=== PATIENT | male | born 1970 | race Caucasian/White ===

== ENCOUNTER → 2017-05-29 12:40 | Outpatient (CLI) | payer BC, MEDICAID, SELFPAY ==
--- NOTE | 2017-05-29 12:44 | US_ITS ---
US scrotum HISTORY: Left testicular pain and swelling with history of epididymitis ITS.REASON: SCROTAL SWELLING ORDERING PHYSICIAN: Nino Benedict MD PATIENT AGE: 46 years COMPARISON: None FINDINGS: RIGHT TESTICLE: The right testicle has an unremarkable appearance measuring 5.5 x 2.8 x 3.8 cm. No testicular mass apparent blood flow is present. There is a medium-sized right hydrocele. There is a small epididymal cyst on the right at 3 mm.. LEFT TESTICLE: The left testicle has an unremarkable appearance measuring5 x 2.7 x 3.5 cm. No mass, hydrocele, spermatocele, or varicocele evident. Blood flow is noted to the left testicle. IMPRESSION: Right hydrocele with small right epididymal cyst otherwise negative scrotal ultrasound.
== END ==
PROVIDERS: Family Provider Internal Medicine; PCP Internal Medicine; Visit Provider Urology
DX: N50.89 Other specified disorders of the male genital organs (principal)
CPT/HCPCS: 76870

== ENCOUNTER 2017-05-31 08:00 | Outpatient (RCR) | payer BC, MEDICAID, SELFPAY | END 2017-05-31 08:02 | disposition home or self-care (01) | LOC: PT 08:00 | PROVIDERS: Visit Provider Orthopaedic Surgery | DX: M25.562 Pain in left knee (principal) | CPT/HCPCS: 97014; 97016; 97033; 97110; 97164; G0283 ==

== ENCOUNTER 2017-06-26 08:09 | Day surgery (SDC) | payer MEDICAID, SELFPAY ==
[2017-06-26] VITALS (10 sets, daily range): BP systolic 121–139; BP diastolic 71–86; PULSE 63–79; RESP 16–18; TEMP 36.6–36.8; O2SAT 95–98; BMI 25.0
--- NOTE | 2017-06-26 08:56 | HMH.ANESCL ---
[facility] Anesthesia Checklist - Patient Identification Patient Identification: Arm Band, Verbal (Name & ) - Structural Data Admitted From: Home Planned Operative Procedure/s: scrotal exploration Consent for Planned Operative Procedure(s) Verified: Yes Verified Documents: Surgical Consent - NPO Status Verified Time NPO: 00:00 - Chart Verification Results Verified: CBC, BMP - Additional verifications Patient : No Anesthesia Reactions: No Hx Blood Transfusions: No Blood Transfusion Reaction: No Cephalosporin Allergy: No Previous Colonoscopy: No - Cardiovascular Assessment Heart Sounds: S1 & S2 Pulse Strength: Baseline Pulse Rhythm: Regular Peripheral Edema: No - Airway Assessment C-Spine Mobility Assessed: Yes TMJ Mobility Assessed: Yes Dentition: Good Dentition - Neurological Assessment Level of Consciousness: Awake, Alert, Appropriate Hx Seizures: No Numbness or tingling in extremities: No - Anesthesia Plan Anesthesia Risk discussed: Yes Anesthesia Plan: Verified ASA Class: II Anesthesia Type: General [facility] Anesthesia HX I have reviewed the patient's past medical history: Yes Medical History: Reports:: Hypertension Denies:: Cancer, Diabetes Mellitus Type 1, Diabetes Mellitus Type 2, MRSA Other Medical History: Reports: Arthritis, Other (sexual dysfunction) Laterality Cases: Right: Arthroscopy Knee Amputation: No Fractures: No *Family Hx:: Diabetes
--- NOTE | 2017-06-26 08:59 | P.PN_ITS ---
[facility] Anesthesia Checklist - Patient Identification Patient Identification: Arm Band, Verbal (Name & ) - Structural Data Admitted From: Home Planned Operative Procedure/s: scrotal exploration Consent for Planned Operative Procedure(s) Verified: Yes Verified Documents: Surgical Consent - NPO Status Verified Time NPO: 00:00 - Chart Verification Results Verified: CBC, BMP - Additional verifications Patient : No Anesthesia Reactions: No Hx Blood Transfusions: No Blood Transfusion Reaction: No Cephalosporin Allergy: No Previous Colonoscopy: No - Cardiovascular Assessment Heart Sounds: S1 & S2 Pulse Strength: Baseline Pulse Rhythm: Regular Peripheral Edema: No - Airway Assessment C-Spine Mobility Assessed: Yes TMJ Mobility Assessed: Yes Dentition: Good Dentition - Neurological Assessment Level of Consciousness: Awake, Alert, Appropriate Hx Seizures: No Numbness or tingling in extremities: No - Anesthesia Plan Anesthesia Risk discussed: Yes Anesthesia Plan: Verified ASA Class: II Anesthesia Type: General [facility] Anesthesia HX I have reviewed the patient's past medical history: Yes Medical History: Reports:: Hypertension Denies:: Cancer, Diabetes Mellitus Type 1, Diabetes Mellitus Type 2, MRSA Other Medical History: Reports: Arthritis, Other (sexual dysfunction) Laterality Cases: Right: Arthroscopy Knee Amputation: No Fractures: No *Family Hx:: Diabetes
--- NOTE | 2017-06-26 11:01 | P.PN_ITS ---
[facility] Anesthesia Record Part I Intake, IV Amount: 800 Estimated blood loss (mL): 5 Urine output (mL): 0 Blood Pressure: 139/78 SaO2: 98 Pulse Rate: 79 Respiratory Rate: 16 Temperature: 97.8 F Patient is:: Drowsy, Stable Stable to PACU at:: 10:55
--- NOTE | 2017-06-26 11:01 | HMH.ANESII ---
[facility] Anesthesia Record Part II Discharge Time: 11:25 Destination: [facility] PACU nurse assessment reviewed?: Yes Patient Condition:: Good Anesthesia Complications:: None
--- NOTE | 2017-06-26 11:02 | P.PN_ITS ---
[facility] Anesthesia Record Part II Discharge Time: 11:25 Destination: [facility] PACU nurse assessment reviewed?: Yes Patient Condition:: Good Anesthesia Complications:: None
--- NOTE | 2017-06-26 12:02 | HMH.OPNOTE ---
Date of procedure: 06/26/17 Pre-op Diagnosis:: Chronic left orchitis Post-op diagnosis:: same Procedure performed:: Left scrotal exploration and left scrotal orchiectomy Surgeon:: Nino Benedict MD [employer] MACHINE OPERATOR:: Bill Cheatham Anesthesia: GETA, MAC Estimated blood loss (mL): 0 Clinical Note:: Patient is here with many years history of left scrotal and testicular pain 10 years ago he underwent a left epididymectomy for chronic epididymitis. Improved his discomfort for a brief period of time. For several years he has had recurrence of chronic left-sided scrotal discomfort and pain. He has tried conservative therapy including prolonged courses of antibiotics. Unfortunately these have not been effective. After discussing options he has decided to proceed with left scrotal exploration and probable left orchiectomy and less pathology is encountered which likely is the source of his pain. Standard wishes to proceed. He also understands the possibility of persistent pain. On physical exam his testis appears to be the source of his discomfort. Operative findings:: Chronic left orchitis Operative note:: For satisfactory general anesthesia in the genital area was prepped and draped standard fashion. The left scrotum was entered transversely. His testis was densely adherent to the internal dark toes. The plane was developed. The testis was inspected. There is no obvious mass within the testis but otherwise the testis appeared to be of normal size. The decision was made for removal of the left testis. The cord was developed high in the scrotum. The cord was taken into pedicles doubly clamped with Maylin clamps and divided. Each pedicle was secured with twice 0 Vicryl suture ligature and hemostasis observed. The internal scrotal compartment was inspected and there is no significant bleeding. The scrotum was closed in 2 layers first with 2-0 chromic order to close the space of the left scrotum. The skin edges were then approximated with 3-0 chromic. Neosporin was applied. Fluffs and scrotal support was placed. Patient was awakened and extubated transferred postop recovery room in stable condition. He is placed on Bactrim double strength twice daily for 1 week. He was given a prescription for Dilaudid 2 mg #20 and Phenergan 25 mg tablets #20 Condition: stable Disposition: PACU Specimens:: Left testis Complications:: None
== END 2017-06-26 12:08 | disposition home or self-care (01) ==
PROVIDERS: Family Provider Internal Medicine; PCP Internal Medicine; Visit Provider Urology
PROC: (CPT 54520; principal; 2017-06-26 09:45)
DX: N45.2 Orchitis (principal)
CPT/HCPCS: 54520; 96374; J2405

== ENCOUNTER 2017-09-04 23:12 | Observation (INO) ==
--- NOTE | 2017-09-04 23:22 | Emergency Department Note ---
ED Disposition Clinical Impression: Hypokalemia Pharyngitis Qualifiers: Pharyngitis/tonsillitis etiology: unspecified etiology Qualified Code(s): J02.9 - Acute pharyngitis, unspecified Disposition: Admitted as Observation Condition on Discharge: Good Referrals: Jam Pimentel [Primary Care Provider] - - Critical Care Critical Care Time: No Attestation: On , the high probability of a clinically significant, sudden or life threatening deterioration of the following system(s) required my full and direct attention, intervention and personal management. The time I documented below is in addition to time spent performing reported procedures but includes the following listed in this critical care notation. Medical Decision Making - Medical Records Medical records reviewed: Yes: I reviewed the patient's medical records. - Chuck Inquiry Pt receiving controlled substance: No Vital Signs: 09/04/17 23:17 09/04/17 23:39 Temperature 99.5 F Temperature Source Oral Pulse Rate [Right Radial] 134 H 122 H Respiratory Rate 24 Blood Pressure [Right Radial Artery] 146/84 136/90 Blood Pressure Mean [Right Radial Artery] 104 105 Blood Pressure Source [Right Radial Artery] Automatic Cuff Manual Cuff/ Palpation Blood Pressure Position [Right Radial Artery] Sitting 02 Sat by Pulse Oximetry 98 98 Oxygen Delivery Method Room Air Room Air - Lab Data Lab results reviewed: Yes: I reviewed the patient's lab results. Lab Results 09/04/17 23:30: WBC 11.5 H, RBC 5.07, Hgb 15.4, Hct 43.7, MCV 86.2, MCH 30.3, MCHC 35.1, RDW 12.4, Plt Count 400, MPV 6.6 L, Neut % (Auto) 74.7, Lymph % (Auto ) 16.2, [place] % (Auto) 8.3, Eos % (Auto) 0.5, Baso % (Auto) 0.3, Neut # (Auto) 8.6 H, Lymph # (Auto) 1.9, [place] # (Auto) 1.0, Eos # (Auto) 0.1, Baso # (Auto) 0.0, ESR 8 09/04/17 23:30: Sodium 146 H, Potassium 2.9 L*, Chloride 107, Carbon Dioxide 25 , Anion Gap 16.9 H, BUN 11, Creatinine 1.08, Estimated Creat Clear 107, Estimated GFR 73, Est GFR ( Amer) 88, Glucose 210 H Result diagrams: 09/04/17 23:30 09/04/17 23:30 Orders (Tests/Meds): ED MEDICATIONS Generic Name Dose Route Start Last Admin Trade Name Freq PRN Reason Stop Dose Admin Sodium Chloride 1,000 mls @ 500 mls/hr 09/04/17 23:30 09/04/17 23:33 Sod Chlor 0.9% 1000ml Bag IV 10/04/17 23:29 500 mls/hr .Q2H NILSA Administration Ampicillin Sodium/Sulbactam 100 mls @ 200 mls/hr 09/05/17 00:30 Sodium 3 gm/ Sodium Chloride IV 09/19/17 00:29 Q6H NILSA Protocol Discontinued Medications Generic Name Dose Route Start Last Admin Trade Name Freq PRN Reason Stop Dose Admin Diphenhydramine HCl 25 mg 09/05/17 00:03 09/05/17 00:08 Benadryl 50mg/1ml Vial IV 09/05/17 00:04 25 mg ONCE ONE Administration Famotidine 20 mg 09/05/17 00:03 09/05/17 00:08 Pepcid 20mg/2ml Vial IV 09/05/17 00:04 20 mg ONCE ONE Administration Methylprednisolone Sodium Succinate 125 mg 09/04/17 23:26 09/04/17 23:33 Solu-Medrol 125mg/2ml Vial IV 09/04/17 23:27 125 mg ONCE ONE Administration ORDERS Category Date Time Status CT soft tissue neck w con Stat Cat Scan 09/04/17 23:25 Ordered - CT Data CT Scan: Other (neck) Time Received: 00:[address] Reviewed: Yes: I have viewed the radiologist's interpretation Preliminary Findings: Normal/NAD (no abscess) - ECG Data Tracing #1 I reviewed this ECG and interpreted as documented below: Arrhythmias present: sinus tach Ischemic changes: non-specific ST-T wave changes URI/Sore Throat HPI - General Stated Complaint: difficulty breathing Time Seen by Provider: 09/04/17 23:23 Mode of Arrival: Ambulatory Source of Information: Patient, Medical Record Limitations: No Limitations - History of Present Illness HPI Narrative: sore throat over the last few hrs with choking sensation Complaint: sore throat Onset (ago): hour(s) Duration: constant Severity: moderate Able to tolerate fluids by mouth: No - Related Data Home Medications Medication Instructions Recorded Confirmed amlodipine 5 mg tablet 5 mg PO QDAY 05/22/17 09/04/17 Allergies Allergy/AdvReac Type Severity Reaction Status Date / Time hydrocodone [HYDROCODONE] Allergy Mild itching Verified 09/04/17 23:22 TRANSPORE TAPE Allergy Unknown I-RASH Uncoded 04/17/17 15:03 [facility] History I have reviewed the patient's past medical history: Yes Medical History: Reports:: Hypertension Denies:: Cancer, Diabetes Mellitus Type 1, Diabetes Mellitus Type 2, MRSA, Seizures Other Medical History: Reports: Arthritis, Other. Denies: Blood Transfusion Reaction Laterality Cases: Right: Arthroscopy Knee Amputation: No Fractures: No - Social History Smoking Status: Never smoker Alcohol Intake: never Occupational Status: unemployed Household Members: none Family Hx:: Diabetes ROS Obtained: Yes All systems reviewed & no additional complaints - Constitutional Constitutional: Denies fever(s) - Eyes Eyes: Denies change in vision - ENT Ears, Nose, Mouth, and Throat: Reports as per HPI, Denies change in voice, Reports difficulty swallowing, Denies otalgia, Reports sore throat - Cardiovascular Cardiovascular: Denies chest pain - Respiratory Respiratory: No cough - Gastrointestinal Gastrointestingal: Denies: abdominal pain - Genitourinary Male Genitourinary: Denies hematuria - Musculoskeletal Musculoskeletal: Denies joint pain, Denies joint swelling - Integumentary/Breasts Skin/Breast: Denies rash - Neurologic Neurologic: Denies seizure-like activity Physical Exam - General General appearance: in no apparent distress, anxious - Head Head exam: normocephalic - Eye Eye exam: Present: PERRL, EOMI - ENT ENT exam: Present: mucous membranes dry, other (swollen/red rt tonsillar area with reddned hard palate but no abscess or airway obstruction ) - Expanded ENT Exam Mouth exam: Present: tongue normal. Absent: lip swelling Throat exam: Present: tonsillar erythema. Absent: tonsillar exudate, R peritonsillar mass, L peritonsillar mass, muffled voice - Neck Neck exam: Present: trachea midline - Respiratory Respiratory exam: Present: normal lung sounds bilaterally. Absent: respiratory distress - Cardiovascular Cardiovascular exam: Present: regular rate. Absent: systolic murmur - Abdominal Exam Abdominal exam: Present: soft - Extremities Exam Extremities exam: Absent: calf tenderness - Neurological Exam Neurological exam: Present: alert, oriented X3, CN II-XII intact - Psychiatric Psychiatric exam: Present: normal affect - Skin Skin exam: Absent: rash
[2017-09-04 23:32] LABS: Basophils % 0.3 % (0.1-2.0); Eosinophils # 0.1 K/mm3 (0.0-0.4); Eosinophils % 0.5 % (0.1-12.0); Hematocrit 43.7 % (42.0-52.0); Hemoglobin 15.4 g/dL (14.1-18.0); Lymphocytes # 1.9 K/mm3 (0.7-4.5); Lymphocytes % 16.2 K/mm3 (10-50); Mean Corpuscular HGB Conc 35.1 g/dL (31.8-35.4); Mean Corpuscular Hemoglobin 30.3 pg (27.0-31.2); Mean Corpuscular Volume 86.2 fl (80-94); Mean Platelet Volume 6.6 fl (7.4-10.4); Monocytes % 8.3 % (1.7-9.3); Neutrophils # 8.6 K/mm3 (1.8-7.8); Neutrophils % 74.7 % (37.0-80.0); Platelet Count 400 K/mm3 (142-424); Red Blood Count 5.07 M/mm3 (4.60-6.20); Red Cell Distribution Width 12.4 % (11.5-17.5); White Blood Count 11.5 K/mm3 (4.8-10.8)
[2017-09-04 23:42] LABS: Anion Gap 16.9 mEq/L (5-15)
[2017-09-04 23:47] LABS: Potassium 2.9 mmoL/L (3.5-5.1)
[2017-09-05 00:09] LABS: Erythrocyte Sedimentation Rate 8 mm/hr (0-15)
[2017-09-05 07:07] LABS: Basophils % 0.1 % (0.1-2.0); Eosinophils % 0.1 % (0.1-12.0); Hematocrit 41.9 % (42.0-52.0); Hemoglobin 14.7 g/dL (14.1-18.0); Lymphocytes # 0.6 K/mm3 (0.7-4.5); Lymphocytes % 5.4 K/mm3 (10-50); Mean Corpuscular HGB Conc 35.1 g/dL (31.8-35.4); Mean Corpuscular Hemoglobin 30.8 pg (27.0-31.2); Mean Corpuscular Volume 87.8 fl (80-94); Mean Platelet Volume 6.8 fl (7.4-10.4); Monocytes # 0.3 K/mm3 (0.1-1.0); Monocytes % 2.5 % (1.7-9.3); Neutrophils # 9.6 K/mm3 (1.8-7.8); Neutrophils % 91.8 % (37.0-80.0); Platelet Count 344 K/mm3 (142-424); Red Blood Count 4.77 M/mm3 (4.60-6.20); Red Cell Distribution Width 12.5 % (11.5-17.5); White Blood Count 10.5 K/mm3 (4.8-10.8)
[2017-09-05 07:15] LABS: Anion Gap 12.8 mEq/L (5-15); Potassium 3.8 mmoL/L (3.5-5.1)
--- NOTE | 2017-09-05 07:16 | Pharmacy Consult Notes ---
[facility] Pharmacy VTE Monitoring - Patient Demographics Admission date: 09/04/17 Report Date: 09/05/17 Time: 07:16 Allergies/Adverse Reactions: Patient Allergies hydrocodone [HYDROCODONE] Allergy (Mild, Verified 09/04/17 23:22) itching acetaminophen [From Percocet] Allergy (Unknown, Verified 09/05/17 01:30) oxycodone [From Percocet] Allergy (Unknown, Verified 09/05/17 01:30) TRANSPORE TAPE Allergy (Unknown, Uncoded 04/17/17 15:03) I-RASH Height: 1.88 m Weight: 92.4 kg Patient Problems: Current Active Problems Pharyngitis (Acute) Hypokalemia (Acute) - VTE Risk Labs: VTE Related Lab Results Hgb 14.7 g/dL (14.1-18.0) 09/05/17 06:12 Hct 41.9 % (42.0-52.0) L 09/05/17 06:12 Plt Count 344 K/mm3 (142-424) 09/05/17 06:12 BUN 11 mg/dL (7-18) 09/04/17 23:30 Creatinine 1.08 mg/dL (0.70-1.30) 09/04/17 23:30 Estimated Creat Clear 107 mL/min (0-300) 09/04/17 23:30 Was VTE Risk Assessment Performed: Yes VTE Score: 2 Clinical Trial Participant: No - Prophylaxis VTE Prophylaxis Ordered?: Yes Types of VTE Prophylaxis: TEDS Knee High
--- NOTE | 2017-09-05 07:53 | H&P/Discharge Summary ---
General - General Admission date:: 09/05/17 Discharge date: 09/05/17 *Admission Date: 09/04/17 *Chief complaint: Severe sore throat *History of present illness: 47-year-old white male, patient of Dr. Pimentel who takes blood pressure pills, specifically amlodipine/benazepril combination, came to the emergency department with a severe sore throat and weakness. Found to be hypokalemic, noted to have significant blisters and exudate in his throat. Streptococcal testing was negative, admitted to hospital overnight for replacement of potassium therapy. This morning he feels improved. [facility] History I have reviewed the patient's past medical history: Yes Medical History: Reports:: Hypertension Denies:: Cancer, Diabetes Mellitus Type 1, Diabetes Mellitus Type 2, MRSA, Seizures Other Medical History: Reports: Arthritis, Other. Denies: Blood Transfusion Reaction Laterality Cases: Left: Arthroscopy Knee Amputation: No Fractures: No - *Social History Educational Level: Completed High School Smoking Status: Never smoker Alcohol Intake: never Occupational Status: unemployed Housing: house Household Members: significant other - Psychiatric History Expresses thoughts of harming self/others: None Suicide Plan Description: No Plan *Family Hx:: Asthma, Diabetes, Hyperlipidemia, Hypertension Review of Systems - Constitutional Reports body ache(s), Denies chills, Denies daytime sleepiness - Eyes Denies blind spots, Denies blurry vision - ENT Reports dry mouth, Reports difficulty swallowing, Reports bad breath, Reports mouth lesions, Denies abnormal hearing, Denies ear pain, Denies headache(s), Denies hearing loss - *Cardiovascular Denies chest pain, Denies chest pain at rest, Denies chest pain with activity - *Respiratory Denies change in phlegm color, Denies chest congestion - *Gastrointestinal Denies abdominal pain - *Genitourinary Denies difficulty urinating - *Musculoskeletal Denies abnormal walking, Denies joint pain - Integumentary/Breasts Denies acne - *Neurologic Denies seizure-like activity - Endocrine Denies cold intolerance, Denies excessive sweating Exam Vital signs and Labs for Last 24 Hours: Temp Pulse Resp BP Pulse Ox 98.0 F 86 16 115/62 97 09/05/17 03:58 09/05/17 03:58 09/05/17 03:58 09/05/17 03:58 09/05/17 03:58 Laboratory Results - last 24 hr 09/04/17 23:30: WBC 11.5 H, RBC 5.07, Hgb 15.4, Hct 43.7, MCV 86.2, MCH 30.3, MCHC 35.1, RDW 12.4, Plt Count 400, MPV 6.6 L, Neut % (Auto) 74.7, Lymph % (Auto ) 16.2, [place] % (Auto) 8.3, Eos % (Auto) 0.5, Baso % (Auto) 0.3, Neut # (Auto) 8.6 H, Lymph # (Auto) 1.9, [place] # (Auto) 1.0, Eos # (Auto) 0.1, Baso # (Auto) 0.0, ESR 8 09/04/17 23:30: Sodium 146 H, Potassium 2.9 L*, Chloride 107, Carbon Dioxide 25 , Anion Gap 16.9 H, BUN 11, Creatinine 1.08, Estimated Creat Clear 107, Estimated GFR 73, Est GFR ( Amer) 88, Glucose 210 H 09/05/17 00:00: Hemoglobin A1c 6.7 09/05/17 00:45: Group A Strep Rapid Negative 09/05/17 06:12: WBC 10.5, RBC 4.77, Hgb 14.7, Hct 41.9 L, MCV 87.8, MCH 30.8, MCHC 35.1, RDW 12.5, Plt Count 344, MPV 6.8 L, Neut % (Auto) 91.8 H, Lymph % ( Auto) 5.4 L, [place] % (Auto) 2.5, Eos % (Auto) 0.1, Baso % (Auto) 0.1, Neut # ( Auto) 9.6 H, Lymph # (Auto) 0.6 L, [place] # (Auto) 0.3, Eos # (Auto) 0.0, Baso # ( Auto) 0.0 09/05/17 06:12: Sodium 144, Potassium 3.8 D, Chloride 108 H, Carbon Dioxide 27 , Anion Gap 12.8, BUN 10, Creatinine 0.85 D, Estimated Creat Clear 139, Estimated GFR 96, Est GFR ( Amer) 116 D, Glucose 255 H D I & O for Last 24 hours: Intake & Output 09/02/17 09/03/17 09/04/17 05/09/18 11:59 11:59 11:59 11:59 Intake Total 1500 / 1500 Balance 1500 / 1500 Weight 203 lb 11.314 oz Narrative: This morning patient is awake, alert. Lungs are clear, heart rate regular. No murmurs. Abdomen soft. No lymphadenitis in the anterior cervical or posterior cervical chains. No supraclavicular nodes. Oropharynx has some vesicles, apparently improved over admission exam. Tympanic membranes clear. No rash. Hospital Course Hospital Course: Patient was admitted, IV fluids were given. No fevers through the night. Streptococcal testing has been negative. White counts normalized. This morning patient's potassium was normal after replacement, feels much better. Will be discharged home. Results Labs on day of discharge: Labs from last 24 hours 09/05/17 09/05/17 09/05/17 06:12 06:12 00:45 WBC 10.5 RBC 4.77 Hgb 14.7 Hct 41.9 L MCV 87.8 MCH 30.8 MCHC 35.1 RDW 12.5 Plt Count 344 MPV 6.8 L Neut % (Auto) 91.8 H Lymph % (Auto) 5.4 L [place] % (Auto) 2.5 Eos % (Auto) 0.1 Baso % (Auto) 0.1 Neut # (Auto) 9.6 H Lymph # (Auto) 0.6 L [place] # (Auto) 0.3 Eos # (Auto) 0.0 Baso # (Auto) 0.0 ESR Sodium 144 Potassium 3.8 D Chloride 108 H Carbon Dioxide 27 Anion Gap 12.8 BUN 10 Creatinine 0.85 D Estimated Creat Clear 139 Estimated GFR 96 Est GFR ( Amer) 116 D Glucose 255 H D Hemoglobin A1c Group A Strep Rapid Negative 09/05/17 09/04/17 09/04/17 00:00 23:30 23:30 WBC 11.5 H RBC 5.07 Hgb 15.4 Hct 43.7 MCV 86.2 MCH 30.3 MCHC 35.1 RDW 12.4 Plt Count 400 MPV 6.6 L Neut % (Auto) 74.7 Lymph % (Auto) 16.2 [place] % (Auto) 8.3 Eos % (Auto) 0.5 Baso % (Auto) 0.3 Neut # (Auto) 8.6 H Lymph # (Auto) 1.9 [place] # (Auto) 1.0 Eos # (Auto) 0.1 Baso # (Auto) 0.0 ESR 8 Sodium 146 H Potassium 2.9 L* Chloride 107 Carbon Dioxide 25 Anion Gap 16.9 H BUN 11 Creatinine 1.08 Estimated Creat Clear 107 Estimated GFR 73 Est GFR ( Amer) 88 Glucose 210 H Hemoglobin A1c 6.7 Group A Strep Rapid DS: Diagnosis - Discharge Diagnosis (1) Hypokalemia Status: Resolved Problem details: Problem resolved, will send patient home with low-dose potassium replacement (2) Pharyngitis Status: Resolved Problem details: Overall improved. Discharge home. Supportive care. Discharge Medications Discharge Medications: Home Medications Medication Instructions Recorded Confirmed Type Amlodipine Besylate/Benazepril 1 cap PO DAILY 09/05/17 09/05/17 History [Amlodipine-Benazepril 10-20 mg] Diclofenac Potassium [Diclofenac 50 mg PO BIDWM 09/05/17 09/05/17 History 50mg Tab]
[2017-09-05 08:01] VITALS: BP 132/79
[2017-09-05 09:55] LABS: Lymphocytes % 2 % (10-50); Monocytes % 3 % (2-9); Neutrophils % 95 % (42-76); Total Cells Counted 100
== END 2017-09-05 09:21 | disposition home or self-care (01) ==
LOC: ER 23:12 → 2ND 23:12
PROVIDERS: ADMIT Emergency Medicine; ATTEND Internal Medicine Adolescent Medicine

== ENCOUNTER → 2017-11-09 14:13 | Outpatient (REF) | payer OTHER, SELFPAY ==
[2017-11-13 19:21] LABS: Neisseria gonorrhoeae, NAA Negative (Negative)
== END ==
LOC: LAB 14:13
PROVIDERS: Visit Provider Internal Medicine
DX: Z11.3 Encounter for screening for infections with a predominantly sexual mode of transmission (principal)
CPT/HCPCS: 87491; 87591

== ENCOUNTER 2018-06-03 08:00 | Outpatient (RCR) | payer OTHER, SELFPAY | END 2018-06-03 08:05 | disposition home or self-care (01) | LOC: PT 08:00 | PROVIDERS: Visit Provider Orthopaedic Surgery Adult Reconstructive Orthopaedic Surgery | DX: Z96.662 Presence of left artificial ankle joint (principal) | CPT/HCPCS: 97010; 97014; 97016; 97110; 97140; 97163; 97164; G0283 ==

== ENCOUNTER 2019-02-24 08:30 | Outpatient (RCR) | payer OTHER, SELFPAY | END 2019-02-24 08:35 | disposition home or self-care (01) | LOC: PT 08:30 | PROVIDERS: PCP Internal Medicine; Visit Provider Orthopaedic Surgery Adult Reconstructive Orthopaedic Surgery | DX: M25.562 Pain in left knee (principal); Z96.652 Presence of left artificial knee joint | CPT/HCPCS: 97010; 97014; 97016; 97110; 97140; 97163; 97164; G0283 ==

== ENCOUNTER 2020-07-15 09:00 | Outpatient (RCR) | payer MEDICARE, SELFPAY | END 2020-07-15 09:05 | disposition home or self-care (01) | LOC: PT 09:00 | PROVIDERS: PCP Internal Medicine; Visit Provider Orthopaedic Surgery Adult Reconstructive Orthopaedic Surgery | DX: M25.562 Pain in left knee (principal); Z96.652 Presence of left artificial knee joint | CPT/HCPCS: 97014; 97016; 97110; 97140; 97163; 97164; 97760; G0283 ==

== ENCOUNTER → 2020-12-09 08:36 | Outpatient (CLI) | payer MEDICARE, SELFPAY ==
--- NOTE | 2020-12-09 08:44 | XR_ITS ---
PROCEDURE: XR LUMBAR SPINE MIN 4V CLINICAL INDICATION: LOW BACK PAIN COMPARISON: No exams were available for comparison FINDINGS: Normal alignment. Mild degenerative disc disease is present at L3-L4 L4-5 at L5-S1 with small anterior osteophytes noted at L2-L5 and at T11. No acute fracture or dislocation. Facet arthritic changes are present at L4-5 and L5-S1. The SI joints have an unremarkable appearance. Other findings:None. IMPRESSION: Degenerative changes as described above. Dictated by: Derian Youngblood MD 12/09/2020 11:45 Derian Youngblood MD in [place] 12/09/2020 11:45
== END ==
PROVIDERS: PCP Internal Medicine; Visit Provider Internal Medicine
DX: M54.5 Low back pain (principal)
CPT/HCPCS: 72110

== ENCOUNTER → 2021-03-02 18:38 | Outpatient (CLI) | payer MEDICARE, SELFPAY ==
[2021-03-02 19:50] LABS: Hemoglobin A1C 6.8 % (4.0-6.0)
[2021-03-02 21:30] LABS: Chloride 102 mmol/L (98-107); Potassium 4.3 mmoL/L (3.5-5.1); Sodium 141 mmol/L (136-145)
[2021-03-02 21:32] LABS: Alanine Aminotransferase 73 U/L (12-78); Alkaline Phosphatase 100 U/L (38-126); Aspartate Amino Transferase 59 U/L (17-59); Bilirubin,Total 1.3 mg/dl (0.2-1.3); Blood Urea Nitrogen 11 mg/dl (9-20); Estimated Glomerular Filt Rate 119 ml/min (>60); GFR (African American) 144 ML/MIN (>60)
[2021-03-02 21:33] LABS: Albumin Level 4.4 g/dl (3.5-5.0); Albumin/Globulin Ratio 1.5 (1.1-1.8); Anion Gap 17.3 mEq/L (5-15); Calcium 9.3 mg/dl (8.4-10.2); Carbon Dioxide 26 mmol/L (22.0-30.0); Chol/HDL Ratio 4.6 (1-3.5); Cholesterol 194 mg/dl (140-200); Glucose 125 mg/dl (74-100); HDL Cholesterol 42 mg/dl (40-60); Total Protein,Serum 7.4 g/dl (6.3-8.2); Triglycerides 221 mg/dl (30-150); VLDL Cholesterol 44 mg/dL (0-40)
[2021-03-02 21:44] LABS: Direct LDL Cholesterol 114.26 mg/dL (100-129)
[2021-03-02 22:36] LABS: Prostate Specific Ag Screen 1.2 ng/ml (0.0-4.0)
== END ==
PROVIDERS: Visit Provider Internal Medicine
DX: E11.9 Type 2 diabetes mellitus without complications (principal); E78.5 Hyperlipidemia, unspecified; I10 Essential (primary) hypertension; Z12.5 Encounter for screening for malignant neoplasm of prostate; Z79.84 Long term (current) use of oral hypoglycemic drugs
CPT/HCPCS: 80053; 80061; 82043; 83036; G0103

== ENCOUNTER → 2021-05-31 14:22 | Outpatient (POV) | payer MEDICARE, SELFPAY | PROVIDERS: Visit Provider Dermatology | DX: Z00.00 Encounter for general adult medical examination without abnormal findings (principal) ==

== ENCOUNTER → 2021-06-08 09:41 | Outpatient (CLI) | payer MEDICARE, SELFPAY | PROVIDERS: PCP Internal Medicine; Visit Provider Surgery | DX: Z01.812 Encounter for preprocedural laboratory examination (principal); Z11.52 Encounter for screening for COVID-19; Z12.11 Encounter for screening for malignant neoplasm of colon | CPT/HCPCS: C9803; U0003; U0005 ==

== ENCOUNTER 2021-06-10 06:31 | Day surgery (SDC) | payer MEDICARE, SELFPAY ==
[2021-06-08 11:45] VITALS: BMI 25.7
[2021-06-10] VITALS (9 sets, daily range): BP systolic 117–135; BP diastolic 68–92; PULSE 52–74; RESP 16–18; TEMP 36.1–37; O2SAT 96–99
--- NOTE | 2021-06-10 07:02 | P.PN_ITS ---
[facility] Anesthesia Checklist - Patient Identification Patient Identification: Arm Band - Structural Data Admitted From: Home Planned Operative Procedure/s: Colonoscopy Consent for Planned Operative Procedure(s) Verified: Yes - NPO Status Verified Time NPO: 02:30 (Prep) - Additional verifications Anesthesia Reactions: No Hx Blood Transfusions: No Blood Transfusion Reaction: No - Airway Assessment C-Spine Mobility Assessed: Yes TMJ Mobility Assessed: Yes Dentition: Good Dentition - Neurological Assessment Level of Consciousness: Awake Hx Seizures: No Numbness or tingling in extremities: No - Anesthesia Plan Anesthesia Risk discussed: Yes Anesthesia Plan: Verified ASA Class: II Anesthesia Type: MAC [facility] History I have reviewed the patient's past medical history: Yes Medical History: Reports:: Diabetes Mellitus Type 2, Hypertension Denies:: Cancer, Diabetes Mellitus Type 1, MRSA, Seizures *Have you ever received a pneumonia vaccine?: No *Have you received a flu vaccine this season?: No Other Medical History: Reports: Arthritis, Other. Denies: Blood Transfusion Re action Anesthesia experience/problems:: None Laterality Cases: Left: Arthroscopy Knee Other Surgeries: Yes: Sinus Surgery Amputation: No Fractures: No - *Social History Last grade of school completed: High school graduate Smoking Status: Never smoker Alcohol Intake: never Substance Use Type: denies use *Occupational Status:: retired Housing: house Household Members: significant other *Travel in the last 8 weeks: None Family Hx:: Diabetes
--- NOTE | 2021-06-10 07:47 | P.PCN_ITS ---
- Procedure: Date: 06/10/21 Patient Date of :: 1970 Procedure Performed:: Total colonoscopy to terminal ileum Indications:: Patient is a 50-year-old male scheduled for colonoscopy for screening purposes referred by Dr. Pimentel. He did undergo a colonoscopy he states about 10 years ago after he had to have some colorectal surgery. Performing Provider:: Hussein York MD Referring Provider:: Jam Pimentel MD Sedation:: MAC sedation Procedure:: Patient was taken to endoscopy procedure room. He was positioned in lateral decubitus position. Adequate intravenous sedation was achieved with anesthesia titration of propofol. Digital examination was performed which was unremarkable. Variable stiffness Olympus colonoscope was inserted via the anus. Is advanced to the cecum. Ileocecal valve and appendiceal orifice were clearly identified. Colonic preparation was good. The colonoscope was advanced a short distance into the terminal ileum which appeared grossly normal. Colonoscope was slowly withdrawn through the colon with careful surveillance. There were no masses, polyps, diverticuli or mucosal lesions noted. Within the rectum ret roflexion was performed which revealed no evidence of any pathologic internal hemorrhoids. Colonoscope was withdrawn. Findings:: Normal colonoscopy to terminal ileum Recommendations:: Repeat colonoscopy 5 to 10 years based on previous reported history of polyps. Complications:: None immediately apparent Estimated blood obtained (mL): 0
[2022-01-26 10:57] LABS: POC Glucose,Bedside 183 (70-110)
== END 2021-06-10 08:55 | disposition home or self-care (01) ==
LOC: OUTP 06:33
PROVIDERS: PCP Internal Medicine; Visit Provider Surgery
PROC: 0DJD8ZZ Inspection of Lower Intestinal Tract, Via Natural or Artificial Opening Endoscopic (ICD-10-PCS; principal; 2021-06-10 07:30)
DX: Z12.11 Encounter for screening for malignant neoplasm of colon (principal); E11.9 Type 2 diabetes mellitus without complications; I10 Essential (primary) hypertension; M19.90 Unspecified osteoarthritis, unspecified site; Z83.3 Family history of diabetes mellitus; Z88.6 Allergy status to analgesic agent; Z79.84 Long term (current) use of oral hypoglycemic drugs; Z79.899 Other long term (current) drug therapy
CPT/HCPCS: G0121; 82962; J2704

== ENCOUNTER → 2021-08-23 15:10 | Outpatient (CLI) | payer MEDICARE, SELFPAY ==
[2021-08-23 16:27] LABS: Chloride 103 mmol/L (98-107); Potassium 3.8 mmoL/L (3.5-5.1); Sodium 141 mmol/L (136-145)
[2021-08-23 16:29] LABS: Blood Urea Nitrogen 13 mg/dl (9-20); Estimated Glomerular Filt Rate 89 ml/min (>60); GFR (African American) 107 ML/MIN (>60); Hemoglobin A1C 8.1 % (4.0-6.0)
[2021-08-23 16:30] LABS: Alanine Aminotransferase 61 U/L (12-78); Albumin Level 4.2 g/dl (3.5-5.0); Albumin/Globulin Ratio 1.6 (1.1-1.8); Alkaline Phosphatase 83 U/L (38-126); Anion Gap 13.8 mEq/L (5-15); Aspartate Amino Transferase 38 U/L (17-59); Bilirubin,Total 1.1 mg/dl (0.2-1.3); Calcium 9.8 mg/dl (8.4-10.2); Carbon Dioxide 28 mmol/L (22.0-30.0); Cholesterol 176 mg/dl (140-200); Globulin 2.6 g/dL (1.3-3.2); Glucose 189 mg/dl (74-100); HDL Cholesterol 35 mg/dl (40-60); Total Protein,Serum 6.8 g/dl (6.3-8.2); Triglycerides 346 mg/dl (30-150); VLDL Cholesterol 69 mg/dL (0-40)
[2021-08-23 16:41] LABS: Direct LDL Cholesterol 77.15 mg/dL (100-129)
== END ==
PROVIDERS: Visit Provider Internal Medicine
DX: E11.9 Type 2 diabetes mellitus without complications (principal); I10 Essential (primary) hypertension; E78.5 Hyperlipidemia, unspecified; T46.4X5A Adverse effect of angiotensin-converting-enzyme inhibitors, initial encounter; Z79.84 Long term (current) use of oral hypoglycemic drugs
CPT/HCPCS: 80053; 80061; 83036

== ENCOUNTER → 2022-04-12 11:54 | Outpatient (CLI) | payer MEDICARE, SELFPAY ==
[2022-04-12 12:45] LABS: Hemoglobin A1C 6.7 % (4.0-6.0)
[2022-04-12 12:52] LABS: Alanine Aminotransferase 59 U/L (12-78); Albumin Level 4.5 g/dl (3.5-5.0); Albumin/Globulin Ratio 1.8 (1.1-1.8); Alkaline Phosphatase 96 U/L (38-126); Anion Gap 13.2 mEq/L (5-15); Aspartate Amino Transferase 40 U/L (17-59); Bilirubin,Total 1.2 mg/dl (0.2-1.3); Blood Urea Nitrogen 20 mg/dl (9-20); Calcium 9.5 mg/dl (8.4-10.2); Carbon Dioxide 25 mmol/L (22.0-30.0); Chloride 106 mmol/L (98-107); Cholesterol 176 mg/dl (140-200); Estimated Glomerular Filt Rate 102 ml/min (>60); GFR (African American) 123 ML/MIN (>60); Globulin 2.5 g/dL (1.3-3.2); Glucose 162 mg/dl (74-100); HDL Cholesterol 35 mg/dl (40-60); Potassium 4.2 mmoL/L (3.5-5.1); Sodium 140 mmol/L (136-145); Triglycerides 305 mg/dl (30-150); VLDL Cholesterol 61 mg/dL (0-40)
[2022-04-12 13:01] LABS: Microalbumin/Creatinine Ratio 15.2
[2022-04-12 13:03] LABS: Creatinine,Urine Random 169 mg/dL (Not Estab.); Direct LDL Cholesterol 80.05 mg/dL (100-129)
[2022-04-12 13:22] LABS: Prostate Specific Ag Screen 1.5 ng/ml (0.0-4.0)
== END ==
PROVIDERS: PCP Internal Medicine; Visit Provider Internal Medicine
DX: E11.9 Type 2 diabetes mellitus without complications (principal); I10 Essential (primary) hypertension; E78.5 Hyperlipidemia, unspecified; Z79.84 Long term (current) use of oral hypoglycemic drugs; Z12.5 Encounter for screening for malignant neoplasm of prostate
CPT/HCPCS: 80053; 80061; 82043; 82570; 83036; G0103

== ENCOUNTER → 2022-07-11 12:50 | Outpatient (CLI) | payer MEDICARE, SELFPAY ==
[2022-07-11 17:29] LABS: Hemoglobin A1C 6.5 % (4.0-6.0)
== END ==
PROVIDERS: PCP Internal Medicine; Visit Provider Internal Medicine
DX: I10 Essential (primary) hypertension (principal); E11.9 Type 2 diabetes mellitus without complications; Z79.84 Long term (current) use of oral hypoglycemic drugs
CPT/HCPCS: 83036

== ENCOUNTER → 2022-08-29 13:41 | Outpatient (CLI) | payer MEDICARE, SELFPAY ==
[2022-09-04 21:08] LABS: D001-IgE D pteronyssinus <0.10 kU/L (Class 0); D002-IgE D farinae <0.10 kU/L (Class 0); E001-IgE Cat Dander <0.10 kU/L (Class 0); E005-IgE Dog Dander <0.10 kU/L (Class 0); E072-IgE Mouse Urine <0.10 kU/L (Class 0); G002-IgE Bermuda Grass <0.10 kU/L (Class 0); G006-IgE Timothy Grass <0.10 kU/L (Class 0); I006-IgE Cockroach, German <0.10 kU/L (Class 0); Immunoglobulin E, Total 11 IU/mL (6-495); M001-IgE Penicillium chrysogen <0.10 kU/L (Class 0); M002-IgE Cladosporium herbarum <0.10 kU/L (Class 0); M003-IgE Aspergillus fumigatus <0.10 kU/L (Class 0); M006-IgE Alternaria alternata <0.10 kU/L (Class 0); T001-IgE Maple/Box Elder <0.10 kU/L (Class 0); T003-IgE Common Silver Birch <0.10 kU/L (Class 0); T006-IgE Cedar, Mountain <0.10 kU/L (Class 0); T007-IgE Oak, White <0.10 kU/L (Class 0); T008-IgE Elm, American <0.10 kU/L (Class 0); T010-IgE Walnut <0.10 kU/L (Class 0); T011-IgE Maple Leaf Sycamore <0.10 kU/L (Class 0); T014-IgE Cottonwood <0.10 kU/L (Class 0); T015-IgE Ash, White <0.10 kU/L (Class 0); T022-IgE Pecan, Hickory <0.10 kU/L (Class 0); T070-IgE White Mulberry <0.10 kU/L (Class 0); W001-IgE Ragweed, Short <0.10 kU/L (Class 0); W011-IgE Thistle, Russian <0.10 kU/L (Class 0); W014-IgE Pigweed, Common <0.10 kU/L (Class 0); W018-IgE Sheep Sorrel <0.10 kU/L (Class 0)
== END ==
PROVIDERS: PCP Internal Medicine; Visit Provider Otolaryngology
DX: J30.9 Allergic rhinitis, unspecified (principal); R05.9 Cough, unspecified; H93.19 Tinnitus, unspecified ear
CPT/HCPCS: 36415; 82785; 86003

== ENCOUNTER → 2022-09-28 11:01 | Outpatient (POV) | payer MEDICARE, SELFPAY | PROVIDERS: Visit Provider Specialist/Technologist | DX: Z00.00 Encounter for general adult medical examination without abnormal findings (principal) ==

== ENCOUNTER → 2022-10-11 14:50 | Outpatient (CLI) | payer MEDICARE, SELFPAY ==
[2022-10-11 16:20] LABS: Basophils # 0.1 K/mm3 (0-0.2); Basophils % 1.1 % (0.1-2.0); Eosinophils # 0.2 K/mm3 (0.0-0.4); Eosinophils % 3.4 % (0.1-12.0); Hematocrit 46.8 % (42.0-52.0); Hemoglobin 15.4 g/dL (14.1-18.0); Lymphocytes # 2.4 K/mm3 (0.7-4.5); Lymphocytes % 38.1 % (10-50); Mean Corpuscular Hemoglobin 28.9 pg (27.0-31.2); Mean Corpuscular Volume 87.5 fl (80-94); Mean Platelet Volume 8.4 fl (7.4-10.4); Monocytes # 0.5 K/mm3 (0.1-1.0); Monocytes % 7.9 % (1.7-9.3); Neutrophils # 3.1 K/mm3 (1.8-7.8); Neutrophils % 49.6 % (37.0-80.0); Platelet Count 402 K/mm3 (142-424); Red Blood Count 5.34 M/mm3 (4.60-6.20); Red Cell Distribution Width 12.6 % (11.5-17.5); White Blood Count 6.2 K/mm3 (4.8-10.8)
[2022-10-11 16:33] LABS: Hemoglobin A1C 6.5 % (4.0-6.0)
[2022-10-11 16:49] LABS: Alanine Aminotransferase 33 U/L (12-78); Albumin Level 4.8 g/dl (3.5-5.0); Albumin/Globulin Ratio 1.7 (1.1-1.8); Alkaline Phosphatase 91 U/L (38-126); Anion Gap 18.1 mEq/L (5-15); Aspartate Amino Transferase 35 U/L (17-59); Bilirubin,Total 1.6 mg/dl (0.2-1.3); Blood Urea Nitrogen 20 mg/dl (9-20); Calcium 9.4 mg/dl (8.4-10.2); Carbon Dioxide 26 mmol/L (22.0-30.0); Chloride 102 mmol/L (98-107); Chol/HDL Ratio 4.1 (1-3.5); Cholesterol 195 mg/dl (140-200); Estimated Glomerular Filt Rate 118 ml/min (>60); GFR (African American) 143 ML/MIN (>60); Globulin 2.8 g/dL (1.3-3.2); Glucose 135 mg/dl (74-100); HDL Cholesterol 48 mg/dl (40-60); Potassium 4.1 mmoL/L (3.5-5.1); Sodium 142 mmol/L (136-145); Total Protein,Serum 7.6 g/dl (6.3-8.2); Triglycerides 116 mg/dl (30-150); VLDL Cholesterol 23 mg/dL (0-40)
[2022-10-11 17:00] LABS: Direct LDL Cholesterol 111.92 mg/dL (100-129)
== END ==
PROVIDERS: PCP Internal Medicine; Visit Provider Internal Medicine
DX: E11.9 Type 2 diabetes mellitus without complications (principal); E78.5 Hyperlipidemia, unspecified; I10 Essential (primary) hypertension; M25.562 Pain in left knee; Z96.652 Presence of left artificial knee joint; Z79.84 Long term (current) use of oral hypoglycemic drugs
CPT/HCPCS: 80053; 80061; 83036; 85025

== ENCOUNTER 2023-05-08 13:54 | Outpatient (CLI) | payer MEDICARE, SELFPAY ==
[2023-05-08 15:00] LABS: Hemoglobin A1C 7.8 % (4.0-6.0)
[2023-05-08 15:26] LABS: Chloride 103 mmol/L (98-107)
[2023-05-08 15:27] LABS: Potassium 3.9 mmoL/L (3.5-5.1); Sodium 140 mmol/L (136-145)
[2023-05-08 15:29] LABS: Alanine Aminotransferase 86 U/L (12-78); Albumin Level 4.5 g/dl (3.5-5.0); Albumin/Globulin Ratio 1.6 (1.1-1.8); Alkaline Phosphatase 120 U/L (38-126); Anion Gap 16.9 mEq/L (5-15); Aspartate Amino Transferase 58 U/L (17-59); Bilirubin,Total 1.3 mg/dl (0.2-1.3); Blood Urea Nitrogen 13 mg/dl (9-20); Carbon Dioxide 24 mmol/L (22.0-30.0); Estimated Glomerular Filt Rate 101 ml/min (>60); GFR (African American) 122 ML/MIN (>60); Globulin 2.8 g/dL (1.3-3.2); Total Protein,Serum 7.3 g/dl (6.3-8.2)
[2023-05-08 15:30] LABS: Calcium 9.2 mg/dl (8.4-10.2); Chol/HDL Ratio 6.3 (1-3.5); Cholesterol 209 mg/dl (140-200); Glucose 178 mg/dl (74-100); HDL Cholesterol 33 mg/dl (40-60); Triglycerides 368 mg/dl (30-150); VLDL Cholesterol 74 mg/dL (0-40)
[2023-05-08 15:41] LABS: Direct LDL Cholesterol 102.59 mg/dL (100-129)
[2023-05-08 16:29] LABS: Prostate Specific Ag Screen 1.6 ng/ml (0.0-4.0)
[2023-05-08 17:49] LABS: Creatinine,Urine Random 366 mg/dL (Not Estab.); Microalbumin/Creatinine Ratio 24.3
== END 2023-05-08 23:59 ==
LOC: LAB.DROPOF 13:55
PROVIDERS: PCP Internal Medicine; Visit Provider Internal Medicine
DX: E11.9 Type 2 diabetes mellitus without complications (principal); E78.5 Hyperlipidemia, unspecified; I10 Essential (primary) hypertension; Z12.5 Encounter for screening for malignant neoplasm of prostate; Z79.84 Long term (current) use of oral hypoglycemic drugs; M25.562 Pain in left knee; Z96.652 Presence of left artificial knee joint
CPT/HCPCS: 80053; 80061; 82043; 82570; 83036; G0103

== ENCOUNTER 2023-10-24 11:35 | Emergency (ER) | payer MEDICARE, SELFPAY ==
[2023-10-24] VITALS (8 sets, daily range): BP systolic 111–142; BP diastolic 56–92; PULSE 51–61; RESP 18; TEMP 36.8; O2SAT 96–100; BMI 23.6
--- NOTE | 2023-10-24 11:59 | PC.NURSE ---
DR HESTER AT BEDSIDE
[2023-10-24 12:01] LABS: Microscopic, Urine URINE MICROSCOPIC (MICROSCOPIC)
[2023-10-24 12:03] LABS: Appearance,Urine CLOUDY (Clear); Bilirubin,Urine Negative (Negative); Blood, Urine Negative (Negative); Color,Urine YELLOW (Yellow); Glucose,Urine (UA) Negative (Negative); Ketones,Urine Negative (Negative); Leukocyte Esterase,Urine Negative (Negative); Nitrate,Urine Negative (Negative); PH,Urine 7.5 (5.0-8.5); Protein,Urine Negative (Negative); Specific Gravity, Urine 1.025 (1.005-1.030); Urobilinogen,Urine 0.2 EU/dl (0.2)
--- NOTE | 2023-10-24 12:05 | CT_ITS ---
FINAL REPORT TECHNIQUE: Axial images through the abdomen and pelvis were performed without contrast. This study was performed with techniques to keep radiation doses as low as reasonably achievable, (ALARA). Individualized dose reduction techniques using automated exposure control or adjustment of mA and/or kV according to the patient's size were employed. CLINICAL HISTORY: left flank/abd pain FINDINGS: Abdomen: Lung bases are clear. Liver, spleen, pancreas and adrenal glands have a normal CT appearance in their limited unenhanced state. The gallbladder is normal. There is moderate left hydronephrosis and hydroureter secondary to a mid left ureteral stone measuring 6 x 5 mm. Pelvis: The appendix is not identified but there are no secondary findings to suggest appendicitis. There is mild prostate enlargement. There is mild bladder wall thickening which may indicate bladder outlet obstruction. No fluid collection or adenopathy is seen. IMPRESSION: Mild left hydronephrosis and hydroureter secondary to a mid left ureteral stone. Reviewed, Interpreted and Dictated by Adonis Juares MD Transcribed by Prerna Oneil Authenticated and [facility]
[2023-10-24 12:12] LABS: Chloride 101 mmol/L (98-107)
[2023-10-24 12:13] LABS: Potassium 4.9 mmoL/L (3.5-5.1); Sodium 139 mmol/L (136-145)
[2023-10-24 12:14] LABS: Basophils # 0.1 K/mm3 (0-0.2); Basophils % 0.5 % (0.1-2.0); Eosinophils # 0.1 K/mm3 (0.0-0.4); Eosinophils % 1.2 % (0.1-12.0); Hematocrit 43.4 % (42.0-52.0); Hemoglobin 14.6 g/dL (14.1-18.0); Lymphocytes # 1.6 K/mm3 (0.7-4.5); Lymphocytes % 15.8 % (10-50); Mean Corpuscular HGB Conc 33.7 g/dL (31.8-35.4); Mean Corpuscular Hemoglobin 29.6 pg (27.0-31.2); Mean Corpuscular Volume 87.9 fl (80-94); Mean Platelet Volume 7.5 fl (7.4-10.4); Monocytes # 0.7 K/mm3 (0.1-1.0); Monocytes % 7.2 % (1.7-9.3); Neutrophils # 7.6 K/mm3 (1.8-7.8); Neutrophils % 75.2 % (37.0-80.0); Platelet Count 353 K/mm3 (142-424); Red Blood Count 4.94 M/mm3 (4.60-6.20); Red Cell Distribution Width 13.6 % (11.5-17.5); White Blood Count 10.1 K/mm3 (4.8-10.8)
[2023-10-24 12:15] LABS: Blood Urea Nitrogen 18 mg/dl (9-20); Creatinine Clearance Estimated 71 mL/min (50-200); Estimated Glomerular Filt Rate 53 ml/min (>60); GFR (African American) 64 ML/MIN (>60)
[2023-10-24 12:16] LABS: Alanine Aminotransferase 15 U/L (12-78); Albumin Level 4.5 g/dl (3.5-5.0); Albumin/Globulin Ratio 1.5 (1.1-1.8); Alkaline Phosphatase 89 U/L (38-126); Anion Gap 10.9 mEq/L (5-15); Aspartate Amino Transferase 21 U/L (17-59); Bilirubin,Total 1.7 mg/dl (0.2-1.3); Calcium 10.1 mg/dl (8.4-10.2); Carbon Dioxide 32 mmol/L (22.0-30.0); Globulin 3.1 g/dL (1.3-3.2); Glucose 154 mg/dl (74-100); Total Protein,Serum 7.6 g/dl (6.3-8.2)
--- NOTE | 2023-10-24 12:16 | HMH.EDGENADL ---
Discharge Plan Disposition Patient Disposition: Xfer Other Chief Complaint: Back Pain/Injury Prescriptions Prescriptions: No Action meloxicam 15 mg tablet 15 mg PO DAILY omeprazole 40 mg capsule,delayed release(DR/EC) 40 mg PO DAILY Qty: 30 3RF famotidine [Acid Nuclear Equipment Design Engineer (famotidine)] 20 mg tablet 40 mg PO DAILY Qty: 60 3RF amlodipine-benazepril 10-20 mg capsule 1 cap PO DAILY Qty: 90 1RF metformin 500 MG tablet 500 mg PO BID peg 3350-electrolytes 4,000 ML recon soln 240 ml PO Q10M Rx Instructions: until fecal effluent is clear Referrals Follow up/Referrals: Jam Pimentel MD [Primary Care Provider] - See instructions Clinical Impressions Clinical Impression: Hydronephrosis concurrent with and due to calculi of kidney and ureter, Intractable pain Instructions Patient Instructions: DI for Low Back Pain Discharge ED Provider: Sahara Castro General Adult HPI General Chief complaint: Back Pain/Injury Stated complaint: lower back and abd pain, nausea Time Seen by Provider: 10/24/23 11:59 Mode of Arrival: Ambulatory Limitations: No Limitations Description of Symptoms (Recalled from ER Triage Doc. by RN): PT REPORTS LEFT FLANK PAIN THAT RADIATES TO GROIN. PAIN STARTED INTERMITTENTLY, NOW CONSTANT. REPORTS NAUSEA, NO VOMITING. DENIES FEVER History of Present Illness HPI narrative: Patient is a 53-year-old male present today with left flank pain and left lower quadrant abdominal pain. This is been ongoing since this past weekend. Does have some times where it is intermittently worse nothing making it better. No fevers or chills he has had some associated nausea but no vomiting. No hematuria no history of stones. No changes in bowel movements such as diarrhea melena hematochezia etc. Patient does have a history of a herniated disc that required surgical intervention at the end of last year. States he was symptomatic for a very long period of time and his back has been good since that surgery. No mechanism of strain or injury on today's presentation. Related Data Home Medications Medication Instructions Recorded Confirmed metformin 500 mg tablet 500 mg PO BID dm 06/08/21 10/03/22 peg 3350-electrolytes 236 240 ml PO Q10M prep 06/10/21 10/03/22 gram-22.74 gram-6.74 gram-5.86 gram solution meloxicam 15 mg tablet 15 mg PO DAILY 05/02/23 06/06/23 Previous Rx's Medication Instructions Recorded omeprazole 40 mg capsule,delayed 40 mg PO DAILY #30 caps 08/29/22 release famotidine 20 mg tablet (Acid 40 mg (2 x 20 mg) PO DAILY take 10/03/22 Nuclear Equipment Design Engineer (famotidine)) prior to bedtime #60 tabs amlodipine 10 mg-benazepril 20 mg 1 cap PO DAILY blood pressure #90 10/01/23 capsule caps Allergies Allergy/AdvReac Type Severity Reaction Status Date / Time acetaminophen [From Percocet] Allergy Unknown Verified 10/03/22 15:03 oxycodone [From Percocet] Allergy Unknown Verified 10/03/22 15:03 [facility] Disclaimer: The information contained in this section may have been updated after the patient was seen, as this information can be updated by other users. Medical History (Updated 10/24/23 @ 14:27 by Sahara Castro MD) Tympanosclerosis of left ear Hearing loss Rhinitis Tinnitus Arthritis HTN (hypertension), benign Surgical History H/O sinus surgery H/O arthroscopy of left knee Social History Smoking Status: Never smoker second hand exposure: Yes alcohol intake: never substance use type: denies use current occupational status: retired Travel in the last 8 weeks: None household members: significant other housing: house current occupational exposures/hazards: No ROS Obtained: Yes All systems reviewed & no additional complaints except as documented Physical Exam General General appearance: alert and in no apparent distress Respiratory Respiratory exam: Present normal lung sounds bilaterally Cardiovascular Cardiovascular exam: Present regular rate Abdominal Exam Abdominal exam: Present soft and tenderness (Some deep tenderness with palpation of left lower quadrant) Back Exam Back exam: Absent CVA tenderness (R) or CVA tenderness (L) Neurological Exam Neurological exam: Present alert and oriented X3 Medical Decision Making Chuck Inquiry Pt receiving controlled substance: No Vital Signs: 10/24/23 11:36 10/24/23 12:00 10/24/23 12:32 Temperature 98.2 F Temperature Source Oral Pulse Rate 61 54 L Pulse Rate [Radial] 58 L Respiratory Rate 18 Blood Pressure 129/80 119/71 Blood Pressure [Left Arm] 142/92 H Blood Pressure Mean [Left Arm] 108 Blood Pressure Source [Left Arm] Automatic Cuff Blood Pressure Position [Left Arm] Sitting 02 Sat by Pulse Oximetry 96 98 100 Oxygen Delivery Method Room Air Room Air Room Air 10/24/23 13:01 10/24/23 13:31 Temperature Temperature Source Pulse Rate 53 L 51 L Pulse Rate [Radial] Respiratory Rate Blood Pressure 129/73 126/68 Blood Pressure [Left Arm] Blood Pressure Mean [Left Arm] Blood Pressure Source [Left Arm] Blood Pressure Position [Left Arm] 02 Sat by Pulse Oximetry 98 100 Oxygen Delivery Method Room Air Room Air Lab Data Lab results reviewed: Yes I reviewed the patient's lab results. Lab Results 10/24/23 11:35: Urine Color Yellow, Urine Appearance Cloudy, Urine pH 7.5, Ur Specific [place] 1.025, Urine Protein Negative, Urine Glucose (UA) Negative, Urine Ketones Negative, Urine Blood Negative, Urine Nitrate Negative, Urine Bilirubin Negative, Urine Urobilinogen 0.2, Ur Leukocyte Esterase Negative, Urine RBC None, Urine WBC None, Ur Squamous Epith Cells Occasional, Calcium Oxalate Crystal Trace, Amorphous Sediment 2+, Urine Bacteria Trace 10/24/23 11:45: WBC 10.1, RBC 4.94, Hgb 14.6, Hct 43.4, MCV 87.9, MCH 29.6, MCHC 33.7, RDW 13.6, Plt Count 353, MPV 7.5, Neut % (Auto) 75.2, Lymph % (Auto) 15.8, [place] % (Auto) 7.2, Eos % (Auto) 1.2, Baso % (Auto) 0.5, Neut # (Auto) 7.6, Lymph # (Auto) 1.6, [place] # (Auto) 0.7, Eos # (Auto) 0.1, Baso # (Auto) 0.1, Sodium 139, Potassium 4.9, Chloride 101, Carbon Dioxide 32 H, Anion Gap 10.9, BUN 18, Creatinine 1.40 H, Estimated Creat Clear 71, Estimated GFR 53 L, Est GFR ( Amer) 64, Glucose 154 H, Calcium 10.1, Total Bilirubin 1.7 H, AST 21, ALT 15, Alkaline Phosphatase 89, Total Protein 7.6, Albumin 4.5, Globulin 3.1, Albumin/Globulin Ratio 1.5 10/24/23 11:45 10/24/23 11:45 Orders (Tests/Meds): ED MEDICATIONS Discontinued Medications Generic Name Dose Route Start Last Admin Trade Name Marsha PRN Reason Stop Dose Admin Hydromorphone HCl 0.5 mg 10/24/23 13:43 10/24/23 13:52 Hydromorphone 2mg/Ml Syringe IV 10/24/23 13:44 0.5 mg ONCE ONE Administration Lactated Ringer's 1,000 mls @ 999 mls/hr 10/24/23 12:15 10/24/23 12:24 Lactated Ringer's 1000 Ml Bag IV 10/24/23 13:15 999 mls/hr .Q1H1M NILSA Administration Ketorolac Tromethamine 15 mg 10/24/23 12:05 10/24/23 12:24 Ketorolac 30mg/Ml Vial IV 10/24/23 12:06 15 mg ONCE ONE Administration Ondansetron HCl 4 mg 10/24/23 12:05 10/24/23 12:24 Ondansetron 4mg/2ml Vial IV 10/24/23 12:06 4 mg ONCE ONE Administration Ondansetron HCl 4 mg 10/24/23 13:43 10/24/23 13:52 Ondansetron 4mg/2ml Vial IV 10/24/23 13:44 4 mg ONCE ONE Administration ORDERS Category Date Time Status CT abdomen pelvis wo con Stat Cat Scan 10/24/23 12:05 Completed CBC w/Auto Diff [Complete Blood Count Auto Diff] Stat Lab 10/24/23 11:45 Completed CMP [Comprehensive Metabolic Panel] Stat Lab 10/24/23 11:45 Completed UA [Urinalysis and Microscopic] Stat Lab 10/24/23 11:35 Completed Medical Decision Narrative: 53-year-old male presents today with above history and physical. He does have some lower abdominal discomfort really has no significant back tenderness is also moving around without any significant pain which I would expect if he had a straightforward musculoskeletal strain. Given the fact he has had some intermittent symptoms has back pain radiating to his groin has some tenderness will get a CT scan without contrast for further evaluation primarily to evaluate for kidney stone but other inflammatory conditions such as diverticulitis colitis are on the differential. IV fluids pain medicine nausea medicine have been administered labs ordered will reassess. Reassessment 2:[address] scan performed on first interpreted also reviewed radiology images and read there is a 6 mm mid ureteral stone that is obstructing with associated hydronephrosis and hydroureter. No evidence of sepsis or urinary tract infection. However patient has had intractable pain requiring escalating doses of opiates and pain medication. I offered him a trial of passage and outpatient follow-up however patient states that he is still miserable. Therefore I discussed with him transfer to be evaluated by urology and he agreed to this. I initially discussed the case with Dr. Brannon at [facility] and they did not have any beds available subsequently I spoke to the patient he would like to try [facility]. I spoke with Dr. Boland in the transfer center who accepted the patient for further evaluation and management. Critical Care Critical Care Time Critical Care Time: No
[2023-10-24] MEDS: LACTATED RINGERS 1000ML 1,000 ML 999 ML IV (12:24)
[2023-10-24] MEDS: KETOROLAC 30MG/ML VIAL 15 MG IV (12:24)
[2023-10-24] MEDS: ONDANSETRON 4MG/2ML VIAL 4 MG IV ×2 (12:24→13:52)
--- NOTE | 2023-10-24 12:24 | PC.NURSE ---
Pt gone to RAD via wheelchair
--- NOTE | 2023-10-24 12:30 | PC.NURSE ---
Pt returned to room from RAD
[2023-10-24 12:36] LABS: Amorphous Sediment,Urine 2+ /lpf; Bacteria,Urine Trace /lpf; Calcium Oxalate Crystals,Urine Trace /lpf; Squamous Epithelial Cell,Urine Occasional #/hpf (0-5)
--- NOTE | 2023-10-24 13:01 | PC.NURSE ---
Rounded on pt. No needs voiced at this time. Call light within reach.
--- NOTE | 2023-10-24 13:35 | PC.NURSE ---
DR HESTER AT BEDSIDE TO REEVALUATE PT
--- NOTE | 2023-10-24 13:41 | PC.NURSE ---
PT ASSISTED TO BR
--- NOTE | 2023-10-24 13:45 | PC.NURSE ---
Called [facility] for urology for pt transfer
--- NOTE | 2023-10-24 13:48 | PC.NURSE ---
Rounded on pt. Bottle of water provided. Call light within reach and visitor at bs.
[2023-10-24] MEDS: HYDROMORPHONE 2MG/ML SYRINGE 0.5 MG IV ×2 (13:52→15:41)
--- NOTE | 2023-10-24 13:57 | PC.NURSE ---
KELLY CALLED BACK, STILL ATTEMPTING TO REACH UROLOGY.
--- NOTE | 2023-10-24 14:20 | PC.NURSE ---
Called [facility] for transfer pt
--- NOTE | 2023-10-24 14:21 | PC.NURSE ---
speaking with [facility] urologist
--- NOTE | 2023-10-24 14:24 | PC.NURSE ---
Rounded on pt. No needs voiced by pt. Call light remains within reach.
--- NOTE | 2023-10-24 14:24 | PC.NURSE ---
DR HESTER AT BEDSIDE TO UPDATE PT AND FAMILY
--- NOTE | 2023-10-24 14:58 | PC.NURSE ---
Gave report to Edmundo COSBY at [facility]. EMS was notified of transfer and pt is ready.
--- NOTE | 2023-10-24 15:09 | PC.NURSE ---
EMS is aware of transfer to [facility]
== END 2023-10-24 15:41 | disposition other institution (70) ==
PROVIDERS: Emergency Provider Student in an Organized Health Care Education/Training Program; PCP Internal Medicine
DX: N13.0 Hydronephrosis with ureteropelvic junction obstruction (principal); N13.4 Hydroureter; R10.32 Left lower quadrant pain; M54.59 Other low back pain; R11.0 Nausea
CPT/HCPCS: 74176; 80053; 81001; 85025; 96361; 96374; 96375; 96376; 99285; J1170; J1885; J2405; J7120

== ENCOUNTER 2023-10-30 18:15 | Emergency (ER) | payer MEDICARE, SELFPAY ==
--- NOTE | 2023-10-30 18:18 | CT_ITS ---
PROCEDURE INFORMATION: Exam: CT Abdomen And Pelvis With Contrast Exam date and time: 10/30/2023 7:32 PM Age: 53 years old Clinical indication: Abdominal pain; Additional info: Left flank pain, recent lithotripsy TECHNIQUE: Imaging protocol: Computed tomography of the abdomen and pelvis with contrast. Radiation optimization: All CT scans at this facility use at least one of these dose optimization techniques: automated exposure control; mA and/or kV adjustment per patient size (includes targeted exams where dose is matched to clinical indication); or iterative reconstruction. Contrast material: ISOVUE; Contrast volume: 75 ml; Contrast route: IV; COMPARISON: CT ABDOMEN PELVIS WO CON 10/24/2023 12:28 PM FINDINGS: Lungs: Left upper lobe calcified granuloma. Bilateral lower lobe dependent atelectasis. Liver: Punctate low-density lesion in the anterior aspect of the medial segment left hepatic lobe is too small to characterize. No hepatomegaly. Gallbladder and biliary ducts: Normal. No calcified stones. No ductal dilation. Pancreas: Normal. No ductal dilation. Spleen: Normal. No splenomegaly. Adrenal glands: Normal. No mass. Kidneys and ureters: Mild left hydronephrosis and ureterectasis with no visible ureteral calculus. Subcentimeter low-density right renal lesions are too small to characterize. No right renal hydronephrosis. Stomach and bowel: Unremarkable. No obstruction. No mucosal thickening. Appendix: No evidence of appendicitis. Intraperitoneal space: Trace pelvic free fluid. Vasculature: Unremarkable. No abdominal aortic aneurysm. Lymph nodes: Unremarkable. No enlarged lymph nodes. Urinary bladder: Unremarkable as visualized. Reproductive: Right-sided hydrocele. Mild prostate enlargement. Bones/joints: [id number] lumbar spine degenerative change. Heterotopic ossification within the right adductor muscle consistent with a remote injury. Soft tissues: Unremarkable. IMPRESSION: Mild left hydronephrosis and ureterectasis with no visible ureteral calculus. The previously seen left ureteral calculus is no longer identified. Findings could be secondary to a recently passed calculus or ascending urinary tract infection. COMMENTS: Consistent with the [employer]'s Incidental Findings Committee white paper (J Am Jose Miguel Radiol 2018): Any incidental renal lesion less than 1 cm or classified as too small to characterize, or any incidental cystic renal lesion characterized as simple-appearing, is likely benign. No follow-up imaging is recommended for these lesions per consensus recommendations based on imaging criteria.
--- NOTE | 2023-10-30 18:18 | ED_ITS ---
<Statement entered by Sahara Castro MD - 10/30/23 22:58> I was consulted by the MANI, and we discussed the complexity of the problems being addressed. I approved the treatment and management plan for this patient's care in the emergency department, thus performing a substantive portion of the medical decision making. Sahara Castro MD, KAMILAH, FACEP Discharge Plan Disposition Patient Disposition: Home, Self-Care Condition: Good Prescriptions Prescriptions: New ketorolac 10 mg tablet 10 mg PO Q6H PRN (Reason: pain) 3 Days Qty: 20 0RF No Action meloxicam 15 mg tablet 15 mg PO DAILY omeprazole 40 mg capsule,delayed release(DR/EC) 40 mg PO DAILY Qty: 30 3RF famotidine [Acid Kiln [employer]per (famotidine)] 20 mg tablet 40 mg PO DAILY Qty: 60 3RF amlodipine-benazepril 10-20 mg capsule 1 cap PO DAILY Qty: 90 1RF metformin 500 MG tablet 500 mg PO BID peg 3350-electrolytes 4,000 ML recon soln 240 ml PO Q10M Rx Instructions: until fecal effluent is clear Referrals Follow up/Referrals: Jam Pimentel MD [Primary Care Provider] - See instructions Activity Restrictions/Add. Instructions Additional Instructions/Restrictions: Follow-up with urology as scheduled. Return to ER for any worsening signs or symptoms including increasing pain nausea vomiting fever etc. Clinical Impressions Clinical Impression: Renal colic on left side Instructions Patient Instructions: Kidney Stones -- Adult Discharge ED Provider: Sahara Castro General Adult HPI General Chief complaint: Abdominal Pain Stated complaint: Left side pain,Possible kidney stone Time Seen by Provider: 10/30/23 18:17 History of Present Illness HPI narrative: Patient has lithotripsy this week done at the [facility] with postoperative stent placed in the left ureter. Patient was to pull the stent this morning which she did and has been doing fine until about 30 prior to arrival at which point he began having renal colic and hematuria. He denies chest pain fever chills hemoptysis hematochezia melena nausea vomiting diarrhea. Related Data Home Medications Medication Instructions Recorded Confirmed metformin 500 mg tablet 500 mg PO BID dm 06/08/21 10/03/22 peg 3350-electrolytes 236 240 ml PO Q10M prep 06/10/21 10/03/22 gram-22.74 gram-6.74 gram-5.86 gram solution meloxicam 15 mg tablet 15 mg PO DAILY 08/29/22 10/03/22 Previous Rx's Medication Instructions Recorded omeprazole 40 mg capsule,delayed 40 mg PO DAILY #30 caps 08/29/22 release famotidine 20 mg tablet (Acid 40 mg (2 x 20 mg) PO DAILY take 10/03/22 Kil[employer] (famotidine)) prior to bedtime #60 tabs amlodipine 10 mg-benazepril 20 mg 1 cap PO DAILY blood pressure #90 10/01/23 capsule caps ketorolac 10 mg tablet 10 mg PO Q6H PRN pain 3 days #20 10/30/23 tabs Allergies Allergy/AdvReac Type Severity Reaction Status Date / Time acetaminophen [From Percocet] Allergy Unknown Verified 10/03/22 15:03 oxycodone [From Percocet] Allergy Unknown Verified 10/03/22 15:03 [facility] Disclaimer: The information contained in this section may have been updated after the patient was seen, as this information can be updated by other users. Medical History (Updated 10/30/23 @ 20:25 by LO Cardenas) Tympanosclerosis of left ear Hearing loss Rhinitis Tinnitus Arthritis HTN (hypertension), benign Surgical History H/O sinus surgery H/O arthroscopy of left knee Social History Smoking Status: Never smoker second hand exposure: Yes alcohol intake: never substance use type: denies use current occupational status: retired Travel in the last 8 weeks: None household members: significant other housing: house current occupational exposures/hazards: No ROS Obtained: Yes Systems reviewed as appropriate & no additional complaints except as documented Physical Exam General General appearance: alert and in no apparent distress Respiratory Respiratory exam: Present normal lung sounds bilaterally Cardiovascular Cardiovascular exam: Present regular rate and normal rhythm Abdominal Exam Abdominal exam: Present soft, tenderness (Tender to palp left quadrants rebound or guarding or rigidity.) and normal bowel sounds; Absent guarding, rebound or rigidity Neurological Exam Neurological exam: Present alert and oriented X3 Medical Decision Making Medical Records Medical records reviewed: Yes I reviewed the patient's medical records. Chuck Inquiry Pt receiving controlled substance: No Vital Signs: 10/30/23 18:26 10/30/23 19:00 Temperature 97.8 F Temperature Source Oral Pulse Rate 64 Pulse Rate [Left] 74 Respiratory Rate 16 Blood Pressure 129/78 Blood Pressure [Right Arm] 141/82 H Blood Pressure Mean [Right Arm] 101 Blood Pressure Source [Right Arm] Automatic Cuff Blood Pressure Position [Right Arm] Sitting 02 Sat by Pulse Oximetry 98 99 Oxygen Delivery Method Room Air Lab Data Lab results reviewed: Yes I reviewed the patient's lab results. Lab Results 10/30/23 18:31: WBC 7.3, RBC 4.65, Hgb 13.7 L, Hct 41.8 L, MCV 89.8, MCH 29.5, MCHC 32.9, RDW 13.3, Plt Count 381, MPV 7.4, Neut % (Auto) 54.4, Lymph % (Auto) 32.9, [place] % (Auto) 7.1, Eos % (Auto) 4.6, Baso % (Auto) 1.0, Neut # (Auto) 4.0, Lymph # (Auto) 2.4, [place] # (Auto) 0.5, Eos # (Auto) 0.3, Baso # (Auto) 0.1, Sodium 141, Potassium 3.6, Chloride 107, Carbon Dioxide 29, Anion Gap 8.6, BUN 13, Creatinine 0.90, Estimated Creat Clear 111, Estimated GFR 88, Est GFR ( Amer) 106, Glucose 115 H, Calcium 9.3 10/30/23 18:31 10/30/23 18:31 Orders (Tests/Meds): ED MEDICATIONS Generic Name Dose Route Start Last Admin Trade Name Freq PRN Reason Stop Dose Admin Sodium Chloride 10 ml 10/30/23 19:35 10/30/23 19:37 Sodium Chloride 0.9% 10ml Syr (Rad Only) IV 11/29/23 19:34 10 ml NEEDED PRN Administration Maintain IV Site Discontinued Medications Generic Name Dose Route Start Last Admin Trade Name Freq PRN Reason Stop Dose Admin Iopamidol 75 ml 10/30/23 19:35 10/30/23 19:36 Iopamidol-370 (76%);100ml Bottle IV 10/30/23 19:36 75 ml ONCE ONE Administration Ketorolac Tromethamine 30 mg 10/30/23 18:18 10/30/23 18:54 Ketorolac 30mg/Ml Vial IM 10/30/23 18:19 Not Given ONCE ONE Ketorolac Tromethamine 30 mg 10/30/23 18:51 10/30/23 18:54 Ketorolac 30mg/Ml Vial IV 10/30/23 18:52 30 mg ONCE ONE Administration Tamsulosin HCl 0.4 mg 10/30/23 18:29 10/30/23 18:54 Tamsulosin 0.4mg Capsule PO 10/30/23 18:30 0.4 mg ONCE ONE Administration ORDERS Category Date Time Status CT abdomen pelvis w con Stat Cat Scan 10/30/23 18:18 Completed BMP [Basic Metabolic Panel] Stat Lab 10/30/23 18:31 Completed CBC w/Auto Diff [Complete Blood Count Auto Diff] Stat Lab 10/30/23 18:31 Completed Medical Decision Narrative: In summary patient is a 53-year-old male who presents to the emergency department for evaluation of renal colic. Patient is hemodynamically stable upon arrival, afebrile. Physical exam is remarkable for left CVA tenderness and left-sided abdominal quadrant tenderness to palpation but no rebound or guarding or rigidity.. Differential diagnosis includes renal colic versus obstructing stone. Initial workup will be conducted with hematologic labs CT scan abdomen pelvis. Initial interventions include Toradol Tylenol alpha-cathy. Initial workup reviewed by me shows his white count is normal. Testing CT scan abdomen pelvis shows improving hydronephrosis and no evidence of calculi in the left. Upon repeat evaluation patient has had improvement in his symptoms after initial intervention. Given this patient is appropriate for discharge with a prescription sent in for Toradol to [facility] in [place]. Critical Care Critical Care Time Critical Care Time: No
[2023-10-30 18:26] VITALS: BP 141/82; PULSE 74; RESP 16; TEMP 36.6; O2SAT 98; BMI 23.6
[2023-10-30 18:41] LABS: Basophils # 0.1 K/mm3 (0-0.2); Eosinophils # 0.3 K/mm3 (0.0-0.4); Eosinophils % 4.6 % (0.1-12.0); Hematocrit 41.8 % (42.0-52.0); Hemoglobin 13.7 g/dL (14.1-18.0); Lymphocytes # 2.4 K/mm3 (0.7-4.5); Lymphocytes % 32.9 % (10-50); Mean Corpuscular HGB Conc 32.9 g/dL (31.8-35.4); Mean Corpuscular Hemoglobin 29.5 pg (27.0-31.2); Mean Corpuscular Volume 89.8 fl (80-94); Mean Platelet Volume 7.4 fl (7.4-10.4); Monocytes # 0.5 K/mm3 (0.1-1.0); Monocytes % 7.1 % (1.7-9.3); Neutrophils % 54.4 % (37.0-80.0); Platelet Count 381 K/mm3 (142-424); Red Blood Count 4.65 M/mm3 (4.60-6.20); Red Cell Distribution Width 13.3 % (11.5-17.5); White Blood Count 7.3 K/mm3 (4.8-10.8)
[2023-10-30] MEDS: KETOROLAC 30MG/ML VIAL 30 MG IV (18:54)
[2023-10-30] MEDS: TAMSULOSIN 0.4MG CAPSULE 0.4 MG PO (18:54)
[2023-10-30 19:00] VITALS: BP 129/78; PULSE 64; O2SAT 99
[2023-10-30 19:16] LABS: Chloride 107 mmol/L (98-107); Sodium 141 mmol/L (136-145)
[2023-10-30 19:17] LABS: Potassium 3.6 mmoL/L (3.5-5.1)
[2023-10-30 19:19] LABS: Blood Urea Nitrogen 13 mg/dl (9-20); Creatinine Clearance Estimated 111 mL/min (50-200); Estimated Glomerular Filt Rate 88 ml/min (>60); GFR (African American) 106 ML/MIN (>60)
[2023-10-30 19:20] LABS: Anion Gap 8.6 mEq/L (5-15); Calcium 9.3 mg/dl (8.4-10.2); Carbon Dioxide 29 mmol/L (22.0-30.0); Glucose 115 mg/dl (74-100)
[2023-10-30] MEDS: IOPAMIDOL-370 (76%);100ML BOTTLE 75 ML IV (19:36)
[2023-10-30] MEDS: SODIUM CHLORIDE 0.9% 10ML SYR (RAD ONLY) 10 ML IV (19:37)
[2023-10-30 20:28] VITALS: BP 137/82; PULSE 66; RESP 18; TEMP 37.1; O2SAT 100
== END 2023-10-30 20:28 | disposition home or self-care (01) ==
PROVIDERS: Physician Assistant; Emergency Provider Student in an Organized Health Care Education/Training Program; PCP Internal Medicine
DX: N23 Unspecified renal colic (principal); I10 Essential (primary) hypertension; Z87.442 Personal history of urinary calculi
CPT/HCPCS: 74177; 80048; 85025; 96372; 96374; 99284; J1885; Q9967

== ENCOUNTER 2023-11-06 16:25 | Outpatient (CLI) | payer MEDICARE, SELFPAY ==
[2023-11-06 16:52] LABS: Alanine Aminotransferase 22 U/L (12-78); Albumin Level 4.6 g/dl (3.5-5.0); Albumin/Globulin Ratio 1.6 (1.1-1.8); Alkaline Phosphatase 68 U/L (38-126); Anion Gap 14.2 mEq/L (5-15); Aspartate Amino Transferase 26 U/L (17-59); Bilirubin,Total 1.3 mg/dl (0.2-1.3); Blood Urea Nitrogen 23 mg/dl (9-20); Calcium 10.2 mg/dl (8.4-10.2); Carbon Dioxide 29 mmol/L (22.0-30.0); Chloride 103 mmol/L (98-107); Chol/HDL Ratio 3.4 (1-3.5); Cholesterol 169 mg/dl (140-200); Estimated Glomerular Filt Rate 101 ml/min (>60); GFR (African American) 122 ML/MIN (>60); Globulin 2.8 g/dL (1.3-3.2); Glucose 114 mg/dl (74-100); HDL Cholesterol 49 mg/dl (40-60); Potassium 4.2 mmoL/L (3.5-5.1); Sodium 142 mmol/L (136-145); Total Protein,Serum 7.4 g/dl (6.3-8.2); Triglycerides 104 mg/dl (30-150); VLDL Cholesterol 21 mg/dL (0-40)
[2023-11-06 17:03] LABS: Direct LDL Cholesterol 96.61 mg/dL (100-129)
[2023-11-06 18:17] LABS: Hemoglobin A1C 7.5 % (4.0-6.0)
== END 2023-11-06 23:59 | disposition home or self-care (01) ==
LOC: LAB.DROPOF 16:26
PROVIDERS: PCP Internal Medicine; Visit Provider Internal Medicine
DX: E78.5 Hyperlipidemia, unspecified (principal); E11.9 Type 2 diabetes mellitus without complications; Z79.84 Long term (current) use of oral hypoglycemic drugs
CPT/HCPCS: 80053; 80061; 83036

== ENCOUNTER 2023-12-28 12:47 | Outpatient (CLI) | payer MEDICARE, SELFPAY | END 2023-12-28 23:59 | disposition home or self-care (01) | LOC: LAB 12:49 | PROVIDERS: PCP Internal Medicine; Visit Provider Urology | DX: N20.0 Calculus of kidney (principal) | CPT/HCPCS: 36415; 83970 ==

== ENCOUNTER 2024-01-07 08:29 | Outpatient (CLI) | payer MEDICARE, SELFPAY ==
[2024-01-07 21:16] LABS: Vitamin B12 470 pg/mL (239-931)
[2024-01-07 21:27] LABS: Iron 120 ug/dL (49-181)
[2024-01-07 21:36] LABS: Total Iron Binding Capacity 347 ug/dL (261-462)
== END 2024-01-07 23:59 | disposition home or self-care (01) ==
LOC: LAB.DROPOF 01-09 08:30
PROVIDERS: PCP Internal Medicine; Visit Provider Internal Medicine
DX: D64.9 Anemia, unspecified (principal)
CPT/HCPCS: 82607; 83540; 83550

== ENCOUNTER 2024-01-07 14:52 | Outpatient (CLI) | payer MEDICARE, SELFPAY ==
[2024-01-07 09:09] LABS: Basophils # 0.1 K/mm3 (0-0.2); Basophils % 1.5 % (0.1-2.0); Eosinophils # 0.2 K/mm3 (0.0-0.4); Eosinophils % 3.2 % (0.1-12.0); Hematocrit 44.3 % (42.0-52.0); Hemoglobin 13.6 g/dL (14.1-18.0); Lymphocytes # 1.8 K/mm3 (0.7-4.5); Lymphocytes % 37.7 % (10-50); Mean Corpuscular HGB Conc 30.8 g/dL (31.8-35.4); Mean Platelet Volume 7.6 fl (7.4-10.4); Monocytes # 0.3 K/mm3 (0.1-1.0); Monocytes % 5.4 % (1.7-9.3); Neutrophils # 2.5 K/mm3 (1.8-7.8); Neutrophils % 52.3 % (37.0-80.0); Platelet Count 334 K/mm3 (142-424); Red Blood Count 4.71 M/mm3 (4.60-6.20); Red Cell Distribution Width 13.5 % (11.5-17.5); White Blood Count 4.7 K/mm3 (4.8-10.8)
[2024-01-07 09:41] LABS: Hemoglobin A1C 5.6 % (4.0-6.0)
[2024-01-07 11:17] LABS: Free T4 (Free Thyroxine) 0.86 ng/dl (0.78-2.19)
[2024-01-07 11:32] LABS: Thyroid Stimulating Hormone 1.57 uIU/mL (0.465-4.68)
[2024-01-07 12:53] LABS: Erythrocyte Sedimentation Rate 11 mm/hr (0-20)
== END 2024-01-07 23:59 | disposition home or self-care (01) ==
LOC: LAB.DROPOF 14:52
PROVIDERS: PCP Internal Medicine; Visit Provider Internal Medicine
DX: I10 Essential (primary) hypertension (principal); R63.4 Abnormal weight loss; L74.9 Eccrine sweat disorder, unspecified; E11.9 Type 2 diabetes mellitus without complications; D64.9 Anemia, unspecified; E78.5 Hyperlipidemia, unspecified
CPT/HCPCS: 82607; 83036; 83540; 83550; 84439; 84443; 85025; 85651

== ENCOUNTER 2024-01-10 08:47 | Outpatient (CLI) | payer MEDICARE, SELFPAY ==
--- NOTE | 2024-01-10 09:04 | XR_ITS ---
FINAL REPORT CLINICAL HISTORY: Nonspecific cough, weight loss, sweating COMPARISON: None FINDINGS: Two views of the chest were obtained. The heart size and pulmonary vascularity are within normal limits. The mediastinum is normal. No acute pulmonary abnormality is identified. There is no pneumothorax. The bony thorax is intact. IMPRESSION: No active cardiopulmonary disease. Reviewed, Interpreted and Dictated by Hussein Lucio III, MD Transcribed by Sita Saenz Authenticated and [facility]
== END 2024-01-10 23:59 | disposition home or self-care (01) ==
LOC: RAD 08:49
PROVIDERS: PCP Internal Medicine; Visit Provider Internal Medicine
DX: R63.4 Abnormal weight loss (principal); L74.9 Eccrine sweat disorder, unspecified; R05.9 Cough, unspecified
CPT/HCPCS: 71046

== ENCOUNTER 2024-03-17 17:00 | Outpatient (CLI) | payer MEDICARE, SELFPAY | END 2024-03-17 23:59 | disposition home or self-care (01) | LOC: LAB.DROPOF 17:00 | PROVIDERS: PCP Internal Medicine; Visit Provider Internal Medicine | DX: T14.8XXA Other injury of unspecified body region, initial encounter (principal); L08.9 Local infection of the skin and subcutaneous tissue, unspecified; S81.802A Unspecified open wound, left lower leg, initial encounter | CPT/HCPCS: 87070; 87077; 87186; 87205 ==

== ENCOUNTER 2024-04-10 08:49 | Outpatient (CLI) | payer MEDICARE, SELFPAY ==
--- NOTE | 2024-04-10 08:55 | XR_ITS ---
FINAL REPORT CLINICAL HISTORY: Infected wound mid aguirre on the left COMPARISON: None FINDINGS: LEFT TIBIA FIBULA 2 views of the left tibia fibula were obtained. Postoperative changes are noted from left knee arthroplasty. No bony erosion is identified. There is no acute fracture or dislocation. The joint spaces are intact. There is no soft tissue abnormality. IMPRESSION: No acute abnormality identified. Reviewed, Interpreted and Dictated by Hussein Lucio III, MD Transcribed by Sita Saenz Authenticated and [facility]
--- OUTSIDE RECORDS SUMMARY | 2024-04-15 10:09 | XMS_ITS | Encounter Summary ---
Author Organization [employer] Address [address] [place] [address] Care Team Providers Care Panelboard Operator Name Role Phone Jam Pimentel MD Primary Care Provider [phone] Reason for Visit * Auth/Cert Specialty Diagnoses / Procedures Referred By Elidia light Referred To Contact Diagnoses Lumbar radiculopathy Lumbar radiculopathy Procedures [facility] LAMINEC/FACETECT/FORAMIN,LUMB AR 1 SEG LAMINECTOMY, SPINE, LUMBAR, ANTERIOR APPROACH, [place] [address] [place] [address] [place] [address] Phone: tel: fax: Referral ID Status Reason Start Date Expiration Date Visits Re quested Visits Authorized [id number] 01/15/2023 1 1 Encounter Details Date Type Department Care Team (Late st Contact Info) Description 02/13/2023 5:53 AM EDT - 02/14/2023 12:39 PM EDT Hospital Encounter [facility] [address] [place] [phone] Alexx Callejas MD [address] [place] [address] [place] [address] Discharge Disposition: Home or Self Care Social History Tobacco Use Types Packs/Day Years Used Date Smoking Tobacco: Never Passive Smoke Exposure: Past Smokeless Tobacco: Never Alcohol Use Standard Drinks/Week Comments Never 0 (1 standard drink = 0.6 oz pur e alcohol) Humiliation, Afraid, Rape, and Kick questionnair e Answer Date Recorded Within the last year, have y ou been afraid of your partner or ex-partner? No 01/30/2023 Within the last year, have y ou been humiliated or emotionally abused in other ways by your partner or ex-partner? No Within the last year, have y ou been kicked, hit, slapped, or otherwise physically hurt by your partner or ex-partner? No 01/30/2023 Within the last year, have y ou been raped or forced to have any kind of sexual activity by your partner or ex-partner? No 01/30/2023 AUDIT-C Answer Date Recorded Q1: How often do you have a drink containing alc ohol? Never 01/30/2023 Average Number of Drinks Not on file 023 Frequency of Binge Drinking Not on file 06/2022 PHQ-2 Answer Date Recorded Patient Health Questionnaire-2 Score 0 01/30/2023 [facility] Intimate Partner Violence Answer Da te Recorded Within the last year, have y ou been afraid of your partner or ex-partner? No 01/30/2023 Within the last year, have y ou been humiliated or emotionally abused in other ways by your partner or ex-partner? No Within the last year, have y ou been kicked, hit, slapped, or otherwise physically hurt by your partner or ex-partner? No 01/30/2023 Within the last year, have y ou been raped or forced to have any kind of sexual activity by your partner or ex-partner? No 01/30/2023 Sex and Gender Information Value Date Recorded Sex Assigned at Not on file Legal Sex Male 5:13 PM CDT Gender Identity Not on file Sexual Orientation Not on file COVID-19 Exposure Response Date Recorded In the last 10 days, have yo u been in contact with someone who was confirmed or suspected to have Coronavirus/COVID-19? No / Unsure 02/13/2023 5:53 AM EDT documented as of this encounter Last Filed Vital Signs Vital Sign Reading Time Taken Comments Blood Pressure 132/72 02/14/2023 5:58 AM EDT Pulse 95 02/14/2023 5:58 AM EDT Temperature 36.6 ??C (97.9 ??F) 02/14/2023 5:58 AM ED T Respiratory Rate 18 02/14/2023 5:58 AM EDT Oxygen Saturation 97% 02/14/2023 5:58 AM EDT Inhaled Oxygen Concentration - - Weight 90.8 kg (200 lb 1.6 oz) 02/13/2023 6:26 A M EDT Height 184.8 cm (6' 0.76 ) 02/13/2023 6:26 AM ED T Body Mass Index 26.58 02/13/2023 6:26 AM EDT documented in this encounter Discharge Instructions * Discharge Instructions* Mary Willingham RN - 02/13/2023 10:23 AM EDT Lumbar Spine Discharge Information What to expect after surgery: Mild swelling around the incision site. This will go away with time Stiffness and pain at the incision site. Leg pain due to nerve root irritation during surgery- usually improves with time Tiredness is normal after surgery- it may take a week or so to regain your strength You should only be in bed to sleep Dressing Do not apply any lotions or ointments to your incision Harrison will be removed in office Steri-strips or white tape, surgical glue or mesh may fall off on their own, or can be taken off in10-2 days Use antibacterial soap before and after changing the dressing DO NOT: Submerge in a pool, bathtub, hot tub, or allow the shower to beat directly on your incision. . Comfort Measures Use ice as needed. Don't put the ice directly on your skin, keep a barrier between your incision and the ice. Change positions often- walking and lying down are best postures Take prescription medications as indicated Brace If your doctor prescribes a brace, you may remove it to wash up and to sleep. Do not wear your brace in bed. Have it on when you're up and about! Activity Stairs are okay, do not climb ladders Light activity, walking on level surfaces & sexual relations are permitted but may be limited by pain. Remember ???BLT?? No Bending, Lifting, or Twisting rule Drive when you are no longer taking pain medication Return to work 2-8 weeks when allowed by the surgeon. DO NOT lift over 10 pounds, mow the lawn, sweep, vacuum, dust, wash windows, rake leaves, shovel, or hike. Other Smoking cigarettes or inhaling secondhand smoke can make your fusion unsuccessful Do not take osteoporosis medications until 2 months after your surgery If your surgery included a fusion, do NOT take any anti-inflammatory medications (NSAIDs, ie. Aleve, Advil, Motrin, etc.) for at least 8 weeks after surgery! Do NOT overuse prescription medications. You must follow directions closely. As needed means you should only take them when you are feeling pain and taking them in the directed time frame (eg. Every 4 hours.) Refills will be given ONLY if you have used the medications appropriately as directed. * Attachments The following attachments cannot be sent through Care Everywhere. * Laminectomy Care After (Nepalese) * How to Prevent Constipation After Surgery (Nepalese) * Lumbar Diskectomy Care After (Nepalese) documented in this encounter Medications at Time of Discharge amLODIPine-benaze priL (LOTREL) 10-20 mg per capsule Take 1 capsule by mouth daily. 12/27/2022 metFORMIN (GLUCOPHAGE) 500 MG tablet Take 1 tablet (500 mg total) by mouth 2 (two) times daily Takes daily. 10/24/2022 HYDROcodone-aceta minophen (NORCO 7.5-325) 7.5-325 mg per tablet Take 1 tablet by mouth every 6 (six) hours as needed for Pain for up to 10 days. Max Daily Amount: 4 tablets 30 tablet 02/14/2023 02/24/2023 documented as of this encounter Progress Notes * Aaron Valdovinos, PT - 02/14/2023 12:06 PM EDT Images from the original note were not included. Inpatient Physical Therapy Initial Evaluation Patient Name: Mk Ardon Date of : 1970 Date of Evaluation: 02/14/23 In Time 1206 Out Time 1214 Session Duration 8 minutes Time spent for nursing collaboration, chart and systems review, and clinical reasoning. 5 minutes Total Time 13 minutes Pt is a 52 y.o. male admitted on 02/13/2023 with Lumbar radiculopathy [M54.16]. Past Medical History: Diagnosis Date ??? Arthritis ??? Back pain radiates to BLE charlene LLE ??? Hypertension ??? Prediabetes Past Surgical History: Procedure Laterality Date ??? APPENDECTOMY ??? JOINT REPLACEMENT Left 8 surgeries: [id number] meniscal repair to total knee done twice ??? right wrist surgery Right PROCEDURE: 02/13/23 1. L3-4 laminectomy 2. Left 3-4 discectomy General Visit type: Initial Evaluation Approved by: Nurse Zapien Patient Disposition Upon Entry: Patient in bedside chair, Patient verified by name, Patient verified by date of Assisted by: communications technologist Precautions Weight-Bearing Status: Full Weight Bearing (FWB) Precautions: Spinal Precautions Isolation Precautions: Standard Subjective Subjective: Patient agreeable to physical therapy evaluation and treatment. Pain No - Patient not reporting pain at this time Cognition Overall cognitive status: WFL Orientation Level: Oriented x4 Following commands: Follows all commands and directions without difficulty Home Living Lives with: Significant Other Home Type: House Home Layout: One level Stairs to enter: 1 step(s), handrail on right ascending Stairs inside home: none Home Equipment: None Functional Mobility PLOF: Patient reports being independent with all functional mobility prior to onset. Activities of Daily Living PLOF: Patient reports being independent with all ADL's prior to onset. Objective Basic Strength Assessment Not assessed formally via MMT. Pt demonstrating adequate strength with mobility today. Range of Motion Assessment WFL for all extremities Sensation Intact and equal bilaterally Coordination Coordination is intact and within normal limits. Functional Mobility Bed Mobility Patient up in bedside chair, therefore, bed mobility not assessed this date. Transfers Sit to Stand: independent Stand to Sit: independent Gait Gait Assistance: independent Assistive Device: Gait Belt Distance: 150' Gait speed: WNL Deviation(s): no deviations noted. Stair Management Patient declined to attempt this date. Wheelchair Mobility Not assessed, patient ambulatory AM-PAC Basic Mobility Inpatient Short Form How much difficulty does the patient currently have: Turning over in bed (including adjusting bedclothes, sheets, and blankets)? (4) None (the patient can do the activity independently WITHOUT using assistive devices OR help from another person) Sitting down on and standing up from a chair with arms (e.g., wheelchair, bedside commode, etc.)? (4) None (the patient can do the activity independently WITHOUT using assistive devices OR help from another person) Moving from lying on back to sitting on side of bed? (4) None (the patient can do the activity independently WITHOUT using assistive devices OR help from another person) How much help from another person does the patient currently need: Moving to and from a bed to a chair (including a wheelchair)? (4) None (Modified independent/Independent) Need to walk in hospital room? (4) None (Modified independent/Independent) Climbing 3-5 steps with a railing? (4) None (Modified independent/Independent) Score Raw score=24 t-Scale score=61.14 Standard error=6.94 CMS 0-100%=0.00% MDC=4.72 A raw score of >= 16 is significantly associated with increased odds of discharge to home in addition to consideration made for the patient's cognition and social determinants of health. Balance Static/dynamic sitting and static/dynamic standing balance are all WFL. Activity Tolerance Patient tolerated activity/intervention well with no complaints or adverse events. Treatment Pt educated on spinal precautions and verbalized understanding. Assessment Pt doing well with ambulation and all mobility assessed today. Declined the need for stair training. Pt will be safe for discharge home once medically appropriate. Problems: Pain Rehab potential: Skilled physical therapy services are not indicated at this time. Plan Treatment Plan: No skilled physical therapy services are indicated at this time. PT Frequency/Duration: Discontinue Recommendations Discharge recommendations: Discharge home/prior living situation with no further follow-up. Patientat baseline level of functioning. DME recommendations: Patient has no DME/adaptive equipment discharge needs at this time. Education Patient educated on role of physical therapy and spinal precautions and following, they were able to verbalize and demonstrate understanding. No further questions or concerns stated. Patient Disposition Upon Leaving Patient in bedside chair, Call Light/Pull Cord in reach, All needs met and within reach, Visitor/Family present If this patient discharges prior to next therapy session, this note serves as the patient's discharge summary. Electronically signed by Aaron Valdovinos, PT - 02/14/23 - 12:06 PM EDT * Mray Kate Jara OTR/Stevan - 02/14/2023 9:56 AM EDT Images from the original note were not included. Inpatient Occupational Therapy Initial Evaluation Patient Name: Mk Ardon Date of : 1970 Date of Evaluation: 02/14/23 Start Time: 940 Stop Time: 955 Session Duration: 15 minutes Total time: 23 minutes spent, including 8 minutes for nursing collaboration, thorough chart and systems review, and clinical reasoning. This patient is a 52 y.o. male admitted on 02/13/2023 with Lumbar radiculopathy [M54.16]. Patient had L3/4 lami/discectomy on 02/13/2023 Past Medical History: Diagnosis Date ??? Arthritis ??? Back pain radiates to BLE charlene LLE ??? Hypertension ??? Prediabetes Past Surgical History: Procedure Laterality Date ??? APPENDECTOMY ??? JOINT REPLACEMENT Left 8 surgeries: [phone] meniscal repair to total knee done twice ??? right wrist surgery Right General Visit type: Initial Evaluation Approved by: Nurse Viera Patient disposition upon entry: Supine in bed Precautions Weightbearing status: No restrictions Precautions: Spinal precautions Isolation precautions: Standard Subjective Subjective: Pt agreeable Pain 0-10 SCALE Pain location: baclk 2/10 Cognition Cognition: Overall cognitive status: WFL Home Living Lives with: Significant other Receives help from: Family Type of home: House Home layout: One level, 1 stairs to enter with rails Bathroom layout: Tub/shower unit Home equipment available: none Functional Mobility PLOF: Patient reports being independent with all functional mobility prior to onset. Activities of Daily Living PLOF: Patient reports being independent with all ADL's prior to onset. Objective Range of Motion Assessment Patient's ROM is within functional limits in bilateral upper extremities Strength Assessment Patient's strength is within functional limits in bilateral upper extremities Bed Mobility Supine to sit: Modified independent Transfers Sit to stand:Modified independent Stand to sit:Modified independent Functional mobility:Independent Toilet transfer:Independent ADLs Feeding:Independent Grooming:Independent Bathing:Independent Upper body dressing:Independent Lower body dressing:Independent Toileting:Independent Outcome Measures [facility] Daily Living Functional Assessment How much help from another person does the patient currently need: Putting on and taking off regular lower body clothing? 4 Bathing, including washing, rinsing, and drying? 4 Toileting, including using toilet, bedpan or urinal? 4 Putting on and taking off regular upper body clothing? 4 Taking care of personal grooming such as brushing teeth? 4 Eating meals? 4 Raw Score 24/24 Total Score 0% impaired 1=Total/Unable (Total assist/Dependent) 2=A lot (Maximal/Moderate assist) 3=A little (Minimal/Contact guard/Supervision/Setup) 4=None (Modified independent/Independent) Raw Score Approximate Degree of Functional Impairment 6 100% 7 92.44% 8 85.69% 9 79.59% 10 74.70% 11 70.42% 12 66.57% 13 63.03% 14 59.67% 15 56.46% 16 53.32% 17 50.11% 18 46.65% 19 42.80% 20 38.32% 21 32.79% 22 25.80% 23 15.86% 24 0% A raw score of >= 19 is significantly associated with increased odds of discharge to home in addition to consideration made for the patient's cognition and social determinants of health. Balance Static sitting balance:Normal: Patient able to maintain steady balance without handheld support Dynamic sitting balance:Normal: Patient accepts maximal challenge and shift weight easily within full range in all directions Static standing balance:Normal: Patient able to maintain steady balance without handheld support Dynamic standing balance:Good: Patient accepts moderate challenge; able to maintain balance while picking object off the floor Activity Tolerance Patient tolerated activity/intervention well with no complaints or adverse events. Treatment Administered long handled shoe horn, principal electrical engineer, sock aid, long handled sponge, and educational packet. Pt demonstrated understanding of adaptive dressing strategies and carry over of learning. Pt completed dressing, toileting, and functional mobility in room I'ly. Assessment Assessment Pt at baseline level of function. No additional skilled OT services needed at this time. Problems: No problems identified on OT evaluation Plan Recommendations Discharge recommendations: Discharge home/prior living situation with no further follow-up. Patientat baseline level of functioning. DME recommendations: Patient has no adaptive/DME needs for discharge at this time. Education Patient educated on safety, use of call light, role of occupational therapy, ADLs, functional mobility, adaptive equipment, spinal precautions, educational materials provided and following, they wereable to verbalize understanding. Patient Disposition Upon Leaving Patient disposition upon leaving: Patient in bedside chair, All needs met and within reach, Call light/pull cord in reach If this patient discharges prior to next therapy session, this note serves as the patient's discharge summary. Electronically signed by RAJI Benedict - 02/14/2023 - 10:55 AM EDT * Jodie Martin PA-C - 02/14/2023 8:29 AM EDT Images from the original note were not included. NEUROSURGERY PROGRESS NOTE Subjective Pain well controlled. Feels ready for discharge. Physical Exam Blood pressure 132/72, pulse 95, temperature 97.9 ??F (36.6 ??C), resp. rate 18, height 1.848 m (6'0.76 ), weight 90.8 kg (200 lb 1.6 oz), SpO2 97 %. AAOx3. Incision intact with moderate bloody drainage. Moving LEs well. Labs Results for orders placed or performed during the hospital encounter of 02/13/23 (from the past 24 hour(s)) Glucose, Nova Meter Status: Abnormal Collection Time: 02/13/23 9:38 AM Result Value Ref Range POC-GLUCOSE 212 (H) 70 - 110 mg/dL Lawyer Criminal [id number] Glucose, Nova Meter Status: Abnormal Collection Time: 02/13/23 4:29 PM Result Value Ref Range POC-GLUCOSE 291 (H) 70 - 110 mg/dL [employer] [id number] No image results found. Assessment POD 1 L3-4 laminectomy and left discectomy. Plan D/C home today. Discussed wound care and follow up. Admitting Dx: lumbar disc herniation Discharge Dx: lumbar disc herniation YOUR MEDICATION LIST Important This medication list is not yet final, because your doctor or pharmacist is still double-checking some of the changes. Ask your nurse for an updated version. Specifically ask about this and similar medications: HYDROcodone-acetaminophen (NORCO 7.5-325) 7.5-325 mg per tablet START taking these medications Instructions Last Dose Given Next Dose Due (RN to fill in) Reasons for taking HYDROcodone-acetaminophen 7.5-325 mg per tablet Quantity: 20 tablet Refills: 0 Commonly known as: NORCO 7.5-325 Take 1 tablet by mouth every 6 (six) hours as needed for Pain for up to 10 days. Max Daily Amount: 4 tablets 1 tablet CONTINUE taking these medications Instructions Last Dose Given Next Dose Due (RN to fill in) Reasons for taking amLODIPine-benazepriL 10-20 mg per capsule Refills: 0 Commonly known as: LOTREL Take 1 capsule by mouth daily. 1 capsule metFORMIN 500 MG tablet Refills: 0 Commonly known as: GLUCOPHAGE Take 1 tablet (500 mg total) by mouth 2 (two) times daily Takes daily. 500 mg Where to Get Your Medications Information about where to get these medications is not yet available Ask your nurse or doctor about these medications ?? HYDROcodone-acetaminophen 7.5-325 mg per tablet Cosigned by Alexx Callejas MD at 03/01/2023 9:02 PM EDT documented in this encounter H&P Notes * Dulce Burleson, WELFARE ANALYST - 02/13/2023 6:30 AM EDT HPI History Of Present Illness Mk Ardon is a 52 y.o. male presenting with back and bobby LE pain for 5 months. Pt is having L3-4 laminectomy and discectomy with Dr. Callejas. Past Medical History He has a past medical history of Arthritis, Back pain, Hypertension, and Prediabetes. Surgical History He has a past surgical history that includes Joint replacement (Left); Appendectomy; and right wrist surgery (Right). Social History He reports that he has never smoked. He has been exposed to tobacco smoke. He has never used smokeless tobacco. He reports that he does not drink alcohol and does not use drugs. Family History His family history is not on file. Allergies Oxycodone-Acetaminophen Medications Current Outpatient Medications Medication Instructions ??? amLODIPine-benazepriL (LOTREL) 10-20 mg per capsule 1 capsule, Oral, Daily ??? metFORMIN (GLUCOPHAGE) 500 mg, Oral, 2 times daily, Takes daily Review of Systems Review of Systems Constitutional: Negative. HENT: Negative. Eyes: Negative. Respiratory: Negative. Cardiovascular: Negative. Gastrointestinal: Negative. Endocrine: Negative. Genitourinary: Negative. Musculoskeletal: Positive for back pain. Skin: Negative. Allergic/Immunologic: Negative. Neurological: Positive for weakness (bobby LE ). Hematological: Negative. Psychiatric/Behavioral: Negative. Last Recorded Vitals Blood pressure 131/80, pulse 69, temperature 97.8 ??F (36.6 ??C), temperature source Tympanic, resp. rate 20, height 1.848 m (6' 0.76 ), weight 90.8 kg (200 lb 1.6 oz), SpO2 98 %. Physical Exam Constitutional: Appearance: Normal appearance. HENT: Head: Normocephalic. Cardiovascular: Rate and Rhythm: Normal rate and regular rhythm. Pulses: Normal pulses. Heart sounds: Normal heart sounds. No murmur heard. No friction rub. No gallop. Pulmonary: Effort: Pulmonary effort is normal. Breath sounds: Normal breath sounds. Musculoskeletal: General: Tenderness present. Deformity: painful ROM back. Cervical back: Normal range of motion and neck supple. Skin: General: Skin is warm and dry. Neurological: General: No focal deficit present. Mental Status: He is alert and oriented to person, place, and time. Motor: Weakness (bobby LE) present. Psychiatric: Mood and Affect: Mood normal. Behavior: Behavior normal. Diagnostic Results Admission on 02/13/2023 Component Date Value Ref Range Status ??? POC-GLUCOSE 02/13/2023 166 (H) 70 - 110 mg/dL Final ??? Lawyer Criminal 02/13/2023 [id number] Final No image results found. Assessment & Plan Lumbar radiculopathy with bobby LE pain/weakness OA HTN prediabetes Pt to proceed with surgery, plan to stay 1 night Electronically signed by: Dulce Bruleson APRN, 02/13/2023 at 7:11 AM Cosigned by Alexx Callejas MD at 03/01/2023 9:02 PM EDT documented in this encounter Consult Notes * Calli Lr APRN - 02/13/2023 10:12 AM EDT Consults History of Present Illness: Mk Ardon is a 52 y.o. male presenting with L3-4 disc herniation with central stenosis undergoing L3-4 laminectomy with left L3-[address] Callejas. Perioperatively, he failed conservative measures and elected surgical intervention. We were consulted for post-op medical management. Initial visit in PACU -- reports some postop pain. Denies SOA. Denies home O2/BiPAP/CPAP use. Denies N/V. Denies bowel or bladder issues. Reports BM today. Denies hx DVT/PE. Denies antibiotic use in last 2 weeks. Denies ETOH or tobacco use. Reports prediabetic on metformin. Reports gait instabilityand using assistive device at home due to left knee -- reports has had multiple surgeries on and disabled from -- discussed possibly seeing orthosx specialist outpatient in the future for further opinion/tx options. Past Medical History: He has a past medical history of Arthritis, Back pain, Hypertension, and Prediabetes. +obesity Past Surgical History: He has a past surgical history that includes Joint replacement (Left); Appendectomy; and right wrist surgery (Right). Social History: He reports that he has never smoked. He has been exposed to tobacco smoke. He has never used smokeless tobacco. He reports that he does not drink alcohol and does not use drugs. Family History: His family history is not on file. Allergies: Oxycodone-Acetaminophen Medications: Medications Prior to Admission Medication Sig Dispense Refill Last Dose ??? amLODIPine-benazepriL (LOTREL) 10-20 mg per capsule Take 1 capsule by mouth daily. 02/13/2023 at 0400 ??? metFORMIN (GLUCOPHAGE) 500 MG tablet Take 1 tablet (500 mg total) by mouth 2 (two) times daily Takes daily. 02/12/2023 at 0630 Review of Systems As per above Vitals: Blood pressure 105/59, pulse 66, temperature 97.8 ??F (36.6 ??C), resp. rate 16, height 1.848 m (6'0.76 ), weight 90.8 kg (200 lb 1.6 oz), SpO2 96 %. Physical Exam Gen: eyes closed but awakens, white male; seen in PACU HEENT: Nc/at, eomi, PEERL, pink conjunctiva, MMM Neck: supple, no masses, trachea midline Lungs: CTAB, no rhonchi, no rales, no wheezing Heart: nondisplaced PMI, reg s1, s2 Abd: soft, obese, NT, ND, BS+ : no basurto Ext: LLE/knee edema Msk: limited ROM back & left knee baseline; good strength Skin: Exposed skin warm; dressing back Neuro: no new neuro-sensory deficits; follows simple commands Psych: appropriate mood Relevant Results: Results for orders placed or performed during the hospital encounter of 02/13/23 (from the past 24 hour(s)) Glucose, Nova Meter Status: Abnormal Collection Time: 02/13/23 6:44 AM Result Value Ref Range POC-GLUCOSE 166 (H) 70 - 110 mg/dL [employer] [id number] Glucose, Nova Meter Status: Abnormal Collection Time: 02/13/23 9:38 AM Result Value Ref Range POC-GLUCOSE 212 (H) 70 - 110 mg/dL [employer] [id number] Assessment & Plan # 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 Jonnie espitia # Prediabetes --hold oral glycemic agents while hospitalized; FSBG checks AC/HS; add short acting sliding scale insulin as indicated --increases potential for delayed healing # Hypertension --monitor BP; add PRNs/hold parameters --amlodipine, benazepril # Gait instability --fall precautions --reports using assistive device @ home prior 2/2 left knee # Obesity --complicates all aspects of care Electronically signed by Calli Lr APRN 02/13/2023 at 2:23 PM Cosigned by Anabelle Hart MD at 02/14/2023 8:35 AM EDT Associated attestation - Anabelle Hart MD - 02/14/2023 7:35 AM CDT Calli Lr APRN, has privileges to practice independently in the hospital. I did not see this patient or participate in care in any way on the day this note was signed. I am attesting this note for administrative purposes only, in order to finalize the note, since the hospital's version of the [employer] EMR requires attestations for mid-level providers. documented in this encounter Miscellaneous Notes * Plan of Care - Aylin Alexander RN - 02/14/2023 9:21 AM EDT Problem: Knowledge Deficit Goal: Patient/family/caregiver demonstrates understanding of disease process, treatment plan, medications, and discharge instructions Description: Complete learning assessment and assess knowledge base. Outcome: Adequate for Discharge Problem: Potential for Infection Goal: Remains infection free Description: Assess and monitor vital signs, skin (color, moisture, integrity, turgor), respiratorystatus, urinary and gastrointestinal status, and labs (WBC, cultures). Administer antibiotics and antipyretics as ordered. Ensure aseptic care of all intravenous lines, invasive tubes/drains and wounds. Monitor for signs and symptoms of infection (redness, warmth, discharge, increased body temperature). Wash hands properly before and after each patient care activity. Follow isolation guidelines per hospital protocol/policy. Collaborate with interdisciplinary team and initiate plan and interventions as ordered. Outcome: Adequate for Discharge Problem: Inadequate Airway Clearance Goal: Patient will maintain patent airway Description: Assess and monitor breath sounds, cough and sputum (if present), and intake/output. Collaborate with respiratory therapy to administer medications and treatments. Outcome: Adequate for Discharge Goal: Patient will achieve/maintain normal respiratory rate/effort Description: Assess and monitor respiratory rate, effort, breathing pattern and oxygenation as ordered or per policy. Monitor patient for restlessness, anxiety, air hunger. Assess physical activity tolerance. Assess patient's smoking history and intervene per policy. Collaborate with interdisciplinary team and initiate plans and interventions as needed. Outcome: Adequate for Discharge Problem: Inadequate Breathing Pattern Goal: Patient will maintain effective ventilation Description: Assess and monitor vital signs, respiratory status (to include respiratory rate, depth, effort, and breath sounds), oxygen saturation, oral mucosa, tongue, pain, and labs (ABGs). Collaborate with interdisciplinary team and initiate plans and interventions as needed. Outcome: Adequate for Discharge Problem: Insufficient Fluid Volume Goal: Fluid and electrolyte balance are achieved/maintained Description: Assess and monitor vital signs (orthostatic vitals if applicable), fluid intake and output, urine color, labs, skin turgor, mucous membranes, mental status, and gastrointestinal system for nausea, vomiting and diarrhea. Monitor for signs and symptoms of hypovolemia (tachycardia, rapid breathing, decreased urine output, postural hypotension, confusion, syncope). Collaborate with interdisciplinary team and initiate plan and interventions as ordered. Outcome: Adequate for Discharge Problem: Insufficient Nutritional Intake Goal: Patient's nutritional intake is adequate Description: Assess and monitor food intake and supplements, patient food preferences, nausea, vomiting, labs, oral cavity (gums, teeth, tongue, mucosa), proper denture fit, and cultural beliefs. Monitor for signs of hypoglycemia and hyperglycemia. Collaborate with interdisciplinary team and initiate plan and interventions as ordered. Outcome: Adequate for Discharge Goal: Mobility/activity is maintained at optimum level for patient Description: Assess and monitor patient barriers to mobility and need for assistive/adaptive devices. Assess patient's emotional response to limitations. Collaborate with interdisciplinary team and initiate plans and interventions as ordered. Outcome: Adequate for Discharge Problem: Inadequate Tissue Perfusion - Venous Goal: Tissue perfusion is adequate - venous Description: Assess and monitor skin color and temperature, skin integrity, pulses, capillary refill, edema, pain in extremities, Homans' sign, labs (D- dimer), and diagnostic tests (ultrasound, CT scan, VQ scan). Monitor for signs and symptoms of deep vein thrombosis (swelling of calf/thigh, redness, pain, tenderness). Monitor for signs and symptoms of pulmonary embolism (dyspnea, tachypnea, tachycardia). Collaborate with interdisciplinary team and initiate plans and interventions as needed. Outcome: Adequate for Discharge Problem: Activity Intolerance/Impaired Mobility Goal: Mobility/activity is maintained at optimum level for patient Description: Assess and monitor patient barriers to mobility and need for assistive/adaptive devices. Assess patient's emotional response to limitations. Collaborate with interdisciplinary team and initiate plans and interventions as ordered. Outcome: Adequate for Discharge Problem: Altered Body Image Goal: Verbalizes feelings about physical appearance Description: Assess the patient's feelings about their physical appearance, how it will effect their lifestyle, sexuality, and relationships with family and friends. Collaborate with interdisciplinary team and initiate plan and interventions as ordered. Outcome: Adequate for Discharge Problem: Pain Management Goal: Patient return to pre procedure comfort Outcome: Adequate for Discharge Problem: Hemodynamic Status Goal: Patient's vitals signs are stable Description: Assess and monitor patient's heart rate, rhythm, respiratory rate, peripheral pulses, capillary refill, color, body temperature, intake and output, labs and physical activity tolerance. Observe for signs of chest pain (note location, duration, severity, radiation and associated symptoms such as diaphoresis, nausea, indigestion). Monitor for signs and symptoms of heart failure (eg. shortness of breath, edema of feet/ankles/legs, rapid irregular heart rate, coughing, wheezing, white/pink blood tinged sputum, sudden weight gain, chest pain). Collaborate with interdisciplinary team and initiate plan and interventions as ordered. Outcome: Adequate for Discharge Problem: Inadequte temperature regulation Goal: Body temperature is within normal range Outcome: Adequate for Discharge Problem: Safety Goal: Free from accidental physical injury Outcome: Adequate for Discharge Goal: Free from abuse Outcome: Adequate for Discharge Problem: Elimination Goal: Elimination patterns are normal or improving Description: Assess and monitor vital signs, gastrointestinal assessment to include bowel sounds, color, appearance, frequency, and amount of stool and emesis, abdominal distention and discomfort, intake and output, and labs. Collaborate with interdisciplinary team and initiate plan and interventions as ordered. Outcome: Adequate for Discharge Problem: Increased Risk for /GI Compromise Goal: Optimal /GI status Outcome: Adequate for Discharge Problem: Bleeding Precautions Goal: Excessive bleeding will be minimized Outcome: Adequate for Discharge * Plan of Care - Aylin Alexander RN - 02/13/2023 4:01 PM EDT Problem: Knowledge Deficit Goal: Patient/family/caregiver demonstrates understanding of disease process, treatment plan, medications, and discharge instructions Description: Complete learning assessment and assess knowledge base. Outcome: Progressing Problem: Potential for Infection Goal: Remains infection free Description: Assess and monitor vital signs, skin (color, moisture, integrity, turgor), respiratorystatus, urinary and gastrointestinal status, and labs (WBC, cultures). Administer antibiotics and antipyretics as ordered. Ensure aseptic care of all intravenous lines, invasive tubes/drains and wounds. Monitor for signs and symptoms of infection (redness, warmth, discharge, increased body temperature). Wash hands properly before and after each patient care activity. Follow isolation guidelines per hospital protocol/policy. Collaborate with interdisciplinary team and initiate plan and interventions as ordered. Outcome: Progressing Problem: Inadequate Airway Clearance Goal: Patient will maintain patent airway Description: Assess and monitor breath sounds, cough and sputum (if present), and intake/output. Collaborate with respiratory therapy to administer medications and treatments. Outcome: Progressing Goal: Patient will achieve/maintain normal respiratory rate/effort Description: Assess and monitor respiratory rate, effort, breathing pattern and oxygenation as ordered or per policy. Monitor patient for restlessness, anxiety, air hunger. Assess physical activity tolerance. Assess patient's smoking history and intervene per policy. Collaborate with interdisciplinary team and initiate plans and interventions as needed. Outcome: Progressing Problem: Inadequate Breathing Pattern Goal: Patient will maintain effective ventilation Description: Assess and monitor vital signs, respiratory status (to include respiratory rate, depth, effort, and breath sounds), oxygen saturation, oral mucosa, tongue, pain, and labs (ABGs). Collaborate with interdisciplinary team and initiate plans and interventions as needed. Outcome: Progressing Problem: Insufficient Fluid Volume Goal: Fluid and electrolyte balance are achieved/maintained Description: Assess and monitor vital signs (orthostatic vitals if applicable), fluid intake and output, urine color, labs, skin turgor, mucous membranes, mental status, and gastrointestinal system for nausea, vomiting and diarrhea. Monitor for signs and symptoms of hypovolemia (tachycardia, rapid breathing, decreased urine output, postural hypotension, confusion, syncope). Collaborate with interdisciplinary team and initiate plan and interventions as ordered. Outcome: Progressing Problem: Insufficient Nutritional Intake Goal: Patient's nutritional intake is adequate Description: Assess and monitor food intake and supplements, patient food preferences, nausea, vomiting, labs, oral cavity (gums, teeth, tongue, mucosa), proper denture fit, and cultural beliefs. Monitor for signs of hypoglycemia and hyperglycemia. Collaborate with interdisciplinary team and initiate plan and interventions as ordered. Outcome: Progressing Goal: Mobility/activity is maintained at optimum level for patient Description: Assess and monitor patient barriers to mobility and need for assistive/adaptive devices. Assess patient's emotional response to limitations. Collaborate with interdisciplinary team and initiate plans and interventions as ordered. Outcome: Progressing Problem: Inadequate Tissue Perfusion - Venous Goal: Tissue perfusion is adequate - venous Description: Assess and monitor skin color and temperature, skin integrity, pulses, capillary refill, edema, pain in extremities, Homans' sign, labs (D- dimer), and diagnostic tests (ultrasound, CT scan, VQ scan). Monitor for signs and symptoms of deep vein thrombosis (swelling of calf/thigh, redness, pain, tenderness). Monitor for signs and symptoms of pulmonary embolism (dyspnea, tachypnea, tachycardia). Collaborate with interdisciplinary team and initiate plans and interventions as needed. Outcome: Progressing Problem: Activity Intolerance/Impaired Mobility Goal: Mobility/activity is maintained at optimum level for patient Description: Assess and monitor patient barriers to mobility and need for assistive/adaptive devices. Assess patient's emotional response to limitations. Collaborate with interdisciplinary team and initiate plans and interventions as ordered. Outcome: Progressing Problem: Altered Body Image Goal: Verbalizes feelings about physical appearance Description: Assess the patient's feelings about their physical appearance, how it will effect their lifestyle, sexuality, and relationships with family and friends. Collaborate with interdisciplinary team and initiate plan and interventions as ordered. Outcome: Progressing Problem: Pain Management Goal: Patient return to pre procedure comfort Outcome: Progressing Problem: Hemodynamic Status Goal: Patient's vitals signs are stable Description: Assess and monitor patient's heart rate, rhythm, respiratory rate, peripheral pulses, capillary refill, color, body temperature, intake and output, labs and physical activity tolerance. Observe for signs of chest pain (note location, duration, severity, radiation and associated symptoms such as diaphoresis, nausea, indigestion). Monitor for signs and symptoms of heart failure (eg. shortness of breath, edema of feet/ankles/legs, rapid irregular heart rate, coughing, wheezing, white/pink blood tinged sputum, sudden weight gain, chest pain). Collaborate with interdisciplinary team and initiate plan and interventions as ordered. Outcome: Progressing Problem: Inadequte temperature regulation Goal: Body temperature is within normal range Outcome: Progressing Problem: Safety Goal: Free from accidental physical injury Outcome: Progressing Goal: Free from abuse Outcome: Progressing Problem: Elimination Goal: Elimination patterns are normal or improving Description: Assess and monitor vital signs, gastrointestinal assessment to include bowel sounds, color, appearance, frequency, and amount of stool and emesis, abdominal distention and discomfort, intake and output, and labs. Collaborate with interdisciplinary team and initiate plan and interventions as ordered. Outcome: Progressing Problem: Increased Risk for /GI Compromise Goal: Optimal /GI status Outcome: Progressing Problem: Bleeding Precautions Goal: Excessive bleeding will be minimized Outcome: Progressing * Op Note - Alexx Callejas MD - 02/13/2023 9:30 AM EDT DATE OF PROCEDURE: 02/13/23 PRIMARY CARE PHYSICIAN: Jam Pimentel MD PREOPERATIVE DIAGNOSIS: L34 disc herniation with central stenosis POSTOPERATIVE DIAGNOSIS: Same INDICATION FOR PROCEDURE: Lumbar radiculopathy unresponsive to conservative management. PROCEDURE: 1. L34 laminectomy 2. Left 34 discectomy PAIN MANAGEMENT NURSE PRACTITIONER: Elpidio Rivera TYPE OF ANESTHESIA: General DESCRIPTION/PROCEDURE IN DETAIL: Once consent was noted to be on chart, he was taken back to the operating room. He was anesthetizedand carefully placed in the prone position on a Gerber spine frame. All pressure points were carefully checked and padded. Preoperative antibiotics were given. Fluoroscopy was draped into the field. He was prepped and draped in usual sterile fashion. A time-out was called. A #10 blade was used to make a midline incision at L34. Bovie electrocautery was used to dissect down to and through the lumbosacral fascia. A subperiosteal dissection was performed at bilaterally at L34. The [place] retractor was placed for retraction. The operating microscope was focused on the interspace after the level was confirmed with intraoperative fluoroscopy. High-speed drill, #2 and #3 Kerrison was used to perform a laminectomy, mesial facetectomies, and foraminotomies with preservation of the pars bilaterally. The ligamentum flavum was removed. The nerve root was identified carefully from the p osterior longitudinal ligament and retracted medially on the left. A #11 blade was used to open theligament and annulus and a discectomy was performed fully decompressing the nerve root anteriorly. We used pituitary rongeurs to interrogate the disc base and remove additional fragments in order to try to prevent or reherniation. Meticulous hemostasis was obtained. No CSF was visualized throughoutthis procedure. A Pond ball probe passed easily along the medial pedicle and out the foramen verifying full decompression. The wound was copiously irrigated. The retractor was removed. 0 Vicryl reapproximated the paraspinous muscles and fascia. 2-0 Vicryl to close space and close the skin subcuticularly. Mastisol and Steri-Strips were applied. Elpidio Rivera assisted throughout the surgery and helped perform the closure. SPECIMENS SENT: None ESTIMATED BLOOD LOSS: 50 mL DRAINS: None COMPLICATIONS: None documented in this encounter Plan of Treatment Not on file documented as of this encounter Procedures Procedure Name Priority Date/Time Associated Diagnosis Comments NOVA GLUCOSE POC Routine 02/14/2023 10:3 8 AM EDT NOVA GLUCOSE POC Routine 02/13/2023 4:29 PM EDT NOVA GLUCOSE POC Routine 02/13/2023 9:38 AM EDT FL < 1 HOUR Routine 02/13/2023 9:30 AM EDT VA LAMINEC/FACETECT/ FORAMIN,LUMBAR 1 SEG 02/13/2023 7:59 AM EDT Lumbar radiculopathy Case Notes Preoperative handoff report by Kirti Gerber RN NOVA GLUCOSE POC Routine 02/13/2023 6:44 AM EDT EKG-SCANNED 02/13/2023 documented in this encounter Results * (ABNORMAL) Glucose, Nova Meter (02/14/2023 10:38 AM EDT) POC-GLUCOSE 247(H) 70 - 110 mg/dL 02/14/2023 10:40 AM EDT [facility] Comment: In the event of poor peripheral blood flow, venous or arterial blood should be used due to the potential of erroneous results. Protocols Followed [employer] [employer] [id number] 02/14/2023 10:40 AM EDT [facility] Blood WHOLE BLOOD / Unknown 02/14/2023 10:38 AM EDT 02/14/2023 10:40 AM EDT Narrative [facility] - 02/14/2023 10:40 AM EDT [employer] [employer] ID is - [id number] us Alexx Callejas MD POINT OF CARE TEST ORDERABLES Fi nal Result Performing Organization Address [facility] de Phone Number [facility] [address] [phone] * (ABNORMAL) Glucose, Nova Meter (02/13/2023 4:29 PM EDT) POC-GLUCOSE 291(H) 70 - 110 mg/dL 02/13/2023 4:31 PM EDT [facility] Comment: In the event of poor peripheral blood flow, venous or arterial blood should be used due to the potential of erroneous results. Notified Nurse RBV [employer] [id number] 02/13/2023 4:31 PM EDT [facility] Blood WHOLE BLOOD / Unknown 02/13/2023 4:29 PM EDT 02/13/2023 4:31 PM EDT Narrative [facility] - 02/13/2023 4:31 PM EDT [employer] ID is - [id number] us Alexx Callejas MD POINT OF CARE TEST ORDERABLES Fi nal Result Performing Organization Address [facility] de Phone Number [facility] [address] [phone] * (ABNORMAL) Glucose, Nova Meter (02/13/2023 9:38 AM EDT) POC-GLUCOSE 212(H) 70 - 110 mg/dL 02/13/2023 9:40 AM EDT [facility] Comment:In the event of poor peripheral blood flow, venous or arterial blood should be used due to the potential of erroneous results. [employer] [id number] 02/13/2023 9:40 AM EDT [facility] Blood WHOLE BLOOD / Unknown 02/13/2023 9:38 AM EDT 02/13/2023 9:40 AM EDT Narrative [facility] - 02/13/2023 9:40 AM EDT [employer] ID is - [id number] Alexx Callejas MD POINT OF CARE TEST ORDERABLES Fi nal Result [facility] [address] [phone] * Fluoroscopy less than 1 hour (02/13/2023 9:30 AM EDT) Anatomical Region Laterality Modality X-Ray 02/14/2023 8:33 AM EDT Impressions 02/14/2023 10:43 AM EDT See above. Please see the operative report. Images reviewed, interpreted, and dictated by Dr. Alondra Sewell. Transcribed by Vivek Coe PA-C Narrative 02/14/2023 10:43 AM EDT FLUORO TIME PROCEDURE: ??Fluoroscopy in the operating room. HISTORY: ??Back pain . FINDINGS: Fluoroscopy time was provided by the radiology department for the clinical service. 2 fluoroscopic spot films were obtained. Fluoroscopy Time: ??7.2 seconds Radiation dose in reference to Air-Kerma: 3.11 mGy. Procedure Note Alondra Sewell MD - 02/14/2023 FLUORO TIME PROCEDURE: Fluoroscopy in the operating room. HISTORY: Back pain . FINDINGS: Fluoroscopy time was provided by the radiology department for the clinical service. 2 fluoroscopic spot films were obtained. Fluoroscopy Time: 7.2 seconds Radiation dose in reference to Air-Kerma: 3.11 mGy. IMPRESSION: See above. Please see the operative report. Images reviewed, interpreted, and dictated by Dr. Alondra Sewell. Transcribed by Vivek Coe PA-C us Alexx Callejas MD IMG FLUOROSCOPY ORDERABLES Final Result * (ABNORMAL) Glucose, Nova Meter (02/13/2023 6:44 AM EDT) POC-GLUCOSE 166(H) 70 - 110 mg/dL 02/13/2023 6:47 AM EDT [facility] Comment:In the event of poor peripheral blood flow, venous or arterial blood should be used due to the potential of erroneous results. [employer] [id number] 02/13/2023 6:47 AM EDT [facility] Blood WHOLE BLOOD / Unknown 02/13/2023 6:44 AM EDT 02/13/2023 6:47 AM EDT Narrative [facility] - 02/13/2023 6:47 AM EDT [employer]yer Criminal ID is - [id number] us Alexx Callejas MD POINT OF CARE TEST ORDERABLES Fi nal Result [facility] [address] [phone] * EKG-SCANNED (02/13/2023) Narrative 02/13/2023 Ordered by an unspecified provider. us Default Scanning Provider SCAN ORDERS Final Result documented in this encounter Visit Diagnoses Not on filedocumented in this encounter Administered Medications Inactive Administered Medications - up to 3 most recent administrations Medication Order MAR Action Action Date Dose Rate Site acetaminophen (TYLENOL) tablet 1,000 mg 1,000 mg Every 6 hours interval, oral, First dose on Sun02/13/23 at 1030, 1st line analgesic, Phase II/On Unit Given 02/14/2023 4:20 AM EDT 1,000 mg Given 02/13/2023 4:49 PM EDT 500 mg Given 02/13/2023 9:55 AM EDT 1,000 mg amLODIPine (NORVASC) tablet 10 mg 10 mg Daily, oral, First dose on Sun02/13/23 at 1230, Give with lisinopril 20 mg f/s for amlodipine/benazepril 02/16 Antihypertensive - Check BP - Check Pulse Hold SBP <110 OR HR <60 Given 02/14/2023 8:45 AM EDT 10 mg bisacodyL (DULCOLAX) EC tablet 10 mg 10 mg Daily as needed, oral, constipation, Starting on Sun02/13/23 at 1202, 1st line for treatment of constipation - give scheduled if no bowel movement in past 24 hours. See suppository order and give rectally if not able to take PO., Phase II/On Unit bisacodyL (DULCOLAX) suppository 10 mg 10 mg Daily as needed, rectal, constipation, Starting on Sun02/13/23 at 1202, 1st line for treatment of constipation - give scheduled if no bowel movement in past 24 hours. Give suppository rectally if unable to take PO., Phase II/On Unit cyclobenzaprine (FLEXERIL) tablet 10 mg 10 mg 3 times daily PRN, oral, muscle spasms, Starting on Sun02/13/23 at 0949, Phase II/On Unit Given 02/13/2023 9:55 AM EDT 10 mg dextrose 50% (D50W) injection 25 g 25 g Every 15 min PRN, intravenous, low blood glucose (specify value in prn comments), less than 41 mg/dL or 41-69 mg/dL and unable to take PO, Starting on Sun02/13/23 at 1431, Repeat blood glucose every 15 minutes until blood glucose greater than 70 mg/dL. Call Provider if not resolved after 2 treatments Repeat BS in 1 hour, retime for 1 hour after blood sugar greater than 70 mg/dL If less than 41: Repeat Finger stick within 5 minutes with same machine Send serum glucose level: Do not wait on lab to treat diphenhydrAMINE (BENADRYL) injection 12.5 mg 12.5 mg Every 6 hours PRN, intravenous, itching, allergies, Starting on Sun02/14/23 at 0600, Given 02/14/2023 6:16 AM EDT 12.5 mg docusate sodium (COLACE) capsule 100 mg 100 mg 2 times daily, oral, First dose on Sun02/13/23 at 1230, Bowel Regimen - for prevention of constipation., Phase II/On Unit Given 02/14/2023 8:45 AM EDT 100 mg Given 02/13/2023 9:23 PM EDT 100 mg Given 02/13/2023 1:00 PM EDT 100 mg famotidine (PEPCID) tablet 20 mg 20 mg Once, oral, On Sun02/13/23 at 0700, For 1 dose, Pharmacist to renally dose if CrCl is less than 50 mL/min or on CRRT., Pre-op Given 02/13/2023 6:54 AM EDT 20 mg glucagon injection 1 mg 1 mg Every 15 min PRN, intraMUSCULAR, low blood glucose (specify value in prn comments), For Patients without IV access and blood glucose 41-69 mg/dL AND unable to take PO OR Less than 41 mg/dL, Starting on Sun02/13/23 at 1431, Caution: glucagon . Roll patient on their side when administering to prevent aspiration. Call Provider if not resolved after 2 treatments Repeat BS in 1 hour, retime for 1 hour after blood sugar greater than 70 mg/dL glucose chewable tablet 16 g 16 g Every 15 min PRN, oral, low blood glucose (specify value in prn comments), 41-69 mg/dL, Starting on Sun02/13/23 at 1431, For Patients who can take oral AND blood glucose 41-69 mg/dL Give 4 Tabs every 15 minutes. Recheck blood glucose every 15 minutes and repeat 15 grams of carbohydrates until blood glucose is above 70 mg/dL. Give Meal or Snack Call Provider if not resolved after 3 treatments Repeat BS in 1 hour, retime for 1 hour after blood sugar greater than 70 mg/dL HYDROcodone-acetaminophen (NORCO) tablet 10-325 mg 1 tablet Every 6 hours PRN, oral, moderate pain (4-6), Starting on Sun02/13/23 at 1202, Recommended maximum dose of acetaminophen is 4000 mg from all sources in 24 hours Given 02/14/2023 8:45 AM EDT 1 tablet Given 02/14/2023 1:18 AM EDT 1 tablet Given 02/13/2023 7:18 PM EDT 1 tablet insulin lispro (HumaLOG) injection 0-18 Units 0-18 Units 4 times daily (before meals and nightly), subcutaneous, First dose on Sun02/13/23 at 1630, If Blood Sugar is less than 180 beteween [id number], DO NOT give corrective insulin unless otherwise ordered. Corrective Scale C 0 units for fingerstick blood glucose LESS than 140 mg/dL 3 units subcutaneously once for fingerstick blood glucose [140] - [180] mg/dL 6 units subcutaneously once for fingerstick blood glucose [181] - [220] mg/dL 9 units subcutaneously once for fingerstick blood glucose [221] - [260] mg/dL 12 units subcutaneously once for fingerstick blood glucose [261] - [300] mg/dL 15 units subcutaneously once for fingerstick blood glucose [301] - [350] mg/dL 18 units subcutaneously once for fingerstick blood glucose [351] - [400] mg/dL Notify provider of glucose levels LESS than [70] and GREATER than [400] ketorolac (TORADOL) injection 15 mg 15 mg Every 6 hours interval, intravenous, First dose on Sun02/13/23 at 1030, For 5 days, 1st line analgesic, Phase II/On Unit Given 02/14/2023 4:20 AM EDT 1 5 mg Given 02/13/2023 4:53 PM EDT 15 mg Given 02/13/2023 9:55 AM EDT 15 mg lactated ringers (LR) infusion 1,000 mL Continuous, intravenous, at 100 mL/hr, Starting on Sun02/13/23 at 0700, New Bag 02/13/2023 9:22 AM EDT Continued by Anesthesia 02/13/2023 7:59 AM EDT 100 mL/hr New Bag 02/13/2023 6:53 AM EDT 1,000 mLs 100 mL/hr lactated Ringers (LR) infusion Starting on Sun02/13/23 at 1139, For 1 dose, Created by cabinet override New Bag 02/13/2023 1:02 PM EDT 1,000 mLs lisinopriL (PRINIVIL,ZESTRIL) tablet 20 mg 20 mg Daily, oral, First dose on Sun02/13/23 at 1230, Give with amlodipine 10mg f/s for amlodipine/benazepril 02/16 Antihypertensive - Check BP - Check Pulse Hold SBP <110 Given 02/14/2023 8:44 AM EDT 20 mg documented in this encounter Active and Recently Administered Medications Times are shown in EDT. Scheduled Medication Order 02/12/2023 02/13/2023 02/14/2023 acetaminophen (TYLENOL) tablet 1,000 mg(Linked Group 1) 1,000 mg Every 6 hours interval, oral, First dose on Sun02/13/23 at 1030, 1st line analgesic, Phase II/On Unit 0955 (Given - Provider: Mercedes Carcamo RN)1649 (Given - Provider: Aylin Alexander RN - Comment: taking tylenol in norco)9505 (Not Given - Provider: Akshat Garcias LPN - Reason: Other (with Comment) - Comment: pt sleeping) 0420 (Given - Provider: Akshat Garcias LPN)1135 (Not Given - Provider: Aylin Alexander RN - Reason: Patient/family refused) amLODIPine (NORVASC) tablet 10 mg(Linked Group 2) 10 mg Daily, oral, First dose on Sun02/13/23 at 1230, Give with lisinopril 20 mg f/s for amlodipine/benazepril 02/16 Antihypertensive - Check BP - Check Pulse Hold SBP <110 OR HR <60 1219 (Not Given - Provider: Aylin Alexander, HARJEET - Reason: Contraindicated) 0845 (Given - Provider: Aylin Alexander, HARJEET) ceFAZolin (ANCEF) 2 g in sodium chloride 0.9 % (NS) MBP 50 mL IVPB (COMPLETED) 2 g Once, intravenous, Administer over 30 Minutes, On Sun02/13/23 at 0700, For 1 dose, Pre-op, Please choose an indication: Surgical Prophylaxis 0822 (New Bag - Provider: Sade Zamora CRNA) docusate sodium (COLACE) capsule 100 mg 100 mg 2 times daily, oral, First dose on Sun02/13/23 at 1230, Bowel Regimen - for prevention of constipation., Phase II/On Unit 1300 (Given - Provider: Aylin Alexander RN)2123 (Given - Provider: Akshat Garcias LPN) 0845 (Given - Provider: Aylin Alexander RN) famotidine (PEPCID) tablet 20 mg (COMPLETED) 20 mg Once, oral, On Sun02/13/23 at 0700, For 1 dose, Pharmacist to renally dose if CrCl is less than 50 mL/min or on CRRT., Pre-op 0654 (Given - Provider: Kirti Gerber RN) insulin lispro (HumaLOG) injection 0-18 Units 0-18 Units 4 times daily (before meals and nightly), subcutaneous, First dose on Sun02/13/23 at 1630, If Blood Sugar is less than 180 beteween [id number], DO NOT give corrective insulin unless otherwise ordered. Corrective Scale C 0 units for fingerstick blood glucose LESS than 140 mg/dL 3 units subcutaneously once for fingerstick blood glucose [140] - [180] mg/dL 6 units subcutaneously once for fingerstick blood glucose [181] - [220] mg/dL 9 units subcutaneously once for fingerstick blood glucose [221] - [260] mg/dL 12 units subcutaneously once for fingerstick blood glucose [261] - [300] mg/dL 15 units subcutaneously once for fingerstick blood glucose [301] - [350] mg/dL 18 units subcutaneously once for fingerstick blood glucose [351] - [400] mg/dL Notify provider of glucose levels LESS than [70] and GREATER than [400] 1654 (Not Given - Provider: Aylin Alexander RN - Reason: Patient/family refused)2122 (Not Given - Provider: Akshat Garcias LPN - Reason: Patient/family refused) 0648 (Not Given - Provider: Akshat Garcias LPN - Reason: Patient/family refused)1136 (Not Given - Provider: Aylin Alexander RN - Reason: Patient/family refused) ketorolac (TORADOL) injection 15 mg(Linked Group 1) 15 mg Every 6 hours interval, intravenous, First dose on Sun02/13/23 at 1030, For 5 days, 1st line analgesic, Phase II/On Unit 0955 (Given - Provider: Mercedes Carcamo RN)1653 (Given - Provider: Aylin Alexander RN)2256 (Not Given - Provider: Akshat Garcias LPN - Reason: Other (with Comment) - Comment: pt sleeping) 0420 (Given - Provider: Akshat Garcias LPN)1135 (Not Given - Provider: Aylin Alexander RN - Reason: Patient/family refused) lisinopriL (PRINIVIL,ZESTRIL) tablet 20 mg(Linked Group 2) 20 mg Daily, oral, First dose on Sun02/13/23 at 1230, Give with amlodipine 10mg f/s for amlodipine/benazepril 02/16 Antihypertensive - Check BP - Check Pulse Hold SBP <110 1219 (Not Given - Provider: Aylin Alexander RN - Reason: Other (with Comment)) 0844 (Given - Provider: Aylin Alexander RN) metFORMIN (GLUCOPHAGE) tablet 500 mg 500 mg 2 times daily before meals, oral, First dose on Sun02/13/23 at 1630, - In patients taking metformin whose eGFR later falls below 45 mL/minute/1.73 m2, assess the benefits and risks of continuing treatment. Discontinue metformin if the patient's eGFR later falls below 30 mL/minute/1.73 m2. - Discontinue metformin at the time of or before an iodinated contrast imaging procedure in patients with an eGFR between 30 and 60 mL/minute/1.73 m2; in patients with a history of liver disease, alcoholism, or heart failure; or in patients who will be administered intra-arterial iodinated contrast. Re-evaluate eGFR 48 hours after the imaging procedure; restart metformin if renal function is stable. , On hold since Sun02/13/2023 at 1430 until manually unheld 1430 (Held by provider - Provider: Calli Lr APRN)1630 (Not Given - Provider: Aylin Alexander RN - Reason: Other (with Comment) - Comment: held) 0730 (Not Given - Provider: Aylin Alexander RN - Reason: Other (with Comment))1309 (Unheld by provider - Provider: Automatic Discharge Provider) Continuous Medication Order 02/12/2023 02/13/2023 02/14/2023 lactated ringers (LR) infusion 1,000 mL Continuous, intravenous, at 100 mL/hr, Starting on Sun02/13/23 at 0700, 0653 (New Bag - Provider: Lior Gerber RN)0759 (Continued by Anesthesia - Provider: Sade Zamora CRNA)0921 (Paused - Provider: Sade Zamora CRNA - Comment: Switch to gravity)0922 (New Bag - Provider: Sade Zamora CRNA)0932 (Canceled Entry - Provider: Sade Zamora CRNA)0934 (Stopped - Provider: Sade Zamora CRNA) PRN Medication Order 02/12/2023 02/13/2023 02/14/2023 bisacodyL (DULCOLAX) EC tablet 10 mg(Linked Group 3) 10 mg Daily as needed, oral, constipation, Starting on Sun02/13/23 at 1202, 1st line for treatment of constipation - give scheduled if no bowel movement in past 24 hours. See suppository order and give rectally if not able to take PO., Phase II/On Unit bisacodyL (DULCOLAX) suppository 10 mg(Linked Group 3) 10 mg Daily as needed, rectal, constipation, Starting on Sun02/13/23 at 1202, 1st line for treatment of constipation - give scheduled if no bowel movement in past 24 hours. Give suppository rectally if unable to take PO., Phase II/On Unit BUPivacaine (PF) (MARCAINE) injection (CANCELED) As needed, Starting on Sun02/13/23 at 0914, Intra-op 0914 (Given - Provider: Alexx Callejas MD - Comment: LOCAL - OPERATIVE SITE) cyclobenzaprine (FLEXERIL) tablet 10 mg 10 mg 3 times daily PRN, oral, muscle spasms, Starting on Sun02/13/23 at 0949, Phase II/On Unit 0955 (Given - Provider: Mercedes Carcamo RN) dextrose 50% (D50W) injection 25 g 25 g Every 15 min PRN, intravenous, low blood glucose (specify value in prn comments), less than 41 mg/dL or 41-69 mg/dL and unable to take PO, Starting on Sun02/13/23 at 1431, Repeat blood glucose every 15 minutes until blood glucose greater than 70 mg/dL. Call Provider if not resolved after 2 treatments Repeat BS in 1 hour, retime for 1 hour after blood sugar greater than 70 mg/dL If less than 41: Repeat Finger stick within 5 minutes with same machine Send serum glucose level: Do not wait on lab to treat diphenhydrAMINE (BENADRYL) injection 12.5 mg 12.5 mg Every 6 hours PRN, intravenous, itching, allergies, Starting on Sun02/14/23 at 0600, 0616 (Given - Provid er: Hayley Glass RN) glucagon injection 1 mg 1 mg Every 15 min PRN, intraMUSCULAR, low blood glucose (specify value in prn comments), For Patients without IV access and blood glucose 41-69 mg/dL AND unable to take PO OR Less than 41 mg/dL, Starting on Sun02/13/23 at 1431, Caution: glucagon . Roll patient on their side when administering to prevent aspiration. Call Provider if not resolved after 2 treatments Repeat BS in 1 hour, retime for 1 hour after blood sugar greater than 70 mg/dL glucose chewable tablet 16 g 16 g Every 15 min PRN, oral, low blood glucose (specify value in prn comments), 41-69 mg/dL, Starting on Sun02/13/23 at 1431, For Patients who can take oral AND blood glucose 41-69 mg/dL Give 4 Tabs every 15 minutes. Recheck blood glucose every 15 minutes and repeat 15 grams of carbohydrates until blood glucose is above 70 mg/dL. Give Meal or Snack Call Provider if not resolved after 3 treatments Repeat BS in 1 hour, retime for 1 hour after blood sugar greater than 70 mg/dL HYDROcodone-acetaminophen (NORCO) tablet 10-325 mg 1 tablet Every 6 hours PRN, oral, moderate pain (4-6), Starting on Sun02/13/23 at 1202, Recommended maximum dose of acetaminophen is 4000 mg from all sources in 24 hours 1502 (Given - Provider: Aylin Alexander RN)1918 (Given - Provider: Aylin Alexander RN) 0118 (Given - Provider: Akshat Garcias LPN)0845 (Given - Provider: Aylin Alexander RN) lidocaine-EPINEPHrine 1% (XYLOCAINE W/EPI) injection (CANCELED) As needed, Starting on Sun02/13/23 at 0837, Intra-op 0837 (Given - Provider: Alexx Callejas MD - Comment: LOCAL - OPERATIVE SITE) naloxone (NARCAN) injection 0.2 mg 0.2 mg Every 2 min PRN, intravenous, opioid reversal, respiratory depression, Starting on Sun02/13/23 at 1202, Give for respiratory rate less than 10 breaths/min or if patient is difficult to arouse. Max dose = 10 mg. Call provider., Phase II/On Unit sodium chloride 0.9% (NS) irrigation (CANCELED) As needed, Starting on Sun02/13/23 at 0910, Intra-op 0910 (Given - Provider: Alexx Callejas MD) thrombin (bovine) topical solution (CANCELED) As needed, Starting on Sun02/13/23 at 0857, Intra-op 0857 (Given - Provider: Alexx Callejas MD - Comment: topical surgical site) vancomycin (VANCOCIN) injection (CANCELED) As needed, Starting on Sun02/13/23 at 0858, Intra-op 0858 (Given - Provider: Alexx Callejas MD - Comment: added to irrigation) No Frequency Medication Order 02/12/2023 02/13/2023 02/14/2023 lactated Ringers (LR) infusion (COMPLETED) Starting on Sun02/13/23 at 1139, For 1 dose, Created by cabinet override 1302 (New Bag - Provider: Aylin Alexander RN) Linked Groups Order Group 1: acetaminophen (TYLENOL) tablet 1,000 mgJump to med 1,000 mg Every 6 hours interval, oral, First dose on Sun02/13/23 at 1030, 1st line analgesic, Phase II/On Unit And ketorolac (TORADOL) injection 15 mgJump to med 15 mg Every 6 hours interval, intravenous, First dose on Sun02/13/23 at 1030, For 5 days, 1st line analgesic, Phase II/On Unit Group 2: amLODIPine (NORVASC) tablet 10 mgJump to med 10 mg Daily, oral, First dose on Sun02/13/23 at 1230, Give with lisinopril 20 mg f/s for amlodipine/benazepril 02/16 Antihypertensive - Check BP - Check Pulse Hold SBP <110 OR HR <60 And lisinopriL (PRINIVIL,ZESTRIL) tablet 20 mgJump to med 20 mg Daily, oral, First dose on Sun02/13/23 at 1230, Give with amlodipine 10mg f/s for amlodipine/benazepril 20 Antihypertensive - Check BP - Check Pulse Hold SBP <110 Group 3: bisacodyL (DULCOLAX) EC tablet 10 mgJump to med 10 mg Daily as needed, oral, constipation, Starting on Sun02/13/23 at 1202, 1st line for treatment of constipation - give scheduled if no bowel movement in past 24 hours. See suppository order and give rectally if not able to take PO., Phase II/On Unit Or bisacodyL (DULCOLAX) suppository 10 mgJump to med 10 mg Daily as needed, rectal, constipation, Starting on Sun02/13/23 at 1202, 1st line for treatment of constipation - give scheduled if no bowel movement in past 24 hours. Give suppository rectally if unable to take PO., Phase II/On Unit documented in this encounter Care Teams Panelboard Operator Relationship Specialty Start Date End Date Jam Pimentel MD [address] [place] [address] PCP - General General Internal Medicine 01/30/23 documented as of this encounter
--- OUTSIDE RECORDS SUMMARY | 2024-04-15 10:09 | XMS_ITS | Encounter Summary ---
Author Organization Healthcare Address [address] [id number] Care Team Providers Care Storekeeper Helper Name Role Phone Jam Pimentel MD Primary Care Provider [phone] Reason for Visit * Reason Onset Date Comments HCN Clinical Concern/Question 10/31/2023 Encounter Details Date Type Department Care Team (Late st Contact Info) Description 10/31/2023 Telephone [facility] [address] [place] [address] Noomen, Nany M, CONTRACTING SUPPORT SPECIALIST [address] [place] [address] HCN Clinical Concern/Question Social History Tobacco Use Types Packs/Day Years Used Date Smoking Tobacco: Never Smokeless Tobacco: Never Sex and Gender Information Value Date Recorded Sex Assigned at Not on file Legal Sex Male 8:35 PM EDT Gender Identity Not on file Sexual Orientation Not on file documented as of this encounter Miscellaneous Notes * Telephone Encounter - Gordon Hong MD - 11/02/2023 9:49 AM EDT Called and spoke with pt. He is now having intermittent pain in his left flank twice a day, usuallyafter eating. The pain last for about 1h, and is quite severe. He is still taking Toradol which helps some. I reviewed his CT scan, which shows very minimal hydro on the left, and no stone fragments.I recommended he continue to monitor for the time being, and call us if things are not improved by Sunday. He is in agreement with this plan. * Telephone Encounter - Laura Schmidt - 11/02/2023 9:02 AM EDT Records from his ER visit are now in media, and images have been shared. Thank you. * Telephone Encounter - Randolph Conte MD - 10/31/2023 3:39 PM EDT I called and spoke with the patient on 10/31/2023. He removed his stent yesterday as instructed andstarted to have flank pain without fevers or chills. He was seen at an outside hospital and was reportedly scanned which showed no evidence of stone. He was given Toradol and sent home. He likely hasureteral spasm post ureteral stent removal. I encouraged him to continue taking Flomax into drank plenty of fluids to keep his urine thin. I gave him return precautions including fevers or pain that is not improving with oral pain medications. He voiced understanding and will let us know if things worsen or fail to improve. * Telephone Encounter - Rosy Myers RN - 10/31/2023 3:10 PM EDT Called [facility] Medical Records and spoke with Thi who is faxing records from ER visit from last evening and she stated she will send request to their radiology dept to [facility]/ report to [facility]. * Telephone Encounter - Rosy Myers RN - 10/31/2023 2:56 PM EDT Returned call to pt who states he was to ER at [facility] in [facility] last evening as hewas having severe left back and side pain after pulling ureteral stent post kidney stone removal. Pt states he was given toradol oral 10mg q6 hrs and is now having maroon colored bleeding out of his penis. He states he did not know he was not to be taking ibuprofen/ other nsaids during this time. He states he had a CT at the ER and was told there is no stone and that it was probably a blood clotthat broke up . Pt denies fever, chills, nausea or vomiting. He states he is able to pass large normal amounts of urine but it looks like all blood to him with some other stuff in it. Let pt know th is will be passed on to his care team here in urology and to expect to hear from us. Pt also educated that should sx worsen or develops further sx or is unable to pass urine or there is significant decrease to come to ER at in [place]. Pt VU and is agreeable to this plan. Will reach out to [facility] for ER report and CT report and imaging. * Telephone Encounter - Carmen Bond - 10/31/2023 2:27 PM EDT Clinical Concern/Question Reason for Call: Pt called to see if he needs to complete ultrasound in November because he did not have a kidney stone per ER doctor last night. They said he had a blood clot. He also said his side isin a lot of pain and wants to know how long his side will be in pain. Thanks! Best contact number: [phone] (work) Optimal time of day to reach caller: ANYTIME Additional comments/information from caller: None Note: Please do not reply to this message. Follow-up communication and further actions as a result of this message need to be communicated with the patient directly, if the patient is not active onMyChart. If the patient is active on MyChart, they will receive notification of the communication/outcome via [email or web address]. documented in this encounter Plan of Treatment Upcoming Encounters Date Type Department Care Team (Late st Contact Info) Description 06/24/2024 7:45 AM EST Appointment [facility] [address] [place] [address] 06/24/2024 10:10 AM EST Office Visit [facility] [address] [place] [id number] Nany Elias M, CONTRACTING SUPPORT SPECIALIST [address] [place] [id number] documented as of this encounter Visit Diagnoses Not on filedocumented in this encounter Additional Health Concerns Assessment Noted Time A fall risk assessment has been complete d for the patient 04/05/2021 8:37 AM EST documented as of this encounter Care Teams Storekeeper Helper Relationship Specialty Start Date End Date Jam Pimentel MD [address] [place] [address] PCP - General 09/10/20 documented as of this encounter
--- OUTSIDE RECORDS SUMMARY | 2024-04-15 10:09 | XMS_ITS | Clinical Summary ---
Author Organization [facility] Address [address] [place] [address] Care Team Providers Care Gummed Tape Press Operator Name Role Phone Jam Pimentel MD Primary Care Provider [phone] Allergies Active Allergy Reactions Criticality Noted Date Comments Oxycodone-Acetaminophen Itching Low 01/26/2023 Medications amLODIPine-aaron zepriL (LOTREL) 10-20 mg per capsule Take 1 capsule by mouth daily. 12/27/2022 Active metFORMIN (GLUCOPHAGE) 500 MG tablet Take 1 tablet (500 mg total) by mouth 2 (two) times daily Takes daily. 10/24/2022 Active Social History Tobacco Use Types Packs/Day Years Used Date Smoking Tobacco: Never Passive Smoke Exposure: Past Smokeless Tobacco: Never Tobacco Cessation:Counseling Given: Not Answered Alcohol Use Standard Drinks/Week Comments Never 0 [...] by your partner or ex-partner? No 01/30/2023 Interpersonal Safety Answer Date Record ed Family or friends hurt you Not on file 05/12 Family or friends insult you Not on file Family or friends threaten you Not on file 0 05/12/2023 Family or friends scream or curse at you Not on file 05/12/2023 Housing Stability Answer Date Recorded Living situation today Not on file Living situation problems Not on file 2023 Food Insecurity Answer Date Recorded Food run out past 12 months Not on file 04/30 Food did not last past 12 months Not on file 05/12/2023 Employment Answer Date Recorded Help finding and keeping a job Not on file 0 05/12/2023 Family and Community Support Answer Romain e Recorded Help with Day to Day Activities Not on file 05/12/2023 Feeling Lonely or Isolated Not on file 05/12 Educational Attainment Answer Date Yousif rded Speak language other than Wallisian at home Not on file 05/12/2023 Want help with school or training Not on file 05/12/2023 Depression Answer Date Recorded PHQ-2 Risk Not on file 05/12/2023 Disabilities Answer Date Recorded Difficulty concentrating Not on file 024 Difficulty doing errands alone Not on file 0 05/12/2023 Substance Use Answer Date Recorded Used prescription meds for non-medical reasons N ot on file 05/12/2023 Used illegal drugs past 12 months Not on file 05/12/2023 Sex and Gender Information Value Date Recorded Sex Assigned at Not on file Legal Sex Male 5:13 PM CDT Gender Identity Not on file Sexual Orientation Not on file Last Filed Vital Signs Vital Sign Reading [...] Mass Index 26.58 02/13/2023 6:26 AM EDT Plan of Treatment Health Maintenance Due Date Last Done Comments CT Colonography 1969 Colonoscopy 1969 Colorectal Cancer Screening 1969 FOBT/FIT 1969 Fit-DNA (Cologuard) 1969 Sigmoidoscopy 1969 Depression Screening (12+) 1981 HIV Screening 1984 Hepatitis C Screening 07/23/1987 Lipid Panel 2004 DTAP/TDAP/TD VACCINES (2 - Td or Tdap) 07/01/2006 Shingles Vaccine (Zoster) (1 of 2) 07/23/2019 Medicare Initial AWV [id number] 06/29/2020 COVID-19 VACCINE ( - season) 2023 Influenza Vaccine (#1) 2023 Tobacco Cessation Counseling and Screening (12+) 02/1302/13/2023 Insurance [facility] MEDICARE PPO Advance Directives For more information, please contact: [phone] * Full Code (Latest Code Status on File) Date Activated Date Inactivated Comments 02/13/2023 11:02 AM 02/14/2023 1:39 PM Care Teams Gummed Tape Press Operator Relationship Specialty Start Date End Date Jam Pimentel MD [address] [place] [address] PCP - General General Internal Medicine 01/30/23
--- OUTSIDE RECORDS SUMMARY | 2024-04-15 10:09 | XMS_ITS | Encounter Summary ---
Author Organization Healthcare Address [address] [id number] Care Team Providers Care Lathe Winder Name Role Phone Jam Pimentel MD Primary Care Provider Reason for Referral * Imaging (Routine) - Closed Specialty Diagnoses / Procedures Referred By Elidia light Referred To Contact Radiology Diagnoses Stone, kidney Procedures [place] Less than 1 Hour Intraoperative Abran Ruffin MD [address] [address] Phone: tel: fax: Referral ID Status Reason Start Date Expiration Date V isits Requested Visits Authorized [id number] Closed Perform Procedure 10/25/2023 04/25/2025 1 1 Reason for Visit * Auth/Cert (Routine) Specialty Diagnoses / Procedures Referred By Elidia light Referred To Contact Diagnoses Kidney stone obstructing 6 mm kidney stone Abran Ruffin MD [address] [address] Phone: tel: fax: [facility] [address] [place] [address] Phone: tel: Referral ID Status Reason Start Date Expiration Date Visits Re quested Visits Authorized [id number] 1 1 Encounter Details Date Type Department Care Team (Latest Contact Info) Description 10/25/2023 5:49 PM EDT - 10/25/2023 11:59 PM EDT Hospital Encounter [facility] [address] [place] [address] Stone, kidney Discharge Disposition: Home or Self Care Social History Tobacco Use Types Packs/Day Years Used Date Smoking Tobacco: Never Smokeless Tobacco: Never Sex and Gender Information Value Date Recorded Sex Assigned at Not on file Legal Sex Male 8:35 PM EDT Gender Identity Not on file Sexual Orientation Not on file documented as of this encounter Medications at Time of Discharge amLODIPine-benaz epril (Lotrel) 10-20 MG capsule Take 1 capsule by mouth 1 (one) time each day. 02/24/2018 ibuprofen 600 MG tablet Take 1 tablet (600 mg) by mouth every 6 (six) hours if needed for mild pain. 20 tablet 10/25/2023 metFORMIN XR (Glucophage-XR) 500 MG 24 hr tablet Take 1 tablet (500 mg) by mouth 2 (two) times a day. phenazopyridine (Pyridium) 100 MG tablet Take 1 tablet (100 mg) by mouth 3 (three) times a day if needed for pain or discomfort for up to 3 days. 10 tablet 10/25/2023 4 tamsulosin (Flomax) 0.4 MG 24 hr capsule Take 1 capsule (0.4 mg) by mouth 1 (one) time each day with dinner. 30 capsule 10/25/2023 4 documented as of this encounter Plan of Treatment Upcoming Encounters Date Type Department Care Team (Late st Contact Info) Description 06/24/2024 7:45 AM EST Appointment [facility] [address] [place] [address] 06/24/2024 10:10 AM EST Office Visit [place] [facility] [address], [address] [place] [address] Nany Elias, CHILDBIRTH AND INFANT CARE TEACHER [address] [place] [address] documented as of this encounter Procedures Procedure Name Priority Date/Time Associated Diagnosis Comments FL LESS THAN 1 HOUR (NON-REPORTABLE) Routine 10/25/2023 5:50 PM EDT Stone, kidney documented in this encounter Results * FL Less than 1 Hour Intraoperative (10/25/2023 5:50 PM EDT) Narrative IMAGING - 10/25/2023 5:51 PM EDT Images were obtained for surgical purposes. ??See Abran Ruffin's surgical note in the patient's chart for the findings. us Abran Ruffin MD IMG FLUOROSCOPY PROCEDURES Final Result IMAGING documented in this encounter Visit Diagnoses Diagnosis Stone, kidney Calculus of kidney documented in this encounter Additional Health Concerns Assessment Noted Time A fall risk assessment has been complete d for the patient 04/05/2021 8:37 AM EST documented as of this encounter Care Teams Lathe Winder Relationship Specialty Start Date End Date Jam Pimentel MD [address] [place] [address] PCP - General 09/10/20 documented as of this encounter
--- OUTSIDE RECORDS SUMMARY | 2024-04-15 10:09 | XMS_ITS | Encounter Summary ---
Author Organization Healthcare Address [address] [id number] Care Team Providers Care Algorithm Developer Name Role Phone Jam Pimentel MD Primary Care Provider [phone] Encounter Details Date Type Department Care Team (Late st Contact Info) Description 10/30/2023 Orders Only External Location [address] [place] [id number] Provider, External Social History Tobacco Use Types Packs/Day Years Used Date Smoking Tobacco: Never Smokeless Tobacco: Never Sex and Gender Information Value Date Recorded Sex Assigned at Not on file Legal Sex Male 8:35 PM EDT Gender Identity Not on file Sexual Orientation Not on file documented as of this encounter Plan of Treatment Upcoming Encounters Date Type Department Care Team (Late st Contact Info) Description 06/24/2024 7:45 AM EST Appointment [facility] [address] [place] [address] 06/24/2024 10:10 AM EST Office [facility] [place] [facility] [address] [place] [address] Noomen, Nany M, SPLICING MACHINE OPERATOR [address] [place] [address] documented as of this encounter Procedures Procedure Name Priority Date/Time Associated Diagnosis Comments CT OUTSIDE IMAGES 10/30/2023 7:32 PM EDT documented in this encounter Results * CT OUTSIDE IMAGES (10/30/2023 7:32 PM EDT) Anatomical Region Laterality Modality Computed Tomogra phy 10/30/2023 7:32 PM EDT us External Provider IMG CT PROCEDURES Final Result documented in this encounter Visit Diagnoses Not on filedocumented in this encounter Additional Health Concerns Assessment Noted Time A fall risk assessment has been complete d for the patient 04/05/2021 8:37 AM EST documented as of this encounter Care Teams Algorithm Developer Relationship Specialty Start Date End Date Jam Pimentel MD [address] [place] [address] PCP - General 09/10/20 documented as of this encounter
--- OUTSIDE RECORDS SUMMARY | 2024-04-15 10:09 | XMS_ITS | Encounter Summary ---
Author Organization [facility] In [facility]atives Address [address] [place] [address] Care Team Providers Care Cement Tester Assistant Name Role Phone Jam Pimentel MD Primary Care Provider [phone] Encounter Details Date Type Department Care Team (Latest Contact Info) Description 01/30/2023 Travel Social History Tobacco Use Types Packs/Day Years [...] suspected to have Coronavirus/COVID-19? No / Unsure 01/30/2023 6:50 AM EDT documented as of this encounter Plan of Treatment Not on file documented as of this encounter Visit Diagnoses Not on filedocumented in this encounter Care Teams Cement Tester Assistant Relationship Specialty Start Date End Date Jam Pimentel MD [address] [place] [address] PCP - General General Internal Medicine 01/30/23 documented as of this encounter
--- OUTSIDE RECORDS SUMMARY | 2024-04-15 10:09 | XMS_ITS | Encounter Summary ---
Author Organization Healthcare Address [address] [id number] Care Team Providers Care Tufter Operator Name Role Phone Jam Pimentel MD Primary Care Provider Encounter Details Date Type Department Care Team (Latest Contact Info) Description 10/25/2023 Travel Social History Tobacco Use Types Packs/Day [...] EST Appointment [facility] [address] [place] [address] 06/24/2024 10:10 AM EST Office Visit [place] [facility] [address] [place] [address] Nany Elias M, RENAL DIALYSIS RN [address] [place] [address] documented as of this encounter Visit Diagnoses Not on filedocumented in this encounter Additional Health Concerns Assessment Noted Time A fall risk assessment has been complete d for the patient 04/05/2021 8:37 AM EST documented as of this encounter Care Teams Tufter Operator Relationship Specialty Start Date End Date Jam Pimentel MD [address] [place] [address] PCP - General 09/10/20 documented as of this encounter
--- OUTSIDE RECORDS SUMMARY | 2024-04-15 10:09 | XMS_ITS | Encounter Summary ---
Author Organization Healthcare Address [address] [id number] Care Team Providers Care Clinical Nurse Specialist Name Role Phone Jam Pimentel MD Primary Care Provider [phone] Reason for Referral * Imaging (Routine) - Authorized Specialty Diagnoses / Procedures Referred By Contac t Referred To Contact Radiology Diagnoses Kidney stone Procedures [place] Renal Nany Elias APRN [address] [address] Phone: tel: fax: Referral ID Status Reason Start Date Expiration Date V isits Requested Visits Authorized [id number] Authorized 12/28/2023 06/28/2025 1 1 Reason for Visit * Reason Comments Follow-up Encounter Details Date Type Department Care Team (Late st Contact Info) Description 12/28/2023 10:30 AM EDT Office Visit [place] [facility] [address] [place] [address] Nany Elias APRN [address] [address] Kidney stone (Primary Dx) Social History Tobacco Use Types Packs/Day Years Used Date Smoking Tobacco: Never Smokeless Tobacco: Never Tobacco Cessation:Counseling Given: Not Answered PHQ-2 Answer Date Recorded Patient Health Questionnaire-2 Score 0 12/28/2023 Sex and Gender Information Value Date Recorded Sex Assigned at Not on file Legal Sex Male 8:35 PM EDT Gender Identity Not on file Sexual Orientation Not on file documented as of this encounter Last Filed Vital Signs Vital Sign Reading Time Taken Comments Blood Pressure 118/78 12/28/2023 10:29 AM EDT Pulse 55 12/28/2023 10:29 AM EDT Temperature - - Respiratory Rate - - Oxygen Saturation 99% 12/28/2023 10:29 AM EDT Inhaled Oxygen Concentration - - Weight 81.3 kg (179 lb 3.7 oz) 12/28/2023 10:29 AM EDT Height 188 cm (6' 2 ) 12/28/2023 10:29 AM EDT Body Mass Index 23.01 12/28/2023 10:29 AM EDT documented in this encounter Miscellaneous Notes * Progress Notes - Nany Elias APRN - 12/28/2023 10:30 AM EDT [facility] Urology Clinic Note 12/28/23 CC: s/p left URS laser lithotripsy 10/24 HPI: Mk Ardon is a 53 y.o. M with history of HTN, DM who is s/p left URS laser lithotripsy 10/24 for a left 6 mm proximal ureteral stone with upstream hydro found on CT imaging. The patientfollows up for renal us today. Denies any fever, nausea, vomiting, flank pain, hematuria, dysuria. This is patient's first kidney stone. Stone analysis 10/2023: 70% calcium oxalate monohydrate, 10% calcium oxalate dihydrate, and 20% calcium phosphate. PMHx: Past Medical History: Diagnosis Date Personal history of other diseases of the circulatory system History of hypertension PSHx: Past Surgical History: Procedure Laterality Date KNEE SURGERY N/A Knee Surgery from [employer] FHx: Family History Problem Relation Name Age of Onset Diabetes Mother Diabetes Father Hypertension Mother Hypertension Father Hyperlipidemia Mother SHx: Social History Socioeconomic History Marital status: Spouse name: Not on file Number of children: Not on file Years of education: Not on file Highest education level: Not on file Occupational History Not on file Tobacco Use Smoking status: Never Smokeless tobacco: Never Substance and Sexual Activity Alcohol use: Not on file Drug use: Not on file Sexual activity: Not on file Other Topics Concern Not on file Social History Narrative Not on file Social Determinants of Health Financial Resource Strain: Not on file Food Insecurity: No Food Insecurity (05/12/2023) Received from [facility] Food Insecurity : Not on file : Not on file Transportation Needs: Not on file Physical Activity: Not on file Stress: Not on file Social Connections: Low Risk (05/12/2023) Received from [facility] Family and Community Support : Not on file : Not on file Intimate Partner Violence: Not At Risk (01/30/2023) Received from [facility] Humiliation, Afraid, Rape, and Kick questionnaire Fear of Current or Ex-Partner: No Emotionally Abused: No Physically Abused: No Sexually Abused: No Housing Stability: Low Risk (05/12/2023) Received from [facility] Housing Stability : Not on file : Not on file Physical Exam: Vitals: 12/28/23 1029 BP: 118/78 Pulse: 55 SpO2: 99% General: alert, active, in no acute distress Head: normocephalic Eyes: extraocular muscles intact Lungs: normal respiratory effort Abdomen: non-tender, non-distended Back: normal, CVA nontender bilaterally Musculoskeletal: BL UE demonstrate equal movement Skin: warm, no rashes Labs: Creatinine, Plasma (mg/dL) Date/Time Value 10/24/2023 1846 1.04 eGFRcr (mL/min/1.73m*2) Date/Time Value 10/24/2023 1846 85.3 Total Calcium, Plasma (mg/dL) Date/Time Value 10/24/2023 1846 10.1 Imaging: Renal US 11/2023: No hydronephrosis bilaterally. Assessment: Mk Ardon is a 53 y.o. M with history of HTN, DM who is s/p left URS laser lithotripsy 10/24 for a left 6 mm proximal ureteral stone with upstream hydro found on CT imaging. The patient follows up for renal us today. Denies any fever, nausea, vomiting, flank pain, hematuria, dysuria. Renal US: No hydronephrosis bilaterally. Stone analysis 10/2023: 70% calcium oxalate monohydrate, 10% calcium oxalate dihydrate, and 20% calcium phosphate. We discussed general stone prevention strategies including increased hydration (goal urinary outputof at least 2.5 L daily), citric acid supplementation in the form of 3 tablespoons of lemon juice added to water daily, and decreased sodium intake (<2400mg daily). We discussed further stone workup including lab work (vitamin D, BMP, calcium, uric acid, and parathyroid panel). PTH 76 12/28/23. Plan: - PTH, vitamin D -F/U 6 months renal us, abdominal xray. 25 minutes were spent today on review of patient's medical history, obtaining history, exam, reviewof any relevant results, and discussion of pathophysiology with appropriate plan with counseling given to patient. Nany Elias APRN -[place] documented in this encounter Plan of Treatment Upcoming Encounters Date Type Department Care Team (Late st Contact Info) Description 06/24/2024 7:45 AM EST Appointment [facility] [address] [place] [address] 06/24/2024 10:10 AM EST Office Visit [place] [facility] [address] [place] [address] Nany Elias APRN [address] [place] [address] Scheduled Orders Name Type Priority Associated Diagnoses Orde r Schedule US Renal Imaging Routine Kidney stone Expected: 06/27/2024 (Approximate), Expires: 06/27/2025 PTH Panel 1 Lab Routine Kidney stone Expected: 12/28/2023 (Approximate), Expires: 06/27/2025 Vitamin D 25 Hydroxy Lab Routine Kidney stone Expected: 12/28/2023 (Approximate), Expires: 06/27/2025 documented as of this encounter Visit Diagnoses Diagnosis Kidney stone- Primary Calculus of kidney documented in this encounter Additional Health Concerns Assessment Noted Time A fall risk assessment has been complete d for the patient 12/28/2023 10:32 AM EDT A Body Mass Index follow-up plan has been documented for the patient 01/01/2024 2:01 PM EDT documented as of this encounter Care Teams Clinical Nurse Specialist Relationship Specialty Start Date End Date Jam Pimentel MD [address] [place] [id number] PCP - General 09/10/20 documented as of this encounter
--- OUTSIDE RECORDS SUMMARY | 2024-04-15 10:09 | XMS_ITS | Encounter Summary ---
Author Organization Healthcare Address [address] [id number] Care Team Providers Care Retail Wireless Sales Representative Name Role Phone Jam Pimentel MD Primary Care Provider [phone] Reason for Visit * Auth/Cert (Routine) Specialty Diagnoses / Procedures Referred By Contac t Referred To Contact Diagnoses Kidney stone obstructing 6 mm kidney stone Abran Ruffin MD [id number] [place] [address] Phone: tel: fax: [facility] [address] [place] [address] Phone: tel: Referral ID Status Reason Start Date Expiration Date Visits Re quested Visits Authorized [id number] 1 1 Encounter Details Date Type Department Care Team (Late st Contact Info) Description 10/25/2023 2:22 PM EDT Anesthesia Event [facility] [address] [place] [address] Harry Klein MD [address] [place] [address] Yesenia Owens APRN, SHELLIE [address] [place] [address] Anesthesia Record Procedure Summary Procedure Name Responsible Anesthesiologist Anesthesia Start Time Anesthesia Stop Time URETEROSCOPY (Left) Haryr Klein MD 10/25/23 1422 1542 Events Date Time Event Comment 10/25/2023 1410 1415 In Room 1422 An Start 1422 An Start Data 1428 An Induction The patient was reevaluated immediately before moderate or deep sedation use and before anesthesia induction. 1435 An Intubation 1440 Anesthesia Ready 1449 Proc Start 1518 Proc Fin 1532 An Extubation 1534 an stop data 1536 Out of Room 1542 Handoff to Receiving I compl eted my handoff to the receiving clinician during which we: 1. Identified the patient 2. Identified the responsible provider 3. Reviewed the pertinent medical history 4. Discussed the surgical course 5. Reviewed intra-op anesthesia management and issues during anesthesia 6. Set expectations for post-procedure period 7. Allowed opportunity for questions and acknowledgement of understanding. 1542 An Stop Meds Name Total midazolam (Versed) injection 1 mg/mL 2 m g fentaNYL (Sublimaze) injection 50 mcg/mL 100 mcg lidocaine PF (Xylocaine-MPF) 2% 60 mg propofol (Diprivan) injection 10 mg/mL 2 00 mg rocuronium (ZeMuron) injection 10 mg/mL 60 mg dexamethasone (Decadron) injection 4 mg/ mL 8 mg ondansetron (Zofran) injection 2 mg/mL 4 mg sugammadex (Bridion) injection 100 mg/mL 400 mg ceFAZolin (Ancef) injection 2 g 2 g dexmedetomidine (Precedex) infusion in N aCl 4 mcg/mL 8 mcg lactated Ringer's infusion 0 mL lactated Ringer's infusion 0 mL * Agents Name O2 * Blood No blood administrations on file. Lines, Drains, and Airways Type Details Placement Removal Ureteral Drain/Stent No; Yes; Left urete r; (6x 26); Yes 10/25/23 1541 by Candace Mesa RN Ureteral Drain/Stent 10/25/23; 1518; No; Yes; Left ureter; 6 Fr. (6 x 26); Yes 10/25/23 1518 by Candace Mesa RN Peripheral IV Placement Date: 10/24/23; Placement Time: 1800; Catheter Size: 20 G; Orientation: Right; Location: Antecubital; Removal Date: 10/25/23; Removal Time: 165; Removal Reason: Discharge 10/24/23 1800 by Isidra Carrera RN 10/25/231656 by Baker, Thuan L, RN ETT Placement Date: 10/25/23; Placement Time: 1434 (created via procedure documentation); Mask Ventilation: 1; Technique: Direct laryngoscopy; Type: ETT - single; Single Lumen Tube Size: 7.5 mm; Cuffed: Yes; Laryngoscope: Renae; Blade Size: 2; Location: Oral; Grade View: Grade I; Insertion Attempts: 1; Placement Verification: Auscultation, Capnometry; Airway Comments: Atraumatic. No change to dentition. First attempt with MAC 4 blade, patient with anterior airway. Second attempt with Renae 2, grade I view; Placed by: Anesthesiologist; Removal Date: 10/25/23; Removal Time: 15310/25/23 143 by Reece Charlton MD 10/25/23 153 by Reece Charlton MD documented in this encounter Social History Tobacco Use Types Packs/Day Years Used Date Smoking Tobacco: Never Smokeless Tobacco: Never Sex and Gender Information Value Date Recorded Sex Assigned at Not on file Legal Sex Male 8:35 PM EDT Gender Identity Not on file Sexual Orientation Not on file documented as of this encounter Miscellaneous Notes * Anesthesia Postprocedure Evaluation - Reece Charlton MD - 10/25/2023 3:42 PM EDT Patient: Mk Ardon Anesthesia Type: general Vitals Value Taken Time BP 130/81 10/25/23 1540 Temp 36.4 10/25/23 1542 Pulse 81 10/25/23 1541 Resp 19 10/25/23 1541 SpO2 100 % 10/25/23 1541 Vitals shown include unfiled device data. Anesthesia Post Evaluation Patient location during evaluation: PACU Patient participation: complete - patient participated Level of consciousness: awake Pain management: adequate (pain score 0-3) Airway patency: natural airway Cardiovascular status: acceptable Respiratory status: acceptable, nonlabored ventilation, spontaneous ventilation, unassisted and nasal cannula Hydration status: acceptable No notable events documented. Cosigned by Harry Klein MD at 10/25/2023 5:21 PM EDT Associated attestation - Harry Klein MD - 10/25/2023 5:21 PM EDT I agree with the findings and care plan documented in the postprocedure evaluation note. * Anesthesia Procedure Notes - Reece Charlton MD - 10/25/2023 2:55 PM EDT Associated Order(s): Airway Airway Date/Time: 10/25/2023 2:35 PM Urgency: elective Airway not difficult General Information and Staff Patient location during procedure: OR Anesthesiologist: Harry Klein MD Resident: Reece Charlton MD Performed: Anesthesiologist Indications and Patient Condition Indications for airway management: anesthesia Spontaneous Ventilation: absent Preoxygenated: yes Patient position: sniffing Mask difficulty assessment: 1 - vent by mask Final Airway Details Final airway type: endotracheal airway Successful airway: ETT Cuffed: yes Successful intubation technique: direct laryngoscopy Endotracheal tube insertion site: oral Blade: Renae Blade size: #2 ETT size (mm): 7.5 Cormack-Lehane Classification: grade I - full view of glottis Placement verified by: chest auscultation and capnometry Measured from: lips ETT to lips (cm): 22 Number of attempts at approach: 1 Additional Comments Atraumatic. No change to dentition. First attempt with MAC 4 blade, patient with anterior airway. Second attempt with Renae 2, grade I view Cosigned by Harry Klein MD at 10/25/2023 3:00 PM EDT Associated attestation - Harry Klein MD - 10/25/2023 3:00 PM EDT I was present during all critical and lim portions of the procedure(s) and [facility]. See resident note for details. * Anesthesia Preprocedure Evaluation - Reece Chartlon MD - 10/25/2023 8:06 AM EDT Patient: Mk Ardon Procedure Information Date/Time: 10/25/23 3835 Procedure: URETEROSCOPY (Left) Location: [address] / [facility] Surgeons: Abran Ruffin MD HPI Mk Ardon is a 53 y.o. male with PMHx of HTN, DM, arthritis that presents with Kidney stone. 01/2023 (OSH): L3-4 Laminectomy - Mac 4, 8.0 ETT, grade 1 view, 1 attempt Multiple (8) orthopedic procedures on left knee [id number] - Developed a spinal fluid leak from epidural. NPO STATUS: since MN Activity Level/METS: >4 Relevant Problems Anesthesia (within normal limits) Cardio (+) HTN (hypertension) Endo (+) Diabetes mellitus, type 2 (CMS/HCC) /Renal (+) Kidney stone Neuro/Psych (+) Status post left knee replacement Pulmonary (within normal limits) Other (+) Arthritis of knee, left SOCIAL HX Social History Tobacco Use Smoking Status Never Smokeless Tobacco Never Social History Substance and Sexual Activity Alcohol Use None Social History Substance and Sexual Activity Drug Use Not on file SURGICAL HX Past Surgical History: Procedure Laterality Date KNEE SURGERY N/A Knee Surgery from [facility] ALLERGIES Allergies Allergen Reactions Oxycodone-Acetaminophen Unknown - Patient states they do not know rxn details and Itching MEDICATIONS Scheduled amLODIPine, 10 mg, Oral, Daily heparin (porcine), 5,000 Units, Subcutaneous, q8h NILSA insulin lispro, 0-5 Units, Subcutaneous, TID with meals insulin lispro, 0-3 Units, Subcutaneous, Twice at night phenazopyridine, 100 mg, Oral, TID with meals [COMPLETED] Insert peripheral IV, , , Once AND [COMPLETED] Saline lock IV, , , Once AND sodium chloride, 10 mL, Intravenous, q12h AND sodium chloride, 10 mL, Intravenous, PRN tamsulosin, 0.4 mg, Oral, Daily LABS Labs in last 18 hours CBC WBC 11.58 (H) Hb 14.2 Plt 331 Hct 42.6 ANC 7.40 (H) INR ??, PTT ??, Anti-Xa ?? BMP Na 144 Cl 106 BUN 13 Glu 114 (H) K 4.0 Co2 27 Cr 1.04 Ca 10.1 iCa ?? Mg ??, Phos ?? Lactate ?? LFT AST 16 AlkPhos 95 T Prot 7.2 ALK 12 Bili 1.5 (H) Alb ?? D.Bili ?? EKG, ECHO, Cath, Imaging, PFTs EKG No results found for this or any previous visit (from the past 4464 hour(s)). ECHO No echocardiogram results found for the past 12 months CXR PFTs Pulmonary Functions Testing Results: No results found for: DFB2ZTT , DJZ0YTHL , WKI8JPE , FVCPRED Body mass index is 23.62 kg/m??. Vitals: 10/25/23 0809 BP: 123/74 Pulse: 61 Resp: 16 Temp: 36.5 ??C (97.7 ??F) SpO2: 97% Anesthesia Evaluation Physical Exam Airway Mallampati: II Mouth opening: normal TM distance: >3 FB Neck ROM: full Cardiovascular Rhythm: regular Rate: normal Dental - normal exam Pulmonary Breath sounds clear to auscultation Neurological Oriented: normal to time, normal to place and normal to person Skin Musculoskeletal Extremities Anesthesia Plan ASA 2 Plan was reviewed with: resident and attending Anesthesia technique(s) discussed with the patient/family: general Anesthesia plan agreed upon was: general Anesthetic plan and risks discussed with patient. Use of blood products discussed with patient who consented to blood products. Additional Equipment Requests Cosigned by Harry Klein MD at 10/25/2023 3:00 PM EDT Associated attestation - Harry Klein MD - 10/25/2023 3:00 PM EDT I agree with the findings and care plan documented in the preprocedure evaluation note. documented in this encounter Plan of Treatment Upcoming Encounters Date Type Department Care Team (Late st Contact Info) Description 06/24/2024 7:45 AM EST Appointment [facility] [address] [place] [address] 06/24/2024 10:10 AM EST Office Visit [facility] [address] [place] [address] 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, [employer] [address] [place] [address] documented as of this encounter Procedures Procedure Name Priority Date/Time Associated Diagnosis Comments PB ANESTHESIA PLACEHOLDER Routine 10/25/2023 2:35 PM EDT MO AN ELECTIVE ENDOTRACHEAL AIRWAY Routine 10/25/2023 2:35 PM EDT documented in this encounter Results * MO AN ELECTIVE ENDOTRACHEAL AIRWAY, PB ANESTHESIA PLACEHOLDER (10/25/2023 2:35 PM EDT) Narrative Harry Klein MD - 10/25/2023 2:35 PM EDT Reece Charlton MD ? 10/25/2023 ??2:56 PM Airway Date/Time: 10/25/2023 2:35 PM Urgency: elective Airway not difficult General Information and Staff Patient location during procedure: OR Anesthesiologist: Harry Klein MD Resident: Reece Charlton MD Performed: Anesthesiologist Indications and Patient Condition Indications for airway management: anesthesia Spontaneous Ventilation: absent Preoxygenated: yes Patient position: sniffing Mask difficulty assessment: 1 - vent by mask Final Airway Details Final airway type: endotracheal airway Successful airway: ETT Cuffed: yes Successful intubation technique: direct laryngoscopy Endotracheal tube insertion site: oral Blade: Renae Blade size: #2 ETT size (mm): 7.5 Cormack-Lehane Classification: grade I - full view of glottis Placement verified by: chest auscultation and capnometry Measured from: lips ETT to lips (cm): 22 Number of attempts at approach: 1 Additional Comments Atraumatic. No change to dentition. First attempt with MAC 4 blade, patient with anterior airway. Second attempt with Renae 2, grade I view us Harry Klein MD ANESTHESIA ORDERABLES Final Resu lt documented in this encounter Visit Diagnoses Not on filedocumented in this encounter Administered Medications Inactive Administered Medications - up to 3 most recent administrations Medication Order MAR Action Action Date Dose Rate Site ceFAZolin (Ancef) injection 2 g 2 g, Intravenous, Once, 1 dose, On Zahraa 10/25/23 at 1350, Routine, Anesthesia Intraprocedure Given 10/25/2023 2:46 PM EDT 2 g dexamethasone (Decadron) injection Intravenous, As needed, Starting on Zahraa 10/25/23 at 1446, Until Zahraa 10/25/23 at 1542, Routine, Anesthesia Intraprocedure Given 10/25/2023 2:46 PM EDT 8 mg dexmedetomidine in NS (Precedex) 4 mcg/mL infusion Intravenous, As needed, Starting on Zahraa 10/25/23 at 1522, Until Zahraa 10/25/23 at 1542, Routine Given 10/25/2023 3:22 PM EDT 8 mcg fentaNYL (Sublimaze) injection Intravenous, As needed, Starting on Zahraa 10/25/23 at 1427, Until Zahraa 10/25/23 at 1542, Routine, Anesthesia Intraprocedure Given 10/25/2023 2:35 PM EDT 50 mcg Given 10/25/2023 2:27 PM EDT 50 mcg lactated Ringer's infusion Intravenous, Continuous PRN, Starting on Zahraa 10/25/23 at 1415, Until Zahraa 10/25/23 at 1542, Routine New Bag 10/25/2023 2:15 PM EDT lidocaine PF (Xylocaine) 2 % injection Intravenous, As needed, Starting on Zahraa 10/25/23 at 1428, Until Zahraa 10/25/23 at 1542, Routine, Anesthesia Intraprocedure Given 10/25/2023 2:28 PM EDT 60 mg midazolam (Versed) injection Intravenous, As needed, Starting on Zahraa 10/25/23 at 1415, Until Zahraa 10/25/23 at 1542, Routine, Anesthesia Intraprocedure Given 10/25/2023 2:15 PM EDT 2 mg ondansetron (Zofran) injection Intravenous, As needed, Starting on Zahraa 10/25/23 at 1513, Until Zahraa 10/25/23 at 1542, Routine, Anesthesia Intraprocedure Given 10/25/2023 3:13 PM EDT 4 mg propofol (Diprivan) injection Intravenous, As needed, Starting on Zahraa 10/25/23 at 1428, Until Zahraa 10/25/23 at 1542, Routine, Anesthesia Intraprocedure Given 10/25/2023 2:35 PM EDT 50 mg Given 10/25/2023 2:32 PM EDT 30 mg Given 10/25/2023 2:28 PM EDT 120 mg rocuronium (ZeMuron) injection Intravenous, As needed, Starting on Zahraa 10/25/23 at 1429, Until Zahraa 10/25/23 at 1542, Routine, Anesthesia Intraprocedure Given 10/25/2023 2:29 PM EDT 60 mg sugammadex (Bridion) 200 MG/2ML injection Intravenous, As needed, Starting on Zahraa 10/25/23 at 1523, Until Zahraa 10/25/23 at 1542, Routine, Anesthesia Intraprocedure Given 10/25/2023 3:28 PM EDT 200 mg Given 10/25/2023 3:23 PM EDT 200 mg documented in this encounter Additional Health Concerns Assessment Noted Time A fall risk assessment has been complete d for the patient 04/05/2021 8:37 AM EST documented as of this encounter Care Teams Retail Wireless Sales Representative Relationship Specialty Start Date End Date Jam Pimentel MD [address] [place] [address] PCP - General 09/10/20 documented as of this encounter
--- OUTSIDE RECORDS SUMMARY | 2024-04-15 10:09 | XMS_ITS | Encounter Summary ---
Author Organization [facility] Address [address] [place] [address] Care Team Providers Care Whipped Topping Supervisor Name Role Phone Jam Pimentel MD Primary Care Provider [phone] Encounter Details Date Type Department Care Team (Latest Contact Info) Description 02/13/2023 Travel Social History Tobacco Use Types Packs/Day [...] on filedocumented in this encounter Care Teams Whipped Topping Supervisor Relationship Specialty Start Date End Date Jam Pimentel MD [address] [place] [address] PCP - General General Internal Medicine 01/30/23 documented as of this encounter
--- OUTSIDE RECORDS SUMMARY | 2024-04-15 10:09 | XMS_ITS | Referral Summary ---
Author Organization [facility] Address [address] [place] [address] Care Team Providers Care Aircraft Maintenance Engineer Name Role Phone Jam Pimentel MD Primary Care Provider [phone] Allergies Active Allergy Reactions Criticality Noted Date [...] Date Yousif rded Speak language other than Israeli at home Not on file 05/12/2023 Want [...] 02/13/2023 6:26 AM EDT Plan of Treatment Not on file Insurance [employer] MEDICARE PPO Advance Directives For more information, please contact: [phone] * Full Code (Latest Code Status on File) Date Activated Date Inactivated Comments 02/13/2023 11:02 AM 02/14/2023 1:39 PM Care Teams Aircraft Maintenance Engineer Relationship Specialty Start Date End Date Jam Pimentel MD [address] [place] [id number] PCP - General General Internal Medicine 01/30/23
--- OUTSIDE RECORDS SUMMARY | 2024-04-15 10:09 | XMS_ITS | Encounter Summary ---
Author Organization [employer] Address [address] [place] [address] Care Team Providers Care Straddle Bug Operator Name Role Phone Jam Pimentel MD Primary Care Provider [phone] Reason for Visit * Auth/Cert Specialty Diagnoses / Procedures Referred By Elidia light Referred To Contact Diagnoses Lumbar radiculopathy Lumbar radiculopathy Procedures CO LAMINEC/FACETECT/FORAMIN,LUMB AR 1 SEG LAMINECTOMY, SPINE, LUMBAR, ANTERIOR APPROACH, [place] [address] [place] [address] [place] [address] Phone: tel: fax: Referral ID Status Reason Start Date Expiration Date Visits Re quested Visits Authorized [id number] 01/15/2023 1 1 Encounter Details Date Type Department Care Team (Late st Contact Info) Description 02/13/2023 8:00 AM EDT - 02/13/2023 10:00 AM EDT Surgery [facility] Operating Room [address] [phone] Alexx Callejas MD [address] [place] [address] [place] [address] (L3-4 LAMINECTOMY AND DISCECTOMY) Social History Tobacco Use Types Packs/Day Years [...] Sign Reading Time Taken Comments Blood Pressure 109/61 02/13/2023 10:00 AM EDT Pulse 74 02/13/2023 10:00 AM EDT Temperature 36.6 ??C (97.8 ??F) 02/13/2023 9:36 AM ED T Respiratory Rate 14 02/13/2023 10:00 AM EDT Oxygen Saturation 96% 02/13/2023 10:00 AM EDT Inhaled Oxygen Concentration - - [...] any lotions or ointments to your incision [place] will be removed in office Steri-strips or [...] through Care Everywhere. * Laminectomy Care After (Mexican) * How to Prevent Constipation After Surgery (Mexican) * Lumbar Diskectomy Care After (Mexican) documented in this encounter Medications at Time [...] APPENDECTOMY ??? JOINT REPLACEMENT Left 8 surgeries: [id number] meniscal repair to total knee done twice ??? right wrist surgery Right PROCEDURE: 02/13/23 1. L3-4 laminectomy 2. Left 3-4 discectomy General Visit type: Initial Evaluation Approved by: Nurse Zapien Patient Disposition Upon Entry: Patient in bedside chair, Patient verified by name, Patient verified by date of Assisted by: seafood technology specialist Precautions Weight-Bearing Status: Full Weight Bearing (FWB) [...] - 02/14/23 - 12:06 PM EDT * Mary Kate Jara OTR/Stevan - 02/14/2023 9:56 AM [...] APPENDECTOMY ??? JOINT REPLACEMENT Left 8 surgeries: [id number] meniscal repair to total knee done twice [...] dressing:Independent Lower body dressing:Independent Toileting:Independent Outcome Measures [facility] Daily Living Functional Assessment How much [...] events. Treatment Administered long handled shoe horn, meat stringer, sock aid, long handled sponge, and educational [...] POC-GLUCOSE 212 (H) 70 - 110 mg/dL [employer] [id number] Glucose, Nova Meter Status: Abnormal Collection Time: 02/13/23 4:29 PM Result Value Ref Range POC-GLUCOSE 291 (H) 70 - 110 mg/dL [employer] [id number] No image results found. Assessment POD 1 [...] this encounter H&P Notes * Dulce Burleson, CHILDREN'S PROGRAM COORDINATOR - 02/13/2023 6:30 AM EDT HPI History [...] (H) 70 - 110 mg/dL Final ??? [employer] 02/13/2023 [id number] Final No image results found. Assessment & Plan Lumbar radiculopathy with bobby LE pain/weakness OA HTN prediabetes Pt to proceed with surgery, plan to stay 1 night Electronically signed by: Dulce Burleson APRN, 02/13/2023 at 7:11 AM Cosigned by [...] POC-GLUCOSE 166 (H) 70 - 110 mg/dL [employer] [id number] Glucose, Nova Meter Status: Abnormal Collection Time: 02/13/23 9:38 AM Result Value Ref Range POC-GLUCOSE 212 (H) 70 - 110 mg/dL [employer] [id number] Assessment & Plan # L3-4 disc herniation [...] note, since the hospital's version of the [facility] EMR requires attestations for mid-level providers. documented [...] 1. L34 laminectomy 2. Left 34 discectomy FITNESS MANAGER: Elpidio Rivera TYPE OF ANESTHESIA: General DESCRIPTION/PROCEDURE [...] 1 HOUR Routine 02/13/2023 9:30 AM EDT CO LAMINEC/FACETECT/ FORAMIN,LUMBAR 1 SEG 02/13/2023 7:59 AM EDT Lumbar radiculopathy Case Notes Preoperative handoff report by Kirti Gerber RN NOVA GLUCOSE POC Routine 02/13/2023 6:44 AM EDT EKG-SCANNED 02/13/2023 documented in this encounter Results * (ABNORMAL) Glucose, Nova Meter (02/14/2023 10:38 AM EDT) POC-GLUCOSE 247(H) 70 - 110 mg/dL 02/14/2023 10:40 AM EDT [facility] Comment: In the event of poor peripheral blood flow, venous or arterial blood should be used due to the potential of erroneous results. Protocols Followed [employer] [id number] 02/14/2023 10:40 AM EDT [facility] Blood WHOLE BLOOD / Unknown 02/14/2023 10:38 AM EDT 02/14/2023 10:40 AM EDT Narrative [facility] - 02/14/2023 10:40 AM EDT [employer] ID is - [id number] us Alexx Callejas MD POINT OF CARE TEST ORDERABLES Fi nal Result Performing Organization Address [facility] de Phone Number [facility] [address] [phone] * (ABNORMAL) Glucose, Nova Meter (02/13/2023 4:29 PM EDT) POC-GLUCOSE 291(H) 70 - 110 mg/dL 02/13/2023 4:31 PM EDT [facility] Comment: In the event of poor peripheral blood flow, venous or arterial blood should be used due to the potential of erroneous results. Notified Nurse RBV [employer] [id number] 02/13/2023 4:31 PM EDT [facility] Blood WHOLE BLOOD / Unknown 02/13/2023 4:29 PM EDT 02/13/2023 4:31 PM EDT Narrative [facility] - 02/13/2023 4:31 PM EDT [employer] ID is - [id number] us Alexx Callejas MD POINT OF CARE TEST ORDERABLES Fi nal Result Performing Organization Address [facility] de Phone Number [facility] [address] [phone] * (ABNORMAL) Glucose, Nova Meter (02/13/2023 9:38 AM EDT) POC-GLUCOSE 212(H) 70 - 110 mg/dL 02/13/2023 9:40 AM EDT [facility] Comment:In the event of poor peripheral blood flow, venous or arterial blood should be used due to the potential of erroneous results. [employer] [id number] 02/13/2023 9:40 AM EDT [facility] Blood WHOLE BLOOD / Unknown 02/13/2023 9:38 AM EDT 02/13/2023 9:40 AM EDT Narrative [facility] - 02/13/2023 9:40 AM EDT [employer] ID is - [id number] Alexx Callejas MD POINT OF CARE TEST ORDERABLES Fi nal Result [facility] [address] [phone] * Fluoroscopy less than 1 hour (02/13/2023 [...] - 110 mg/dL 02/13/2023 6:47 AM EDT [facility] Comment:In the event of poor peripheral blood flow, venous or arterial blood should be used due to the potential of erroneous results. [employer] [id number] 02/13/2023 6:47 AM EDT [facility] Blood WHOLE BLOOD / Unknown 02/13/2023 6:44 AM EDT 02/13/2023 6:47 AM EDT Narrative [facility] - 02/13/2023 6:47 AM EDT [employer] ID is - [id number] us Alexx Callejas MD POINT OF CARE TEST ORDERABLES Fi nal Result [facility] [address] [phone] * EKG-SCANNED (02/13/2023) Narrative 02/13/2023 Ordered by an unspecified provider. us Default Scanning Provider SCAN ORDERS Final Result documented in this encounter Visit Diagnoses Diagnosis Lumbar radiculopathy Thoracic or lumbosacral neuritis or radiculitis, unspecified documented in this encounter Administered Medications Inactive Administered [...] Phase II/On Unit BUPivacaine (PF) (MARCAINE) injection As needed, Starting on Sun02/13/23 at 0914, Intra-op Given 02/13/2023 9:14 AM EDT 60 mLs Trisha k cyclobenzaprine (FLEXERIL) tablet 10 mg 10 mg [...] Blood Sugar is less than 180 beteween 2148-9567, DO NOT give corrective insulin unless otherwise [...] Bag 02/13/2023 1:02 PM EDT 1,000 mLs lidocaine-EPINEPHrine 1% (XYLOCAINE W/EPI) injection As needed, Starting on Sun02/13/23 at 0837, Intra-op Given 02/13/2023 8:37 AM EDT 10 mLs Back lisinopriL (PRINIVIL,ZESTRIL) tablet 20 mg 20 mg Daily, oral, First dose on Sun02/13/23 at 1230, Give with amlodipine 10mg f/s for amlodipine/benazepril 02/16 Antihypertensive - Check BP - Check Pulse Hold SBP <110 Given 02/14/2023 8:44 AM EDT 20 mg sodium chloride 0.9% (NS) irrigation As needed, Starting on Sun02/13/23 at 0910, Intra-op Given 02/13/2023 9:10 AM EDT 50 mLs Other thrombin (bovine) topical solution As needed, Starting on Sun02/13/23 at 0857, Intra-op Given 02/13/2023 8:57 AM EDT 5,000 Units Other vancomycin (VANCOCIN) injection As needed, Starting on Sun02/13/23 at 0858, Intra-op Given 02/13/2023 8:58 AM EDT 1,000 mg Other documented in this encounter Active and Recently [...] Alexander RN - Comment: taking tylenol in norco)2255 (Not Given - Provider: Akshat Garcias LPN [...] <60 1219 (Not Given - Provider: Aylin Alexander RN - Reason: Contraindicated) 0845 (Given - Provider: Aylin Alexander RN) ceFAZolin (ANCEF) 2 g in sodium chloride [...] II/On Unit 1300 (Given - Provider: Aylin Alexander, HARJEET)3 (Given - Provider: Akshat Garcias LPN) 0845 [...] Blood Sugar is less than 180 beteween 0208-7536, DO NOT give corrective insulin unless otherwise [...] Provider: Aylin Alexander RN - Reason: Patient/family refused)2121 (Not Given - Provider: Akshat Garcias LPN [...] Alexander RN)1918 (Given - Provider: Aylin Alexander HARJEET) 0118 (Given - Provider: Akshat Garcias LPN)0845 (Given - Provider: Aylin Alexander, HARJEET) lidocaine-EPINEPHrine 1% (XYLOCAINE W/EPI) injection (CANCELED) As [...] Unit documented in this encounter Care Teams Straddle Bug Operator Relationship Specialty Start Date End Date Jam Pimentel MD [address] [place] [address] PCP - General General Internal Medicine 01/30/23 documented as of this encounter
--- OUTSIDE RECORDS SUMMARY | 2024-04-15 10:09 | XMS_ITS | Encounter Summary ---
Author Organization Healthcare Address [address] [place] [address] Care Team Providers Care Associate Chief Nurse Name Role Phone Jam Pimentel MD Primary Care Provider [phone] Encounter Details Date Type Department Care Team (Latest Contact Info) Description 12/28/2023 Travel Social History Tobacco Use Types Packs/Day Years Used Date Smoking Tobacco: Never Smokeless Tobacco: Never PHQ-2 Answer Date Recorded Patient Health Questionnaire-2 [...] EST Appointment [facility] [address] [place] [address] 06/24/2024 10:10 AM EST Office [facility] [address] [place] [address] Nofilipe, Nany M, MANAGER ENGAGEMENT [address] [place] [address] documented as of this encounter Visit Diagnoses Not on filedocumented in this encounter Additional Health Concerns Assessment Noted Time A fall risk assessment has been complete d for the patient 12/28/2023 10:32 AM EDT A Body Mass Index follow-up plan has been documented for the patient 01/01/2024 2:01 PM EDT documented as of this encounter Care Teams Associate Chief Nurse Relationship Specialty Start Date End Date Jam Pimentel MD [address] [place] [address] PCP - General 09/10/20 documented as of this encounter
--- OUTSIDE RECORDS SUMMARY | 2024-04-15 10:09 | XMS_ITS | Encounter Summary ---
Author Organization [facility] Address [address] [id number] Care Team Providers Care Postdoctoral Research Associate Name Role Phone Jam Pimentel MD Primary Care Provider [phone] Reason for Referral * Imaging (Routine) - Closed Specialty Diagnoses / Procedures Referred By Elidia light Referred To Contact Radiology Diagnoses Kidney stone Procedures US Renal Complete Abran Ruffin MD [address] [address] Phone: tel: fax: Referral ID Status Reason Start Date Expiration Date Visits Re quested Visits Authorized [id number] Closed 10/25/2023 04/25/2025 1 1 Reason for Visit * Imaging (Routine) - Closed Specialty Diagnoses / Procedures Referred By Elidia light Referred To Contact Radiology Diagnoses Kidney stone Procedures US Renal Complete Abran Ruffin MD [address] [address] Phone: tel: fax: Referral ID Status Reason Start Date Expiration Date Visits Re quested Visits Authorized [id number] Closed 10/25/2023 04/25/2025 1 1 Encounter Details Date Type Department Care Team (Latest Contact Info) Description 12/28/2023 8:14 AM EDT - 12/28/2023 11:59 PM EDT Hospital Encounter [facility] [address] [place] [address] Kidney stone Discharge Disposition: Home or Self Care Social [...] encounter Medications at Time of Discharge amLODIPine-benaze pril (Lotrel) 10-20 MG capsule Take 1 capsule by mouth 1 (one) time each day. 02/24/2018 ibuprofen 600 MG tablet Take 1 tablet (600 mg) by mouth every 6 (six) hours if needed for mild pain. 20 tablet 10/25/2023 metFORMIN (Glucophage) 500 MG tablet Take 1 tablet (500 mg) by mouth 2 (two) times a day. 10/27/2023 metFORMIN XR (Glucophage-XR) 500 MG 24 hr tablet Take 1 tablet (500 mg) by mouth 2 (two) times a day. documented as of this encounter Plan of Treatment Upcoming Encounters Date Type Department Care Team (Late st Contact Info) Description 06/24/2024 7:45 AM EST Appointment [facility] [address] [place] [address] 06/24/2024 10:10 AM EST Office Visit [facility] [address] [place] [address] Nany Elias M, HAMMER SETTER [address] [place] [address] documented as of this encounter Procedures Procedure Name Priority Date/Time Associated Diagnosis Comments US RENAL COMPLETE Routine 12/28/2023 8:4 9 AM EDT Kidney stone documented in this encounter Results * US Renal Complete (12/28/2023 8:49 AM EDT) Anatomical Region Laterality Modality Kidney Ultrasound Impressions 12/28/2023 1:13 PM EDT 1. Possible bilateral nonobstructing renal calculi, although these were not seen on prior CT, could be vascular calcifications. 2. No hydronephrosis. CRITICAL RESULT: No. COMMUNICATION: Per this written report. By electronically signing this report, I, the attending physician, attest that I have personally reviewed the images/data for the above examination(s) and agree with the final edited report. Drafted by Melo Lawrence DO on 12/28/2023 9:23 AM Final report signed by Ezra Payton MD on 12/28/2023 1:13 PM Narrative 12/28/2023 1:13 PM EDT CLINICAL INDICATION: hydronephrosis, stones TECHNIQUE: Multiplanar static and cine meeks scale ultrasound images of the kidneys and urinary bladder were obtained, accompanied by selective color Doppler ultrasound images. COMPARISON: Outside CT abdomen pelvis October 30, 2023 FINDINGS: Right Kidney: Normal in size and echogenicity. Length 10.9 cm. There are multiple subcentimeter cysts with the largest measuring up to 0.8 cm in the lower pole which is mildly complex with a thin septation (cine A: 5). Focal area of scarring is redemonstrated. Subcentimeter echogenic foci which exhibits twinkling artifact could represent nonobstructing renal calculi. No hydronephrosis. Left Kidney: Normal in size and echogenicity. There are is a subcentimeter echogenic focus which exhibits twinkling artifact and could represent a nonobstructing renal calculus. Length 10.6 cm. No hydronephrosis, or discernible mass. Prominent suspected proximal ureter is redemonstrated. Urinary bladder: Somewhat decompressed but grossly unremarkable. Procedure Note Ezra Payton MD - 12/28/2023 CLINICAL INDICATION: hydronephrosis, stones TECHNIQUE: Multiplanar static and cine meeks scale ultrasound images of the kidneysand urinary bladder were obtained, accompanied by selective color Dopplerultrasound images. COMPARISON: Outside CT abdomen pelvis October 30, 2023 FINDINGS: Right Kidney: Normal in size and echogenicity. Length 10.9 cm. There aremultiple subcentimeter cysts with the largest measuring up to 0.8 cm inthe lower pole which is mildly complex with a thin septation (cine A: 5).Focal area of scarring is redemonstrated. Subcentimeter echogenic fociwhich exhibits twinkling artifact could represent nonobstructing renalcalculi. No hydronephrosis. Left Kidney: Normal in size and echogenicity. There are is a subcentimeterechogenic focus which exhibits twinkling artifact and could represent anonobstructing renal calculus. Length 10.6 cm. No hydronephrosis, ordiscernible mass. Prominent suspected proximal ureter is redemonstrated. Urinary bladder: Somewhat decompressed but grossly unremarkable. IMPRESSION: 1.Possible bilateral nonobstructing renal calculi, although these werenot seen on prior CT, could be vascular calcifications. 2.No hydronephrosis. CRITICAL RESULT: No. COMMUNICATION: Per this written report. By electronically signing this report, I, the attending physician, annabella I have personally reviewed the images/data for the aboveexamination(s) and agree with the final edited report. Drafted by Melo Lawrence DO on 12/28/2023 9:23 AM Final report signed by Ezra Payton MD on 12/28/2023 1:13 PM us Abran Ruffin MD IMG US PROCEDURES Final Re sult documented in this encounter Visit Diagnoses Diagnosis Kidney stone Calculus of kidney documented in this encounter Additional Health Concerns Assessment Noted Time A fall risk assessment has been complete d for the patient 12/28/2023 10:32 AM EDT A Body Mass Index follow-up plan has been documented for the patient 01/01/2024 2:01 PM EDT documented as of this encounter Care Teams Postdoctoral Research Associate Relationship Specialty Start Date End Date Jam Pimentel MD [address] [place] [address] PCP - General 09/10/20 documented as of this encounter
--- OUTSIDE RECORDS SUMMARY | 2024-04-15 10:09 | XMS_ITS | Encounter Summary ---
Author Organization [email or web address] Address [address] [place] [address] Care Team Providers Care Panel Instrument Repairer Name Role Phone Jam Pimentel MD Primary Care Provider [phone] Reason for Visit * Auth/Cert Specialty Diagnoses / Procedures Referred By Elidia light Referred To Contact Diagnoses Lumbar radiculopathy Lumbar radiculopathy Procedures [place] LAMINEC/FACETECT/FORAMIN,LUMB AR 1 SEG LAMINECTOMY, SPINE, LUMBAR, ANTERIOR APPROACH, [place] [address] [place] [address] [place] [address] Phone: tel: fax: Referral ID Status Reason Start Date Expiration Date Visits Re quested Visits Authorized [id number] 01/15/2023 1 1 Encounter Details Date Type Department Care Team (Late st Contact Info) Description 01/30/2023 6:54 AM EDT - 01/30/2023 11:59 PM EDT Hospital Encounter [facility] Preadmission Testing [address] [place] [id number] Pasha Callejas MD [address] [place] [address] Preop testing (Primary Dx) Discharge Disposition: Home or Self Care Anesthesia Record Procedure Summary Procedure Name Responsible Anesthesiologist Anesthesia Start Time Anesthesia Stop Time (L3-4 LAMINECTOMY AND DISCECTOMY) (Spine Lumbar) Hayley Rosas MD 02/13/23 0759 02/13/23 0946 Events Date Time Event Comment 02/13/2023 0759 An Start Patient identif ied and chart reviewed. 0759 An Start Data Anesthesia mac primo and monitors checked. 0800 Pre-Induction Eval FDA anest hesia machine pre-use checkout completed. Patient status reassessed prior to start of anesthesia care. 0809 An Induction 0812 An Intubation 0814 Anesthesia Ready 0931 An Extubation 0932 an stop data 0946 An Stop 1056 Handoff to Receiving I compl eted my handoff to the receiving clinician during which we: 1. Identified the patient. 2. Identified the responsible provider. 3. Reviewed the pertinent medical history. 4. Discussed the surgical course. 5. Reviewed intra-op anesthesia management and issues during anesthesia. 6. Set expectations for post-procedure period. 7. Allowed opportunity for questions and acknowledgement of understanding. Meds * Agents No agents on file. * Blood No blood administrations on file. Lines, Drains, and Airways Type Details Placement Removal Wound 02/13/23; 926; N; Incision; Back; Not applicable, Lower 02/13/23926 by Yecenia Hood RN Peripheral IV Placement Date: 01/28 11/19; Placement Time: 06; Size: 20 G; Orientation: Anterior, Left; Location: Wrist; Site Prep: Chlorhexidine ; Inserted by: roberto gerber rn; Insertion attempts: 1; Securement Method: Taped; Removal Date: 02/14/23; Removal Time: 1207 02/13/23 0647 by Roberto Gerber RN 02/14/23 1207 by Aylin Alexander RN ETT Placement Date 02/13; Placement Time 08 (created via procedure documentation); Airway Size 8; Airway Cuffed Yes; Removal Date 02/13/23; Removal Time 0931 02/13/23 0812 by Sade Zamora CRNA 02/13/23 09 by Sade Zamora CRNA documented in this encounter Social History Tobacco [...] Average Number of Drinks Not on file Frequency of Binge Drinking Not on file [...] Sign Reading Time Taken Comments Blood Pressure 123/91 01/30/2023 8:32 AM EDT right upper arm Pulse 69 01/30/2023 8:32 AM EDT Temperature 36.3 ??C (97.4 ??F) 01/30/2023 8 :32 AM EDT Respiratory Rate 16 01/30/2023 8:32 AM EDT Oxygen Saturation 100% 01/30/2023 8:3 2 AM EDT Inhaled Oxygen Concentration - - Weight 90.8 kg (200 lb 1.6 oz) 01/30/2023 8:32 AM EDT Height 184.8 cm (6' 0.75 ) 01/30/2023 8 :32 AM EDT Body Mass Index 26.58 01/30/2023 8:32 AM EDT documented in this encounter Medications at Time [...] 02/14/2023 02/24/2023 documented as of this encounter Plan of Treatment Not on file documented as of this encounter Procedures Procedure Name Priority Date/Time Associated Diagnosis Comments FS_MODEL_IP_ECG 12-LEAD Routine 01/30/2023 8:48 AM EDT Preop testing CBC HEMOGRAM (SJ-BKR) Routine 01/30/2023 8:40 AM EDT Preop testing URINALYSIS WITHOUT MICROSCOPIC STAT 01/30/2023 8:40 AM EDT Preop testing BASIC METABOLIC PANEL Routine 01/30/2023 8:40 AM EDT Preop testing documented in this encounter Results * ECG 12 lead (01/30/2023 8:48 AM EDT) VENTRICULAR RATE EKG/MIN 63 BPM GE MUSE ATRIAL RATE (MCT) 63 BPM GE MUSE [place] Interval 142 ms GE MUSE QRS-INTERVAL (MSEC) 86 ms GE MUSE QT Interval 430 ms GE MUSE QTC Interval 440 ms GE MUSE P Sunspot 56 degrees GE MUSE R AXIS (MCT) 65 degrees GE MUSE T Wave Sunspot 42 degrees GE MUSE [place] Diagnosis Normal sinus rhythm Normal ECG No previous ECGs available Confirmed by Linda DUNHAM, PASHA ([id number]), video tape editor MERY FLORES ([id number]) on 01/30/2023 11:38:41 AM GE MUSE 01/30/2023 8:48 AM EDT 01/30/2023 11:38 AM EDT us Fan Morales MD ECG ORDERABLES Final Resu lt GE MUSE * (ABNORMAL) Urinalysis without Microscopic (01/30/2023 8:40 AM EDT) Color, UA Yellow 01/30/2023 9:21 AM EDT [facility] Clarity, UA Clear Clear 01/30/2023 9:21 AM EDT [facility] Specific [place], UA 1.032(H) 1.005 - 1.030 01/30/2023 9:21 AM EDT [facility] pH, UA 5.5(L) 6.0 - 8.0 01/30/2023 9:21 AM EDT [facility] Leukocytes, UA Negative Negative 01/30/2023 9:21 AM EDT [facility] Nitrite, UA Negative Negative 01/30/2023 9:21 AM EDT [facility] Protein, UA Trace(A) Negative 01/30/2023 9:21 AM EDT [facility] Glucose, UA 2+(A) Normal 01/30/2023 9:21 AM EDT [facility] Ketones, UA Negative Negative 01/30/2023 9:21 AM EDT [facility] Urobilinogen, UA Normal Normal 01/30/2023 9:21 AM EDT [facility] Bilirubin, UA Negative Negative 01/30/2023 9:21 AM EDT [facility] Blood, UA Negative Negative 01/30/2023 9:21 AM EDT [facility] Specimen Source Urine, Clean Catch 01/30/2023 9:21 AM EDT [facility] Urine URINE SPECIMEN COLLECTION, CLEAN CATCH / Unknown 01/30/2023 8:40 AM EDT 01/30/2023 9:06 AM EDT us Pasha Callejas MD URINE ORDERABLES Final Result [facility] [address] [phone] * (ABNORMAL) Basic Metabolic Panel (01/30/2023 8:40 AM EDT) Sodium 139 136 - 146 meq/L 01/30/2023 9:26 AM EDT [facility] Potassium 4.0 3.5 - 5.1 meq/L 01/30/2023 9:26 AM EDT [facility] Chloride 107 102 - 112 meq/L 01/30/2023 9:26 AM EDT [facility] CO2 25 21 - 32 meq/L 01/30/2023 9:26 AM EDT [facility] Anion Gap 11 9 - 20 01/30/2023 9:26 AM EDT [facility] BUN 21 7 - 22 mg/dL 01/30/2023 9:26 AM EDT [facility] Creatinine 0.96 0.70 - 1.30 mg/dL 01/30/2023 9:26 AM EDT [facility] BUN/Creatinine 22(H) 8 - 20 01/30/2023 9:26 AM EDT [facility] Glucose 202(H) 74 - 106 mg/dL 01/30/2023 9:26 AM EDT [facility] Calcium 9.5 8.4 - 10.1 mg/dL 01/30/2023 9:26 AM EDT [facility] Osmolality Calc 286.3 9:26 AM T [facility] eGFR (mL/min/1.73m2) >60 >=60 mL/min/1.7 3m2 01/30/2023 9:26 AM EDT [facility] Comment:eGFR of <60 suggests chronic kidney disease if found over a 3 month period of time. eGFR <15 indicates renal failure. Blood Venipuncture / Unknown 01/30/2023 8:40 AM EDT 01/30/2023 9:06 AM EDT us Pasha Callejas MD LAB BLOOD ORDERABLES Final Resul t [facility] [address] [phone] * (ABNORMAL) CBC - Hemogram (01/30/2023 8:40 AM EDT) WBC 7.4 3.6 - 9.5 K/??L 01/30/2023 9:17 AM EDT [facility] RBC 5.18 4.20 - 5.70 M/??L 01/30/2023 9:17 AM EDT [facility] Hemoglobin 14.9 13.7 - 17.5 GM/DL 01/30/2023 9:17 AM EDT [facility] Hematocrit 44.3 40.0 - 51.0 % 01/30/2023 9:17 AM EDT [facility] MCV 86 79 - 95 fL 01/30/2023 9:17 AM EDT [facility] MCH 28.8 25.6 - 32.2 pg 01/30/2023 9:17 AM EDT [facility] MCHC 33.6 32.2 - 36.5 GM/DL 01/30/2023 9:17 AM EDT [facility] RDW 11.5(L) 11.7 - 14.9 % 01/30/2023 9:17 AM EDT [facility] Platelets 456(H) 163 - 369 K/CU MM 01/30/2023 9:17 AM EDT [facility] MPV 9.0(L) 9.4 - 12.4 fL 01/30/2023 9:17 AM EDT [facility] Blood Venipuncture / Unknown 01/30/2023 8:40 AM EDT 01/30/2023 9:06 AM EDT us Pasha Callejas MD LAB BLOOD ORDERABLES Final Resul t [facility] [address] [id number] [phone] documented in this encounter Visit Diagnoses Diagnosis Preop testing- Primary Unspecified pre-operative examination documented in this encounter Care Teams Panel Instrument Repairer Relationship Specialty Start Date End Date Jam Pimentel MD [address] [place] [address] PCP - General General Internal Medicine 01/30/23 documented as of this encounter
--- OUTSIDE RECORDS SUMMARY | 2024-04-15 10:09 | XMS_ITS | Clinical Summary ---
Author Organization Healthcare Address [address] [place] [address] Care Team Providers Care Eyeglass Inspector Name Role Phone Jam Pimentel MD Primary Care Provider [phone] Allergies Active Allergy Reactions Criticality Noted Date Comments Oxycodone-Acetaminophen Itching,Unknown - Patient states they do not know rxn details Medium 04/09/2017 Medications amLODIPine-aaron zepril (Lotrel) 10-20 MG capsule Take 1 capsule by mouth 1 (one) time each day. 8 Active metFORMIN XR (Glucophage-XR) 500 MG 24 hr tablet Take 1 tablet (500 mg) by mouth 2 (two) times a day. Active ibuprofen 600 MG tablet Take 1 tablet (600 mg) by mouth every 6 (six) hours if needed for mild pain. 20 tablet 4 Active Additional Information Patient not taking.Reported on 12/28/2023 metFORMIN (Glucophage) 500 MG tablet Take 1 tablet (500 mg) by mouth 2 (two) times a day. 4 Active Active Problems Problem Noted Date Diagnosed Date HTN (hypertension) 10/25/2023 Kidney stone 10/24/2023 Status post left knee replacement 05/09/2018 Diabetes mellitus, type 2 04/16/2018 Tinnitus 04/16/2018 Arthritis of knee, left 03/07/2018 Effusion of knee joint 04/09/2017 Painful total knee replacement 04/09/2017 Immunizations Name Administration Dates Next Due Influenza, injectable, quadrivalent, preservativ e free 05/09/2018 Pneumococcal Polysaccharide PPV23 05/09/2018 Family History Medical History Relation Name Comments Diabetes Father Hypertension Father Diabetes Mother Hyperlipidemia Mother Hypertension Mother Relation Name Status Comments Father Mother Social History Tobacco Use Types Packs/Day Years [...] Pulse 55 12/28/2023 10:29 AM EDT Temperature 36.4 ??C (97.5 ??F) 10/25/2023 4:45 PM ED T Respiratory Rate 20 10/25/2023 4:45 PM EDT Oxygen Saturation 99% 12/28/2023 10:29 AM EDT Inhaled Oxygen Concentration - - Weight 81.3 kg (179 lb 3.7 oz) 12/28/2023 10:29 AM EDT Height 188 cm (6' 2 ) 12/28/2023 10:29 AM EDT Body Mass Index 23.01 12/28/2023 10:29 AM EDT Plan of Treatment Upcoming Encounters Date Type Department Care Team (Late st Contact Info) Description 06/24/2024 7:45 AM EST Appointment [facility] [address] [place] [address] 06/24/2024 10:10 AM EST Office Visit [facility] [address] [place] [address] 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, 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 [address] [place] [address] Health Maintenance Due Date Last Done Comments [facility]-Medicare Annual Wellness (AWV) 1970 [facility]-Infant/Child/Adol SDOH Screenings 1970 [id number] Vaccine (#1) 1974 Diabetes: Dental Exam 07/23/1979 [facility]- SDOH Screenings 07/23/1987 [facility]-Adult SDOH Screenings 07/23/1987 [facility]-Hepatitis B Vaccines (1 of 3 - 19+ 3-dose series) 1988 [facility]-Zoster Vaccines (1 of 2) 1988 [facility]-DTaP,Tdap,and Td Vaccine s (1 - Tdap) 07/02/1996 07/01/1996 CT Colonography 2014 Colonoscopy 2014 FIT-DNA 2014 FIT 2014 FOBT 2014 Sigmoidoscopy 2014 [facility]-Colorectal Cancer Screening 2014 [facility]-Pneumococcal Vaccine: Pediatrics (0 to 5 Years) and At-Risk Patients (6 to 64 Years) (2 of 2 - PCV) 05/09/2019 05/09/2018 [facility]-Diabetes: Hemoglobin A1C 10/07/202002/2020, 03/11/2018 [facility]-Influenza Vaccine (#1) 2023 05/09/2018 [facility]-Depression Screening 12/27/2024 12/28/2023 [facility]-RSV Vaccine: 60+ Years o r (1 - 1-dose 75+ series) 2044 [facility]-HIV Screening Completed 10/24/2023, 10/24/2023 [facility]-Hepatitis C Screening Completed 10/24/2023 [facility]-HIB Vaccines Aged Out No longer e ligible based on patient's age to complete this topic [facility]-HPV Vaccines Aged Out No longer e ligible based on patient's age to complete this topic [facility]-Hepatitis A Vaccines Aged Out No longer eligible based on patient's age to complete this topic [facility]-IPV Vaccines Aged Out No longer e ligible based on patient's age to complete this topic [facility]-Rotavirus Vaccines Aged Out No lo nger eligible based on patient's age to complete this topic Medical Devices Implanted Type Area Wire Turning Machine Operator Device Identifier Shelf Expiration Date Model / Serial / Lot Stent Ureteral Double Pigtail Pos 6fr 26cm - [id number] Implanted:Qty: 1 on 10/25/2023 by Abran Ruffin MD at [facility] Stent Left: [id number] 07/16/2025 [id number] / / [id number] Procedures Procedure Name Priority Date/Time Associated Diagnosis Comments HEPATITIS C ANTIBODY - ED W/REFLEX TO HCV QUANT PCR STAT 10/24/2023 6:46 PM EDT ED PROTOCOL HIV 1/2 ANTIBODY/ANTIGEN SCREEN W/REFLEX TO HIV 1/2 ANTIBODY DIFFERENTIATION STAT 10/24/2023 6:46 PM EDT HEMOGLOBIN A1C Routine 04/09/2020 11:23 AM EST from Last 3 Months or Most Recently Relevant to Health Maintenance Results * Hepatitis C Antibody - ED (10/24/2023 6:46 PM EDT) Hepatitis C Antibody Negative Negative 10/24/2023 7:36 PM EDT [facility] Blood Venous blood specimen / Unknown Venipuncture / Unknown 10/24/2023 6:46 PM EDT 10/24/2023 6:55 PM EDT Mk Amado MD LAB BLOOD ORDERABLES Final Result [facility] [address] [place] [address] * Hemoglobin A1c (04/09/2020 11:23 AM EST) Hemoglobin A1c 6.0 4.7 - 6.0 % [facility] Comment: Glycohemoglobin Reference Range, 0 years and up: ??4.7 to 6.0% . HA1C Interpretive Data: Diagnosis of Diabetes: Diabetic > or = 6.5% Pre-diabetic 5.7 to 6.4% Non-diabetic < or = 5.6% . Glycemic Targets for Type I and Type II Diabetics: Non- Adults <7.0% Adults <6.0% Children and Adolescents <7.5% . Source: ??[place] [employer]. Standards of medical care in diabetes, 2017. Diabetes Care.2017:40 (suppl 1):S1-S135. . HbA1c assay performed by an ion-exchange chromatography method that is certified traceable to the DCCT. 04/09/2020 11:2 3 AM EST 04/09/2020 1:28 PM EST us Vijay Carney MD LAB BLOOD ORDERABLES Final R esult [facility] from Last 3 Months or Most Recently Relevant to Health Maintenance Insurance Care Teams Eyeglass Inspector Relationship Specialty Start Date End Date Jam Pimentel MD [address] [place] [id number] PCP - General 09/10/20
--- OUTSIDE RECORDS SUMMARY | 2024-04-15 10:09 | XMS_ITS | Encounter Summary ---
Author Organization [employer] Address [address] [place] [address] Care Team Providers Care Technology Risk Intern Name Role Phone Jam Pimentel MD Primary Care Provider [phone] Reason for Visit * Auth/Cert Specialty Diagnoses / Procedures Referred By Elidia light Referred To Contact Diagnoses Lumbar radiculopathy Lumbar radiculopathy Procedures NH LAMINEC/FACETECT/FORAMIN,LUMB AR 1 SEG LAMINECTOMY, SPINE, LUMBAR, ANTERIOR APPROACH, [place] [address] [place] [address] [address] [place] [address] Phone: tel: fax: Referral ID Status Reason Start Date Expiration Date Visits Re quested Visits Authorized [id number] 01/15/2023 1 1 Encounter Details Date Type Department Care Team (Late st Contact Info) Description 02/13/2023 7:59 AM EDT Anesthesia Event [facility] Operating Room [address] [phone] Hayley Rosas MD [address] [place] [address] Sade Zamora, RADHA [address] [place] [address] Anesthesia Record Procedure Summary Procedure Name Responsible Anesthesiologist Anesthesia Start Time Anesthesia Stop Time (L3-4 LAMINECTOMY AND DISCECTOMY) (Spine Lumbar) Hayley Rosas MD 02/13/23 0759 02/13/23 0946 Events Date Time Event Comment 02/13/2023758 An Start Patient identif ied and chart reviewed. 758 An Start Data Anesthesia mac primo and [...] for questions and acknowledgement of understanding. Meds Name Total dexamethasone (DECADRON) injection 4 mg/ mL 8 mg fentaNYL (SUBLIMAZE) injection 100 mcg glycopyrrolate (ROBINUL) injection 1 mg lidocaine (XYLOCAINE) injection 2% 100 m g neostigmine (PROSTIGMINE) 1 mg/mL inject ion 5 mg ondansetron (ZOFRAN) injection vial 4 mg propofol (DIPRIVAN) injection 10 mg/mL b olus 160 mg rocuronium (ZEMURON) 100 mg/10 mL inject ion 40 mg ceFAZolin (ANCEF) 2 g in sodium chloride 0.9 % (NS) MBP 50 mL IVPB 2 g dexmedetomidine (PRECEDEX) injection 100 mcg/mL 30 mcg ketamine injection 10 mg/mL 50 mg magnesium sulfate injection 2 g lactated ringers (LR) infusion 1,100 mL * Agents Name O2 N2O Air SEVOFLURANE * Blood No blood administrations on file. [...] Cuffed Yes; Removal Date 02/13/23; Removal Time 0902/13/23 08 by Sade Zamora CRNA 02/13/23 09 by [...] Recorded In the last 10 days, have abhijit scott been in contact with someone who was confirmed or suspected to have Coronavirus/COVID-19? No / Unsure 02/13/2023 5:53 AM EDT documented as of this encounter OR Notes * Anesthesia Postprocedure Evaluation - Sade Zamora CRNA - 02/13/2023 10:58 AM EDT Patient: Mk Ardon Procedure Summary Date: 02/13/23 Room / Location: [facility] Anesthesia Start: 0759 Anesthesia Stop: Procedure: (L3-4 LAMINECTOMY AND DISCECTOMY) (Spine Lumbar) Diagnosis: Lumbar radiculopathy (Lumbar radiculopathy) Surgeons: Alexx Callejas MD Responsible Provider: Hayley Rosas MD Anesthesia Type: general ASA Status: 2 Anesthesia Type: general Vitals Value Taken Time BP 108/58 02/13/23 1057 Temp 97.8 ??F (36.6 ??C) 02/13/23 0936 Pulse 55 02/13/23 1058 Resp 16 02/13/23 1015 SpO2 99 % 02/13/23 1058 Vitals shown include unvalidated device data. Ht 1.848 m (6' 0.76 ) Wt 90.8 kg (200 lb 1.6 oz) BMI 26.58 kg/m?? Anesthesia Post Evaluation Patient location during evaluation: PACU Patient participation: complete - patient participated Level of consciousness: awake Pain management: adequate Airway patency: patent Cardiovascular status: acceptable Respiratory status: acceptable Hydration status: acceptable Color: Preemption Activity: Moves 4 extremities Inotropes/Vasopressors: N/A No notable events documented. Sade Zamora CRNA 02/13/2023 10:58 AM EDT * Anesthesia Procedure Notes - Sade Zamora CRNA - 02/13/2023 8:31 AM EDT Associated Order(s): Intubation Intubation Date/Time: 02/13/2023 8:12 AM Urgency: elective General Information and Staff Patient location during procedure: OR Anesthesiologist: Hayley Rosas MD Resident/WELL SERVICE PUMP EQUIPMENT OPERATOR: Sade Zamora CRNA Performed: resident/WELL SERVICE PUMP EQUIPMENT OPERATOR Indications and Patient Condition Indications for airway management: anesthesia and airway protection Spontaneous Ventilation: absent Sedation level: general anesthesia Preoxygenated: yes Patient position: sniffing no Mask difficulty assessment: 3 - difficult mask (inadequate, unstable or two providers) +/- NMBA no Final Airway Details Final airway type: endotracheal airway Endotracheal tube type: ETT Cuffed: yes Successful intubation technique: direct laryngoscopy Facilitating devices/methods: intubating stylet Endotracheal tube insertion site: oral Blade: Gerard Blade size: #4 ETT size (mm): 8.0 Cormack-Lehane Classification: grade I - full view of glottis Placement verified by: chest auscultation and capnometry Cuff volume (mL): 10 Measured from: lips ETT to lips (cm): 24 Number of attempts at approach: 1 Number of other approaches attempted: 0 * Anesthesia Preprocedure Evaluation - Fan Morales MD - 01/30/2023 8:43 AM EDT Anesthesia Pre Evaluation Mr. Mk Ardon is a 52 y.o. male being evaluated for the following: Date/Time: 02/06/23 1100 Procedure: (L3-4 LAMINECTOMY AND DISCECTOMY) - IN, 1.5HRS(A) Location: [facility] Surgeons: Alexx Callejas MD Relevant Problems No relevant active problems - HTN Clinical information reviewed: NPO Status No data recorded Physical Exam Airway Mallampati: II TM distance: >3 FB Neck ROM: full Cardiovascular - normal exam Dental - normal exam Pulmonary - normal exam Abdominal Anesthesia Plan ASA 2 Planned anesthetic: general Anesthesia Plan Factors- The patient is not a current smoker. Induction: intravenous Informed Consent- Anesthetic plan and risks discussed with patient. documented in this encounter Plan of Treatment Not on file documented as of this encounter Procedures Procedure Name Priority Date/Time Associated Diagnosis Comments ANESTHESIA INTUBATION Routine 02/13/2023 8:12 AM EDT documented in this encounter Results * AN SINGLE LUMEN INTUBATION (02/13/2023 8:12 AM EDT) Narrative Sade Zamora CRNA - 02/13/2023 8:12 AM EDT Sade Zamora CRNA ? 02/13/2023 ??8:32 AM Intubation Date/Time: 02/13/2023 8:12 AM Urgency: elective General Information and Staff Patient location during procedure: OR Anesthesiologist: Hayley Rosas MD Resident/WELL SERVICE PUMP EQUIPMENT OPERATOR: Sade Zamora CRNA Performed: resident/WELL SERVICE PUMP EQUIPMENT OPERATOR Indications and Patient Condition Indications for airway management: anesthesia and airway protection Spontaneous Ventilation: absent Sedation level: general anesthesia Preoxygenated: yes Patient position: sniffing no Mask difficulty assessment: 3 - difficult mask (inadequate, unstable or two providers) +/- NMBA no Final Airway Details Final airway type: endotracheal airway Endotracheal tube type: ETT Cuffed: yes Successful intubation technique: direct laryngoscopy Facilitating devices/methods: intubating stylet Endotracheal tube insertion site: oral Blade: Gerard Blade size: #4 ETT size (mm): 8.0 Cormack-Lehane Classification: grade I - full view of glottis Placement verified by: chest auscultation and capnometry Cuff volume (mL): 10 Measured from: lips ETT to lips (cm): 24 Number of attempts at approach: 1 Number of other approaches attempted: 0 us Hayley Rosas MD ANESTHESIA ORDERABLES F inal Result documented in this encounter Visit Diagnoses Not on filedocumented in this encounter Administered Medications Inactive Administered Medications - up to 3 most recent administrations Medication Order MAR Action Action Date Dose Rate Site ceFAZolin (ANCEF) 2 g in sodium chloride 0.9 % (NS) MBP 50 mL IVPB 2 g Once, intravenous, Administer over 30 Minutes, On 02/13/23 at 0700, For 1 dose, Pre-op, Please choose an indication: Surgical Prophylaxis New Bag 02/13/2023 8:22 AM EDT 2 g dexamethasone (DECADRON) injection As needed, intravenous, Starting on Sun02/13/23 at 0825, Anesthesia Intra-op Given 02/13/2023 8:25 AM EDT 8 mg dexmedetomidine (PRECEDEX) injection As needed, intravenous, Starting on Sun02/13/23 at 0835, Anesthesia Intra-op Given 02/13/2023 9:00 AM EDT 5 mcg Given 02/13/2023 8:55 AM EDT 5 mcg Given 02/13/2023 8:50 AM EDT 5 mcg fentaNYL (SUBLIMAZE) injection As needed, intravenous, Starting on Sun02/13/23 at 0806, Anesthesia Intra-op Given 02/13/2023 9:16 AM EDT 25 mcg Given 02/13/2023 8:06 AM EDT 75 mcg glycopyrrolate (ROBINUL) injection As needed, intravenous, Starting on Sun02/13/23 at 0905, Anesthesia Intra-op Given 02/13/2023 9:16 AM EDT 0.8 mg Given 02/13/2023 9:05 AM EDT 0.2 mg ketamine (KETALAR) injection As needed, intravenous, Starting on Sun02/13/23 at 0810, Anesthesia Intra-op Given 02/13/2023 8:42 AM EDT 5 mg Given 02/13/2023 8:10 AM EDT 45 mg lactated ringers (LR) infusion 1,000 mL Continuous, intravenous, at 100 mL/hr, Starting on Sun02/13/23 at 0700, New Bag 02/13/2023 9:22 AM EDT Continued by Anesthesia 02/13/2023 7:59 AM EDT 100 mL/hr New Bag 02/13/2023 6:53 AM EDT 1,000 mLs 100 mL/hr lidocaine (XYLOCAINE) injection 2% As needed, intravenous, Starting on Sun02/13/23 at 0809, Anesthesia Intra-op Given 02/13/2023 8:09 AM EDT 100 mg magnesium sulfate 4 mEq/mL (50 %) injection As needed, intravenous, Starting on Sun02/13/23 at 0845, Anesthesia Intra-op Given 02/13/2023 8:45 AM EDT 2 g neostigmine methylsulfate (PROSTIGMINE) injection As needed, intravenous, Starting on Sun02/13/23 at 0916, Anesthesia Intra-op Given 02/13/2023 9:16 AM EDT 5 mg ondansetron PF (ZOFRAN) injection As needed, intravenous, Starting on Sun02/13/23 at 0917, Anesthesia Intra-op Given 02/13/2023 9:17 AM EDT 4 mg propofol (DIPRIVAN) injection 10 mg/mL bolus As needed, intravenous, Starting on Sun02/13/23 at 0809, Anesthesia Intra-op Given 02/13/2023 8:10 AM EDT 80 mg Given 02/13/2023 8:09 AM EDT 80 mg rocuronium (ZEMURON) injection As needed, intravenous, Starting on Sun02/13/23 at 0810, Anesthesia Intra-op Given 02/13/2023 8:10 AM EDT 40 mg documented in this encounter Care Teams Technology Risk Intern Relationship Specialty Start Date End Date Jam Pimentel MD [address] [place] [id number] PCP - General General Internal Medicine 01/30/23 documented as of this encounter
--- OUTSIDE RECORDS SUMMARY | 2024-04-15 10:10 | XMS_ITS | Encounter Summary ---
Author Organization Healthcare Address [address] [place] [address] Care Team Providers Care Hammer Runner Name Role Phone Unavailable Primary Care Provider Unavailabl e Encounter Details Date Type Department Care Team (Latest Contact Info) Description 04/26/2020 8:36 AM EST - 04/27/2020 4:36 PM EST Hospital Encounter [facility] [address] [place] [address] Vijay Her MD [address] [place] [address] Instability of internal left knee prosthesis, initial encounter ([facility]) Social History Tobacco Use Types Packs/Day Years Used Date Smoking Tobacco: Never Assessed Sex and Gender Information Value Date Recorded Sex Assigned at Not on file Legal Sex Male 8:35 PM EDT Gender Identity Not on file Sexual Orientation Not on file documented as of this encounter Medications at Time of Discharge amLODIPine-benaze pril (Lotrel) 10-20 MG capsule Take 1 capsule by mouth 1 (one) time each day. 02/24/2018 metFORMIN XR (Glucophage-XR) 750 MG 24 hr tablet Take 1 tablet daily 05/13/2018 10/05/2020 documented as of this encounter Miscellaneous Notes * Discharge Summary - Vijay Her MD - 04/27/2020 12:00 AM EST HOSPITALIZATION: Admit Date:26-Apr-2020 Discharge Date:27-Apr-2020 Discharge Atttending PhysicianDuncmayra WHEATLEY, Vijay Lew Admitting DiagnosisKnee pain DISCHARGE DIAGNOSIS: Knee pain: Reason for Hospitalization This patient presents today after having undergone left total knee arthroplasty. The patient had developed recurrent effusions. He underwent extensive workup including infection and inflammatory causes, which were negative. His implants were in acceptable position, but had 1-2 degrees of valgus in the tibial component that was causing lateral instability. He had already undergone revision arthroplasty to a varus/valgus constrained liner that failed to improve his symptoms. He underwent geniculate artery embolization as well in an attempt to decrease the vascularity of the synovium, but his effusions continued. Thus, we had discussed revision to improve his stability and hopefully in turn, im prove his effusions. Risks, complications, and benefits of the procedure have been discussed preoperatively to include but not limited to infection, bleeding, anesthesia risks, damage to neurovascular structures, osteolysis, aseptic loosening, instability, anterior knee pain, continued pain, iatrogenic fracture, dislocation, need for future surgery including the potential for amputation, DVT, KS,stroke, and . The patient completed preoperative medical clearance and joint arthroplasty education. HOSPITAL COURSE: Hospital Course Patient arrived to [facility] on 04/26/2020 for their scheduled surgery. Patient tolerated the procedure without complication, was extubated in the operating room, and transferred to the PACU forrecovery from anesthesia. Shortly thereafter, patient was transferred to the acute care floor for recovery. Patient's hospital course was without complications. Patient was given prophylactic antibiotics, pain was controlled on oral pain medications, and patient tolerated a regular diet. The patient was kept on DVT prophylaxis with SCD's and ECASA. The patient was cleared to be discharged by PT/OT prior to discharge. The patient was discharged home. ORTHO HOSPITAL COURSE: Hospital Course: The patient was admitted via the operating room after undergoing uncomplicated Revision Total Knee Arthroplasty. Postoperatively, the patient's pain was controlled with oral pain medicine. DIAGNOSTIC AND PROCEDURAL EVENTS: - PROCEDURE: Left revision Total Knee Arthroplasty Suicide Screening: Discharge Suicide Screen: Has this patient had a low, moderate or high suicide severity documented during their hospital stay? No. DISCHARGE INFORMATION: DispositionHome Discharge Conditionstable (signs or symptoms of potential problems absent or manageable) Discharge MedicationsFinal Medication List for Discharge Summary Discharge Medicationsamlodipine-benazepril 10 mg-20 mg oral capsule 1 cap(s) orally once a day Aspirin Enteric Coated 81 mg oral delayed release tablet 1 tab(s) orally 2 times a day for 4 weeks for DVT prevention post-op docusate sodium 250 mg oral capsule 1 cap(s) orally 2 times a day while taking narcotics to preventconstipation gabapentin 100 mg oral capsule 1 cap(s) orally 3 times a day hydrocodone-acetaminophen 1 tab(s) orally every 6 hours, As Needed for severe pain Keflex 500 mg oral capsule 1 cap(s) orally 3 times a day for 1 week post-op meloxicam 15 mg oral tablet 1 tab(s) orally once a day FOR 4 WEEKS POST-OP metFORMIN 500 mg oral tablet 1 tab(s) orally once a day omeprazole 20 mg oral delayed release capsule 1 cap(s) orally once a day Physical Therapy s/p LTKA Revision weight bear as tolerated knee immobilizer for [address] Her traMADol 50 mg oral tablet 1-2 tab(s) orally every 4-6 hours, As Needed -PRN pain Tylenol Extra Strength 500 mg oral tablet 1 tab(s) orally every 8 hours Pending ResultsNo Pending Results DISCHARGE INSTRUCTIONS: Diet: No Restrictions. Resume regular at home diet. Lifting: No Restrictions. Activity: move around as you are able, do not drive until your Doctor tells you its okay, do not drive while taking narcotic pain medications, use assistive equipment as instructed and knee immobilizer for 2 weeks while incision heals. Assistive Device: Use walker. Wound or Incision Care: Do not take out stiches or yunier; they will be taken out during your clinic visit. Reason to call: feels warm or hot to the touch, is red or dark pink, is tight or swollen and looks shiny, becomes more tender or sore to the touch, wound smells bad and wound is draining pus, bleeding or coming open. Special Wound/Incision Care Instructions: Your incision was closed with yunier and covered with a prevena wound vac. Once the machine dies the prevena dressing can be removed and the Aquacel dressing is to be placed. You may shower once the Aquacel dressing is placed. Bathing: Avoid soaking your wound; do NOT take a tub bath. Other: Do not submerge wound. No tub baths or swimming. Keep prevena dry until removed. Once that is removed and aquacel is placed then you may shower. Instructed patient to call if: Temperature is above 101.5. Pain is not relieved by medications. Medication Instructions: Take Medication exactly as instructed. Do not take any medications that have not been ordered for This means do not take other people's medication, illegal drugs or substances, or even more aspirin than has been ordered. Additional Instructions: 1. You will be on Aspirin 81mg twice daily for 4 weeks for deep vein thrombosis prevention. It is important that you take each pill on time every day and to take it for the full 4 weeks. 2. Please see your discharge medication list for the post-operative medications you have been given. Call the clinic with any questions or concerns. 3. You have been given Docusate Sodium to take daily to prevent constipation while taking narcotic pain medications. Take this as long as you are taking narcotics. You can also begin Miralax daily and continue until you have weaned off your narcotic pain medications. If you have had no bowel movement on post-op day #3 you need to take Milk of Magnesia as directed over the counter. Then if no bowel movement by post-op day #5 you need to use a Dulcolax Suppository over the counter as directed. Ifstill no bowel movement at that time your need to call the clinic. Activity: Weight bearing: As tolerated. Elevate the knee and entire lower extremity for as much as possible for 6 weeks and use ice liberally for 30 minutes 3 to 4 times a day.. Recommended Follow Up Instructions: Follow Up Instructions: Follow up with: Dr Her. in/on 13-May-2020 4:20 PM. Electronic Signatures: Vijay Her MD (Attending) (Signed 27-Apr-20 17:52) Co-Signer: HOSPITALIZATION, DISCHARGE DIAGNOSIS, HOSPITAL COURSE, ORTHO HOSPITAL COURSE, DIAGNOSTICAND PROCEDURAL EVENTS, DISCHARGE INFORMATION, DISCHARGE INSTRUCTIONS, Recommended Follow Up Instructions, Suicide Screening Lara Barnett APRN (Nurse Practitioner) (Signed 27-Apr-20 11:05) Authored: HOSPITALIZATION, DISCHARGE DIAGNOSIS, HOSPITAL COURSE, ORTHO HOSPITAL COURSE, DIAGNOSTIC AND PROCEDURAL EVENTS, DISCHARGE INFORMATION, DISCHARGE INSTRUCTIONS, Recommended Follow Up Instructions, Suicide Screening Last Updated: 27-Apr-20 17:52 by Vijay Her MD (Attending) * Op Note - Vijay Her MD - 04/26/2020 12:00 AM EST Date of Operative Procedure: 26-Apr-2020. Pre-Op Diagnosis: Left TKA with instability. Pre-Op Diagnosis: 02. Active Dx: Knee pain: Post-Op Diagnosis: Same. Drains: None. Events: None. Operative Narrative: - OPERATIVE REPORT Patient Name: HELIO ARDON [facility] Number: [id number] Date of : 1970 Date of Procedure: 04/26/2020 Attending Physician: VIJAY HER MD SURGEON: Vijay Her M.D. 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: [employer] Brand: Legion Revision Tibial component size: 6, [id number] mm cemented stem, 24 mm short cone Femoral component: 8, [id number] mm cemented stem, 10x10 medial and lateral augments Tibial insert: 9 mm, Type: PS constrained Patellar component: Retained Bone Graft: 10 cc Cerament SURGICAL DETAILS: 1.Incision / arthrotomy type: Medial parapatellar 2.Estimated blood loss: 100 cc 3.Tourniquet time: 130 min 4.Case duration: 180 min 5.Crystalloid replacement: 1000 cc 6.Anesthesia type: General 7.Specimens removed: Knee synovium x 2, femoral and tibial components 8.Capsular injection: 50 cc 0.5% Bupivacaine with epi, 30 mg Toradol 9.Preoperative Antibiotics: 2 g of cefazolin 1 g vancomycin 10.TXA: 2 g IV INDICATIONS FOR PROCEDURE: This patient presents today after having undergone left total knee arthroplasty. The patient had developed recurrent effusions. He underwent extensive workup including infection and inflammatory causes, which were negative. His implants were in acceptable position, but had 1-2 degrees of valgus in the tibial component that was causing lateral instability. He had already undergone revision arthroplasty to a varus/valgus constrained liner that failed to improve his symptoms. He underwent geniculate artery embolization as well in an attempt to decrease the vascularity of the synovium, but his effusions continued. Thus, we had discussed revision to improve his stability and hopefully in turn, im prove his effusions. Risks, complications, and benefits of the procedure have been discussed preoperatively to include but not limited to infection, bleeding, anesthesia risks, damage to neurovascular structures, osteolysis, aseptic loosening, instability, anterior knee pain, continued pain, iatrogenic fracture, dislocation, need for future surgery including the potential for amputation, DVT, KS,stroke, and . The patient completed preoperative medical clearance and joint arthroplasty education. PROCEDURE: The patient was seen in the preoperative holding area and the operative site confirmed. The risks, benefits, and alternatives to surgery were again confirmed with the patient. The patient was given iodine swabs for the nares for MRSA decolonization. SCD was placed to the nonoperative extremity. The patient was brought to the operating room and placed on the operating room table in the supine position. After anesthesia was established, the patient was positioned supine and a tourniquet placed on the proximal thigh. Bony prominences were padded. The patient was given prophylactic antibiotics within one hour of skin incision with Vancomycin and the other antibiotic for gram negative coverage. Vancomycin was given over concerns for MRSA prevention. TXA of 1 g was given and 1 g was given at skin closure. Surgical timeout was taken to confirm the operative side and planned procedure. The involved lower extremity was prepped and draped in usual sterile fashion. The limb was elevated and exsanguinated with an esmarch and the tourniquet inflated. A straight incision was used medial to the midline carried through the subcutaneous tissue to the underlying extensor mechanism. A medial parapatellar approach was utilized. Aquamantys bipolar sealer was utilized to maintain hemostasis throughout the procedure. We first assessed the stability. The patient was stable to valgus stress in extension, but had laxity to varus stress in extension. He was stable in flexion. There were no signs of any infection, butwe would plan to take synovial cultures. Thus, we first performed a synovectomy to help reduce the chance for recurrence of his effusions. This was sent for culture. We removed the previous polyethylene liner. We used a bur as well as a series of osteotomes to freeup the interface between the femoral component and the patient's femoral bone. Using a tamp were then able to remove the femoral component without a substantial bone loss. We then turned our attention towards the tibia. With the foot externally rotated we then did more of an extensive posterior medial release to get access to the posterior portion of the tibia. Using aseries of burs and osteotomes we were able to break up the interface between the tibial implant andthe bone. Then using stacked osteotomes we were then able to elevate the tibial component away fromthe cement mantle. Using a tamp we were then able to remove the tibial implant. We then used a series of reverse curette to remove the remaining cement mantle within the tibial canal. We then began progressive reaming pain attention to trying placed the implant in slight varus to help improve his previous laxity and the lateral portion of the joint. With the intramedullary mercedes in place we then made our proximal tibia cut again removing mostly the medial based bone to avoid placement again back into valgus. Given that the patient's bone scan had showed some loosening to the tibia we will plan to place a tibial cone. Thus we finished reaming 1st and then sized our implant with appropriate external rotation. With the reamer then in place we then reamed over this to prepare for the cone. We then broached over the intramedullary mercedes. A trial tibia implant was assembled on the back table. We then placed our trial tibial cone into position as well. To determine our flexion extension gaps we then cut the distal femur using intramedullary mercedes. We measured our gap to be 21 mm both in flexion and extension. To help reduce the overall size of the poly we tried 5 mm buildup on the tibia. We placed our tibial trial in place impacted into position with appropriate external rotation. We then finished preparation for the femur. We sized the implant to be a size 8. The 4 in 1 cutting guide was then placed with appropriate external rotation parallel to the trans epicondylar axis as well as our tibia implant. We made our anterior-posterior cuts. Given the previous Journey implant there is posterior femoral bone loss and thus to the get good apposition of his implant to the bone we needed to place the 10 mm augments. Thus we made our cuts posteriorly to remove some of the bone to place the final augments. We then reamed for our final implant aswell. The final trial was then impacted into position. The trial liner was then placed. The knee was tested for full extension, stability to stress in extension, mid flexion, and 90 * of flexion, as well as for patellar tracking. Of note, we were stable in flexion, but we still had varus/valgus laxity in extension. The tibial 5 mm buildup was too much as well. Thus, we removed the tibial trial and removed the 5 mm buildup. We then placed a 5 mm distal femoral augment and trial the construct, but still had varus/valgus laxity in extension with the knee behaving like we had elevated the joint line. Thus, we removed the femoral component again and placed 10 mm distal medial and lateral augments. The trial was then placed and stability was tested again and had excellent varus/valgus stability in extension, mid-flexion, and 90 degree of flexion. The patella was tilting slightly and thus a partial retinacular release was performed outside to helpwith patella tracking after we confirmed both femoral and tibial implants were in good position. The tibial rotation was marked, final preparation for femoral component was performed. The tibial basep late was then pinned into position while preparation of the keel was performed. The trial implants were removed. All bone was then prepared with lavage and drying for cementation.Cement restrictors were placed to the femoral and tibial canals. The tibial cone was impacted into position. To avoid cement getting in between the cone and the tibia, Cerament bone graft was injected into any voids. We then cemented the femur and the tibial independently, cementing both the canal and Zones 1 and 2 of the femur and tibia. Excess cement was removed. The trial liner was placed and the knee was reduced and motion and stability was again tested. After cement hardened, the tibial insert was exchanged to the final tibial insert which was impacted into position. The knee was irrigated with sterile, diluted betadine and with normal saline. 1 g of Vancomycin powder was placed insidethe arthrotomy. We injected our pericapsular anesthetic at this point. The tourniquet was deflated and hemostasis was achieved. The wound was closed in layers with Stratafix and #1 Vicryl, followed by Monocryl and Stratafix in running subcuticular fashion and then with yunier and KCI Prevena was applied to the skin incision.SCD was applied to the operative extremity. The patient tolerated the procedure well and was taken to the recovery room in good condition. No apparent complications at the conclusion. Sponge, instrument, and needle counts were correct x 2. The patient underwent risk stratification preoperatively and aspirin was chosen for DVT prophylaxis. Delay in starting chemical prophylaxis for 23 hours from surgical incision was over concerns for hematoma formation and wound related issues. Attending Attestation: * I was present for the entire procedure. Electronic Signatures: Vijay Her MD (Attending) (Signed 26-Apr-20 17:16) Authored: Operative Report - Full Last Updated: 26-Apr-20 17:16 by Vijay Her MD (Attending) documented in this encounter Plan of Treatment Upcoming Encounters Date Type Department Care Team (Late st Contact Info) Description 06/24/2024 7:45 AM EST Appointment [facility] Radiology [address] [place] [address] 06/24/2024 10:10 AM EST Office Visit [place] [facility] [address] [place] [address] NoNnay dent M, [employer] [address] [place] [address] documented as of this encounter Procedures Procedure Name Priority Date/Time Associated Diagnosis Comments GLUCOSE POINT OF CARE DC Routine 04/27/2020 11:33 AM EST GLUCOSE POINT OF CARE DC Routine 04/27/2020 7:51 AM EST GLUCOSE POINT OF CARE DC Routine 04/27/2020 4:16 AM EST CBC W/O DIFFERENTIAL Timed 04/27/2020 3:10 AM EST BASIC METABOLIC PANEL, PLASMA Timed 04/27/2020 3:10 AM EST GLUCOSE POINT OF CARE DC Routine 04/26/2020 9:04 PM EST ROSHAN, TISSUE DC Routine 04/26/2020 5:57 PM EST FUNGAL CULTURE, TISSUE AND ROSHAN Routine 04/26/2020 5:57 PM EST AFB CULTURE, NON RESPIRATORY SOURCE AND ACID FAST STAIN Routine 04/26/2020 5:57 PM EST TISSUE CULTURE AND GRAM STAIN Routine 04/26/2020 5:57 PM EST AFB STAIN Routine 04/26/2020 5:57 PM EST GRAM STAIN Routine 04/26/2020 5:57 PM EST ANAEROBIC CULTURE Routine 04/26/2020 5:5 7 PM EST GLUCOSE POINT OF CARE DC Routine 04/26/2020 5:09 PM EST XR KNEE LEFT 1 OR 2 VIEWS Routine 04/26/2020 4:46 PM EST ROSHAN, TISSUE DC Routine 04/26/2020 1:05 PM EST FUNGAL CULTURE, TISSUE AND ROSHAN Routine 04/26/2020 1:05 PM EST AFB CULTURE, NON RESPIRATORY SOURCE AND ACID FAST STAIN Routine 04/26/2020 1:05 PM EST TISSUE CULTURE AND GRAM STAIN Routine 04/26/2020 1:05 PM EST AFB STAIN Routine 04/26/2020 1:05 PM EST GRAM STAIN Routine 04/26/2020 1:05 PM EST ANAEROBIC CULTURE Routine 04/26/2020 1:0 5 PM EST GLUCOSE POINT OF CARE DC Routine 04/26/2020 10:09 AM EST SURGPATH DATA CONVERSION Routine 04/26/2020 12:00 AM EST documented in this encounter Results * (ABNORMAL) Glucose Point of Care (04/27/2020 11:33 AM EST) Pathologist [facility] POCT Glucose 230(H) 74 - 99 mg/dL SUNQUEST Comment: Accuracy of a glucose result obtained from a capillary whole blood specimen relies upon adequate, non-compromised capillary blood flow.If the capillary glucose result is not consistent with the patient's clinical signs and symptoms, glucose testing should be repeated with either an arterial or venous sample on the glucometer or sent to the main laboratory for testing. SPEC TYPE Capillary SUNQUEST 04/27/2020 11:3 3 AM EST 04/27/2020 11:35 AM EST Vijay Hre MD LAB BLOOD ORDERABLES Final R esult Performing Organization Address [facility] de Phone Number SUNQUEST * (ABNORMAL) Glucose Point of Care (04/27/2020 7:51 AM EST) [facility] POCT Glucose 177(H) 74 - 99 mg/dL SUNQUEST Comment: Accuracy of a glucose result obtained from a capillary whole blood specimen relies upon adequate, non-compromised capillary blood flow.If the capillary glucose result is not consistent with the patient's clinical signs and symptoms, glucose testing should be repeated with either an arterial or venous sample on the glucometer or sent to the main laboratory for testing. SPEC TYPE Capillary SUNQUEST 04/27/2020 7:51 AM EST 04/27/2020 7:55 AM EST Vijay Her MD LAB BLOOD ORDERABLES Final R esult Performing Organization Address [facility] de Phone Number SUNQUEST * (ABNORMAL) Glucose Point of Care (04/27/2020 4:16 AM EST) [facility] POCT Glucose 196(H) 74 - 99 mg/dL SUNQUEST Comment: Accuracy of a glucose result obtained from a capillary whole blood specimen relies upon adequate, non-compromised capillary blood flow.If the capillary glucose result is not consistent with the patient's clinical signs and symptoms, glucose testing should be repeated with either an arterial or venous sample on the glucometer or sent to the main laboratory for testing. SPEC TYPE Capillary SUNQUEST 04/27/2020 4:16 AM EST 04/27/2020 4:20 AM EST Vijay Her MD LAB BLOOD ORDERABLES Final R esult Performing Organization Address [facility] de Phone Number SUNQUEST * (ABNORMAL) CBC W/O Differential (04/27/2020 3:10 AM EST) WBC Count 14.37(H) 3.7 - 10.3 k/uL SUNQUEST RBC Count 4.53(L) 4.6 - 6.1 M/uL SUNQUEST HGB 13.4(L) 13.7 - 17.5 g/dL SUNQUEST HCT 37.5(L) 40 - 51 % SUNQUEST Platelet Count 275 155 - 369 k/uL SUNQUEST MCV 83 79 - 98 fL SUNQUEST MCH 29.6 26 - 32 pg SUNQUEST MCHC 35.7(H) 30.7 - 35.5 g/dL SUNQUEST RDW 11.9 11.5 - 14.5 % SUNQUEST MPV 8.9 8.8 - 12.5 fL SUNQUEST NRBC COUNT 0.0 0 % SUNQUEST 04/27/2020 3:10 AM EST 04/27/2020 3:30 AM EST Vijay Her MD LAB BLOOD ORDERABLES Final R esult Performing Organization Address [facility] de Phone Number SUNQUEST * (ABNORMAL) Basic Metabolic Panel, Plasma (04/27/2020 3:10 AM EST) Glucose, Plasma 225(H) 74 - 99 mg/dL SUNQUEST BUN, Plasma 13 7 - 21 mg/dL SUNQUEST Creatinine, Plasma 0.94 0.80 - 1.30 mg/dL SUNQUEST BUN/Creatinine Ratio 14 8 - 20 SUNQUEST Sodium, Plasma 136 136 - 145 mmol/L SUNQUEST Potassium, Plasma 4.1 3.7 - 4.8 mmol/L SUNQUEST Chloride, Plasma 101 97 - 107 mmol/L SUNQUEST CO2, Plasma 20(L) 22 - 29 mmol/L SUNQUEST Anion Gap 15 6 - 16 mmol/L SUNQUEST Calcium, Plasma 8.8(L) 8.9 - 10.2 mg/dL SUNQUEST eGFR >60 >60 SEE NOTE SUNQUEST eGFR, if AFR/AM >60 >60 SEE NOTE SUNQUEST Comment: (NOTE) eGFR = estimated GFR; eGFR units = mL/min/1.73 sq meters Chronic Kidney Disease is considered if eGFR <60 mL/min/1.73 sq meters Kidney failure is considered if eGFR is <15 mL/min/1.73 sq meters. eGFR assumes steady state plasma creatinine concentration; not applicable if renal function is rapidly changing or patient is on dialysis. 04/27/2020 3:10 AM EST 04/27/2020 3:29 AM EST Vijay Her MD LAB BLOOD ORDERABLES Final R [employer] Performing Organization Address [facility] de Phone Number SUNQUEST * (ABNORMAL) Glucose Point of Care (04/26/2020 9:04 PM EST) [facility] POCT Glucose 289(H) 74 - 99 mg/dL SUNQUEST Comment: Accuracy of a glucose result obtained from a capillary whole blood specimen relies upon adequate, non-compromised capillary blood flow.If the capillary glucose result is not consistent with the patient's clinical signs and symptoms, glucose testing should be repeated with either an arterial or venous sample on the glucometer or sent to the main laboratory for testing. SPEC TYPE Capillary SUNQUEST 04/26/2020 9:04 PM EST 04/26/2020 9:10 PM EST Vijay Her MD LAB BLOOD ORDERABLES Final R [employer] Performing Organization Address [facility] de Phone Number SUNQUEST * Gram stain (04/26/2020 5:57 PM EST) 04/26/2020 5:57 PM EST 04/26/2020 5:57 PM EST Narrative SUNQUEST - 07/12/2020 7:47 PM EDT SQ ACC. NUMBER ?[id number] SPECIMEN DESCRIPTION: ?TISSUE KNEE LEFT 2 SYNOVIUM SPECIAL REQUESTS: ?NONE GRAM STAIN ? NO POLYMORPHONUCLEAR WHITE BLOOD CELLS ? NO ORGANISMS SEEN REPORT STATUS: ? FINAL [id number] Vijay Her MD LAB MICROBIOLOGY - GENERAL O RDERABLES Final Result Performing Organization Address [facility] de Phone Number SUNQUEST * Tissue Culture and Gram Stain (04/26/2020 5:57 PM EST) 04/26/2020 5:57 PM EST 04/26/2020 5:57 PM EST Narrative SUNQUEST - 07/12/2020 7:47 PM EDT SQ ACC. NUMBER ?[id number] SPECIMEN DESCRIPTION: ?TISSUE KNEE LEFT 2 SYNOVIUM SPECIAL REQUESTS: ?NONE QUANTITATION: ?NOT APPLICABLE CULTURE: ? NO GROWTH DAY 4. REPORT STATUS: ? FINAL [id number] Vijay Her MD LAB MICROBIOLOGY - GENERAL O RDERABLES Final Result Performing Organization Address [facility] de Phone Number SUNQUEST * Mycological Culture, Tissue and ROSHAN (04/26/2020 5:57 PM EST) 04/26/2020 5:57 PM EST 04/26/2020 5:57 PM EST Narrative SUNQUEST - 07/12/2020 7:47 PM EDT SQ ACC. NUMBER ?[id number] SPECIMEN DESCRIPTION: ?TISSUE KNEE LEFT 2 SYNOVIUM SPECIAL REQUESTS: ?NONE SPECIMEN CONTAINER INFO: ? ORDER PROCESSED. CULTURE: ? NO FUNGAL GROWTH AT 4 WEEKS REPORT STATUS: ? FINAL 05/25/2020 Vijay Her MD LAB MICROBIOLOGY - GENERAL O RDERABLES Final Result Performing Organization Address [facility] de Phone Number SUNQUEST * ROSHAN, TISSUE DC (04/26/2020 5:57 PM EST) 04/26/2020 5:57 PM EST 04/26/2020 5:57 PM EST Narrative SUNQUEST - 07/12/2020 7:47 PM EDT SQ ACC. NUMBER ?[id number] SPECIMEN DESCRIPTION: ?TISSUE KNEE LEFT 2 SYNOVIUM SPECIAL REQUESTS: ?NONE ROSHAN TISSUE ? NO FUNGAL ELEMENTS OBSERVED REPORT STATUS: ? FINAL [id number] Vijay Her MD LAB BLOOD ORDERABLES Final R esult Performing Organization Address [facility] de Phone Number SUNQUEST * Anaerobic Culture (04/26/2020 5:57 PM EST) 04/26/2020 5:57 PM EST 04/26/2020 5:57 PM EST Narrative SUNQUEST - 07/12/2020 7:47 PM EDT SQ ACC. NUMBER ?[id number] SPECIMEN DESCRIPTION: ?TISSUE KNEE LEFT 2 SYNOVIUM SPECIAL REQUESTS: ?NONE CULTURE: ? NO GROWTH DAY 14. REPORT STATUS: ? FINAL [id number] Vijay Her MD LAB MICROBIOLOGY - GENERAL O RDERABLES Final Result Performing Organization Address [facility] de Phone Number SUNQUEST * AFB stain (04/26/2020 5:57 PM EST) 04/26/2020 5:57 PM EST 04/26/2020 5:57 PM EST Narrative SUNQUEST - 07/12/2020 7:47 PM EDT SQ ACC. NUMBER ?[id number] SPECIMEN DESCRIPTION: ?TISSUE KNEE LEFT 2 SYNOVIUM SPECIAL REQUESTS: ?NONE ACID FAST STAIN ?NO AFB SEEN REPORT STATUS: ? FINAL [id number] Vijay Her MD LAB MICROBIOLOGY - GENERAL O RDERASAPPHIRE Final Result Performing Organization Address [facility] de Phone Number SUNQUEST * AFB Culture, Non Respiratory Source and Acid Fast Stain (04/26/2020 5:57 PM EST) 04/26/2020 5:57 PM EST 04/26/2020 5:57 PM EST Narrative SUNQUEST - 07/12/2020 7:47 PM EDT SQ ACC. NUMBER ?[id number] SPECIMEN DESCRIPTION: ?TISSUE KNEE LEFT 2 SYNOVIUM SPECIAL REQUESTS: ?NONE CULTURE: ? NO ACID FAST BACILLI ISOLATED AT 3 WEEKS ? NO ACID FAST BACILLI ISOLATED AT 6 WEEKS REPORT STATUS: ? FINAL [id number] Vijay Her MD LAB MICROBIOLOGY - GENERAL O RDERASAPPHIRE Final Result Performing Organization Address [facility] de Phone Number SUNQUEST * (ABNORMAL) Glucose Point of Care (04/26/2020 5:09 PM EST) POCT Glucose 229(H) 74 - 99 mg/dL SUNQUEST Comment: Accuracy of a glucose result obtained from a capillary whole blood specimen relies upon adequate, non-compromised capillary blood flow.If the capillary glucose result is not consistent with the patient's clinical signs and symptoms, glucose testing should be repeated with either an arterial or venous sample on the glucometer or sent to the main laboratory for testing. SPEC TYPE Capillary SUNQUEST 04/26/2020 5:09 PM EST 04/26/2020 5:10 PM EST us Vijay Her MD LAB BLOOD ORDERABLES Final R esult SUNQUEST * XR Knee Left 1 or 2 Views (04/26/2020 4:46 PM EST) Anatomical Region Laterality Modality Lower Extremities, Knee Left Radiogra phic Imaging Narrative 04/26/2020 4:50 PM EST REQUESTING PHYSICIAN: VIJAY HER REASON FOR EXAMINATION/PROCEDURE: RAD PDP:Y ??* ??Total Knee Arthroplasty EXAMINATION / PROCEDURE: KNEE 2 VIEWS LEFT Apr 26 2020 - 16:46; ? CLINICAL INDICATION: Total knee arthroplasty TECHNIQUE: KNEE 2 VIEWS LEFT COMPARISON: 12/11/2019 FINDINGS: Exchange of the left knee prosthesis for a longstem prosthesis. No fracture is noted. Soft tissue emphysema and skin yunier are consistent with postoperative status. ?? IMPRESSION: Pos toperative appearance of the left knee. CRITICAL RESULT: ?? No. COMMUNICATION: Per this written report. ?? Verified by: JAQUAN CESAR M.D. on Apr 26 2020 ??4:48P Transcribed by: [facility] on Apr 26 2020 ??4:48P Dictated by: Derek COELHO on Apr 26 2020 ??4:48P Procedure Note Jaquan Cesar MD - 08/24/2020 REQUESTING PHYSICIAN: VIJAY HER REASON FOR EXAMINATION/PROCEDURE: RAD PDP:Y * Total Knee Arthroplasty EXAMINATION / PROCEDURE: KNEE 2 VIEWS LEFT Apr 26 2020 - 16:46; CLINICAL INDICATION: Total knee arthroplasty TECHNIQUE: KNEE 2 VIEWS LEFT COMPARISON: 12/11/2019 FINDINGS: Exchange of the left knee prosthesis for a longstem prosthesis. No fracture is noted. Soft tissue emphysema and skin yunier are consistent with postoperative status. IMPRESSION: Pos toperative appearance of the left knee. CRITICAL RESULT: No. COMMUNICATION: Per this written report. Verified by: JAQUAN CESAR M.D. on Apr 26 2020 4:48P Transcribed by: [facility] on Apr 26 2020 4:48P Dictated by: Derek COELHO on Apr 26 2020 4:48P Vijay Her MD IMG XR PROCEDURES Final Resu lt * Gram stain (04/26/2020 1:05 PM EST) 04/26/2020 1:05 PM EST 04/26/2020 5:58 PM EST Narrative SUNQUEST - 07/12/2020 7:47 PM EDT SQ ACC. NUMBER ?[id number] SPECIMEN DESCRIPTION: ?TISSUE KNEE LEFT 1 SYNOVIUM SPECIAL REQUESTS: ?NONE GRAM STAIN ? NO POLYMORPHONUCLEAR WHITE BLOOD CELLS ? NO ORGANISMS SEEN REPORT STATUS: ? FINAL [id number] us Vijay Her MD LAB MICROBIOLOGY - GENERAL O RDERABLES Final Result SUNQUEST * Tissue Culture and Gram Stain (04/26/2020 1:05 PM EST) 04/26/2020 1:05 PM EST 04/26/2020 5:58 PM EST Narrative SUNQUEST - 07/12/2020 7:47 PM EDT SQ ACC. NUMBER ?[id number] SPECIMEN DESCRIPTION: ?TISSUE KNEE LEFT 1 SYNOVIUM SPECIAL REQUESTS: ?NONE QUANTITATION: ?NOT APPLICABLE CULTURE: ? NO GROWTH DAY 4. REPORT STATUS: ? FINAL [id number] Vijay Her MD LAB MICROBIOLOGY - GENERAL O RDERABLES Final Result Performing Organization Address [facility] de Phone Number SUNQUEST * Mycological Culture, Tissue and ROSHAN (04/26/2020 1:05 PM EST) 04/26/2020 1:05 PM EST 04/26/2020 5:58 PM EST Narrative SUNQUEST - 07/12/2020 7:47 PM EDT SQ ACC. NUMBER ?[id number] SPECIMEN DESCRIPTION: ?TISSUE KNEE LEFT 1 SYNOVIUM SPECIAL REQUESTS: ?NONE SPECIMEN CONTAINER INFO: ? ORDER PROCESSED. CULTURE: ? NO FUNGAL GROWTH AT 4 WEEKS REPORT STATUS: ? FINAL 05/25/2020 Vijay Her MD LAB MICROBIOLOGY - GENERAL O RDERABLES Final Result Performing Organization Address [facility] de Phone Number SUNQUEST * ROSHAN, TISSUE DC (04/26/2020 1:05 PM EST) 04/26/2020 1:05 PM EST 04/26/2020 5:58 PM EST Narrative SUNQUEST - 07/12/2020 7:47 PM EDT SQ ACC. NUMBER ?[id number] SPECIMEN DESCRIPTION: ?TISSUE KNEE LEFT 1 SYNOVIUM SPECIAL REQUESTS: ?NONE ROSHAN TISSUE ? NO FUNGAL ELEMENTS OBSERVED REPORT STATUS: ? FINAL [id number] Vijay Her MD LAB BLOOD ORDERABLES Final R esult Performing Organization Address [facility] de Phone Number SUNQUEST * Anaerobic Culture (04/26/2020 1:05 PM EST) 04/26/2020 1:05 PM EST 04/26/2020 5:58 PM EST Narrative SUNQUEST - 07/12/2020 7:47 PM EDT SQ ACC. NUMBER ?[id number] SPECIMEN DESCRIPTION: ?TISSUE KNEE LEFT 1 SYNOVIUM SPECIAL REQUESTS: ?NONE CULTURE: ? NO GROWTH DAY 14. REPORT STATUS: ? FINAL [id number] Vijay Her MD LAB MICROBIOLOGY - GENERAL O RDERABLES Final Result Performing Organization Address [facility] de Phone Number SUNQUEST * AFB stain (04/26/2020 1:05 PM EST) 04/26/2020 1:05 PM EST 04/26/2020 5:58 PM EST Narrative SUNQUEST - 07/12/2020 7:47 PM EDT SQ ACC. NUMBER ?[id number] SPECIMEN DESCRIPTION: ?TISSUE KNEE LEFT 1 SYNOVIUM SPECIAL REQUESTS: ?NONE ACID FAST STAIN ?NO AFB SEEN REPORT STATUS: ? FINAL [id number] Vijay Her MD LAB MICROBIOLOGY - GENERAL O RDERABLES Final Result Performing Organization Address [facility] de Phone Number SUNQUEST * AFB Culture, Non Respiratory Source and Acid Fast Stain (04/26/2020 1:05 PM EST) 04/26/2020 1:05 PM EST 04/26/2020 5:58 PM EST Narrative SUNQUEST - 07/12/2020 7:47 PM EDT SQ ACC. NUMBER ?[id number] SPECIMEN DESCRIPTION: ?TISSUE KNEE LEFT 1 SYNOVIUM SPECIAL REQUESTS: ?NONE CULTURE: ? NO ACID FAST BACILLI ISOLATED AT 3 WEEKS ? NO ACID FAST BACILLI ISOLATED AT 6 WEEKS REPORT STATUS: ? FINAL [id number] Vijay Her MD LAB MICROBIOLOGY - GENERAL O RDERABLES Final Result Performing Organization Address [facility] de Phone Number SUNQUEST * (ABNORMAL) Glucose Point of Care (04/26/2020 10:09 AM EST) POCT Glucose 118(H) 74 - 99 mg/dL SUNQUEST Comment: Accuracy of a glucose result obtained from a capillary whole blood specimen relies upon adequate, non-compromised capillary blood flow.If the capillary glucose result is not consistent with the patient's clinical signs and symptoms, glucose testing should be repeated with either an arterial or venous sample on the glucometer or sent to the main laboratory for testing. SPEC TYPE Capillary SUNQUEST 04/26/2020 10:0 9 AM EST 04/26/2020 10:10 AM EST Vijay Her MD LAB BLOOD ORDERABLES Final R esult Performing Organization Address [facility] de Phone Number SUNQUEST * Surgical Pathology (04/26/2020 12:00 AM EST) Macroscopic tissue specimen (specimen) 04/26/2020 04/27/2020 8 :00 AM EST Narrative COPATH - 04/28/2020 10:49 AM EST [place], [place] [address] MR #: [id number] RAVIHELIO DEXTER Ajith 1970 (Age: 49) ??MW Collect Date: 04/26/2020 00:00 Receipt Date: 04/27/2020 08:00 Page 1 DEPARTMENT OF PATHOLOGY AND LABORATORY MEDICINE SURGICAL PATHOLOGY REPORT Fax: ??[phone] ?[id number] Email: [email or web address] ? ATTENDING MD: Mane Her MD ? Service: KEENE ? [place] [facility] [place] MD(S): ?Reported: 04/28/2020 10:49 DIAGNOSIS LEFT KNEE, EXPLANTED HARDWARE: ? ORTHOPEDIC DEVICE, GROSS DIAGNOSIS ONLY. . ? Electronically Signed Out ? wno/04/28/2020 Aaron Morales MD ?? CLINICAL HISTORY Preoperative diagnosis: Painful total knee replacement Operative procedure, left total knee revision DESCRIPTION OF SPECIMEN: A: ??(gross only) Explanted hardware left knee GROSS DESCRIPTION The specimen was received fresh labeled explanted hardware left knee and consists of a single intact femoral component with adhesed cement measuring 6.5 cm in greatest dimension. No inscriptions are seen. Additionally received is an intact tibial tray measuring 7.5 cm in greatest dimension. Inscriptions seen ([id number]). Additionally received is an intact white opaque plastic liner measuring 7.0 cm in greatest dimension. Inscriptions seen ([id number]). The specimens were submitted for gross diagnosis only. bp/04/27/2020 Lokesh Baptiste resident may have participated in this service. ??A pathologist has performed and is responsible for the reported pathologic evaluation. ICD: T84.84XA ? Pain due to internal orthopedic prosth dev/grft, init SNOMED CODES: A; [id number] F: A; [id number] GO us Vijay Her MD LAB PATHOLOGY ORDERABLES Fin al Result COPATH documented in this encounter Visit Diagnoses Diagnosis Instability of internal left knee prosthesis, initial encounter ([facility]) documented in this encounter
--- OUTSIDE RECORDS SUMMARY | 2024-04-15 10:10 | XMS_ITS | Encounter Summary ---
Author Organization Healthcare Address [address] [place] [address] Care Team Providers Care Art Model Name Role Phone Jam Pimentel MD Primary Care Provider [phone] Reason for Visit * Reason Comments Follow-up Encounter Details Date Type Department Care Team ([facility] st Contact Info) Description 04/05/2021 8:30 AM EST Office Visit Medical Office Building [facility] [address], [address] [place] [address] Vijay Carney MD [address] [place] [address] Pain due to total left knee replacement, subsequent encounter (Primary Dx) Social History Tobacco Use Types Packs/Day Years Used Date Smoking Tobacco: Never Smokeless Tobacco: Never Sex and Gender Information Value Date Recorded Sex Assigned at Not on file Legal Sex Male 8:35 PM EDT Gender Identity Not on file Sexual Orientation Not on file COVID-19 Exposure Response Date Recorded In the last month, have you been in contact with someone who was confirmed or suspected to have Coronavirus / COVID-19? No / Unsure 04/05/2021 8:00 AM EST documented as of this encounter Last Filed Vital Signs Vital Sign Reading Time Taken Comments Blood Pressure 132/82 04/05/2021 8:35 AM EST Pulse 64 04/05/2021 8:35 AM EST Temperature - - Respiratory Rate - - Oxygen Saturation - - Inhaled Oxygen Concentration - - Weight 95.2 kg (209 lb 14.1 oz) 04/05/2021 8:35 AM EST Height 188 cm (6' 2 ) 04/05/2021 8:35 AM EST Body Mass Index 26.95 04/05/2021 8:35 AM EST documented in this encounter Miscellaneous Notes * Progress Notes - Stephanie Farah PA - 04/05/2021 8:30 AM EST Orthopaedic Surgery Progress Note NAME: Mk Ardon : 1970 DATE: 04/05/2021 CHIEF COMPLAINT: Left knee recheck HPI: Mk Ardon is a 50 y.o. male who presents today for evaluation of left knee revision one year postop. Patient continues to have swelling and pain after surgery. The last year he has progressively worsened. He has worn compression consistently that does not make a difference. He tries to work out in gym but makes swelling and pain worse. His limping is causing back pain. He was evaluated by pain management for genicular nerve ablation but did not feel he was a candidate and offered DRG stimulator for pain control. Allergies Meds Problems Fam Hx REVIEW OF SYSTEMS: As per HPI. A 10 point review of systems was performed and was negative. PHYSICAL EXAM: Vital signs: Visit Vitals BP 132/82 Pulse 64 Ht 1.88 m (6' 2 ) Wt 95.2 kg (209 lb 14.1 oz) BMI 26.95 kg/m?? Smoking Status Never Smoker BSA 2.23 m?? Constitutional: Well developed. Well nourished. Psychologic: Mood is appropriate. Appropriate affect. Pulmonary: Unlabored, normal effort. Skin: No rashes on exposed skin surface. Neuro: No focal neuro deficit, normal coordination, normal muscle tone Musculoskeletal: knee exam Tender to palpation involving the entire knee Normal-appearing skin Range of motion is 3-120 Mild to moderate effusions Moderate limp No dependent edema Neurologically intact distally Fair quadriceps strength IMAGING: X-rays of the patient's left knee were personally reviewed today by myself in the PACS system alongwith the radiology report. Images reveal left knee revision implants stable no lucency. ASSESSMENT/ PLAN: 1 year postop Left knee revision with persistent pain and swelling. No evidence to suggest loosening or infection causing pain. Will plan to refer to pain management for second opinion regarding treatments and possible genicular nerve ablation. Follow-up: prn This note was partially generated using [employer] system, and there may be some incorrect words, spellings, and punctuation that were not noted in checking the note before saving. Cosigned by Vijay Carney MD at 04/05/2021 9:22 AM EST Associated attestation - Vijay Carney MD - 04/05/2021 9:22 AM EST This patient was seen with the LO-[facility]. I have reviewed and agree with the plan of treatment. Status post left revision knee arthroplasty. This point patient still has hypersensitivity about the knee. He reports having swelling with increased activity. On exam the incisions well healed. Rangeof motion is 0-120 degrees. He can do straight leg raise. There is no varus valgus instability at 0?? 30??. He has 1-2 mm of anterior-posterior translation at 90??. Radiographs demonstrate implants are in excellent position with no signs of any loosening or subsidence. This point I have discussed with him outcomes following revision arthroplasty for instability. This point the knee is otherwise very stable. He will have some continued swelling as result of the effusions that he had prior to surgery. We discussed activities that will likely increase some of his swelling. From a pain standpointhe still has neurogenic type pain. He may be a candidate for repeat genicular nerve ablation versusundergone a DRG stimulator. Will make the referral for him to see pain management outside of the [place]. We have also sent a topical pain medication that he can apply to the knee. documented in this encounter Plan of Treatment Upcoming Encounters Date Type Department Care Team (Late st Contact Info) Description 06/24/2024 7:45 AM EST Appointment [facility] [address] [place] [address] 06/24/2024 10:10 AM EST Office Visit [facility] [address] [place] [address] Nany Elias, BIAS MACHINE OPERATOR [address] [place] [address] documented as of this encounter Visit Diagnoses Diagnosis Pain due to total left knee replacement, subsequent encounter- Primary documented in this encounter Additional Health Concerns Assessment Noted Time A fall risk assessment has been complete d for the patient 04/05/2021 8:37 AM EST documented as of this encounter Care Teams Art Model Relationship Specialty Start Date End Date Jam Pimentel MD [address] [place] [address] PCP - General 09/10/20 documented as of this encounter
--- OUTSIDE RECORDS SUMMARY | 2024-04-15 10:10 | XMS_ITS | Encounter Summary ---
Author Organization Healthcare Address [address] [place] [address] Care Team Providers Care Rail Manager Name Role Phone Jam Pimentel MD Primary Care Provider [phone] Encounter Details Date Type Department Care Team (Late st Contact Info) Description 10/01/2020 Abstract [facility] Interventional Pain Medicine [address] [place] [address] Mk Mtz MD [address] [place] [address] Social History Tobacco Use Types Packs/Day Years Used Date Smoking Tobacco: Never Sex and Gender Information Value Date Recorded Sex Assigned at Not on file Legal Sex Male 8:35 PM EDT Gender Identity Not on file Sexual Orientation Not on file documented as of this encounter Last Filed Vital Signs Vital Sign Reading Time Taken Comments Blood Pressure 127/71 09/16/2020 7:50 AM EDT Pulse - - Temperature - - Respiratory Rate - - Oxygen Saturation - - Inhaled Oxygen Concentration - - Weight - - Height - - Body Mass Index - - documented in this encounter Plan of Treatment Upcoming Encounters Date Type Department Care Team (Late st Contact Info) Description 06/24/2024 7:45 AM EST Appointment [facility] [address] [place] [address] 06/24/2024 10:10 AM EST Office Visit [place] [facility] [address] [place] [address] Noomen, Nany M, REFINING MACHINE OPERATOR [address] [place] [address] documented as of this encounter Visit Diagnoses Not on filedocumented in this encounter Care Teams Rail Manager Relationship Specialty Start Date End Date Jam Pimentel MD [address] [place] [address] PCP - General 09/10/20 documented as of this encounter
--- OUTSIDE RECORDS SUMMARY | 2024-04-15 10:10 | XMS_ITS | Encounter Summary ---
Author Organization Healthcare Address [address] [place] [address] Care Team Providers Care Coronary Clinical Specialist Name Role Phone Unavailable Primary Care Provider Unavailabl e Encounter Details Date Type Department Care Team (Late st Contact Info) Description 04/09/2017 [facility] Vitals Encounter [facility] [address] [place] [address] Provider, MD Tobias [address] [place] [address] Social History Tobacco Use Types Packs/Day Years Used Date Smoking Tobacco: Never Assessed Sex and Gender Information Value Date Recorded Sex Assigned at Not on file Legal Sex Male 8:35 PM EDT Gender Identity Not on file Sexual Orientation Not on file documented as of this encounter Last Filed Vital Signs Vital Sign Reading Time Taken Comments Blood Pressure - - Pulse - - Temperature - - Respiratory Rate - - Oxygen Saturation - - Inhaled Oxygen Concentration - - Weight 88.5 kg (195 lb) 04/09/2017 1:27 PM EST Height 188 cm (6' 2 ) 04/09/2017 1:27 PM EST Body Mass Index 25.04 04/09/2017 1:27 PM EST documented in this encounter Plan of Treatment Upcoming Encounters Date Type Department Care Team (Late st Contact Info) Description 06/24/2024 7:45 AM EST Appointment [facility] [address] [place] [address] 06/24/2024 10:10 AM EST Office Visit [place] [facility] [address] [place] [address] Nany Elias M, AUTISM MOTOR SPECIALIST [address] [place] [address] documented as of this encounter Visit Diagnoses Not on filedocumented in this encounter Additional Health Concerns Infection Onset Date Last Indicated Resolved Time COVID 19 (Confirmed) Comment:Added from [facility] data. 05/01/2020 05/01/202005/01 12:00 AM EST documented as of this encounter
--- OUTSIDE RECORDS SUMMARY | 2024-04-15 10:10 | XMS_ITS | Encounter Summary ---
Author Organization Healthcare Address [address] [id number] Care Team Providers Care Support Services Coordinator Name Role Phone Jam Pimentel MD Primary Care Provider [phone] Reason for Visit * Reason Comments Flank Pain * Auth/Cert (Routine) Specialty Diagnoses / Procedures Referred By Contac t Referred To Contact Diagnoses Kidney stone obstructing 6 mm kidney stone Abran Ruffin MD [address] [address] Phone: tel: fax: [facility] [address] [place] [phone] Phone: tel: Referral ID Status Reason Start Date Expiration Date Visits Re quested Visits Authorized [id number] 1 1 Encounter Details Date Type Department Care Team (Late st Contact Info) Description 10/25/2023 2:35 PM EDT - 10/25/2023 4:10 PM EDT Surgery [facility] OPERATING ROOM [address] [place] [address] Abran Ruffin MD [address] [address] URETEROSCOPY Surgery Details Date/Time Status Location OR Service Patient Class Case Cl ass Case Type Trauma Case? 10/25/2023 2:35 PM Posted [facility] OR 2OR 20 Urology Inpatient T-Timed: to be done within 24 hours Panel 1 Procedure LRB Anes Op Region Wound Class Comments URETEROSCOPY Left General Class II/ Clean C ontaminated Surgeon Surgeon Role Service Panel Abran Ruffin MD Primary Urology 1 Amor Galeana MD Resident - Assisting Urology 1 documented in this encounter Social History Tobacco [...] Sign Reading Time Taken Comments Blood Pressure 131/83 10/25/2023 4:00 PM EDT Pulse 67 10/25/2023 4:00 PM EDT Temperature 36.4 ??C (97.5 ??F) 10/25/2023 3:40 PM ED T Respiratory Rate 15 10/25/2023 4:00 PM EDT Oxygen Saturation 100% 10/25/2023 4:00 PM EDT Inhaled Oxygen Concentration - - Weight 83.5 kg (184 lb) 10/24/2023 4:57 PM EDT Height 188 cm (6' 2 ) 10/24/2023 4:57 PM EDT Body Mass Index 23.62 10/24/2023 4:57 PM EDT documented in this encounter Discharge Instructions * Discharge Instructions* Amor Galeana MD - 10/25/2023 2:38 PM EDT Precautions: - You have received sedation/anesthesia today. You may not drive, drink alcohol, or do anything that requires a clear head for the next 24 hours. Medications: - You should take 500mg Tylenol every 6 hours for mild - moderate pain. You may take up to 1000mg every 6 hours but do not take more than 4000mg in a day. - You can take pyridium, tamsulosin, ibuprofen as needed for discomfort - You may resume your previous medications unless otherwise instructed. Nutrition: - You may resume your normal diet as tolerated, focusing on liquids to keep yourself hydrated. Activity: - No restrictions Stent: - You may remove your stent on SundayOctober 29 by pulling the black strings while in the shower. It should come out easily. If you have any problems you may call the urology office. Potential Issues: - It is normal to have some blood in the urine after the procedure and while you have a stent in place. Drink plenty of water and it should clear up. Contact the office if you are passing large clotsor unable to urinate. - Call the office if you have a fever greater than 101 F - Call the office if you have severe abdominal discomfort, nausea and vomiting, or feeling unwell Follow Up: - You will be contacted by the clinic for a follow up appointment in approximately 2-3 months. Questions or Concerns and Appointments (physicians work at both clinics so confirm your location ahead of your appointment) [facility] Urology Department [facility] [address], Replaced By [facility], [address] [place] [address] Clinic After Hours [facility] Office Building Urology Clinic [address] [place] [address] Clinic After Hours documented in this encounter Medications at Time [...] 10/25/2023 4 documented as of this encounter Miscellaneous Notes * Anesthesia PACU Signout - Jose Martin Pascal DO - 10/25/2023 4:26 PM EDT Patient: Mk Ardon Anesthesia Type: general Vitals Value Taken Time BP 128/79 10/25/23 1615 Temp 36.4 ??C (97.5 ??F) 10/25/23 1540 Pulse 62 10/25/23 1625 Resp 16 10/25/23 1625 SpO2 97 % 10/25/23 1625 Vitals shown include unfiled device data. Anesthesia PACU Signout Patient location during evaluation: PACU Patient participation: complete - patient participated Level of consciousness: awake Pain management: adequate (pain score 0-3) Airway patency: natural airway Hydration status: acceptable PONV: none Cardiovascular status: acceptable and hemodynamically stable Respiratory status: acceptable, spontaneous ventilation, unassisted, nonlabored ventilation and room air Discharge Disposition: home Comments: Patient is s/p URETEROSCOPY (Left) under GA. Patient remains HDS on room air, neurologically appropriate, pain is controlled, and tolerating PO w/o N/V. Patient is appropriate for dischargefrom PACU to home for continued postop care. Cosigned by Scotty Lyles MD at 10/26/2023 12:17 PM EDT Associated attestation - Scotty Lyles MD - 10/26/2023 12:17 PM EDT I saw and evaluated the patient with the resident/fellow. I discussed the case with the resident/fellow and agree with the findings and plan as documented. * Discharge Summary - Amor Galeana MD - 10/25/2023 3:25 PM EDT Hospitalization Admit Date/Time: 10/24/2023 4:51 PM Admitting Attending: Abran Ruffin Discharge Date: 10/25/23 Discharge Attending Physician: Abran Ruffin MD PCP name and Address: Jam Pimentel MD [address] / [place] [address] Referring provider name and address: Kiran Castro MD [address] [place] [address] Chief Concern, Brief History of Present Illness, and Hospital Course Mk Ardon is a 53 y.o. male with left proximal ureteral stone with hydro. UA clear, vitals normal, labs unremarkable. Discussed options and patient wants to attempt treatment of stone in ORdue to poorly controlled pain. He was taken to OR 10/24 for left URS, LL. Details are in the op report. The stone was completely removed. Stent with strings placed and plan to remove on 10.30.23. We will have him follow up in 2-3 months with renal US. Surgeries and Procedures Procedures performed in this encounter Procedures Case Request Operating Room: URETEROSCOPY URETEROSCOPY (Left) Medication List .. amLODIPine-benazepril 10-20 MG capsule Commonly known as: Lotrel Take 1 capsule by mouth 1 (one) time each day. ibuprofen 600 MG tablet Take 1 tablet (600 mg) by mouth every 6 (six) hours if needed for mild pain. metFORMIN XR 500 MG 24 hr tablet Commonly known as: Glucophage-XR Take 1 tablet (500 mg) by mouth 2 (two) times a day. phenazopyridine 100 MG tablet Commonly known as: Pyridium Take 1 tablet (100 mg) by mouth 3 (three) times a day if needed for pain or discomfort for up to 3 days. tamsulosin 0.4 MG 24 hr capsule Commonly known as: Flomax Take 1 capsule (0.4 mg) by mouth 1 (one) time each day with dinner. Where to Get Your Medications These medications were sent to [facility] - [place], [place] - [address] [facility] [id number] ibuprofen 600 MG tablet phenazopyridine 100 MG tablet tamsulosin 0.4 MG 24 hr capsule Discharge Diagnosis Medical Problems Active and Resolved Hospital Problems Hospital Diabetes mellitus, type 2 (CMS/HCC) HTN (hypertension) * (Principal) Kidney stone Post Discharge Instructions In AVS Outpatient Follow-Up No future appointments. Test Results Pending At Discharge Pending Labs Order Current Status Calculi (Kidney Stone) Analysis Collected (10/25/23 3727) Urine culture - clean catch In process Pertinent Physical Exam At Time of Discharge Physical Exam Vitals and nursing note reviewed. Exam conducted with a boarding specialist present. Constitutional: General: He is not in acute distress. Appearance: Normal appearance. He is normal weight. HENT: Head: Normocephalic and atraumatic. Right Ear: External ear normal. Left Ear: External ear normal. Nose: Nose normal. Mouth/Throat: Mouth: Mucous membranes are moist. Pharynx: Oropharynx is clear. Eyes: General: No scleral icterus. Conjunctiva/sclera: Conjunctivae normal. Cardiovascular: Rate and Rhythm: Normal rate and regular rhythm. Pulses: Normal pulses. Pulmonary: Effort: Pulmonary effort is normal. No respiratory distress. Abdominal: General: There is no distension. Palpations: Abdomen is soft. Tenderness: There is no abdominal tenderness. Musculoskeletal: General: No deformity. Normal range of motion. Cervical back: Normal range of motion and neck supple. Skin: General: Skin is warm. Capillary Refill: Capillary refill takes less than 2 seconds. Findings: No erythema. Neurological: General: No focal deficit present. Mental Status: He is alert and oriented to person, place, and time. Mental status is at baseline. Psychiatric: Mood and Affect: Mood normal. Behavior: Behavior normal. Judgment: Judgment normal. Discharge Disposition/Condition Disposition: Home Condition: Stable (s/sx potential problems absent or manageable) I spent < 30 minutes of patient care and instruction time in preparation for this discharge. Cosigned by Abran Ruffin MD at 10/26/2023 12:56 PM EDT Associated attestation - Abran Ruffin MD - 10/26/2023 12:56 PM EDT I saw and evaluated the patient with the resident/fellow. I discussed the case with the resident/fellow and agree with the findings and plan as documented. * Op Note - Amor Galeana MD - 10/25/2023 2:49 PM EDT Date of Surgery: 10/25/23 Procedure Performed: Left Ureteroscopy, laser lithotripsy and basket stone extraction Cystoscopy with left retrograde pyelogram Left ureteral stent placement Preoperative Diagnosis: Left Renal Stones Postoperative Diagnosis: Same Surgeon: Abran Ruffin MD Relief Driller Surgeon: Amor Galeana MD PGY3 Intraoperative Findings: Cystoscopy without stones or masses Left ureteroscopy revealed mid ureteral stone that was fragmented with laser. Complete ureteroscopyand renal pelvis and calyces without any stones >1mm. Stones sent for analysis. Left stent placed with strings Intraoperative fluoroscopy was used to confirm proper placement of the ureteral stent. Indications: Mk Ardon is a 53 y.o. male with a symptomatic stone. I discussed the possible managementoptions with the patient and the patient elected to undergo left ureteroscopy. Anesthesia: General Complications: None Drains: 6 Fr x 26 cm JJ stent on the left with strings Specimens: Stones for analysis EBL: Min. Procedure in Detail: After informed consent was obtained, the patient was brought into the surgical suite. The patient was placed in the dorsal lithotomy position. General anesthesia was administered, SCDs were placed onthe patient and preoperative antibiotics were administered prior to the start of the case. A 19 Fr rigid cystoscope was introduced into the patient's urethral meatus and advanced into the urinary bladder. The bladder was examined and did not have any masses or stones. The left ureteral orifice was cannulated with a Sensor wire and this was advanced under fluoroscopyto the level of the left renal pelvis. A semirigid ureteroscope was then advanced into the left ureter alongside the Sensor wire. A stone was seen in mid ureter just beyond tortuous ureter. We were able to use a 200 micron laser fiber to fragment the stone into small particles and removed the larger piece with a 1.9Fr n tetlin basket. The stones were sent for analysis. We then advanced a flexibleureteroscope over the wire into the mid ureter. We advanced flexible ureteroscope up to renal pelvis and noted no other stones in calyx or renal pelvis. Contrast was injected in a retrograde fashion through the ureteroscope to delineate the intrarenal anatomy. The ureteroscope was withdrawn and the ureter was examined with no evidence of significant ureteral injury. A 6 Fr x 26 cm JJ ureteral stent with strings was placed over the wire and the proximal end was seen on fluoroscopy to be in the renal pelvis and the distal end in the bladder. The patient tolerated the procedure well and was awakened from anesthesia without difficulty. Postoperative Plan: The patient will be discharged home today. Stent out SundayOctober 29 by pulling strings RTC in 3 months with renal US Cosigned by Abran Ruffin MD at 10/26/2023 12:56 PM EDT Associated attestation - Abran Ruffin MD - 10/26/2023 12:56 PM EDT I saw and evaluated the patient with the resident/fellow. I discussed the case with the resident/fellow and agree with the findings and plan as documented. I was present and scrubbed in for the entire procedure. * Progress Notes - Gwen Covington RN - 10/25/2023 2:27 PM EDT Patient to the OR today. CM will follow for discharge planning and obtain an initial assessment when patient is available. In??s [employer]. KAMILLE Covington, store loss prevention manager * Progress Notes - Amor Galeana MD - 10/25/2023 9:01 AM EDT [facility] Urology Inpatient Progress Note SUBJECTIVE: - Pain still present overnight. PHYSICAL EXAM: Temp: [36.3 ??C (97.4 ??F)-36.5 ??C (97.7 ??F)] 36.5 ??C (97.7 ??F) Heart Rate: [53-61] 61 Resp: [14-18] 16 BP: (123-156)/(71-79) 123/74 SpO2: [92 %-100 %] 97 % I O Shift I O 24Hrs LDAs No intake/output data recorded. No intake/output data recorded. GEN: NAD HEENT: NCAT, EOMI RESP: Equal bilateral chest rise, normal work of breathing CV: Regular rate, appears well perfused ABD: Nondistended : mild left flank TTP EXT: No gross deformities MSK: Full ROM in BL UE NEURO: No focal deficits, alert and oriented PSYCH: Normal mood and affect LABS: Results from last 7 days Lab Units 10/24/23 1846 WBC 10*3/uL 11.58* HEMOGLOBIN g/dL 14.2 HEMATOCRIT % 42.6 PLATELETS 10*3/uL 331 Results from last 7 days Lab Units 10/24/23 1846 SODIUM mmol/L 144 POTASSIUM mmol/L 4.0 CHLORIDE mmol/L 106 CO2 mmol/L 27 BUN mg/dL 13 CREATININE mg/dL 1.04 EGFR mL/min/1.73m*2 85.3 GLUCOSE mg/dL 114* CALCIUM mg/dL 10.1 Results from last 7 days Lab Units 10/24/232024 COLOR UA Yellow SPEC GRAV U 1.009 PH UA 7.0 PROTEIN UR mg/dL Negative GLUCOSE UA mg/dL Negative KETONES UA mg/dL Negative LEUKOCYTES UA Trace* NITRITE UA Negative RBC, URINE /HPF <1 WBC, URINE /HPF 0 - 5 SQUAMOUS /HPF 0 - 2 BACTERIA UR HPF Negative IMAGING: CT 10/24/23: L 5mm proximal ureteral stone with hydro HOSPITAL PROBLEM LIST: Principal Problem: Kidney stone ASSESSMENT: Mk Ardon is a 53 y.o. male with left proximal ureteral stone with hydro. UA clear, vitals normal, labs unremarkable. Discussed options and patient wants to attempt treatment ofstone in OR due to poorly controlled pain PLAN: - To OR for left URS, LL. Consent in media tab. Will plan for cefazolin Amor Galeana MD Cosigned by Abran Ruffin MD at 10/26/2023 12:56 PM EDT Associated attestation - Abran Ruffin MD - 10/26/2023 12:56 PM EDT I saw and evaluated the patient with the resident/fellow. I discussed the case with the resident/fellow and agree with the findings and plan as documented. * H&P - Parish Murray MD - 10/24/2023 9:23 PM EDTAssociated Order(s): Consult to Urology Consult to Urology Consult performed by: Parish Murray MD Consult ordered by: Mk Amado MD [facility] Urology Consult Note 10/24/23 Service Requesting Consultation: ED CC: kidney stone HPI: Mk Ardon is a 53 y.o. male with history of HTN, DM presents as transfer from [facility]. He hasbeen having left flank pain for about a month but got worse over the weekend and today presented toED for pain. CT showed left 6mm proximal ureteral stone with upstream hydro. U/A with small LE, negnitrite, neg bacteria, no WBC. WBC 11, Cr 1.0. Transferred here for Urology care. This is patient's first kidney stone. Denies fevers at home. History of knee surgery. Appears comfortable in ED. Past Medical History: reviewed Past Medical History: Diagnosis Date Personal history of other diseases of the circulatory system History of hypertension Past Surgical History: reviewed Past Surgical History: Procedure Laterality Date KNEE SURGERY N/A Knee Surgery from [facility] Family History: reviewed Family History Problem Relation Name Age of Onset Diabetes Mother Diabetes Father Hypertension Mother Hypertension Father Hyperlipidemia Mother Social History: reviewed Social History Tobacco Use Smoking status: Never Smokeless tobacco: Never Outpatient Medications: Current Outpatient Medications Medication Instructions amLODIPine (Norvasc) 10 MG tablet ZZ Daily RT amLODIPine-benazepril (Lotrel) 10-20 MG capsule No dose, route, or frequency recorded. losartan (Cozaar) 100 MG tablet No dose, route, or frequency recorded. meloxicam (Mobic) 7.5 MG tablet TAKE 1 TABLET TWICE DAILY WITH FOOD. metFORMIN XR (Glucophage-XR) 500 MG 24 hr tablet metformin PHYSICAL EXAM: Temp: [36.3 ??C (97.4 ??F)-36.4 ??C (97.5 ??F)] 36.4 ??C (97.5 ??F) Heart Rate: [53-60] 53 Resp: [18] 18 BP: (149-156)/(71-75) 156/75 SpO2: [97 %-100 %] 97 % GEN: NAD HEENT: NCAT, EOMI RESP: Equal bilateral chest rise, normal work of breathing CV: Regular rate, appears well perfused ABD: Nondistended : No CVAT EXT: No gross deformities MSK: Full ROM in BL UE NEURO: No focal deficits, alert and oriented PSYCH: Normal mood and affect LABS: Results from last 7 days Lab Units 10/24/23 1846 WBC 10*3/uL 11.58* HEMOGLOBIN g/dL 14.2 HEMATOCRIT % 42.6 PLATELETS 10*3/uL 331 Results from last 7 days Lab Units 10/24/23 1846 SODIUM mmol/L 144 POTASSIUM mmol/L 4.0 CHLORIDE mmol/L 106 CO2 mmol/L 27 BUN mg/dL 13 CREATININE mg/dL 1.04 EGFR mL/min/1.73m*2 85.3 GLUCOSE mg/dL 114* CALCIUM mg/dL 10.1 Results from last 7 days Lab Units 10/24/232024 COLOR UA Yellow SPEC GRAV U 1.009 PH UA 7.0 PROTEIN UR mg/dL Negative GLUCOSE UA mg/dL Negative KETONES UA mg/dL Negative LEUKOCYTES UA Trace* NITRITE UA Negative RBC, URINE /HPF <1 WBC, URINE /HPF 0 - 5 SQUAMOUS /HPF 0 - 2 BACTERIA UR HPF Negative Imaging: I have personally reviewed the imaging below: CT A/P 10/24/23 - 6mm left distal ureteral stone with upstream hydronephrosis. Hospital Problem List: Active Problems: There are no active Hospital Problems. Assessment: Mk Ardon is a 53 y.o. male with left proximal ureteral stone. No concern forinfection, having intermittent flank pain. Plan: - Admit to Urology - [facility] - NPO at midnight - Consented - To OR tomorrow for left URS LL. Posted as TSA Parish Murray MD Cosigned by Abran Ruffin MD at 10/26/2023 12:56 PM EDT Associated attestation - Abran Ruffin MD - 10/26/2023 12:56 PM EDT I saw and evaluated the patient with the resident/fellow. I discussed the case with the resident/fellow and agree with the findings and plan as documented. * ED Provider Notes - Lonnie Orozco MD - 10/24/2023 4:51 PM EDT Chief Complaint: Flank Pain HPI: Mk Ardon is a 53 y.o. male presenting for evaluation of Flank Pain. The patient presents with a chief complaint of a 6 millimeter kidney stone. He reports noticing thepain over the weekend but believes it may have been going on for longer, as he had previously experienced discomfort in his left hip. He has a high tolerance for pain and has not required procedures in the past to break up kidney stones. The patient has experienced nausea but has not vomited. He reports being able to urinate without difficulty and has not experienced pain during urination. The patient has a history of back surgery and is currently taking medications for unspecified medical conditions. Past Medical History: Past medical history was reviewed. Past Medical History: Diagnosis Date Personal history of other diseases of the circulatory system History of hypertension Social History: Social History was reviewed. Tobacco Use Smoking status: Never Smokeless tobacco: Never ROS: As reviewed in HPI. ED Triage Vitals: ED Triage Vitals [10/24/23 1657] Temp Heart Rate Resp BP 36.3 ??C (97.4 ??F) 60 18 (!) 149/71 SpO2 Temp Source Heart Rate Source Patient Position 100 % Oral -- Lying BP Location FiO2 (%) Left arm -- Physical Exam: Physical Exam Vitals and nursing note reviewed. Constitutional: General: He is not in acute distress. Pulmonary: Effort: Pulmonary effort is normal. No respiratory distress. Abdominal: Tenderness: There is left CVA tenderness. Skin: General: Skin is warm and dry. Neurological: Mental Status: He is alert. Psychiatric: Behavior: Behavior normal. ED Course & MDM Medical Decision Making MDM: 53 y.o. male with history and exam per above presenting for evaluation of Flank Pain. Diagnoses considered include urolithiasis, urinary tract infection, referred pain, hydronephrosis, among others. Orders Placed This Encounter Procedures Urine culture - clean catch CBC w/diff CMP Urinalysis microscopic Urinalysis, manual only Hepatitis C Antibody - ED ED Protocol - HIV 1/2 Antibody/Antigen Screen ED HIV 1/2 Antibody/Antigen Screen w/Reflex to HIV 1/2 Differentiation Labs were independently interpreted by me. They are significant for white blood cell count 11.58, creatinine 1.04, urinalysis with trace hematuria, pyuria. ED Medication Administration from 10/24/2023 1424 to 10/25/2023 0043 Date/Time Order Dose Route Action Action by 10/24/2023 1848 EDT ketorolac (Toradol) injection 15 mg 15 mg Intravenous Given [facility] 10/24/2023 184 EDT lactated Ringer's infusion 1,000 mL 1,000 mL Intravenous New Bag [facility] 10/24/20231957 EDT morphine PF 4 mg 4 mg Intravenous Given [facility] 10/24/20232201 EDT amLODIPine (Norvasc) tablet 10 mg 10 mg Oral Not Given [facility] 10/24/20232202 EDT insulin lispro (Admelog) injection - Correction - Nighttime Dose -- Subcutaneous Not Given [facility] 10/24/20232245 EDT morphine PF 4 mg 4 mg Intravenous Given [facility] 10/24/20232245 EDT ondansetron (Zofran) injection 4 mg 4 mg Intravenous Given Marco Antonio Haynes I discussed management with the following services regarding the patient's case and recommendationsfor disposition: IP CONSULT TO UROLOGY Patient was admitted by Abran Ruffin MD with admitting diagnosis of Kidney stone [N20.0]. The following providers were documented as being assigned to this patient during this visit: Sincerely, Mk Amado MD Labrada, Diana, MD Dropkin, Benjamin M, MD Kayser, Philip M, MD New Prescriptions No medications on file You have no referrals or appointment requests from this visit. Lonnie Orozco MD Resident 10/25/23 0234 Cosigned by Mk Amado MD at 10/28/2023 11:55 PM EDT Associated attestation - Mk Amado MD - 10/28/2023 11:55 PM EDT I saw and evaluated the patient with the resident/fellow. I discussed the case with the resident/fellow and agree with the findings and plan as documented. * ED Triage Notes - Isidra Carrera - 10/24/2023 4:51 PM EDT Patient arrives via medic with complaints of 6mm kidney stone that was found at [facility]. Patient transferred here. Given 1mg dilaudid at 1530. Endorses 6/10 pain at this time. documented in this encounter Plan of Treatment Upcoming Encounters Date Type Department Care Team (Late st Contact Info) Description 06/24/2024 7:45 AM EST Appointment [facility] Radiology [address] [place] [address] 06/24/2024 10:10 AM EST Office Visit [place] [facility] [address], [address] [place] [address] Nany Elias, GORDON [address] [place] [address] Scheduled Orders Name Type Priority Associated Diagnoses Orde r Schedule POCT glucose manually resulted Point of Care Testing - Docked Devices Routine Once (Lab) for 1 Occurrences starting 10/25/2023 until 10/25/2023 documented as of this encounter Procedures Procedure Name Priority Date/Time Associated Diagnosis Comments POCT GLUCOSE METER UNSOLICITED RESULTS Routine 10/25/2023 3:40 PM EDT CALCULI (KIDNEY STONE)ANALYSIS (SO) STAT 10/25/2023 3:17 PM EDT Kidney stone URETEROSCOPY 10/25/2023 2:00 PM EDT Kidney stone POCT GLUCOSE METER UNSOLICITED RESULTS Routine 10/25/2023 12:01 PM EDT ECG ADULT Routine 10/25/2023 10:54 AM EDT POCT GLUCOSE METER UNSOLICITED RESULTS Routine 10/25/2023 5:48 AM EDT URINE CULTURE STAT 10/24/2023 8:56 PM EDT URINALYSIS, DIPSTICK STAT 10/24/2023 8:25 PM EDT URINALYSIS, MICROSCOPIC STAT 10/24/19 8:25 PM EDT ED HIV 1/2 ANTIBODY/ANTIGEN SCREEN WITH REFLEX TO HIV I/II DIFFERENTIATION STAT 10/24/2023 6:46 PM EDT ED PROTOCOL HIV 1/2 ANTIBODY/ANTIGEN SCREEN W/REFLEX TO HIV 1/2 ANTIBODY DIFFERENTIATION STAT 10/24/2023 6:46 PM EDT HEPATITIS C ANTIBODY - ED W/REFLEX TO HCV QUANT PCR STAT 10/24/2023 6:46 PM EDT CBC WITH AUTO DIFFERENTIAL STAT 10/24/2023 6:46 PM EDT COMPREHENSIVE METABOLIC PANEL, PLASMA STAT 10/24/2023 6:46 PM EDT documented in this encounter Results * US [...] Somewhat decompressed but grossly unremarkable. Procedure Note zEra Payton MD - 12/28/2023 CLINICAL INDICATION: hydronephrosis, [...] signing this report, I, the attending physician, attestthat I have personally reviewed the images/data for the aboveexamination(s) and agree with the final edited report. Drafted by Melo Lawrence DO on 12/28/2023 9:23 AM Final report signed by Ezra Payton MD on 12/28/2023 1:13 PM Abran Ruffin MD IMG US PROCEDURES Final Re sult * (ABNORMAL) POCT glucose meter (10/25/2023 3:40 PM EDT) POCT Glucose 120(H) 74 - 99 mg/dL 10/25/2023 3:43 PM EDT [facility] Comment:Accuracy of a glucos e result obtained from a capillary whole blood specimen relies upon adequate, non-compromised capillary blood flow. If the capillary glucose result is not consistent with the patient's clinical signs and symptoms, glucose testing should be repeated with either an arterial or venous sample on the glucometer or sent to the main labortory for testing. Comment 10/25/2023 3:43 PM EDT [facility] Production Control Coordinating Clerk ID Beti Concepcion 3:43 PM EDT [facility] Device ID [id number] 10/25/2023 3:43 PM EDT [facility] Specimen Type POC Capillary 10/25/2023 3:43 PM EDT [facility] Blood Capillary blood specimen / Unknown 10/25/2023 3:40 PM EDT 10/25/2023 3:43 PM EDT Abran Ruffin MD LAB POINT OF CARE TEST DOCKED DEVICE UNSOLICITED RESULTS Final Result [facility] [address] [place] [id number] * Calculi (Kidney Stone) Analysis (10/25/2023 3:17 PM EDT) Pathologist [facility] Calculi Mass 5 mg 10/30/2023 7:58 PM EDT [facility]) Calculi Description See Note 10/30/2023 7:58 PM EDT [facility]) Calculi Composition See Note 10/30/2023 7:58 PM EDT [facility]) Calculus Left kidney structure / Unknown 10/25/2023 3:17 PM EDT 10/25/2023 4:09 PM EDT Comment:Pre-op diagnosis: Kidney stone [N20.0] Narrative [facility]) - 10/30/2023 7:58 PM EDT Specimen consists of three brown and sims calculi fragments. The total weight is 5 mg. Calculi composed primarily of: 70% calcium oxalate monohydrate, 10% calcium oxalate dihydrate, and 20% calcium phosphate (hydroxy- and carbonate- apatite). INTERPRETIVE INFORMATION: Calculi (Stone) analysis Calculi are the products of physiological processes that yield crystalline compounds in a matrix of biological compounds and blood. ??Matrix components are not reported. ??The clinically significant crystalline components identified in calculi specimens are reported. ??Gross description may not be consistent with composition determined by FTIR analysis. Performed By: [facility] [address] [place] [address] Wax Pot Tender: Messi Zelaya MD, PhD CLIA Number: [id number] Abran Ruffin MD LAB REF LAB BLOOD AND FLUI D ORD Final Result [facility] ([facility]) [address] [place] [address] * POCT glucose meter (10/25/2023 12:01 PM EDT) Pathologist [facility] POCT Glucose 94 74 - 99 mg/dL 10/25/2023 12:03 PM EDT [facility] Comment:Accuracy of a glucos e result obtained from a capillary whole blood specimen relies upon adequate, non-compromised capillary blood flow. If the capillary glucose result is not consistent with the patient's clinical signs and symptoms, glucose testing should be repeated with either an arterial or venous sample on the glucometer or sent to the main labortory for testing. Comment 10/25/2023 12:03 PM EDT [facility] Production Control Coordinating Clerk ID Grisel Tyler 024 12:03 PM EDT [facility] Device ID [id number] 10/25/2023 12:03 PM EDT [facility] Specimen Type POC Capillary 10/25/2023 12:03 PM EDT [facility] Blood Capillary blood specimen / Unknown 10/25/2023 12:01 PM EDT 10/25/2023 12:03 PM EDT us Abran Ruffin MD LAB POINT OF CARE TEST DOCKED DEVICE UNSOLICITED RESULTS Final Result Performing Organization Address City/[facility]/ZIP Co de Phone Number [facility] [address] [place] [address] * ECG Adult (10/25/2023 10:54 AM EDT) EKG DIAGNOSIS CLASS Borderline Abnormal MUSE ECG Ventricular Rate 55 BPM MUSE ECG Atrial Rate 55 BPM MUSE ECG NY Interval 186 ms MUSE ECG QRSD Interval 84 ms MUSE ECG QT Interval 450 ms MUSE ECG QTC Interval 430 ms MUSE ECG P Bertrand -14 degrees MUSE ECG R Bertrand -15 degrees MUSE ECG T Wave Bertrand -11 degrees MUSE ECG Diagnosis Sinus bradycardia MUSE ECG Diagnosis Otherwise normal ECG MUSE ECG Diagnosis Confirmed by Matt Moore ([id number]) on 10/25/2023 4:29:51 PM MUSE ECG 10/25/2023 10:5 4 AM EDT 10/25/2023 4:29 PM EDT us Mary Stevens APRN ECG ORDERABLES Final Resu lt MUSE ECG * POCT glucose meter (10/25/2023 5:48 AM EDT) Pathologist [facility] POCT Glucose 93 74 - 99 mg/dL 10/25/2023 5:50 AM EDT [facility] Comment:Accuracy of a glucos e result obtained from a capillary whole blood specimen relies upon adequate, non-compromised capillary blood flow. If the capillary glucose result is not consistent with the patient's clinical signs and symptoms, glucose testing should be repeated with either an arterial or venous sample on the glucometer or sent to the main labortory for testing. Comment 10/25/2023 5:50 AM EDT [facility] Production Control Coordinating Clerk ID Dom Sanchez 10/25/19 5:50 AM EDT [facility] Device ID [id number] 10/25/2023 5:[address] [facility] Specimen Type POC Capillary 10/25/2023 5:[address] [facility] Blood Capillary blood specimen / Unknown 10/25/2023 5:48 AM EDT 10/25/2023 5:50 AM EDT us Abran Ruffin MD LAB POINT OF CARE TEST DOCKED DEVICE UNSOLICITED RESULTS Final Result Performing Organization Address City/[facility] de Phone Number [facility] [address] [place] [address] * Urine culture - clean catch (10/24/2023 8:56 PM EDT) Culture No growth at day 1 10/25/2023 5:[address] [facility] Urine Urine specimen obtained by clean catch procedure / Unknown Non-blood Collection / Unknown 10/24/2023 8:56 PM EDT 10/24/2023 9:19 PM EDT us Mk Amado MD LAB MICROBIOLOGY - GENERAL ORDERABLES Final Result Performing Organization Address City/[facility] Co de Phone Number [facility] [address] [place] [address] * (ABNORMAL) Urinalysis, manual only (10/24/2023 8:25 PM EDT) Color, Urine Yellow LAB URINALYSIS - AUTOMATED METHOD 10/24/2023 8:[address] [facility] Clarity, Urine Clear LAB URINALYSIS - AUTOMATED METHOD 10/24/2023 8:[address] [facility] Spec [place], Urine 1.009 <=1.005 to >=1.030 LAB URINALYSIS - AUTOMATED METHOD 10/24/2023 8:[address] [facility] pH, Urine 7.0 4.5 to 8 LAB URINALYSIS - AUTOMATED METHOD 10/24/2023 8:[address] [facility] Protein, Urine Negative Negative mg/dL LAB URINALYSIS - AUTOMATED METHOD 10/24/2023 8:[address] [facility] Glucose, Urine Negative Negative mg/dL LAB URINALYSIS - AUTOMATED METHOD 10/24/2023 8:[address] [facility] Ketones, Urine Negative Negative mg/dL LAB URINALYSIS - AUTOMATED METHOD 10/24/2023 8:[address] [facility] Blood, Urine Trace(A) Negative LAB URINALYSIS - AUTOMATED METHOD 10/24/2023 8:[address] [facility] Bilirubin, Urine Negative Negative LAB URINALYSIS - AUTOMATED METHOD 10/24/2023 8:[address] [facility] Urobilinogen, Urine 0.2 0.2 to 1.0 mg/dL LAB URINALYSIS - AUTOMATED METHOD 10/24/2023 8:[address] [facility] Leukocytes, Urine Trace(A) Negative LAB URINALYSIS - AUTOMATED METHOD 10/24/2023 8:[address] [facility] Nitrite, Urine Negative Negative LAB URINALYSIS - AUTOMATED METHOD 10/24/2023 8:[address] [facility] Urine Urine specimen obtained by clean catch procedure / Unknown Non-blood Collection / Unknown 10/24/2023 8:25 PM EDT 10/24/2023 8:28 PM EDT Mk Amado MD LAB URINE ORDERABLES Final Result [facility] [address] [place] [address] * Urinalysis microscopic (10/24/2023 8:25 PM EDT) RBC, Urine <1 0 to 3 /HPF LAB URINALYSIS - AUTOMATED METHOD 10/24/2023 9:[address] [facility] WBC, Urine 0 - 5 0 to 5 /HPF LAB URINALYSIS - AUTOMATED METHOD 10/24/2023 9:[address] [facility] Squamous Epithelial Cells 0 - 2 0 to 5 /HPF LAB URINALYSIS - AUTOMATED METHOD 10/24/2023 9:[address] [facility] Hyaline Casts 0 - 2 0 to 5 /LPF LAB URINALYSIS - AUTOMATED METHOD 10/24/2023 9:[address] [facility] Bacteria, Urine Negative Negative LAB URINALYSIS - AUTOMATED METHOD 10/24/2023 9:[address] [facility] Urine Urine specimen obtained by clean catch procedure / Unknown Non-blood Collection / Unknown 10/24/2023 8:25 PM EDT 10/24/2023 8:28 PM EDT us Mk Amado MD LAB URINE ORDERABLES Final Result Performing Organization Address [facility] de Phone Number [facility] [address] [place] [address] * ED HIV 1/2 Antibody/Antigen Screen w/Reflex to HIV 1/2 Differentiation (10/24/2023 6:46 PM EDT) Pathologist [facility] HIV 1 & 2 Antibody/Antigen Screen Non Reactive Non Reactive 10/24/2023 7:[address] [facility] Comment:Screening for HIV 1 & 2 antibodies, and P24 antigen is NONREACTIVE. No confirmatory testing is required. Blood Venous blood specimen / Unknown Venipuncture / Unknown 10/24/2023 6:46 PM EDT 10/24/2023 6:55 PM EDT us Mk Amado MD LAB BLOOD ORDERABLES Final Result Performing Organization Address City/[facility]/ZIP Co de Phone Number [facility] [address] [place] [address] * Hepatitis C Antibody - ED (10/24/2023 6:46 PM EDT) Hepatitis C Antibody Negative Negative 10/24/2023 7:[address] [facility] Blood Venous blood specimen / Unknown Venipuncture / Unknown 10/24/2023 6:46 PM EDT 10/24/2023 6:55 PM EDT us Mk Amado MD LAB BLOOD ORDERABLES Final Result [facility] [address] [place] [id number] * (ABNORMAL) CMP (10/24/2023 6:46 PM EDT) Glucose, Plasma 114(H) 74 - 99 mg/dL 10/24/2023 7:[address] [facility] BUN, Plasma 13 7 - 21 mg/dL 10/24/2023 7:[address] [facility] Creatinine, Plasma 1.04 0.80 - 1.30 mg/dL 10/24/2023 7:[address] [facility] BUN/Creatinine Ratio 13 10/24/2023 7:[address] [facility] Sodium, Plasma 144 136 - 145 mmol/L 10/24/2023 7:[address] [facility] Potassium, Plasma 4.0 3.7 - 4.8 mmol/L 10/24/2023 7:[address] [facility] Chloride, Plasma 106 97 - 107 mmol/L 10/24/2023 7:[address] [facility] CO2, Plasma 27 22 - 29 mmol/L 10/24/2023 7:[address] [facility] Anion Gap 11 6 - 16 mmol/L 10/24/2023 7:[address] [facility] Total Calcium, Plasma 10.1 8.9 - 10.2 mg/dL 10/24/2023 7:[address] [facility] Total Protein 7.2 6.3 - 7.9 g/dL 10/24/2023 7:[address] [facility] Albumin, Plasma 4.4 3.5 - 5.2 g/dL 10/24/2023 7:[address] [facility] AST, Plasma 16 10 - 50 U/L 10/24/2023 7:[address] [facility] ALT, Plasma 12 10 - 50 U/L 10/24/2023 7:[address] [facility] Alkaline Phosphatase, Plasma 95 40 - 115 U/L 10/24/2023 7:[address] [facility] Total Bilirubin, Plasma 1.5(H) 0.2 - 1.1 mg/dL 10/24/2023 7:[address] [facility] eGFRcr 85.3 mL/min/1.7 3m*2 10/24/2023 7:[address] [facility] Comment:Reported eGFRcr in m L/min/1.73m2 is based the CKD-EPI 2020 equation that does not use a race coefficient. Blood Venous blood specimen / Unknown Venipuncture / Unknown 10/24/2023 6:46 PM EDT 10/24/2023 6:55 PM EDT Mk Amado MD LAB BLOOD ORDERABLES Final Result [facility] [address] [place] [id number] * (ABNORMAL) CBC w/diff (10/24/2023 6:46 PM EDT) WBC Count 11.58(H) 3.70 - 10.30 10*3/uL LAB HEMATOLOGY METHOD 10/24/2023 7:[address] [facility] RBC Count 4.95 4.60 - 6.10 10*6/uL LAB HEMATOLOGY METHOD 10/24/2023 7:[address] [facility] HGB 14.2 13.7 - 17.5 g/dL LAB HEMATOLOGY METHOD 10/24/2023 7:[address] [facility] HCT 42.6 40.0 - 51.0 % LAB HEMATOLOGY METHOD 10/24/2023 7:[address] [facility] Platelet Count 331 155 - 369 10*3/uL LAB HEMATOLOGY METHOD 10/24/2023 7:[address] [facility] MCV 86 79 - 98 fL LAB HEMATOLOGY METHOD 10/24/2023 7:[address] [facility] MCH 28.7 26.0 - 32.0 pg LAB HEMATOLOGY METHOD 10/24/2023 7:[address] [facility] MCHC 33.3 30.7 - 35.5 g/dL LAB HEMATOLOGY METHOD 10/24/2023 7:[address] [facility] RDW 12.5 11.5 - 14.5 % LAB HEMATOLOGY METHOD 10/24/2023 7:[address] [facility] MPV 9.4 8.8 - 12.5 fL LAB HEMATOLOGY METHOD 10/24/2023 7:[address] [facility] nRBC 0.0 <=0.0 per 100 WBCs LAB HEMATOLOGY METHOD 10/24/2023 7:[address] [facility] Differential Type Automated LAB HEMATOLOGY METHOD 10/24/2023 7:[address] [facility] Neutrophils % 63.0 % LAB HEMATOLOGY METHOD 10/24/2023 7:[address] [facility] Lymphocytes % 24.0 % LAB HEMATOLOGY METHOD 10/24/2023 7:[address] [facility] Monocytes % 10.0 % LAB HEMATOLOGY METHOD 10/24/2023 7:[address] [facility] Eosinophils % 2.0 % LAB HEMATOLOGY METHOD 10/24/2023 7:[address] [facility] Basophils % 1.0 % LAB HEMATOLOGY METHOD 10/24/2023 7:[address] [facility] Immature Granulocytes % 0.0 % LAB HEMATOLOGY METHOD 10/24/2023 7:[address] [facility] Neutrophils Absolute 7.40(H) 1.60 - 6.10 10*3/uL LAB HEMATOLOGY METHOD 10/24/2023 7:[address] [facility] Lymphocytes Absolute 2.72 1.20 - 3.90 10*3/uL LAB HEMATOLOGY METHOD 10/24/2023 7:[address] [facility] Monocytes Absolute 1.20(H) 0.30 - 0.90 10*3/uL LAB HEMATOLOGY METHOD 10/24/2023 7:[address] [facility] Eosinophils Absolute 0.17 0.00 - 0.50 10*3/uL LAB HEMATOLOGY METHOD 10/24/2023 7:[address] [facility] Basophils Absolute 0.06 0.00 - 0.10 10*3/uL LAB HEMATOLOGY METHOD 10/24/2023 7:[address] [facility] Immature Granulocytes Absolute 0.03 0.00 - 0.06 10*3/uL LAB HEMATOLOGY METHOD 10/24/2023 7:[address] [facility] Blood Venous blood specimen / Unknown Venipuncture / Unknown 10/24/2023 6:46 PM EDT 10/24/2023 6:55 PM EDT Narrative [facility] - 10/24/2023 7:08 PM EDT Therapeutic decision making should be based on absolute values, rather than percentages. us Mk Amado MD LAB BLOOD ORDERABLES Final Result [facility] [address] [place] [address] documented in this encounter Visit Diagnoses Diagnosis Kidney stone- Primary Calculus of kidney Kidney stone Calculus of kidney Urinary tract obstruction by kidney stone HTN (hypertension) Unspecified essential hypertension Diabetes mellitus, type 2 ([facility]) Type II or unspecified type diabetes mellitus without mention of complication, not stated as uncontrolled Kidney stone Calculus of kidney Kidney stone Calculus of kidney documented in this encounter Admitting Diagnoses Diagnosis Kidney stone Calculus of kidney documented in this encounter Administered Medications Inactive Administered Medications - up to 3 most recent administrations Medication Order MAR Action Action Date Dose Rate Site amLODIPine (Norvasc) tablet 10 mg 10 mg, Oral, Daily, First dose on Sun10/24/23 at 2125, Until Discontinued, Recovery(Phase II-Outpatient)/On Unit(Inpatient) Given 10/25/2023 8:28 AM EDT 10 mg dextrose 10 % (D10W) bolus 125 mL 125 mL (12.5 g), Intravenous, Every 15 min PRN, Starting on Sun10/24/23 at 2128, Until Zahraa 10/25/23 at 1749, Administer over 15 Minutes, Routine, POC BG 71 to 89 mg/dL dextrose 10 % (D10W) bolus 125 mL 125 mL (12.5 g), Intravenous, Every 15 min PRN, Starting on Sun10/24/23 at 2128, Until Zahraa 10/25/23 at 1749, Administer over 15 Minutes, Routine, POC BG 51 to 70 mg/dL dextrose 10 % (D10W) bolus 250 mL 250 mL (25 g), Intravenous, Every 15 min PRN, Starting on Sun10/24/23 at 2128, Until Zahraa 10/25/23 at 1749, Administer over 15 Minutes, Routine, POC BG is less than or equal to 50 mg/dL droperidol (Inapsine) injection 0.625 mg 0.625 mg, Intravenous, Once as needed, 1 dose, Starting on Zahraa 10/25/23 at 1509, Until Zahraa 10/25/23 at 1749, Routine, Recovery (Phase I only), nausea, vomiting fentaNYL (Sublimaze) injection 25 mcg 25 mcg, Intravenous, Every 5 min PRN, 2 doses, Starting on Sun10/25/23 at 1509, Until Sun10/25/23 at 174, Routine, Recovery (Phase I only), pain score of 3-4 out of 10 glucagon (human recombinant) injection 1 mg 1 mg, Intramuscular, Every 15 min PRN, Starting on Sun10/24/23 at 2128, Until Sun10/25/23 at 174, Routine, If patient NPO, lacks IV access, May Give IM and POC BG less than or equal to 70 mg/dL, glucose (Glutose) 40 % oral gel 15 grams of glucose 15 grams of glucose, Sublingual, Every 15 min PRN, Starting on Sun10/24/23 at 2128, Until Sun10/25/23 at 1748, Routine, low blood sugar, POC BG 71 to 89 mg/dL glucose (Glutose) 40 % oral gel 15 grams of glucose 15 grams of glucose, Sublingual, Every 15 min PRN, Starting on Sun10/24/23 at 2127, Until Sun10/25/23 at 174, Routine, low blood sugar, BG 51?to 70 mg/dL glucose (Glutose) 40 % oral gel 30 grams of glucose 30 grams of glucose, Sublingual, Every 15 min PRN, Starting on Sun10/24/23 at 8, Until Sun10/25/23 at 174, Routine, low blood sugar, POC BG is less than or equal to 50 mg/dL HYDROmorphone (Dilaudid) injection 0.5 mg 0.5 mg, Intravenous, Every 10 min PRN, 2 doses, Starting on Sun10/25/23 at 1509, Until Sun10/25/23 at 174, Routine, Recovery (Phase I only), pain score of 9-10 out of 10 Given 10/25/2023 4:14 PM EDT 0.5 mg insulin lispro (Admelog) 100 units/mL injection - Correction - Standard Dose 0-5 Units, Subcutaneous, 3 times daily with meals, First dose on Sun10/25/23 at 0830, Until Discontinued, Routine insulin lispro (Admelog) injection - Correction - Nighttime Dose 0-3 Units, Subcutaneous, 2 times nightly (2100 & 0300), First dose on Sun10/24/23 at 2130, Until Discontinued, Routine iohexol (OMNIPaque) 300 MG/ML injection As needed, Starting on Zahraa 10/25/23 at 1459, Until Zahraa 10/25/23 at 1540, Routine, Intraprocedure Given 10/25/2023 2:59 PM EDT 8 mL ketorolac (Toradol) injection 15 mg 15 mg, Intravenous, Every 6 hours PRN, 5 doses, Starting on Zahraa 10/25/23 at 0647, Until Zahraa 10/25/23 at 1749, Routine, severe pain Given 10/25/2023 11:14 AM EDT 15 mg lactated Ringer's infusion 75 mL/hr, Intravenous, Continuous, Starting on Zahraa 10/25/23 at 0740, Until Zahraa 10/25/23 at 1749, Routine New Bag 10/25/2023 8:27 AM EDT 75 mL/hr 75 mL/hr morphine PF 4 mg 4 mg, Intravenous, Every 3 hours PRN, Starting on Sun10/24/23 at 1828, Until Zahraa 10/25/23 at 1749, STAT, severe pain Given 10/25/2023 6:00 AM EDT 4 mg Given 10/25/2023 1:41 AM EDT 4 mg Given 10/24/2023 10:46 PM EDT 4 mg naloxone (Narcan) injection 0.4 mg 0.4 mg, Intravenous, As needed, Starting on Zahraa 10/25/23 at 1509, Until Zahraa 10/25/23 at 1749, Routine, Recovery (Phase I only), respiratory depression ondansetron (Zofran) injection 4 mg 4 mg, Intravenous, Every 6 hours PRN, Starting on Sun10/24/23 at 1828, Until Zahraa 10/25/23 at 1749, STAT, nausea, vomiting Given 10/24/2023 10:46 PM EDT 4 m g ondansetron (Zofran) injection 4 mg 4 mg, Intravenous, Once as needed, 1 dose, Starting on Zahraa 10/25/23 at 1509, Until Zahraa 10/25/23 at 1749, Routine, Recovery (Phase I only), nausea, vomiting phenazopyridine (Pyridium) tablet 100 mg 100 mg, Oral, 3 times daily with meals, 6 doses, First dose on Sun10/25/23 at 0830, Last dose on Sun10/26/23 at 1730, Routine tamsulosin (Flomax) 24 hr capsule 0.4 mg 0.4 mg, Oral, Daily, First dose on Sun10/25/23 at 0900, Until Discontinued, Routine Given 10/25/2023 8:28 AM EDT 0.4 mg documented in this encounter Active and Recently Administered Medications Times are shown in EDT. Scheduled Medication Order 10/23/2023 10/24/2023 10/25/2023 amLODIPine (Norvasc) tablet 10 mg 10 mg, Oral, Daily, First dose on Sun10/24/23 at 2125, Until Discontinued, Recovery(Phase II-Outpatient)/On Unit(Inpatient) 2201 (Not Given - Provider: Isidra Carrera - Reason: Patient/family refused - Comment: Patient takes medication in the morning) 0828 (Given - Provider: Jaqueline Becker RN)1421 ([facility] Hold - Provider: Automatic Transfer Provider - Reason: Patient in procedure)1749 ([facility] Unhold - Provider: Automatic Discharge Provider) ceFAZolin (Ancef) injection 2 g (COMPLETED) 2 g, Intravenous, Once, 1 dose, On Sun10/25/23 at 1350, Routine, Anesthesia Intraprocedure 1446 (Given - Provid er: Reece Charlton MD) heparin (porcine) injection 5,000 Units (CANCELED) 5,000 Units, Subcutaneous, Every 8 hours scheduled, First dose on Sun10/25/23 at 0600, Until Discontinued, Routine, Holding - Preprocedure 0554 (Given - Provid er: Erika Haynes RN)1409 (Given - Provider: Margarita Chavarria RN)1421 ([facility] Hold - Provider: Automatic Transfer Provider - Reason: Patient in procedure)1538 ([facility] Unhold - Provider: Automatic Transfer Provider) ibuprofen tablet 600 mg (COMPLETED) 600 mg, Oral, Once, 1 dose, On Sun10/25/23 at 1700, Routine, Recovery (Phase I only) 1652 (Given - Provid er: Thuan Baker RN) insulin lispro (Admelog) 100 units/mL injection - Correction - Standard Dose 0-5 Units, Subcutaneous, 3 times daily with meals, First dose on Sun10/25/23 at 0830, Until Discontinued, Routine 0819 (Not Given - Provider: Jaqueline Becker RN - Reason: Order parameters not met)1203 (Not Given - Provider: Jaqueline Becker RN - Reason: Order parameters not met)1421 ([facility] Hold - Provider: Automatic Transfer Provider - Reason: Patient in procedure)1749 ([facility] Unhold - Provider: Automatic Discharge Provider) insulin lispro (Admelog) injection - Correction - Nighttime Dose 0-3 Units, Subcutaneous, 2 times nightly (2100 & 0300), First dose on Sun10/24/23 at 2130, Until Discontinued, Routine 2203 (Not Given - Provider: Isidra Carrera - Reason: Patient/family refused) 0235 (Not Given - Provider: Erika Haynes RN - Reason: Patient/family refused)1421 ([facility] Hold - Provider: Automatic Transfer Provider - Reason: Patient in procedure)1749 ([facility] Unhold - Provider: Automatic Discharge Provider) ketorolac (Toradol) injection 15 mg (COMPLETED) 15 mg, Intravenous, Once, 1 dose, On Sun10/24/23 at 1830, STAT 1848 (Given - Provider: sIidra Carrera) lactated Ringer's infusion 1,000 mL (COMPLETED) 1,000 mL, Intravenous, Once, 1 dose, On Sun10/24/23 at 1830, STAT 1849 (New Bag - Provider: Isidra Carrera) 0737 (Stopped - Provider: Jaqueline Becker RN) lactated Ringer's infusion 20 mL/hr, Intravenous, Once, 1 dose, On Sun10/25/23 at 1530, Routine 1530 (Canceled Entry - Provider: Automatic Discharge Provider - Comment: Automatically canceled at discontinue of medication order) oxybutynin (Ditropan) tablet 5 mg (COMPLETED) 5 mg, Oral, Once, 1 dose, On Sun10/25/23 at 1715, Routine, Recovery(Phase II-Outpatient)/On Unit(Inpatient) 1652 (Given - Provid er: Thuan Baker RN) phenazopyridine (Pyridium) tablet 100 mg 100 mg, Oral, 3 times daily with meals, 6 doses, First dose on Sun10/25/23 at 0830, Last dose on Sun10/26/23 at 1730, Routine 0828 (Not Given - Provider: Jaqueline Becker RN - Reason: Patient/family refused)1230 (Canceled Entry - Provider: Automatic Discharge Provider - Comment: Automatically canceled at discontinue of medication order)1421 ([facility] Hold - Provider: Automatic Transfer Provider - Reason: Patient in procedure)1749 ([facility] Unhold - Provider: Automatic Discharge Provider) phenazopyridine (Pyridium) tablet 100 mg (COMPLETED) 100 mg, Oral, Once, 1 dose, On Zahraa 10/25/23 at 1700, Routine, Recovery (Phase I only) 1652 (Given - Provid er: Thuan Baker RN) Povidone-Iodine 5 % swab solution 1 Application (COMPLETED) Nasal, Once, 1 dose, On Zahraa 10/25/23 at 0045, Routine 0136 (Given - Provid er: Erika Haynes RN) sodium chloride 0.9 % flush 10 mL (CANCELED)(Linked Group 1) 10 mL, Intravenous, Every 12 hours, First dose on Zahraa 10/25/23 at 0045, Until Discontinued, Routine, Holding - Preprocedure 0136 (Given - Provid er: Erika Haynes, HARJEET)1203 (Given - Provider: Jaqueline Becker RN)1421 ([facility] Hold - Provider: Automatic Transfer Provider - Reason: Patient in procedure)1538 ([facility] Unhold - Provider: Automatic Transfer Provider) tamsulosin (Flomax) 24 hr capsule 0.4 mg 0.4 mg, Oral, Daily, First dose on Zahraa 10/25/23 at 0900, Until Discontinued, Routine 0828 (Given - Provid er: Jaqueline Becker RN)1421 ([facility] Hold - Provider: Automatic Transfer Provider - Reason: Patient in procedure)1749 ([facility] Unhold - Provider: Automatic Discharge Provider) Continuous Medication Order 10/23/2023 10/24/2023 10/25/2023 lactated Ringer's infusion 75 mL/hr, Intravenous, Continuous, Starting on Zahraa 10/25/23 at 0740, Until Zahraa 10/25/23 at 1749, Routine 0827 (New Bag - Prov ider: Jaqueline Becker RN)1414 (Canceled Entry - Provider: Reece Charlton MD - Comment: Switch to gravity)1415 (Canceled Entry - Provider: Reece Charlton MD)1415 (Stopped - Provider: Reece Charlton MD) PRN Medication Order 10/23/2023 10/24/2023 10/25/2023 acetaminophen (Tylenol) tablet 1,000 mg (COMPLETED) 1,000 mg, Oral, Once as needed, 1 dose, Starting on Zahraa 10/25/23 at 1509, Until Zahraa 10/25/23 at 1616, Routine, Recovery (Phase I only), pain score of >1 out of 10 1616 (Given - Provid er: Carmen Humphries RN) dextrose 10 % (D10W) bolus 125 mL(Linked Group 2) 125 mL (12.5 g), Intravenous, Every 15 min PRN, Starting on Sun10/24/23 at 2128, Until Zahraa 10/25/23 at 1749, Administer over 15 Minutes, Routine, POC BG 71 to 89 mg/dL 1421 ([facility] Hold - Provider: Automatic Transfer Provider - Reason: Patient in procedure)174 ([facility] Unhold - Provider: Automatic Discharge Provider) dextrose 10 % (D10W) bolus 125 mL(Linked Group 3) 125 mL (12.5 g), Intravenous, Every 15 min PRN, Starting on Sun10/24/23 at 2128, Until Zahraa 10/25/23 at 1749, Administer over 15 Minutes, Routine, POC BG 51 to 70 mg/dL 1421 ([facility] Hold - Provider: Automatic Transfer Provider - Reason: Patient in procedure)174 ([facility] Unhold - Provider: Automatic Discharge Provider) dextrose 10 % (D10W) bolus 250 mL(Linked Group 4) 250 mL (25 g), Intravenous, Every 15 min PRN, Starting on Sun10/24/23 at 2128, Until Zahraa 10/25/23 at 1749, Administer over 15 Minutes, Routine, POC BG is less than or equal to 50 mg/dL 1421 ([facility] Hold - Provider: Automatic Transfer Provider - Reason: Patient in procedure)174 ([facility] Unhold - Provider: Automatic Discharge Provider) droperidol (Inapsine) injection 0.625 mg 0.625 mg, Intravenous, Once as needed, 1 dose, Starting on Zahraa 10/25/23 at 1509, Until Zahraa 10/25/23 at 1749, Routine, Recovery (Phase I only), nausea, vomiting fentaNYL (Sublimaze) injection 25 mcg 25 mcg, Intravenous, Every 5 min PRN, 2 doses, Starting on Sun10/25/23 at 1509, Until Sun10/25/23 at 1749, Routine, Recovery (Phase I only), pain score of 3-4 out of 10 glucagon (human recombinant) injection 1 mg 1 mg, Intramuscular, Every 15 min PRN, Starting on Sun10/24/23 at 2128, Until Zahraa 10/25/23 at 174, Routine, If patient NPO, lacks IV access, May Give IM and POC BG less than or equal to 70 mg/dL, 1421 ([facility] Hold - Provider: Automatic Transfer Provider - Reason: Patient in procedure)174 ([facility] Unhold - Provider: Automatic Discharge Provider) glucose (Glutose) 40 % oral gel 15 grams of glucose(Linked Group 2) 15 grams of glucose, Sublingual, Every 15 min PRN, Starting on Sun10/24/23 at 2128, Until Sun10/25/23 at 1749, Routine, low blood sugar, POC BG 71 to 89 mg/dL 1421 ([facility] Hold - Provider: Automatic Transfer Provider - Reason: Patient in procedure)1748 ([facility] Unhold - Provider: Automatic Discharge Provider) glucose (Glutose) 40 % oral gel 15 grams of glucose(Linked Group 3) 15 grams of glucose, Sublingual, Every 15 min PRN, Starting on Sun10/24/23 at 2128, Until Zahraa 10/25/23 at 1749, Routine, low blood sugar, BG 51?to 70 mg/dL 1421 ([facility] Hold - Provider: Automatic Transfer Provider - Reason: Patient in procedure)174 ([facility] Unhold - Provider: Automatic Discharge Provider) glucose (Glutose) 40 % oral gel 30 grams of glucose(Linked Group 4) 30 grams of glucose, Sublingual, Every 15 min PRN, Starting on Sun10/24/23 at 2128, Until Zahraa 10/25/23 at 1749, Routine, low blood sugar, POC BG is less than or equal to 50 mg/dL 1421 ([facility] Hold - Provider: Automatic Transfer Provider - Reason: Patient in procedure)174 ([facility] Unhold - Provider: Automatic Discharge Provider) HYDROmorphone (Dilaudid) injection 0.5 mg 0.5 mg, Intravenous, Every 10 min PRN, 2 doses, Starting on Zahraa 10/25/23 at 1509, Until Zahraa 10/25/23 at 1749, Routine, Recovery (Phase I only), pain score of 9-10 out of 10 1614 (Given - Provid er: Carmen Humphries RN) iohexol (OMNIPaque) 300 MG/ML injection (CANCELED) As needed, Starting on Zahraa 10/25/23 at 1459, Until Zahraa 10/25/23 at 1540, Routine, Intraprocedure 1459 (Given - Provid er: Abran Ruffin MD - Comment: LEFT RGP) ketorolac (Toradol) injection 15 mg 15 mg, Intravenous, Every 6 hours PRN, 5 doses, Starting on Zahraa 10/25/23 at 0647, Until Z[place]raa 10/25/23 at 1749, Routine, severe pain 1114 (Given - Provid er: Jaqueline Becker RN)1421 ([facility] Hold - Provider: Automatic Transfer Provider - Reason: Patient in procedure)1613 (Dose Auto Held)1749 ([facility] Unhold - Provider: Automatic Discharge Provider) morphine PF 4 mg 4 mg, Intravenous, Every 3 hours PRN, Starting on Sun10/24/23 at 1828, Until Zahraa 10/25/23 at 1749, STAT, severe pain 1958 (Given - Provider: Isidra Carrera)2246 (Given - Provider: Erika Haynes RN) 0141 (Given - Provider: Erika Haynes RN)0600 (Given - Provider: Erika Haynes RN)1421 ([facility] Hold - Provider: Automatic Transfer Provider - Reason: Patient in procedure)1749 ([facility] Unhold - Provider: Automatic Discharge Provider) naloxone (Narcan) injection 0.4 mg 0.4 mg, Intravenous, As needed, Starting on Zahraa 10/25/23 at 1509, Until Zahraa 10/25/23 at 1749, Routine, Recovery (Phase I only), respiratory depression ondansetron (Zofran) injection 4 mg 4 mg, Intravenous, Every 6 hours PRN, Starting on Sun10/24/23 at 1828, Until Zahraa 10/25/23 at 1749, STAT, nausea, vomiting 2246 (Given - Provider: Erika Haynes RN) 1421 ([facility] Hold - Provider: Automatic Transfer Provider - Reason: Patient in procedure)1749 ([facility] Unhold - Provider: Automatic Discharge Provider) ondansetron (Zofran) injection 4 mg 4 mg, Intravenous, Once as needed, 1 dose, Starting on Zahraa 10/25/23 at 1509, Until Zahraa 10/25/23 at 1749, Routine, Recovery (Phase I only), nausea, vomiting Linked Groups Order Group 1: Insert peripheral IV (COMPLETED) Once, On Zahraa 10/25/23 at 0044, For 1 occurrence, Holding - Preprocedure And Saline lock IV (COMPLETED) Once, On Zahraa 10/25/23 at 0044, For 1 occurrence, Holding - Preprocedure And sodium chloride 0.9 % flush 10 mL (CANCELED)Jump to med 10 mL, Intravenous, Every 12 hours, First dose on Zahraa 10/25/23 at 0045, Until Discontinued, Routine, Holding - Preprocedure And sodium chloride 0.9 % flush 10 mL (CANCELED) 10 mL, Intravenous, As needed, Starting on Zahraa 10/25/23 at 0043, Until Zahraa 10/25/23 at 1538, Routine, Holding - Preprocedure, line care Group 2: glucose (Glutose) 40 % oral gel 15 grams of glucoseJump to med 15 grams of glucose, Sublingual, Every 15 min PRN, Starting on Sun10/24/23 at 2128, Until Zahraa 10/25/23 at 1749, Routine, low blood sugar, POC BG 71 to 89 mg/dL Or dextrose 10 % (D10W) bolus 125 mLJump to med 125 mL (12.5 g), Intravenous, Every 15 min PRN, Starting on Sun10/24/23 at 2128, Until Zahraa 10/25/23 at 1749, Administer over 15 Minutes, Routine, POC BG 71 to 89 mg/dL Group 3: glucose (Glutose) 40 % oral gel 15 grams of glucoseJump to med 15 grams of glucose, Sublingual, Every 15 min PRN, Starting on Sun10/24/23 at 2128, Until Zahraa 10/25/23 at 1749, Routine, low blood sugar, BG 51?to 70 mg/dL Or dextrose 10 % (D10W) bolus 125 mLJump to med 125 mL (12.5 g), Intravenous, Every 15 min PRN, Starting on Sun10/24/23 at 2128, Until Zahraa 10/25/23 at 1749, Administer over 15 Minutes, Routine, POC BG 51 to 70 mg/dL Group 4: dextrose 10 % (D10W) bolus 250 mLJump to med 250 mL (25 g), Intravenous, Every 15 min PRN, Starting on Sun10/24/23 at 2128, Until Zahraa 10/25/23 at 1749, Administer over 15 Minutes, Routine, POC BG is less than or equal to 50 mg/dL Or glucose (Glutose) 40 % oral gel 30 grams of glucoseJump to med 30 grams of glucose, Sublingual, Every 15 min PRN, Starting on Sun10/24/23 at 2128, Until Zahraa 10/25/23 at 1749, Routine, low blood sugar, POC BG is less than or equal to 50 mg/dL documented in this encounter Additional Health Concerns Assessment Noted Time A fall risk assessment has been complete d for the patient 04/05/2021 8:37 AM EST documented as of this encounter Care Teams Support Services Coordinator Relationship Specialty Start Date End Date Jam Pimentel MD [address] [place] [address] PCP - General 09/10/20 documented as of this encounter
--- OUTSIDE RECORDS SUMMARY | 2024-04-15 10:10 | XMS_ITS | Encounter Summary ---
Author Organization [facility] Address [address] [place] [address] Care Team Providers Care Box Sealing Machine Feeder Name Role Phone Jam Pimentel MD Primary Care Provider [phone] Encounter Details Date Type Department Care Team (Late st Contact Info) Description 10/18/2020 Abstract [facility] Primary Care [address] [place] [id number] Jam Pimentel MD [address] [place] [id number] Social History Tobacco Use Types Packs/Day Years [...] have Coronavirus / COVID-19? No / Unsure 10/05/2020 8:47 AM EDT documented as of this encounter [...] AM EST Appointment [facility] [address] [place] [address] 06/24/2024 10:10 AM EST Office [facility] [address], [address] [place] [address] Nany Elias M, PEST CONTROL WORKER HELPER [address] [place] [address] documented as of this encounter Visit Diagnoses Not on filedocumented in this encounter Additional Health Concerns Assessment Noted Time A fall risk assessment has been complete d for the patient 10/05/2020 9:12 AM EDT documented as of this encounter Care Teams Box Sealing Machine Feeder Relationship Specialty Start Date End Date Jam Pimentel MD [address] [place] [address] PCP - General 09/10/20 documented as of this encounter
--- OUTSIDE RECORDS SUMMARY | 2024-04-15 10:10 | XMS_ITS | Encounter Summary ---
Author Organization Healthcare Address [address] [place] [place] [id number] Care Team Providers Care Light Truck Driver Name Role Phone Jam Pimentel MD Primary Care Provider [phone] Encounter Details Date Type Department Care Team (Latest Contact Info) Description 10/24/2023 Travel Social History Tobacco Use Types Packs/Day [...] EST Appointment [facility] [address] [place] [address] 06/24/2024 10:10 AM EST Office Visit [facility] [address] [place] [address] Nany Elias M, ENROLLMENT MANAGEMENT MANAGER [address] [place] [address] documented as of this encounter Visit Diagnoses Not on filedocumented in this encounter Additional Health Concerns Assessment Noted Time A fall risk assessment has been complete d for the patient 04/05/2021 8:37 AM EST documented as of this encounter Care Teams Light Truck Driver Relationship Specialty Start Date End Date Jam Pimentel MD [address] [place] [address] PCP - General 09/10/20 documented as of this encounter
--- OUTSIDE RECORDS SUMMARY | 2024-04-15 10:10 | XMS_ITS | Encounter Summary ---
Author Organization Healthcare Address [address] [place] [address] Care Team Providers Care Outsole Compressor Name Role Phone Jam Pimentel MD Primary Care Provider [phone] Encounter Details Date Type Department Care Team (Late Contact Info) Description 10/24/2023 Orders Only External Location [address] [place] [id number] Mingo Castro MD [address] [place] [address] [address] [place] [address] Social History Tobacco Use Types Packs/Day Years Used Date Smoking Tobacco: Never Smokeless Tobacco: Never Sex and Gender Information Value Date Recorded Sex Assigned at Not on file Legal Sex Male 8:35 PM EDT Gender Identity Not on file Sexual Orientation Not on file documented as of this encounter Plan of Treatment Upcoming Encounters Date Type Department Care Team (Late Contact Info) Description 06/24/2024 7:45 AM EST Appointment [facility] [address] [place] [address] 06/24/2024 10:10 AM EST Office [facility] [address] [place] [address] Nany Elias, GORDON [address] [facility] [address] [place] [address] documented as of this encounter Procedures Procedure Name Priority Date/Time Associated Diagnosis Comments CT OUTSIDE IMAGES 10/24/2023 12:28 PM EDT documented in this encounter Results * CT OUTSIDE IMAGES (10/24/2023 12:28 PM EDT) Anatomical Region Laterality Modality Computed Tomogra phy 10/24/2023 12:2 8 PM EDT Mingo Castro MD IMG CT PROCEDURES Final Result documented in this encounter Visit Diagnoses Not on filedocumented in this encounter Additional Health Concerns Assessment Noted Time A fall risk assessment has been complete d for the patient 04/05/2021 8:37 AM EST documented as of this encounter Care Teams Outsole Compressor Relationship Specialty Start Date End Date Jam Pimentel MD [address] [place] [address] PCP - General 09/10/20 documented as of this encounter
--- OUTSIDE RECORDS SUMMARY | 2024-04-15 10:10 | XMS_ITS | Encounter Summary ---
Author Organization Healthcare Address [address] [place] [id number] Care Team Providers Care Tabulating Clerk Name Role Phone Jam Pimentel MD Primary Care Provider [phone] Encounter Details Date Type Department Care Team (Latest Contact Info) Description 04/05/2021 Travel Social History Tobacco Use Types Packs/Day [...] AM EST documented as of this encounter Plan of Treatment Upcoming Encounters Date Type Department Care Team (Late st Contact Info) Description 06/24/2024 7:45 AM EST Appointment [facility] [address] [place] [address] 06/24/2024 10:10 AM EST Office Visit [facility] [address] [place] [address] Nany Elias, GORDON [address] [place] [address] documented as of this encounter Visit Diagnoses Not on filedocumented in this encounter Additional Health Concerns Assessment Noted Time A fall risk assessment has been complete d for the patient 04/05/2021 8:37 AM EST documented as of this encounter Care Teams Tabulating Clerk Relationship Specialty Start Date End Date Jam Pimentel MD [address] [place] [id number] PCP - General 09/10/20 documented as of this encounter
--- OUTSIDE RECORDS SUMMARY | 2024-04-15 10:10 | XMS_ITS | Encounter Summary ---
Author Organization Healthcare Address [address] [place] [address] Care Team Providers Care Tower Dragline Operator Name Role Phone Jam Pimentel MD Primary Care Provider [phone] Reason for Visit * Reason Comments Pain Encounter Details Date Type Department Care Team (Late st Contact Info) Description 10/05/2020 9:00 AM EDT Consult [facility] Inter[facility] Medicine [address] [place] [address] Mk Mtz MD [address] [place] [address] Chronic pain of left knee (Primary Dx); History of revision of total knee arthroplasty; History of total left knee replacement; Neuropathic pain; Chronic low back pain without sciatica, unspecified back pain laterality Social History Tobacco Use Types Packs/Day Years [...] Sign Reading Time Taken Comments Blood Pressure 123/75 10/05/2020 9:12 AM EDT Pulse 64 10/05/2020 9:12 AM EDT Temperature 36.8 ??C (98.2 ??F) 10/05/2020 9:12 AM ED T Respiratory Rate 16 10/05/2020 9:12 AM EDT Oxygen Saturation - - Inhaled Oxygen Concentration - - Weight 90.7 kg (200 lb) 10/05/2020 9:12 AM EDT Height 188 cm (6' 2 ) 10/05/2020 9:12 AM EDT Body Mass Index 25.68 10/05/2020 9:12 AM EDT documented in this encounter Miscellaneous Notes * Progress Notes - Dada Muro MD - 10/05/2020 9:00 AM EDT Subjective Chief Complaint: Left knee pain History of Presenting Illness Onset/Course: 50 yoM who is s/p left TKA and subsequent revision sent over by Dr Carney for evaluation for Genicular nerve ablation vs DRG. Initial Surgery was in 2017. Has had 8 total surgeries. Patient states his pain is in the front inferior portion of his knee. Will radiate into his aguirre. Sharppain, worsens with walking, movement, and flexion. Nothing relieves. Minimal relief with prednisone, currently taking meloxicam. Has completed PT and is now continuing HEP. Has had significant swelling ever since the surgery. Has significant color changes with exposure to hot shower or with increasing activity. Weakness in the left leg. Pain Location: Left knee Pain Quality: sharp and stabbing, some burning and tingling. Pain Intensity: 6 / 10 Aggravating Factors: walking, movement and flexion Alleviating Factors: sitting Associated Symptoms: none Current Outpatient Medications on File Prior to Visit Medication Sig Dispense Refill ??? amLODIPine-benazepril (Lotrel) 10-20 MG capsule ??? meloxicam (Mobic) 7.5 MG tablet TAKE 1 TABLET TWICE DAILY WITH FOOD. ??? metFORMIN XR (Glucophage-XR) 750 MG 24 hr tablet Take 1 tablet daily ??? methylPREDNISolone (Medrol Dospak) 4 MG tablets Take as directed No current facility-administered medications on file prior to visit. Previous Pain Medications prednisone (no benefit) Previous Non-Interventional Treatments physical therapy, > 6 weeks Previous Interventional Treatments Left TKA and revisions x 7 Review of Systems Constitutional: no fever, or weight loss Musculoskeletal: as per HPI Integumentary: no skin rashes, lesions or ulcers Neurological: as per HPI Psychiatric: as per HPI, most recent PHQ-9 score is Hematologic/Lymphatic: no enlarged lymph nodes or excessive bleeding, no use of blood thinners or anticoagulants Objective Imaging/Studies XR Knee Left 3 Views REQUESTING PHYSICIAN: SHELLI PETTIT REASON FOR EXAMINATION/PROCEDURE: Pain due to internal orthopedic prosthetic devices, implants and grafts, initial encounter; Presence of unspecified artificial knee joint EXAMINATION / PROCEDURE: KNE E 3 VIEWS LEFT Aug 03 2020 - 13:35; CLINICAL INDICATION: Pain due to internal orthopedic prosthetic devices, implants and grafts, initial TECHNIQUE: KNEE 3 VIEWS LEFT COMPARISON: 15 June 2020 FINDINGS: Left total knee arthrop lasty. No periprosthetic fracture. No hardware failure or loosening. Moderate knee effusion. IMPRESSION: Total knee arthroplasty. No hardware failure or loosening. CRITICAL RESULT: No. COMMUNICATION: Per this written report. Verified by: CAROLINA DAVID M.D. on Aug 03 2020 2:02P Transcribed by: [facility] on Aug 03 2020 2:02P Dictated by: CAROLINA DAVID M.D. on Aug 03 2020 2:02P Physical Exam Appearance: alert, oriented x 3, in NAD Extremity: no edema, no clubbing, no cyanosis Skin: no rash or ulcers Neurologic: Mo's negative, clonus negative, reflexes normal BUE and BLE Musculoskeletal Tone: normal Strength: 5/5 strength in BUE and BLE Dump Truck Operator Strength (R/L): 5/5 Wrist Flexion (R/L): 5/5 Wrist Extension (R/L): 5/5 Deltoids (R/L): 5/5 Triceps (R/L): 5/5 Bicep Flexion (R/L): 5/5 Hip Flexion (R/L): 5/4 Knee Flexion (R/L): 5/4 Knee Extension (R/L): 5/4 Dorsiflexion (R/L): 5/5 Plantarflexion (R/L): 5/5 Hip Exam: FADIR negative SI Exam: AL negative, anterior distraction negative, SI compression negative, Gaenslen negative,thigh thrust negative, Yasemin's finger negative Radicular Provocation: SLR negative, XSLR negative, slump negative, FAIR negative Facet: paraspinal tenderness negative, negative facet loading Significant swelling of the left knee, tender to palpation. Painful with flexion and extension. Left ankle swelling compared to right. Assessment/Plan Left knee pain - s/p Left TKA and revision with multiple surgeries since 2017 - has not had injections since surgeries - has completed PT, continues HEP, -Failed conservative measures, unlikely to benefit from genicular blocks given extensive surgery -Will order Left L 3,4 DRG when patient calls with decision - ordered L spine MRI and Dr Tello consult Neuropathic pain - has burning tingling component to his knee pain - significant windup phenomena - consider addition of gabapentin in the future. - DRG as above Low back pain - has low back pain likely as a result of antalgic gait Cosigned by Mk Mtz MD at 10/05/2020 10:17 AM EDT Associated attestation - Mk Mtz MD - 10/05/2020 10:17 AM EDT I saw and evaluated the patient with the resident/fellow. I discussed the case with the resident/fellow and agree with the findings and plan as documented. documented in this encounter Plan of Treatment Upcoming Encounters Date Type Department Care Team (Late st Contact Info) Description 06/24/2024 7:45 AM EST Appointment [facility] [address] [place] [address] 06/24/2024 10:10 AM EST Office Visit [facility] [address] [place] [address] Nany Elias APRN [address] [place] [address] documented as of this encounter Visit Diagnoses Diagnosis Chronic pain of left knee- Primary History of revision of total knee arthroplasty History of total left knee replacement Neuropathic pain Chronic low back pain without sciatica, unspecified back pain laterality documented in this encounter Additional Health Concerns Assessment Noted Time A fall risk assessment has been complete d for the patient 10/05/2020 9:12 AM EDT documented as of this encounter Care Teams Tower Dragline Operator Relationship Specialty Start Date End Date Jam Pimentel MD [address] [place] [address] PCP - General 09/10/20 documented as of this encounter
--- OUTSIDE RECORDS SUMMARY | 2024-04-15 10:10 | XMS_ITS | Encounter Summary ---
Author Organization Healthcare Address [address] [place] [address] Care Team Providers Care Cattle Examiner Name Role Phone Jam Pimentel MD Primary Care Provider [phone] Reason for Referral * Imaging (Routine) - Closed Specialty Diagnoses / Procedures Referred By Elidia light Referred To Contact Radiology Diagnoses Kidney stone Procedures US Renal Complete Abran Ruffin MD [address] [address] Phone: tel: fax: Referral ID Status Reason Start Date Expiration Date Visits Re quested Visits Authorized [id number] Closed 10/25/2023 04/25/2025 1 1 Reason for Visit * Reason Comments Flank Pain * Auth/Cert (Routine) Specialty Diagnoses / Procedures Referred By Elidia light Referred To Contact Diagnoses Kidney stone obstructing 6 mm kidney stone Abran Ruffin MD [address] [address] Phone: tel: fax: [facility] Emergency Department [address] [place] [address] Phone: tel: Referral ID Status Reason Start Date Expiration Date Visits Re quested Visits Authorized [id number] 1 1 Encounter Details Date Type Department Care Team ([facility] st Contact Info) Description 10/24/2023 4:51 PM EDT - 10/25/2023 5:24 PM EDT Hospital Encounter [facility] OPERATING ROOM [address] [place] [address] kM Amado MD [address] [place] [address] Debra Fernando MD [address] [place] [address] Abran Ruffin MD [address] [place] [address] Kidney stone (Primary Dx); Urinary tract obstruction by kidney stone Discharge Disposition: Home or Self Care [...] Sign Reading Time Taken Comments Blood Pressure 125/74 10/25/2023 4:45 PM EDT Pulse 61 10/25/2023 4:45 PM EDT Temperature 36.4 ??C (97.5 ??F) 10/25/2023 4:45 PM ED T Respiratory Rate 20 10/25/2023 4:45 PM EDT Oxygen Saturation 95% 10/25/2023 4:45 PM EDT Inhaled Oxygen Concentration - - [...] confirm your location ahead of your appointment) [facility] Urology Department Clinic at [facility] [address] [facility], 2nd Floor, [facility], [address] [place] [address] Clinic After Hours [facility] Office Building Urology Clinic [address] [place] [address] Clinic After Hours documented in this encounter [...] up to 3 days. 10 tablet 10/25/2023 tamsulosin (Flomax) 0.4 MG 24 hr capsule [...] PCP name and Address: Jam Pimentel MD [address] / [facility] [address] Referring provider name and address: Kiran Castro MD [address] [place] [phone] Chief Concern, Brief History of Present Illness, [...] Your Medications These medications were sent to [facility] [place], [place] - [address] [facility] [address] ibuprofen 600 MG tablet phenazopyridine 100 MG tablet tamsulosin 0.4 MG 24 hr capsule Discharge Diagnosis Medical Problems Active and Resolved Hospital Problems Hospital Diabetes mellitus, type 2 ([facility]) HTN (hypertension) * (Principal) Kidney stone Post Discharge Instructions In AVS Outpatient Follow-Up No future appointments. Test Results Pending At Discharge Pending Labs Order Current Status Calculi (Kidney Stone) Analysis Collected (10/25/23 0047) Urine culture - clean catch In process Pertinent Physical Exam At Time of Discharge Physical Exam Vitals and nursing note reviewed. Exam conducted with a steelscope operator present. Constitutional: General: He is not in [...] Postoperative Diagnosis: Same Surgeon: Abran Ruffin MD Pool Nurse Surgeon: Amor Galeana MD PGY3 Intraoperative Findings: [...] the larger piece with a 1.9Fr n quechan basket. The stones were sent for analysis. [...] an initial assessment when patient is available. In??KAMILLE Castrejon, configuration management manager * Progress Notes - Amor Galeana MD - 10/25/2023 9:01 AM EDT [facility] Urology Inpatient Progress Note SUBJECTIVE: - Pain [...] from last 7 days Lab Units 10/24/23 2025 COLOR UA Yellow SPEC GRAV U 1.009 [...] MD Consult ordered by: Mk Amado MD [facility] Urology Consult Note 10/24/23 Service Requesting Consultation: ED CC: kidney stone HPI: Mk Ardon is a 53 y.o. male with history of HTN, DM presents as transfer from OSH. He hasbeen having left flank pain for [...] Date KNEE SURGERY N/A Knee Surgery from [employer] Family History: reviewed Family History Problem Relation [...] from last 7 days Lab Units 10/24/23 2025 COLOR UA Yellow SPEC GRAV U 1.009 [...] pain. Plan: - Admit to Urology - [facility] - NPO at midnight - Consented - To OR tomorrow for left URS LL. Posted as ROXIE Murray MD Cosigned by Abran Ruffin MD [...] injection 15 mg 15 mg Intravenous Given [facility] 10/24/2023 184 EDT lactated Ringer's infusion 1,000 mL 1,000 mL Intravenous New Bag [facility] 10/24/20238 EDT morphine PF 4 mg 4 mg Intravenous Given [facility] 10/24/20232201 EDT amLODIPine (Norvasc) tablet 10 mg 10 mg Oral Not Given [facility] 10/24/20232202 EDT insulin lispro (Admelog) injection - Correction - Nighttime Dose -- Subcutaneous Not Given [facility] 10/24/20232245 EDT morphine PF 4 mg 4 mg Intravenous Given [facility] 10/24/20232245 EDT ondansetron (Zofran) injection 4 mg [...] 6mm kidney stone that was found at [facility]. Patient transferred here. Given 1mg dilaudid at 1530. Endorses 6/10 pain at this time. documented in this encounter Plan of Treatment Upcoming Encounters Date Type Department Care Team (Late st Contact Info) Description 06/24/2024 7:45 AM EST Appointment [facility] Radiology [address] [place] [address] 06/24/2024 10:10 AM EST Office Visit [place] [facility] [address], [address] [place] [phone] Nany Elias APRN [address] [place] [address] Scheduled Orders Name Type Priority Associated Diagnoses [...] 10/25/2023 3:43 PM EDT [facility] Talent Acquisition Program Manager ID Beti Concepcion 3:43 PM EDT [facility] Device ID [id number] 10/25/2023 3:43 PM EDT [facility] Specimen Type POC Capillary 10/25/2023 3:43 PM EDT [facility] Blood Capillary blood specimen / Unknown 10/25/2023 3:40 PM EDT 10/25/2023 3:43 PM EDT Abran Ruffin MD LAB POINT OF CARE TEST DOCKED DEVICE UNSOLICITED RESULTS Final Result [facility] [address] [place] [address] * Calculi (Kidney Stone) Analysis (10/25/2023 3:17 PM EDT) Calculi Mass 5 mg 10/30/2023 7:58 PM EDT [facility] ([facility]) Calculi Description See Note 10/30/2023 7:58 PM EDT [facility] ([facility]) Calculi Composition See Note 10/30/2023 7:58 PM EDT [facility] ([facility]) Calculus Left kidney structure / Unknown 10/25/2023 3:17 PM EDT 10/25/2023 4:09 PM EDT Comment:Pre-op diagnosis: Kidney stone [N20.0] Narrative [facility] ([employer]) - 10/30/2023 7:58 PM EDT Specimen consists [...] composition determined by FTIR analysis. Performed By: [employer] [address] [place] [id number] Manager Digital Ad Operations: Messi Zelaya MD, PhD CLIA Number: [id number] us Abran Ruffin MD LAB REF LAB BLOOD AND FLUI D ORD Final Result [facility] ([facility]) [address] [place] [address] * POCT glucose meter (10/25/2023 12:01 PM EDT) [facility] POCT Glucose 94 74 - 99 mg/dL 10/25/2023 12:03 PM EDT [facility] Comment:Accuracy of [...] for testing. Comment 10/25/2023 12:03 PM EDT [facility] Talent Acquisition Program Manager ID Grisel Tyler [id number] 12:03 PM EDT [facility] Device ID [id number] 10/25/2023 12:03 PM EDT [facility] Specimen Type POC Capillary 10/25/2023 12:03 PM EDT [facility] Blood Capillary blood specimen / Unknown 10/25/2023 12:01 PM EDT 10/25/2023 12:03 PM EDT Abran Ruffin MD LAB POINT OF CARE TEST DOCKED DEVICE UNSOLICITED RESULTS Final Result [facility] [address] [place] [address] * ECG Adult (10/25/2023 10:54 AM EDT) [facility] EKG DIAGNOSIS CLASS Borderline Abnormal MUSE ECG Ventricular Rate 55 BPM MUSE ECG Atrial Rate 55 BPM MUSE ECG SC Interval 186 ms MUSE ECG QRSD Interval 84 ms MUSE ECG QT Interval 450 ms MUSE ECG QTC Interval 430 ms MUSE ECG P [place] -14 degrees MUSE ECG R [place] -15 degrees MUSE ECG T Wave [place] -11 degrees MUSE ECG Diagnosis Sinus bradycardia MUSE ECG Diagnosis Otherwise normal ECG MUSE ECG Diagnosis Confirmed by Matt Moore ([id number]) on 10/25/2023 4:29:51 PM MUSE ECG 10/25/2023 10:5 4 AM EDT 10/25/2023 4:29 PM EDT Mary Stevens APRN ECG ORDERABLES Final Resu lt Performing Organization Address City/[facility] Co de Phone Number MUSE ECG * POCT glucose meter (10/25/2023 5:48 AM EDT) POCT Glucose 93 74 - 99 mg/dL [...] Comment 10/25/2023 5:50 AM EDT [facility] Talent Acquisition Program Manager ID Dom Sanchez 10/25/19 5:50 AM EDT [facility] Device ID [id number] 10/25/2023 5:50 AM EDT [facility] Specimen Type POC Capillary 10/25/2023 5:50 AM EDT [facility] Blood Capillary blood specimen / Unknown 10/25/2023 5:48 AM EDT 10/25/2023 5:50 AM EDT Abran Ruffin MD LAB POINT OF CARE TEST DOCKED DEVICE UNSOLICITED RESULTS Final Result Performing Organization Address City/[facility] de Phone Number [facility] [address] [place] [address] * Urine culture - clean catch (10/24/2023 8:56 PM EDT) Culture No growth at day 1 10/25/2023 5:00 PM EDT [facility] Urine Urine specimen obtained by clean catch procedure / Unknown Non-blood Collection / Unknown 10/24/2023 8:56 PM EDT 10/24/2023 9:19 PM EDT Mk Amado MD LAB MICROBIOLOGY - GENERAL ORDERABLES Final Result [facility] [address] [place] [id number] * (ABNORMAL) Urinalysis, manual only (10/24/2023 8:25 PM EDT) Color, Urine Yellow LAB URINALYSIS - AUTOMATED METHOD 10/24/2023 8:31 PM EDT [facility] Clarity, Urine Clear LAB URINALYSIS - AUTOMATED METHOD 10/24/2023 8:31 PM EDT [facility] Spec [place], Urine 1.009 <=1.005 to >=1.030 LAB URINALYSIS - AUTOMATED METHOD 10/24/2023 8:31 PM EDT [facility] pH, Urine 7.0 4.5 to 8 LAB URINALYSIS - AUTOMATED METHOD 10/24/2023 8:31 PM EDT [facility] Protein, Urine Negative Negative mg/dL LAB URINALYSIS - AUTOMATED METHOD 10/24/2023 8:31 PM EDT [facility] Glucose, Urine Negative Negative mg/dL LAB URINALYSIS - AUTOMATED METHOD 10/24/2023 8:31 PM EDT [facility] Ketones, Urine Negative Negative mg/dL LAB URINALYSIS - AUTOMATED METHOD 10/24/2023 8:31 PM EDT [facility] Blood, Urine Trace(A) Negative LAB URINALYSIS - AUTOMATED METHOD 10/24/2023 8:31 PM EDT [facility] Bilirubin, Urine Negative Negative LAB URINALYSIS - AUTOMATED METHOD 10/24/2023 8:31 PM EDT [facility] Urobilinogen, Urine 0.2 0.2 to 1.0 mg/dL LAB URINALYSIS - AUTOMATED METHOD 10/24/2023 8:31 PM EDT [facility] Leukocytes, Urine Trace(A) Negative LAB URINALYSIS - AUTOMATED METHOD 10/24/2023 8:31 PM EDT [facility] Nitrite, Urine Negative Negative LAB URINALYSIS - AUTOMATED METHOD 10/24/2023 8:31 PM EDT [facility] Urine Urine specimen obtained by clean catch procedure / Unknown Non-blood Collection / Unknown 10/24/2023 8:25 PM EDT 10/24/2023 8:28 PM EDT Mk Amado MD LAB URINE ORDERABLES Final Result Performing Organization Address [facility] de Phone Number [facility] [address] [place] [address] * Urinalysis microscopic (10/24/2023 8:25 PM EDT) RBC, Urine <1 0 to 3 /HPF LAB URINALYSIS - AUTOMATED METHOD 10/24/2023 9:17 PM EDT [facility] WBC, Urine 0 - 5 0 to 5 /HPF LAB URINALYSIS - AUTOMATED METHOD 10/24/2023 9:17 PM EDT [facility] Squamous Epithelial Cells 0 - 2 0 to 5 /HPF LAB URINALYSIS - AUTOMATED METHOD 10/24/2023 9:17 PM EDT [facility] Hyaline Casts 0 - 2 0 to 5 /LPF LAB URINALYSIS - AUTOMATED METHOD 10/24/2023 9:17 PM EDT [facility] Bacteria, Urine Negative Negative LAB URINALYSIS - AUTOMATED METHOD 10/24/2023 9:17 PM EDT [facility] Urine Urine specimen obtained by clean catch procedure / Unknown Non-blood Collection / Unknown 10/24/2023 8:25 PM EDT 10/24/2023 8:28 PM EDT Mk Amado MD LAB URINE ORDERABLES Final Result Performing Organization Address [facility] de Phone Number [facility] [address] [place] [address] * ED HIV 1/2 Antibody/Antigen Screen w/Reflex to HIV 1/2 Differentiation (10/24/2023 6:46 PM EDT) HIV 1 & 2 Antibody/Antigen Screen Non Reactive Non Reactive 10/24/2023 7:36 PM EDT [facility] Comment:Screening for HIV 1 & 2 antibodies, and P24 antigen is NONREACTIVE. No confirmatory testing is required. Blood Venous blood specimen / Unknown Venipuncture / Unknown 10/24/2023 6:46 PM EDT 10/24/2023 6:55 PM EDT Mk Amado MD LAB BLOOD ORDERABLES Final Result [facility] [address] [place] [address] * Hepatitis C Antibody - ED (10/24/2023 6:46 PM EDT) [facility] Hepatitis C Antibody Negative Negative 10/24/2023 7:36 PM EDT [facility] Blood Venous blood specimen / Unknown Venipuncture / Unknown 10/24/2023 6:46 PM EDT 10/24/2023 6:55 PM EDT Mk Amado MD LAB BLOOD ORDERABLES Final Result [facility] [address] [place] [address] * (ABNORMAL) CMP (10/24/2023 6:46 PM EDT) [facility] Glucose, Plasma 114(H) 74 - 99 mg/dL 10/24/2023 7:27 PM EDT [facility] BUN, Plasma 13 7 - 21 mg/dL 10/24/2023 7:27 PM EDT [facility] Creatinine, Plasma 1.04 0.80 - 1.30 mg/dL 10/24/2023 7:27 PM EDT [facility] BUN/Creatinine Ratio 13 10/24/2023 7:27 PM EDT [facility] Sodium, Plasma 144 136 - 145 mmol/L 10/24/2023 7:27 PM EDT [facility] Potassium, Plasma 4.0 3.7 - 4.8 mmol/L 10/24/2023 7:27 PM EDT [facility] Chloride, Plasma 106 97 - 107 mmol/L 10/24/2023 7:27 PM EDT [facility] CO2, Plasma 27 22 - 29 mmol/L 10/24/2023 7:27 PM EDT [facility] Anion Gap 11 6 - 16 mmol/L 10/24/2023 7:27 PM EDT [facility] Total Calcium, Plasma 10.1 8.9 - 10.2 mg/dL 10/24/2023 7:27 PM EDT [facility] Total Protein 7.2 6.3 - 7.9 g/dL 10/24/2023 7:27 PM EDT [facility] Albumin, Plasma 4.4 3.5 - 5.2 g/dL 10/24/2023 7:27 PM EDT [facility] AST, Plasma 16 10 - 50 U/L 10/24/2023 7:27 PM EDT [facility] ALT, Plasma 12 10 - 50 U/L 10/24/2023 7:27 PM EDT [facility] Alkaline Phosphatase, Plasma 95 40 - 115 U/L 10/24/2023 7:27 PM EDT [facility] Total Bilirubin, Plasma 1.5(H) 0.2 - 1.1 mg/dL 10/24/2023 7:27 PM EDT [facility] eGFRcr 85.3 mL/min/1.7 3m*2 10/24/2023 7:27 PM EDT [facility] Comment:Reported eGFRcr in m L/min/1.73m2 is based the CKD-EPI 2020 equation that does not use a race coefficient. Blood Venous blood specimen / Unknown Venipuncture / Unknown 10/24/2023 6:46 PM EDT 10/24/2023 6:55 PM EDT us Mk Amado MD LAB BLOOD ORDERABLES Final Result [facility] [address] [place] [address] * (ABNORMAL) CBC w/diff (10/24/2023 6:46 PM EDT) WBC Count 11.58(H) 3.70 - 10.30 10*3/uL LAB HEMATOLOGY METHOD 10/24/2023 7:08 PM EDT [facility] RBC Count 4.95 4.60 - 6.10 10*6/uL LAB HEMATOLOGY METHOD 10/24/2023 7:08 PM EDT [facility] HGB 14.2 13.7 - 17.5 g/dL LAB HEMATOLOGY METHOD 10/24/2023 7:08 PM EDT [facility] HCT 42.6 40.0 - 51.0 % LAB HEMATOLOGY METHOD 10/24/2023 7:08 PM EDT [facility] Platelet Count 331 155 - 369 10*3/uL LAB HEMATOLOGY METHOD 10/24/2023 7:08 PM EDT [facility] MCV 86 79 - 98 fL LAB HEMATOLOGY METHOD 10/24/2023 7:08 PM EDT [facility] MCH 28.7 26.0 - 32.0 pg LAB HEMATOLOGY METHOD 10/24/2023 7:08 PM EDT [facility] MCHC 33.3 30.7 - 35.5 g/dL LAB HEMATOLOGY METHOD 10/24/2023 7:08 PM EDT [facility] RDW 12.5 11.5 - 14.5 % LAB HEMATOLOGY METHOD 10/24/2023 7:08 PM EDT [facility] MPV 9.4 8.8 - 12.5 fL LAB HEMATOLOGY METHOD 10/24/2023 7:08 PM EDT [facility] nRBC 0.0 <=0.0 per 100 WBCs LAB HEMATOLOGY METHOD 10/24/2023 7:08 PM EDT [facility] Differential Type Automated LAB HEMATOLOGY METHOD 10/24/2023 7:08 PM EDT [facility] Neutrophils % 63.0 % LAB HEMATOLOGY METHOD 10/24/2023 7:08 PM EDT [facility] Lymphocytes % 24.0 % LAB HEMATOLOGY METHOD 10/24/2023 7:08 PM EDT [facility] Monocytes % 10.0 % LAB HEMATOLOGY METHOD 10/24/2023 7:08 PM EDT [facility] Eosinophils % 2.0 % LAB HEMATOLOGY METHOD 10/24/2023 7:08 PM EDT [facility] Basophils % 1.0 % LAB HEMATOLOGY METHOD 10/24/2023 7:08 PM EDT [facility] Immature Granulocytes % 0.0 % LAB HEMATOLOGY METHOD 10/24/2023 7:08 PM EDT [facility] Neutrophils Absolute 7.40(H) 1.60 - 6.10 10*3/uL LAB HEMATOLOGY METHOD 10/24/2023 7:08 PM EDT [facility] Lymphocytes Absolute 2.72 1.20 - 3.90 10*3/uL LAB HEMATOLOGY METHOD 10/24/2023 7:08 PM EDT [facility] Monocytes Absolute 1.20(H) 0.30 - 0.90 10*3/uL LAB HEMATOLOGY METHOD 10/24/2023 7:08 PM EDT [facility] Eosinophils Absolute 0.17 0.00 - 0.50 10*3/uL LAB HEMATOLOGY METHOD 10/24/2023 7:08 PM EDT [facility] Basophils Absolute 0.06 0.00 - 0.10 10*3/uL LAB HEMATOLOGY METHOD 10/24/2023 7:08 PM EDT [facility] Immature Granulocytes Absolute 0.03 0.00 - 0.06 10*3/uL LAB HEMATOLOGY METHOD 10/24/2023 7:08 PM EDT [facility] Blood Venous blood specimen / Unknown Venipuncture / Unknown 10/24/2023 6:46 PM EDT 10/24/2023 6:55 PM EDT Narrative [facility] - 10/24/2023 7:08 PM EDT Therapeutic decision making should be based on absolute values, rather than percentages. us Mk Amado MD LAB BLOOD ORDERABLES Final Result [facility] [address] [place] [id number] documented in this encounter Visit Diagnoses Diagnosis Kidney stone- Primary Calculus of kidney Kidney stone Calculus of kidney Urinary tract obstruction by kidney stone HTN (hypertension) Unspecified essential hypertension Diabetes mellitus, type 2 (CMS/HCC) Type II or unspecified type diabetes mellitus without mention of complication, not stated as uncontrolled Kidney stone Calculus of kidney documented in this encounter Admitting Diagnoses Diagnosis Kidney stone Calculus of kidney documented in this encounter Administered Medications Inactive Administered Medications - up to 3 most recent administrations Medication Order MAR Action Action Date Dose Rate Site acetaminophen (Tylenol) tablet 1,000 mg 1,000 mg, Oral, Once as needed, 1 dose, Starting on Zahraa 10/25/23 at 1509, Until Zahraa 10/25/23 at 1616, Routine, Recovery (Phase I only), pain score of >1 out of 10 Given 10/25/2023 4:16 PM EDT 1,000 mg amLODIPine (Norvasc) tablet 10 mg 10 mg, [...] on Sun10/24/23 at 2127, Until Sun10/25/23 at 1748, Administer over 15 Minutes, Routine, POC BG 51 to 70 mg/dL dextrose 10 % (D10W) bolus 250 mL 250 mL (25 g), Intravenous, Every 15 min PRN, Starting on Sun10/24/23 at 2127, Until Sun10/25/23 at 1748, Administer over 15 Minutes, Routine, POC BG is less than or equal to 50 mg/dL droperidol (Inapsine) injection 0.625 mg 0.625 mg, Intravenous, Once as needed, 1 dose, Starting on Sun10/25/23 at 1509, Until Sun10/25/23 at 1748, Routine, Recovery (Phase I only), nausea, vomiting fentaNYL (Sublimaze) injection 25 mcg 25 mcg, Intravenous, Every 5 min PRN, 2 doses, Starting on Sun10/25/23 at 1509, Until Sun10/25/23 at 1748, Routine, Recovery (Phase I only), pain score of 3-4 out of 10 glucagon (human recombinant) injection 1 mg 1 mg, Intramuscular, Every 15 min PRN, Starting on Sun10/24/23 at 2127, Until Sun10/25/23 at 1748, Routine, If patient NPO, lacks IV access, May Give IM and POC BG less than or equal to 70 mg/dL, glucose (Glutose) 40 % oral gel 15 grams of glucose 15 grams of glucose, Sublingual, Every 15 min PRN, Starting on Sun10/24/23 at 2127, Until Sun10/25/23 at 174, Routine, low blood sugar, POC BG 71 [...] less than or equal to 50 mg/dL heparin (porcine) injection 5,000 Units 5,000 Units, Subcutaneous, Every 8 hours scheduled, First dose on Sun10/25/23 at 0600, Until Discontinued, Routine, Holding - Preprocedure Given 10/25/2023 2:09 PM EDT 5,000 Units Right Lower Abdomen Given 10/25/2023 5:54 AM EDT 5,000 Units L eft Lower Abdomen HYDROmorphone (Dilaudid) injection 0.5 mg 0.5 mg, Intravenous, Every 10 min PRN, 2 doses, Starting on Sun10/25/23 at 1509, Until Sun10/25/23 at 1749, Routine, Recovery (Phase I only), pain score of 9-10 out of 10 Given 10/25/2023 4:14 PM EDT 0.5 mg ibuprofen tablet 600 mg 600 mg, Oral, Once, 1 dose, On Sun10/25/23 at 1700, Routine, Recovery (Phase I only) Given 10/25/2023 4:52 PM EDT 600 mg insulin lispro (Admelog) 100 units/mL injection - Correction - Standard Dose 0-5 Units, Subcutaneous, 3 times daily with meals, First dose on Sun10/25/23 at 0830, Until Discontinued, Routine insulin lispro (Admelog) injection - Correction - Nighttime Dose 0-3 Units, Subcutaneous, 2 times nightly (2100 & 0300), First dose on Sun10/24/23 at 2130, Until Discontinued, Routine ketorolac (Toradol) injection 15 mg 15 mg, Intravenous, Once, 1 dose, On Sun10/24/23 at 1830, STAT Given 10/24/2023 6:48 PM EDT 15 mg ketorolac (Toradol) injection 15 mg 15 mg, Intravenous, Every 6 hours PRN, 5 doses, Starting on Sun10/25/23 at 0647, Until Sun10/25/23 at 1749, Routine, severe pain Given 10/25/2023 11:14 AM EDT 15 mg lactated Ringer's infusion 1,000 mL 1,000 mL, Intravenous, Once, 1 dose, On Sun10/24/23 at 1830, STAT New Bag 10/24/2023 6:49 PM EDT 1,000 mL lactated Ringer's infusion 75 mL/hr, Intravenous, Continuous, Starting on Sun10/25/23 at 0740, Until Sun10/25/23 at 1749, Routine New Bag 10/25/2023 8:27 AM EDT 75 mL/hr 75 mL/ hr morphine PF 4 mg 4 mg, Intravenous, Every 3 hours PRN, Starting on Sun10/24/23 at 1828, Until Sun10/25/23 at 1749, STAT, severe pain Given 10/25/2023 6:00 AM EDT 4 mg Given 10/25/2023 1:41 AM EDT 4 mg Given 10/24/2023 10:46 PM EDT 4 mg naloxone (Narcan) injection 0.4 mg 0.4 mg, Intravenous, As needed, Starting on Sun10/25/23 at 1509, Until Sun10/25/23 at 1749, Routine, Recovery (Phase I only), respiratory depression ondansetron (Zofran) injection 4 mg 4 mg, Intravenous, Every 6 hours PRN, Starting on Sun10/24/23 at 1828, Until Sun10/25/23 at 1749, STAT, nausea, vomiting Given 10/24/2023 10:46 PM EDT 4 mg ondansetron (Zofran) injection 4 mg 4 mg, Intravenous, Once as needed, 1 dose, Starting on Sun10/25/23 at 1509, Until Sun10/25/23 at 1749, Routine, Recovery (Phase I only), nausea, vomiting oxybutynin (Ditropan) tablet 5 mg 5 mg, Oral, Once, 1 dose, On Sun10/25/23 at 1715, Routine, Recovery(Phase II-Outpatient)/On Unit(Inpatient) Given 10/25/2023 4:52 PM EDT 5 mg phenazopyridine (Pyridium) tablet 100 mg 100 mg, Oral, 3 times daily with meals, 6 doses, First dose on Sun10/25/23 at 0830, Last dose on Sun10/26/23 at 1730, Routine phenazopyridine (Pyridium) tablet 100 mg 100 mg, Oral, Once, 1 dose, On Zahra[place] 10/25/23 at 1700, Routine, Recovery (Phase I only) Given 10/25/2023 4:52 PM EDT 100 mg Povidone-Iodine 5 % swab solution 1 Application Nasal, Once, 1 dose, On Zahraa 10/25/23 at 0045, Routine Given 10/25/2023 1:36 AM EDT 1 Application sodium chloride 0.9 % flush 10 mL 10 mL, Intravenous, Every 12 hours, First dose on Zahraa 10/25/23 at 0045, Until Discontinued, Routine, Holding - Preprocedure Given 10/25/2023 12:03 PM EDT 10 mL Given 10/25/2023 1:36 AM EDT 10 mL tamsulosin (Flomax) 24 hr capsule 0.4 mg 0.4 mg, Oral, Daily, First dose on [place]ah[place] 10/25/23 at 0900, Until Discontinued, Routine Given 10/25/2023 [...] 0828 (Given - Provider: Jaqueline Becker RN)1421 (JUN Hold - Provider: Automatic Transfer Provider - Reason: Patient in procedure)1749 ([facility]UN Unhold - Provider: Automatic Discharge Provider) ceFAZolin (Ancef) injection 2 g (COMPLETED) 2 g, Intravenous, Once, 1 dose, On Zahraa 10/25/23 at 1350, Routine, Anesthesia Intraprocedure 1446 (Given - Provid er: Reece Charlton MD) heparin (porcine) injection 5,000 Units (CANCELED) 5,000 Units, Subcutaneous, Every 8 hours scheduled, First dose on Zahraa 10/25/23 at 0600, Until Discontinued, Routine, Holding - Preprocedure 0554 (Given - Provid er: Erika Haynes RN)1409 (Given - Provider: Margarita Chavarria RN)1421 (JUN Hold - Provider: Automatic Transfer Provider - Reason: Patient in procedure)1538 (MAR Unhold - Provider: Automatic Transfer Provider) ibuprofen [...] RN - Reason: Order parameters not met)1421 (MAR Hold - Provider: Automatic Transfer Provider - Reason: Patient in procedure)1749 ([facility] Unhold - Provider: Automatic Discharge Provider) insulin lispro (Admelog) injection - Correction - Nighttime Dose 0-3 Units, Subcutaneous, 2 times nightly (2100 & 0300), First dose on Sun10/24/23 at 2130, Until Discontinued, Routine 2203 (Not Given - Provider: Isidra Carrera - Reason: Patient/family refused) 0235 (Not Given - Provider: Erika Haynes RN - Reason: Patient/family refused)1421 (MAR Hold - Provider: Automatic Transfer Provider - Reason: Patient in procedure)1749 ([facility] Unhold - Provider: Automatic Discharge Provider) ketorolac (Toradol) injection 15 mg (COMPLETED) 15 mg, Intravenous, Once, 1 dose, On Sun10/24/23 at 1830, STAT 1848 (Given - Provider: Isidra Carrera) lactated Ringer's infusion 1,000 mL (COMPLETED) 1,000 mL, Intravenous, Once, 1 dose, On Sun10/24/23 at 1830, STAT 1849 (New Bag - Provider: Isidra Carrera) 0737 (Stopped - Provider: Jaqueline Becker RN) lactated Ringer's infusion 20 mL/hr, Intravenous, Once, 1 dose, On Zahraa 10/25/23 at 1530, Routine 1530 (Canceled Entry - Provider: Automatic Discharge Provider - Comment: Automatically canceled at discontinue of medication order) oxybutynin (Ditropan) tablet 5 mg (COMPLETED) 5 mg, Oral, Once, 1 dose, On [place]ra[place] 10/25/23 at 1715, Routine, Recovery(Phase II-Outpatient)/On Unit(Inpatient) 1652 (Given - Provid er: Thuan Baker RN) phenazopyridine (Pyridium) tablet 100 mg 100 mg, Oral, 3 times daily with meals, 6 doses, First dose on Z[place]raa 10/25/23 at 0830, Last dose on Sun10/26/23 at 1730, Routine 0828 (Not Given - Provider: Jaqueline Becker RN - Reason: Patient/family refused)1230 (Canceled Entry - Provider: Automatic Discharge Provider - Comment: Automatically canceled at discontinue of medication order)1421 ([facility] Hold - Provider: Automatic Transfer Provider - Reason: Patient in procedure)1749 ([facility] Unhold - Provider: Automatic Discharge Provider) phenazopyridine [...] Preprocedure 0136 (Given - Provid er: Erika Haynes RN)1203 (Given - Provider: Jaqueline Becker RN)1421 (MAR Hold - Provider: Automatic Transfer Provider - Reason: Patient in procedure)1538 ([facility] Unhold - Provider: Automatic Transfer Provider) tamsulosin (Flomax) 24 hr capsule 0.4 mg 0.4 mg, Oral, Daily, First dose on [place] 10/25/23 at 0900, Until Discontinued, Routine 0828 (Given - Provid er: Jaqueline Becker RN)1421 (MAR Hold - Provider: Automatic Transfer Provider - Reason: Patient in procedure)1749 ([facility] Unhold - Provider: Automatic Discharge Provider) Continuous [...] Intravenous, Every 15 min PRN, Starting on 10/24/23 at 2128, Until [place] 10/25/23 at 1749, Administer over 15 Minutes, Routine, POC BG 71 to 89 mg/dL 1421 ([facility] Hold - Provider: Automatic Transfer Provider - Reason: Patient in procedure)174 ([facility] Unhold - Provider: Automatic Discharge Provider) dextrose 10 % (D10W) bolus 125 mL(Linked Group 3) 125 mL (12.5 g), Intravenous, Every 15 min PRN, Starting on 10/24/23 at 2128, Until [place] 10/25/23 at 1749, Administer over 15 Minutes, Routine, POC BG 51 to 70 mg/dL 1421 (JUN Hold - Provider: Automatic Transfer Provider - Reason: Patient in procedure)174 ([facility] Unhold - Provider: Automatic Discharge Provider) dextrose 10 % (D10W) bolus 250 mL(Linked Group 4) 250 mL (25 g), Intravenous, Every 15 min PRN, Starting on Sun10/24/23 at 2128, Until [place] 10/25/23 at 1749, Administer over 15 Minutes, Routine, POC BG is less than or equal to 50 mg/dL 1421 ([facility] Hold - Provider: Automatic Transfer Provider - Reason: Patient in procedure)174 ([facility] Unhold - Provider: Automatic Discharge Provider) droperidol (Inapsine) injection 0.625 mg 0.625 mg, Intravenous, Once as needed, 1 dose, Starting on [place] 10/25/23 at 1509, Until [place] 10/25/23 at 1749, Routine, Recovery (Phase I only), nausea, vomiting fentaNYL (Sublimaze) injection 25 mcg 25 mcg, Intravenous, Every 5 min PRN, 2 doses, Starting on [place] 10/25/23 at 1509, Until [place] 10/25/23 at 174, Routine, Recovery (Phase I only), pain score of 3-4 out of 10 glucagon (human recombinant) injection 1 mg 1 mg, Intramuscular, Every 15 min PRN, Starting on Sun10/24/23 at 2128, Until [place] 10/25/23 at 174, Routine, If patient NPO, lacks IV access, May Give IM and POC BG less than or equal to 70 mg/dL, 1421 ([facility] Hold - Provider: Automatic Transfer Provider - Reason: Patient in procedure)174 ([facility] Unhold - Provider: Automatic Discharge Provider) glucose (Glutose) 40 % oral gel 15 grams of glucose(Linked Group 2) 15 grams of glucose, Sublingual, Every 15 min PRN, Starting on Sun10/24/23 at 2128, Until [place] 10/25/23 at 1749, Routine, low blood sugar, POC BG 71 to 89 mg/dL 1421 ([facility] Hold - Provider: Automatic Transfer Provider - Reason: Patient in procedure)174 ([facility] Unhold - Provider: Automatic Discharge Provider) glucose (Glutose) 40 % oral gel 15 grams of glucose(Linked Group 3) 15 grams of glucose, Sublingual, Every 15 min PRN, Starting on Sun10/24/23 at 2128, Until [place] 10/25/23 at 1749, Routine, low blood sugar, BG 51?to 70 mg/dL 1421 ([facility] Hold - Provider: Automatic Transfer Provider - Reason: Patient in procedure)174 ([facility] Unhold - Provider: Automatic Discharge Provider) glucose (Glutose) 40 % oral gel 30 grams of glucose(Linked Group 4) 30 grams of glucose, Sublingual, Every 15 min PRN, Starting on Sun10/24/23 at 2128, Until [place] 10/25/23 at 1749, Routine, low blood sugar, POC BG is less than or equal to 50 mg/dL 1421 ([facility] Hold - Provider: Automatic Transfer Provider - Reason: Patient in procedure)174 ([facility] Unhold - Provider: Automatic Discharge Provider) HYDROmorphone [...] (Given - Provid er: Jaqueline Becker RN)1421 ([facility] Hold - Provider: Automatic Transfer Provider - Reason: Patient in procedure)1613 (Dose Auto Held)174 ([facility] Unhold - Provider: Automatic Discharge Provider) morphine PF 4 mg 4 mg, Intravenous, Every 3 hours PRN, Starting on Sun10/24/23 at 1828, Until [place] 10/25/23 at 1749, STAT, severe pain 1958 (Given - Provider: Isidra Carrera)2246 (Given - Provider: Erika Haynes RN) 0141 (Given - Provider: Erika Haynes RN)0600 (Given - Provider: Erika Haynes RN)1421 ([facility] Hold - Provider: Automatic Transfer Provider - Reason: Patient in procedure)1749 ([facility] Unhold - Provider: Automatic Discharge Provider) naloxone [...] (Given - Provider: Erika Haynes RN) 1421 ([facility] Hold - Provider: Automatic Transfer Provider - Reason: Patient in procedure)1749 ([facility] Unhold - Provider: Automatic Discharge Provider) ondansetron [...] PRN, Starting on Sun10/24/23 at 2127, Until [place] 10/25/23 at 174, Administer over 15 Minutes, Routine, POC BG [...] PRN, Starting on Sun10/24/23 at 2127, Until [place]ra[place] 10/25/23 at 174, Administer over 15 Minutes, Routine, POC BG 51 to 70 mg/dL Group 4: dextrose 10 % (D10W) bolus 250 mLJump to med 250 mL (25 g), Intravenous, Every 15 min PRN, Starting on Sun10/24/23 at 2127, Until [place]raa 10/25/23 at 174, Administer over 15 Minutes, Routine, POC BG is less than or equal to 50 mg/dL Or glucose (Glutose) 40 % oral gel 30 grams of glucoseJump to med 30 grams of glucose, Sublingual, Every 15 min PRN, Starting on Sun10/24/23 at 2127, Until [place] 10/25/23 at 1749, Routine, low blood sugar, POC BG is less than or equal to 50 mg/dL documented in this encounter Additional Health Concerns Assessment Noted Time A fall risk assessment has been complete d for the patient 04/05/2021 8:37 AM EST documented as of this encounter Care Teams Cattle Examiner Relationship Specialty Start Date End Date Jam Pimentel MD [address] [place] [address] PCP - General 09/10/20 documented as of this encounter
--- OUTSIDE RECORDS SUMMARY | 2024-04-15 10:10 | XMS_ITS | Encounter Summary ---
Author Organization [facility] Address [address] [place] [address] Care Team Providers Care Art Psychotherapist Or Therapist Name Role Phone Jam Pimentel MD Primary Care Provider [phone] Encounter Details Date Type Department Care Team (Late Contact Info) Description 04/01/2021 Orders Only Medical Office Building [facility] [address], [address] [place] [address] Yesenia Cooley [facility] [address] [place] [address] Left knee pain, unspecified chronicity (Primary Dx) Social History Tobacco Use Types Packs/Day Years Used Date Smoking Tobacco: Never Smokeless Tobacco: Never Sex and Gender Information Value Date Recorded Sex Assigned at Not on file Legal Sex Male 8:35 PM EDT Gender Identity Not on file Sexual Orientation Not on file documented as of this encounter Plan of Treatment Upcoming Encounters Date Type Department Care Team ([facility] Contact Info) Description 06/24/2024 7:45 AM EST Appointment [facility] [address] [place] [address] 06/24/2024 10:10 AM EST Office Visit [facility] [address] [place] [address] Nany Elias M, [employer] [address] [place] [address] documented as of this encounter Results * XR Knee Left 1 or 2 Views (04/05/2021 8:27 AM EST) Anatomical Region Laterality Modality Lower Extremities, Knee Left Digital Radiography Impressions 04/05/2021 12:57 PM EST Moderate suprapatellar effusion. No hardware loosening or failure is noted. CRITICAL RESULT: ?? No. COMMUNICATION: Per this written report. Signed by Jaquan Cesar on ??04/05/2021 12:57 PM Narrative 04/05/2021 12:57 PM EST Exam/Procedure: XR KNEE LEFT 1 OR 2 VIEWS ordered by VIJAY CARNEY [id number] CLINICAL INDICATION: Pain TECHNIQUE: XR KNEE LEFT 1 OR 2 VIEWS COMPARISON: 08/03/2020 FINDINGS: Left knee prosthesis is without evidence of hardware loosening or failure. Moderate suprapatellar effusion. Procedure Note Jaquan Cesar MD - 04/05/2021 Exam/Procedure: XR KNEE LEFT 1 OR 2 VIEWS ordered by VIJAY [id number] CLINICAL INDICATION: Pain TECHNIQUE: XR KNEE LEFT 1 OR 2 VIEWS COMPARISON: 08/03/2020 FINDINGS: Left knee prosthesis is without evidence of hardware loosening or failure.Moderate suprapatellar effusion. IMPRESSION: Moderate suprapatellar effusion. No hardware loosening or failure isnoted. CRITICAL RESULT: No. COMMUNICATION: Per this written report. Signed by Jaquan Cesar on 04/05/2021 12:57 PM us Vijay Carney MD IMG XR PROCEDURES Final Resu lt documented in this encounter Visit Diagnoses Diagnosis Left knee pain, unspecified chronicity- Primary Left knee pain, unspecified chronicity documented in this encounter Additional Health Concerns Assessment Noted Time A fall risk assessment has been complete d for the patient 10/05/2020 9:12 AM EDT documented as of this encounter Care Teams Art Psychotherapist Or Therapist Relationship Specialty Start Date End Date Jam Pimentel MD [address] [place] [address] PCP - General 09/10/20 documented as of this encounter
--- OUTSIDE RECORDS SUMMARY | 2024-04-15 10:10 | XMS_ITS | Encounter Summary ---
Author Organization Healthcare Address [address] [place] [address] Care Team Providers Care Paper Tube Grader Name Role Phone Unavailable Primary Care Provider Unavailabl e Encounter Details Date Type Department Care Team (Latest Contact Info) Description 03/25/2018 7:28 AM EST - 03/26/2018 4:40 PM EST Hospital Encounter [facility] Inpatient [address] [place] [address] Vijay Her MD [address] [facility] [address] [place] [address] Unilateral primary osteoarthritis, left knee Social History Tobacco Use Types Packs/Day Years [...] mouth 1 (one) time each day. 02/24/2018 documented as of this encounter Miscellaneous Notes * Social Care Assessment Summary - ProviderTobias MD - 03/26/2018 4:40 PM EST Patient Name: HELIO ARDON Date of : 1970 Progress Note Progress Note Anticipated Discharge Date 2018-03-26 00:00 Has Discharge Plan Changed? If Yes, Please Describe Change and Provide Details in Additional Comments Box Below. Answers: No Medicare Second Notice? Answers: Not Applicable Housing Circumstances - Select All That Apply Answers: None applicable Additional Comments Notes: Patient was discharged to his [place], [place] home yesterday evening. He had originally stated that he had a RW at home. He found that the walker at his home was not safe for use. I spoke this morning with Mr. Ardon and he asked to use [facility] there in [place]. I sent orders and chart documents to [facility] this am ph# . They will deliver a RW to patient's home today. Electronically signed by: Sol Terrazas * Social Care Assessment Summary - Tobias Garcia MD - 03/26/2018 12:00 AM EST Patient Name: HELIO ARDON Date of : 1970 Discharge Note Discharge Note Who Will Provide Assistance Post-Discharge? Answers: Family His 2 children. How Many Hours is/are the Caregiver(s) Available? Answers: 24 Hours Discharge Disposition Answers: Home [place] to return to his [place], [place] home when dsicharged. Is Home Health Needed? If Yes, Specify Agency Name and Service Needed. Answers: No Is DME Needed? If Yes, Select Type of Equipment Needed and DME Company. Answers: No DME Needs I Certify that the Patient has been Provided with a Choice for DME, Home Health, Infusion Services and Facility. Answers: Not Applicable Is This a High-Risk LACE Patient? Answers: No Follow Up Appointments Scheduled? Answers: Yes To follow up with Dr. Her on 04/11/18 at 11:20am. Does the Patient Have Transportation to Follow up Appointments? Answers: Yes Scholarship? Answers: No HUGO? Answers: No Medicare Second Notice? Answers: Not applicable Were Services Declined? Answers: No Additional Comments: Notes: Discussed this patient this am with the Ortho team. Patient to be discharged home later this afternoon. He stated that he lives with his 3 children in [place], [place]. His children and his S.O. can assist him after discharge. He already owns all needed DME. He plans to fo Outpatient PT near his home and will start there early next week and he will have transportion available. Electronically signed by: Sol Terrazas * Discharge Summary - RommelVijay - 03/26/2018 12:00 AM EST HOSPITALIZATION: Admit Date:25-Mar-2018 Discharge Date:26-Mar-2018 Discharge Atttending PhysicianVijay Her MD Admitting DiagnosisOsteoarthritis of left knee DISCHARGE DIAGNOSIS: Discharge Summary Final Active Diagnosis PS: Osteoarthritis of left knee: Reason for Hospitalization This patient presents today with endstage degenerative joint disease of the knee. The patient has failed non-operative treatment and presents for total knee replacement. Risks, complications, and benefits of the procedure have been discussed preoperatively to include but not limited to infection, bleeding, anesthesia risks, damage to neurovascular structures, osteolysis, aseptic loosening, instability, anterior knee pain, continued pain, iatrogenic fracture, dislocation, need for future surgeryincluding the potential for amputation, DVT, CA, stroke, and . The patient completed preoperative medical clearance and joint arthroplasty education. HOSPITAL COURSE: Hospital Course Patient arrived to [facility] on 03/25/18 for their scheduled surgery. Patient tolerated the procedure without complication, was extubated in the operating room, and transferred to the PACU for recovery from anesthesia. Shortly thereafter, patient was transferred to the acute care floor for melyssa very. Patient's hospital course was without complications. Patient was given prophylactic antibiotics, pain was controlled on oral pain medications, and patient tolerated a regular diet. The patient was kept on DVT prophylaxis with SCD's/YUMI hose, and ECASA. The patient was cleared to be dischargedby PT/OT prior to discharge. The patient was discharged home. ORTHO HOSPITAL COURSE: Hospital Course: The patient was admitted via the operating room after undergoing uncomplicated Left Total Knee arthroplasty. Postoperatively, the patient's pain was controlled with oral pain medicine. DIAGNOSTIC AND PROCEDURAL EVENTS: - PROCEDURE: Left Total Knee Arthroplasty DISCHARGE INFORMATION: DispositionHome Discharge Conditionstable (signs or symptoms of potential problems absent or manageable) Discharge MedicationsFinal Medication List for Discharge Summary Discharge Medicationsacetaminophen 500 mg oral tablet 1 tab(s) orally every 8 hours amlodipine-benazepril 10 mg-20 mg oral capsule 1 cap(s) orally once a day (in the morning) between 0600 & 0700 Aspirin Enteric Coated 81 mg oral delayed release tablet 1 tab(s) orally 2 times a day for 4 weeks for DVT prevention post-op celecoxib 200 mg oral capsule 2 cap(s) orally once a day for 2 weeks and then 1 cap orally daily for 2 weeks docusate sodium 250 mg oral capsule 1 cap(s) orally 2 times a day while taking narcotics to preventconstipation doxycycline hyclate 100 mg oral tablet 1 tab(s) orally 2 times a day FOR 1 WEEK POST-OP gabapentin 100 mg oral capsule 1 cap(s) orally 3 times a day hydrocodone-acetaminophen 1 tab(s) orally every 4 hours, As needed, Pain unresponsive to other medications/interventions. Hold for sedation. omeprazole 20 mg oral delayed release capsule 1 cap(s) orally once a day Physical Therapy s/p LTKA weight bear as tolerated Dr. Her traMADol 50 mg oral tablet 1-2 tab(s) orally every 4-6 hours, As Needed -PRN pain Pending ResultsPending Results DISCHARGE INSTRUCTIONS: Diet: No Restrictions. Resume regular at home diet. Lifting: No Restrictions. Activity: move around as you are able, do not drive until your Doctor tells you its okay, do not drive while taking narcotic pain medications and use assistive equipment as instructed. Assistive Device: Use walker. Wound or Incision Care: Reason to call: feels warm or hot to the touch, is red or dark pink, is tight or swollen and looks shiny, becomes more tender or sore to the touch, wound smells bad and wound is draining pus, bleeding or coming open. Special Wound/Incision Care Instructions: Your incision was closed with Dermabond Prineo. This should stay in place until your follow-up appointment and your physician will remove it at that time. You may shower with this on, but do not soak your incision in water. Do not put any topical ointments on the dressing. Call the clinic with any drainage or concerns. Bathing: Other: Do not submerge wound. No tub baths or swimming. Sponge bath until your incision is free from drainage for 24 hours and then you may shower. Instructed patient to [...] or concerns. 3. You have been given Docuste Sodium to take daily to prevent constipation [...] movement by post-op day #5 you need touse a Dulcolax Suppository over the counter as directed. If still no bowel movement at that time your need to call the clinic. Activity: Weight bearing: As tolerated. Elevate the knee and entire lower extremity for as much as possible for 6 weeks and use ice liberally for 30 minutes 3 to 4 times a day.. Recommended Follow Up Instructions: Follow Up Instructions: Follow up with: Dr. Her. in/on 11-Apr-2018 11:20 AM. ATTESTATION STATEMENTS: Attending Attestation Statement: I saw and evaluated the patient. I discussed the case with the resident/fellow and agree with the findings and plan as documented. Attending Billing: I spent < 30 minutes of patient care and instruction time in preparation for this discharge. Electronic Signatures: Vijay Her MD (Attending) (Signed 26-Mar-18 17:15) Authored: HOSPITALIZATION, DISCHARGE INFORMATION, DISCHARGE INSTRUCTIONS, Recommended Follow Up Instructions, ATTESTATION STATEMENTS Co-Signer: HOSPITALIZATION, DISCHARGE DIAGNOSIS, HOSPITAL COURSE, ORTHO HOSPITAL COURSE, DIAGNOSTICAND PROCEDURAL EVENTS, DISCHARGE INFORMATION, DISCHARGE INSTRUCTIONS, Recommended Follow Up Instructions Lara Barnett APRN (Nurse Practitioner) (Signed 26-Mar-18 11:52) Authored: HOSPITALIZATION, DISCHARGE DIAGNOSIS, HOSPITAL COURSE, ORTHO HOSPITAL COURSE, DIAGNOSTIC AND PROCEDURAL EVENTS, DISCHARGE INFORMATION, DISCHARGE INSTRUCTIONS, Recommended Follow Up Instructions Last Updated: 26-Mar-18 17:15 by Vijay Her MD (Attending) * Op Note - Vijay Her - 03/25/2018 12:00 AM EST General: Date of Operative Procedure: 25-Mar-2018. Pre Operative Diagnosis: Preoperative Diagnosis:Left knee OA Operative Description: Operative Description, includes indications, Techniques used, Findings, and Procedures Post Operative Plan: OPERATIVE REPORT Patient Name: HELIO ARDON [facility] Number: [id number] Date of : 1970 Date of Procedure: 03/25/2018 Attending Physician: VIJAY HER MD SURGEON: Vijay Her M.D. SOLAR PHOTOVOLTAIC INSTALLER #1: Forrest Rivera MD SOLAR PHOTOVOLTAIC INSTALLER #2: Malaika Farah PA-C PREOPERATIVE DIAGNOSIS: Advanced degenerative joint disease secondary to osteoarthritis of the left Knee POSTOPERATIVE DIAGNOSIS: same PROCEDURE: Left Total Knee Arthroplasty Computer Assisted Navigation of left Total Knee Arthroplasty, Imageless IMPLANTS: Cork Tile Floor Layer: Hood [employer] Nephew Brand: Journey * Tibial component size: 6 Femoral component: * 7 BCS Tibial insert: 11 mm, Type: BCS constrained Patellar component: 35 mm oval SURGICAL DETAILS: 1.Incision / arthrotomy type: Mid-vastus 2.Estimated blood loss: 100 cc 3.Tourniquet time: 7 min 4.Case duration: 80 min 5.Crystalloid replacement: 1000 cc 6.Anesthesia type: Spinal 7.Specimens removed: Bone and cartilage cuts from distal femur, proximal tibia, and patella. 8.Capsular injection: 50 cc 0.5% Bupivicaine with epi, 30 mg Toradol 9.Preoperative Antibiotics: 2 g of cefazolin 1 g vancomycin 10.TXA: 2 g IV INDICATIONS FOR PROCEDURE: This patient presents today with endstage degenerative joint disease of the knee. The patient has failed non-operative treatment and presents for total knee replacement. Risks, complications, and benefits of the procedure have been discussed preoperatively to include but not limited to infection, bleeding, anesthesia risks, damage to neurovascular structures, osteolysis, aseptic loosening, instability, anterior knee pain, continued pain, iatrogenic fracture, dislocation, need for future surgeryincluding the potential for amputation, DVT, CA, stroke, and . The patient completed preoperative medical [...] tissue to the underlying extensor mechanism. A mid vastus approach was utilized. The tourniquet was deflated at that time. Aquamantys bipolar sealer was utilized to maintain hemostasis throughout the procedure. The distal femoral cut was performed using the ICU Metrix Imageless Navigation. The pin was placed to the distal femur and the navigation unit was then attached. The alignment was set at 0o for flexion/extension and for varus/valgus to the mechanical axis of the leg. The distal femoral cutting blockwas then pinned to the distal femur and we performed the cut. The femur was sized and appropriate external rotation was set to be 90 degrees to Iain *s line and parallel to the transepicondylar axis. The 4-1 cutting guide was placed and the cuts were performed. The proximal tibia was cut usingthe ICU Metrix Imageless Navigation. The cutting guide was placed and our alignment was set to be per pendicular to the mechanical axis of the tibia and 1 * of tibial slope. We set to guide to take 10 mm off the unaffected side. Extension block was placed to ensure sufficient distal femur and proximal tibia and ensure the extension gap was balanced medial and lateral. The flexion and extension gapswere then matched. The following releases were required to balance the knee: Deep MCL and popliteus. Marginal osteophytes were removed and a lamina combat systems officer was utilized with the knee in 90 * of flexion to clear posterior osteophytes, loose bodies and meniscal remnants. The trial tibial baseplate was then placed with appropriate external rotation. The trial femoral component was then placed in appropriate medial to lateral position and pinned in placed with preparation of the intercondylar box was performed. The trial liner was then placed. The patella was evertedand a partial lateral facetectomy with patellar resurfacing was performed, removing marginal osteophytes. The knee was tested for full extension, stability to stress in extension, mid flexion, and 90 * of flexion, as well as for patellar tracking. The tibial rotation was marked, final preparation for femoral component was performed. The tibial baseplate was then pinned into position while preparation of the keel was performed. The trial implants were removed. All bone was then prepared with lavage and drying for cementation.The implants were cemented into position and excess cement was removed. The trial liner was placed and the knee was reduced and motion and stability was again tested. After cement hardened, the tibial insert was exchanged to the final tibial insert which was impacted into position. The knee was irrigated with sterile, diluted betadine and with normal saline. 1 g of Vancomycin powder was placed inside the arthrotomy. We injected our pericapsular anesthetic at this point. One drain was placed. The wound was closed in layers with Stratafix and #1 Vicryl, followed by Monocryl and Stratafix in running subcuticular fashion and then with Dermabond Prineo was applied to the skin incision. SCD was applied to the operative extremity. The patient tolerated the procedure well and was taken to the r ecovery room in good condition. No apparent complications at the conclusion. Sponge, instrument, and needle counts were correct x 2. The patient underwent risk stratification preoperatively and aspirin was chosen for DVT prophylaxis. Delay in starting chemical prophylaxis for 23 hours from surgical incision was over concerns for hematoma formation and wound related issues. Attestation: Procedure: I was present for the entire procedure. Electronic Signatures: Rommel WHEATLEY, Vijay Lew (Attending) (Signed 25-Mar-18 16:09) Authored: Structured, Attestation Last Updated: 25-Mar-18 16:09 by Vijay Her MD (Attending) * Op Note - Vijay Her - 03/25/2018 12:00 AM EST Brief Operative Progress Note: PRE-OP DIAGNOSIS: Left knee osteoarthritis. POST-OP DIAGNOSIS: Same. INDICATIONS FOR SURGERY/PROCEDURE: Decreased pain; Increased function/mobility. PRIMARY SURGEON: MD Rommel. SOLAR PHOTOVOLTAIC INSTALLER(S): GUANAKO Farah; MD Miguel. ANESTHESIA: Regional Block. DESCRIPTION OF FINDINGS: Please see operative report for full details. SURGICAL PROCEDURES PERFORMED: Left total knee arthroplasty. SPECIMENS/TISSUES REMOVED: Portions of distal femur and proximal tibia. DRAINS: x1 hemovac. EVENTS: None. COMPLICATIONS: None. Attending Attestation Statement: I saw and evaluated the patient. I discussed the case with the resident/fellow and agree with the findings and plan as documented. Procedure: I was present for the entire procedure. Attending Attestation: * I was present for the entire procedure. Electronic Signatures: Vijay Her MD (Attending) (Signed 25-Mar-18 17:25) Authored: General Co-Signer: Forrest Campbell MD (Resident) (Signed 25-Mar-18 16:15) Authored: General Last Updated: 25-Mar-18 17:25 by Vijay Her MD (Attending) documented in this encounter Plan of Treatment Upcoming Encounters Date Type Department Care Team (Late st Contact Info) Description 06/24/2024 7:45 AM EST Appointment [facility] Radiology [address] [place] [address] 06/24/2024 10:10 AM EST Office [facility] [place] [facility] [address] [place] [address] Nany Elias, DATA PROCESSING CLERK [address] [place] [id number] Pending Results Name Type Priority Associated Diagnoses Date /Time Type and Screen Lab STAT 8 10:18 AM EST documented as of this encounter Procedures Procedure Name Priority Date/Time Associated Diagnosis Comments GLUCOSE POINT OF CARE DC Routine 03/26/2018 12:38 PM EST GLUCOSE POINT OF CARE DC Routine 03/26/2018 11:15 AM EST CBC W/O DIFFERENTIAL Timed 03/26/2018 2:35 AM EST BASIC METABOLIC PANEL, PLASMA Timed 03/26/2018 2:35 AM EST XR KNEE LEFT 1 OR 2 VIEWS Routine 03/25/2018 3:25 PM EST SURGPATH DATA CONVERSION Routine 03/25/2018 2:03 PM EST TYPE AND SCREEN STAT 03/25/2018 10:18 AM EST GLUCOSE POINT OF CARE DC Routine 03/25/2018 9:03 AM EST documented in this encounter Results * (ABNORMAL) Glucose Point of Care. (03/26/2018 12:38 PM EST) [facility] POCT Glucose 297(H) 74 - 99 mg/dL [facility] Comment: Accuracy of a glucose result obtained from a capillary whole blood specimen relies upon adequate, non-compromised capillary blood flow.If the capillary glucose result is not consistent with the patient's clinical signs and symptoms, glucose testing should be repeated with either an arterial or venous sample on the glucometer or sent to the main laboratory for testing. 03/26/2018 12:3 8 PM EST 03/26/2018 12:40 PM EST us Vijay Her MD LAB BLOOD ORDERABLES Final R esult [facility] * (ABNORMAL) Glucose Point of Care. (03/26/2018 11:15 AM EST) POCT Glucose 316(H) 74 - 99 mg/dL [facility] Comment: Accuracy of a glucose result obtained from a capillary whole blood specimen relies upon adequate, non-compromised capillary blood flow.If the capillary glucose result is not consistent with the patient's clinical signs and symptoms, glucose testing should be repeated with either an arterial or venous sample on the glucometer or sent to the main laboratory for testing. 03/26/2018 11:1 5 AM EST 03/26/2018 11:20 AM EST us Vijay Her MD LAB BLOOD ORDERABLES Final R esult Performing Organization Address [facility] Co de Phone Number [facility] * (ABNORMAL) CBC W/O Differential (03/26/2018 2:35 AM EST) WBC Count 14.1(H) 3.7 - 10.3 k/uL [facility] RBC Count 4.38(L) 4.6 - 6.1 M/uL [facility] HGB 13.1(L) 13.7 - 17.5 g/dL [facility] HCT 36.4(L) 40 - 51 % [facility] Platelet Count 383(H) 155 - 369 k/uL [facility] MCV 83 79 - 98 fL [facility] MCH 29.9 26 - 32 pg [facility] MCHC 36.0(H) 30.7 - 35.5 g/dL [facility] RDW 11.7 12.4 - 14.9 % [facility] MPV 9.2 8.8 - 12.5 fL [facility] NRBC COUNT 0.0 0 % [facility] 03/26/2018 2:35 AM EST 03/26/2018 3:13 AM EST us Vijay Her MD LAB BLOOD ORDERABLES Final R esult Performing Organization Address [facility] Co de Phone Number [facility] * (ABNORMAL) Basic Metabolic Panel, Plasma (03/26/2018 2:35 AM EST) Pathologist [facility] Glucose, Plasma 255(H) 74 - 99 mg/dL [facility] BUN, Plasma 12 7 - 21 mg/dL [facility] Creatinine, Plasma 0.91 0.80 - 1.30 mg/dL [facility] BUN/Creatinine Ratio 13 8 - 20 [facility] Sodium, Plasma 140 136 - 145 mmol/L [facility] Potassium, Plasma 4.2 3.7 - 4.8 mmol/L [facility] Chloride, Plasma 104 101 - 108 mmol/L [facility] CO2, Plasma 24 22 - 29 mmol/L [facility] Anion Gap 12 6 - 16 mmol/L [facility] Calcium, Plasma 9.6 8.9 - 10.2 mg/dL [facility] eGFR >60 [...] rapidly changing or patient is on dialysis. 03/26/2018 2:35 AM EST 03/26/2018 3:17 AM EST us Vijay Her MD LAB BLOOD ORDERABLES Final R esult [facility] * XR Knee Left 1 or 2 Views (03/25/2018 3:25 PM EST) Anatomical Region Laterality Modality Lower Extremities, Knee [facility] Narrative 03/25/2018 3:35 PM EST REQUESTING PHYSICIAN: VIJAY HER REASON FOR EXAMINATION/PROCEDURE: RAD PDP:Y ??* ??Total Knee Arthroplasty EXAMINATION / PROCEDURE: KNEE 2 VIEWS LEFT Mar 25 2018 - 15:25; ?? CLINICAL INDICATION: RAD PDP:Y ??* ??Total Knee Arthroplasty TECHNIQUE: KNEE 2 VIEWS LEFT COMPARISON: 03/07/2018 FINDINGS: Interval total knee arthroplasty with drain in place. No fracture or dislocation. No hardware failure or loosening. ?? IMPRESSION: No acute bony findings. CRITICAL RESULT: ?? No. COMMUNICATION: Per this written report. ?? Verified by: CAROLINA DAVID M.D. on Mar 25 2018 ??3:33P Transcribed by: NIDIA on Mar 25 2018 ??3:33P Dictated by: CAROLINA DAVID M.D. on Mar 25 2018 ??3:33P Procedure Note Les Davidin Luis Fernando - 08/23/2020 REQUESTING PHYSICIAN: VIJAY HER REASON FOR EXAMINATION/PROCEDURE: RAD PDP:Y * Total Knee Arthroplasty EXAMINATION / PROCEDURE: KNEE 2 VIEWS LEFT Mar 25 2018 - 15:25; CLINICAL INDICATION: RAD PDP:Y * Total Knee Arthroplasty TECHNIQUE: KNEE 2 VIEWS LEFT COMPARISON: 03/07/2018 FINDINGS: Interval total knee arthroplasty with drain in place. No fracture or dislocation. No hardware failure or loosening. IMPRESSION: No acute bony findings. CRITICAL RESULT: No. COMMUNICATION: Per this written report. Verified by: CAROLINA DAVID M.D. on Mar 25 2018 3:33P Transcribed by: NIDIA on Mar 25 2018 3:33P Dictated by: CAROLINA DAVID M.D. on Mar 25 2018 3:33P us Vijay Her MD IMG XR PROCEDURES Final Resu lt * Surgical Pathology (03/25/2018 2:03 PM EST) Macroscopic tissue specimen (specimen) 03/25/2018 2:03 PM EST 03/25/2018 2:03 PM EST Narrative [facility] - 03/26/2018 9:13 AM EST [place], [place] [address] MR #: [id number] HELIO ARDON 1970 (Age: 47) ??MW Collect Date: 03/25/2018 14:03 Receipt Date: 03/25/2018 14:03 Page 1 DEPARTMENT OF PATHOLOGY AND LABORATORY MEDICINE SURGICAL PATHOLOGY REPORT Fax: ??[phone] ?[phone] Email: [email or web address] ? ATTENDING MD: Mane Her MD ? Service: KEENE ? Location: [facility] OTHER MD(S): ?Reported: 03/26/2018 09:13 DIAGNOSIS BONE, LEFT KNEE, TOTAL KNEE REPLACEMENT: ?? - GROSS FINDINGS COMPATIBLE WITH DEGENERATIVE JOINT DISEASE. ? Electronically Signed Out ? jcd/03/26/2018 Adonis Alvarez M.D. ?? CLINICAL HISTORY Preoperative diagnosis: Arthritis of knee, left. Intraoperative findings: Left knee degenerative joint disease. Operative procedure: Left total knee replace. DESCRIPTION OF SPECIMEN: A: ??Left knee bone fragments GROSS DESCRIPTION The specimen is received in formalin labeled left knee bone fragments. Received are multiple red-sims fragments of bone which measure 8.0 x 7.9 x 4.6 cm in aggregate. There is one piece grossly consistent with a tibial plateau. The articular surface is roughened with areas of eburnation and osteophyte formation. The cut surface is predominantly hemorrhagic. The specimen was submitted for gross diagnosis only. all/03/25/2018 Ashlyn Bpatiste resident may have participated in this service. ??A pathologist has performed and is responsible for the reported pathologic evaluation. ICD: M17.12 ? Unilateral primary osteoarthritis, left knee SNOMED CODES: A; D3150 P1279 ?? F: A; [id number] GO Vijay Her MD LAB PATHOLOGY ORDERABLES Fin al Result Performing Organization Address [facility] de Phone Number [facility] * (ABNORMAL) Glucose Point of Care. (03/25/2018 9:03 AM EST) POCT Glucose 181(H) 74 - 99 mg/dL [facility] Comment: Accuracy of a glucose result obtained from a capillary whole blood specimen relies upon adequate, non-compromised capillary blood flow.If the capillary glucose result is not consistent with the patient's clinical signs and symptoms, glucose testing should be repeated with either an arterial or venous sample on the glucometer or sent to the main laboratory for testing. 03/25/2018 9:03 AM EST 03/25/2018 9:05 AM EST Vijay Her MD LAB BLOOD ORDERABLES Final R esult Performing Organization Address [facility] Co de Phone Number [facility]QUEST documented in this encounter Visit Diagnoses Diagnosis Unilateral primary osteoarthritis, left knee documented in this encounter
--- OUTSIDE RECORDS SUMMARY | 2024-04-15 10:10 | XMS_ITS | Encounter Summary ---
Author Organization Healthcare Address [address] [place] [address] Care Team Providers Care Master Lay Out Specialist Name Role Phone Jam Pimentel MD Primary Care Provider [phone] Encounter Details Date Type Department Care Team (Late Contact Info) Description 10/24/2023 Orders Only External Location [address] [place] [address] Mingo Castro MD [address] [place] [address] [address] [place] [address] Social History Tobacco Use Types [...] EST Appointment [facility] [address] [place] [address] 06/24/2024 10:10 AM EST Office [facility] [place] [facility] [address] [place] [address] Nany Elias, GORDON [address] [facility] [address] [place] [address] documented as of this encounter [...] documented as of this encounter Care Teams Master Lay Out Specialist Relationship Specialty Start Date End Date Jam Pimentel MD [address] [place] [address] PCP - General 09/10/20 documented as of this encounter
--- OUTSIDE RECORDS SUMMARY | 2024-04-15 10:10 | XMS_ITS | Encounter Summary ---
Author Organization Healthcare Address [address] [place] [address] Care Team Providers Care Slasher Operator Name Role Phone Jam Pimentel MD Primary Care Provider [phone] Reason for Visit * Reason Onset Date Comments HCN - Patient Message 04/20/2021 Encounter Details Date Type Department Care Team ([facility] st Contact Info) Description 04/20/2021 Telephone Medical Office Building [facility] [address], [address] [place] [address] Vijay Carney MD [address] [place] [address] HCN - Patient Message Social History Tobacco Use Types Packs/Day Years [...] AM EST documented as of this encounter Miscellaneous Notes * Telephone Encounter - Dulce Alarcon RN - 04/20/2021 1:25 PM EST Spoke with compounding pharmacy and patient. Patient to call pharmacy * Telephone Encounter - Andrews Lerner - 04/20/2021 9:50 AM EST Patient Phone Message Reason for Call: Dr. Carney pt is requesting a call back to check status of topical compound rx. Best contact number and optimal time of day to reach caller: [phone] Note: Please do not reply to this message. Follow-up communication and further actions as a result of this message need to be communicated with the patient directly, if the patient is not active onMyChart. If the patient is active on MyChart, they will receive notification of the communication/outcome via [facility] documented in this encounter Plan of Treatment Upcoming Encounters Date Type Department Care Team (Late st Contact Info) Description 06/24/2024 7:45 AM EST Appointment [facility] [address] [place] [address] 06/24/2024 10:10 AM EST Office Visit [place] [facility] [address] [place] [address] 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, FURNACE LOADER [address] [place] [address] documented as of this encounter Visit Diagnoses Not on filedocumented in this encounter Additional Health Concerns Assessment Noted Time A fall risk assessment has been complete d for the patient 04/05/2021 8:37 AM EST documented as of this encounter Care Teams Slasher Operator Relationship Specialty Start Date End Date Jam Pimentel MD [address] [place] [address] PCP - General 09/10/20 documented as of this encounter
--- OUTSIDE RECORDS SUMMARY | 2024-04-15 10:10 | XMS_ITS | Encounter Summary ---
Author Organization Healthcare Address [address] [place] [address] Care Team Providers Care Asphalt Mixing Machine Operator Name Role Phone Unavailable Primary Care Provider Unavailabl e Encounter Details Date Type Department Care Team (Late st Contact Info) Description 04/16/2017 [facility] Vitals Encounter [facility] [address] [place] [address] Provider, MD Tobias [address] [place] [address] Social History Tobacco Use Types Packs/Day [...] - - Weight 88.5 kg (195 lb) 04/16/2017 7:47 AM EST Height 188 cm (6' 2 ) 04/16/2017 7:47 AM EST Body Mass Index 25.04 04/16/2017 7:47 AM EST documented in this encounter Plan of Treatment Upcoming Encounters Date Type Department Care Team (Late st Contact Info) Description 06/24/2024 7:45 AM EST Appointment [facility] [address] [place] [address] 06/24/2024 10:10 AM EST Office [facility] [place] [facility] [address], [address] [place] [address] Nany Elias M, RN X RAY [address] [place] [address] documented as of this encounter Visit Diagnoses Not on filedocumented in this encounter Additional Health Concerns Infection Onset Date Last Indicated Resolved Time COVID 19 (Confirmed) Comment:Added from [facility] data. 05/01/2020 05/01/202005/01 12:00 AM EST documented as of this encounter
--- OUTSIDE RECORDS SUMMARY | 2024-04-15 10:10 | XMS_ITS | Encounter Summary ---
Author Organization Healthcare Address [address] [place] [address] Lab Technician Name Role Phone Jam Pimentel MD Primary Care Provider Encounter Details Date Type Department Care Team (Late Contact Info) Description 10/24/2023 Orders Only External Location [address] [place] [address] Mingo Castro MD [address] [place] [address] [address] [place] [address] Social History Tobacco Use Types [...] EST Appointment [facility] [address] [place] [address] 06/24/2024 10:10 AM EST Office [place] [facility] [address], [address] [place] [address] Nany Elias, GORDON [address] [facility] [address] [place] [address] documented as of this encounter [...] documented as of this encounter Care Teams Rd Lab Technician Relationship Specialty Start Date End Date Jam Pimentel MD [address] [place] [address] PCP - General 09/10/20 documented as of this encounter
--- OUTSIDE RECORDS SUMMARY | 2024-04-15 10:10 | XMS_ITS | Encounter Summary ---
Author Organization Healthcare Address [address] [place] [address] Care Team Providers Care Director Custom Name Role Phone Jam Pimentel MD Primary Care Provider [phone] Encounter Details Date Type Department Care Team (Latest Contact Info) Description 04/05/2021 8:06 AM EST - 04/05/2021 11:59 PM EST Hospital Encounter Medical Office Building Radiology [address] [place] [address] Left knee pain, unspecified chronicity Discharge Disposition: Home or Self Care Social [...] AM EST documented as of this encounter Medications at Time of Discharge amLODIPine-benaze pril (Lotrel) 10-20 MG capsule Take 1 capsule by mouth 1 (one) time each day. 02/24/2018 metFORMIN XR (Glucophage-XR) 500 MG 24 hr tablet Take 1 tablet (500 mg) by mouth 2 (two) times a day. amLODIPine (Norvasc) 10 MG tablet 1 (one) time each day. 10/25/2023 losartan (Cozaar) 100 MG tablet 03/02/2021 10/25/2023 meloxicam (Mobic) 7.5 MG tablet TAKE 1 TABLET TWICE DAILY WITH FOOD. 07/19/2020 10/25/2023 documented as of this encounter Plan of Treatment Upcoming Encounters Date Type Department Care Team (Late st Contact Info) Description 06/24/2024 7:45 AM EST Appointment [facility] [address] [place] [address] 06/24/2024 10:10 AM EST Office Visit [place] [facility] [address] [place] [address] Noomen, Nany M, ELECTRONICS RECYCLER [address] [place] [address] documented as of this encounter Procedures Procedure Name Priority Date/Time Associated Diagnosis Comments XR KNEE LEFT 1 OR 2 VIEWS Routine 04/05/2021 8:27 AM EST Left knee pain, unspecified chronicity documented in this encounter Results * XR Knee Left [...] LEFT 1 OR 2 VIEWS ordered by Javed [id number] CLINICAL INDICATION: Pain TECHNIQUE: XR KNEE LEFT 1 OR 2 VIEWS COMPARISON: 08/03/2020 FINDINGS: Left knee prosthesis is without evidence of hardware loosening or failure. Moderate suprapatellar effusion. Procedure Note Jaquan Cesar MD - 04/05/2021 Exam/Procedure: XR KNEE LEFT 1 OR 2 VIEWS ordered by Javed [id number] CLINICAL INDICATION: Pain TECHNIQUE: XR KNEE LEFT [...] Visit Diagnoses Diagnosis Left knee pain, unspecified chronicity documented in this encounter Additional Health Concerns Assessment Noted Time A fall risk assessment has been complete d for the patient 04/05/2021 8:37 AM EST documented as of this encounter Care Teams Director Custom Relationship Specialty Start Date End Date Jam Pimentel MD [address] [place] [address] PCP - General 09/10/20 documented as of this encounter
--- OUTSIDE RECORDS SUMMARY | 2024-04-15 10:10 | XMS_ITS | Encounter Summary ---
Author Organization Healthcare Address [address] [place] [address] Care Team Providers Care Airplane Pilot Commercial Name Role Phone Jam Pimentel MD Primary Care Provider [phone] Encounter Details Date Type Department Care Team (Latest Contact Info) Description 10/05/2020 Travel Social History Tobacco Use Types Packs/Day [...] EST Appointment [facility] [address] [place] [address] 06/24/2024 10:10 AM EST Office Visit [place] [facility] [address] [place] [address] Nany Elias, FURNACE FILLER [address] [place] [address] documented as of this encounter Visit Diagnoses Not on filedocumented in this encounter Additional Health Concerns Assessment Noted Time A fall risk assessment has been complete d for the patient 10/05/2020 9:12 AM EDT documented as of this encounter Care Teams Airplane Pilot Commercial Relationship Specialty Start Date End Date Jam Pimentel MD [address] [place] [address] PCP - General 09/10/20 documented as of this encounter
== END 2024-04-10 23:59 | disposition home or self-care (01) ==
LOC: RAD 08:51
PROVIDERS: PCP Internal Medicine; Visit Provider Internal Medicine
DX: L08.9 Local infection of the skin and subcutaneous tissue, unspecified (principal); S81.802A Unspecified open wound, left lower leg, initial encounter; T14.8XXA Other injury of unspecified body region, initial encounter
CPT/HCPCS: 73590

== ENCOUNTER 2024-05-13 16:05 | Outpatient (CLI) | payer MEDICARE, SELFPAY ==
[2024-05-13 14:38] LABS: Alanine Aminotransferase 28 U/L (12-78); Albumin Level 4.8 g/dl (3.5-5.0); Alkaline Phosphatase 68 U/L (38-126); Aspartate Amino Transferase 32 U/L (17-59); Blood Urea Nitrogen 13 mg/dl (9-20); Calcium 9.7 mg/dl (8.4-10.2); Carbon Dioxide 31 mmol/L (22.0-30.0); Chloride 101 mmol/L (98-107); Cholesterol 140 mg/dl (140-200); Estimated Glomerular Filt Rate 101 ml/min (>60); GFR (African American) 122 ML/MIN (>60); Globulin 2.4 g/dL (1.3-3.2); Glucose 170 mg/dl (74-100); HDL Cholesterol 28 mg/dl (40-60); Sodium 140 mmol/L (136-145); Total Protein,Serum 7.2 g/dl (6.3-8.2); Triglycerides 288 mg/dl (30-150); VLDL Cholesterol 58 mg/dL (0-40)
[2024-05-13 14:49] LABS: Creatinine,Urine Random 102 mg/dL (Not Estab.); Direct LDL Cholesterol 70.18 mg/dL (100-129)
[2024-05-13 14:52] LABS: Microalbumin/Creatinine Ratio 15.5
[2024-05-13 15:19] LABS: Anion Gap 12.2 mEq/L (5-15); Potassium 4.2 mmoL/L (3.5-5.1)
[2024-05-13 16:18] LABS: Prostate Specific Ag Screen 1.7 ng/ml (0.0-4.0)
== END 2024-05-13 23:59 | disposition home or self-care (01) ==
LOC: LAB.DROPOF 16:05
PROVIDERS: PCP Internal Medicine; Visit Provider Internal Medicine
DX: Z12.5 Encounter for screening for malignant neoplasm of prostate (principal); E11.9 Type 2 diabetes mellitus without complications; I10 Essential (primary) hypertension; E78.5 Hyperlipidemia, unspecified; Z79.84 Long term (current) use of oral hypoglycemic drugs
CPT/HCPCS: 80053; 80061; 82043; 82570; 83036; G0103

== ENCOUNTER 2024-11-19 08:45 | Outpatient (CLI) | payer MEDICARE, SELFPAY ==
--- OUTSIDE RECORDS SUMMARY | 2022-02-10 04:43 | XMS_ITS | Continuity of Care Document ---
Author Organization [facility] Address [address] [place] [address] Phone Care Team Providers Care Leather Cleaner Name Role Phone Humberto Matos MD Unavailable Unavailable Allergies, Adverse Reactions, Alerts Substance Reaction Status Criticality No Known allergies Procedures Procedure Date Office/outpatient visit,[facility] 2021 Advance Directives Directive Yes / No Effective Date File Name No Information Encounters Encounter Description Practice Location Reason(s) For Visit Diagnoses Date Provider Providers Copied on Encounter [facility], [address] [place] [address], [facility], [place] tel:[phone] [place] No Information 2 Shawna Paul. [address] [place] [address], [address], [address], [place]. tel:[phone] Referring Provider: Humberto Bernard, [address] [place] [address] [address] [facility], [place], [address]. tel:[phone] Office/outpat ient visit,[facility], [address] [place] [address], [address], tel:[phone] [place] Presence of left artificial knee jointPain in joint of left kneeEffusion of left knee 2 Shawna Paul. [address] [facility], [address], [place], [address], [place]. tel:[phone] Referring Provider: Humberto Bernard, [address] [facility] [address], [place], [address]. tel:[phone] Family History Family Member Type Diagnosis Age At Onset No Information Payers Payer name Insurance type Covered libertarian ID Manolo george(sDoug Rankin Medicare - [id number] Social History Type Description Quantity Date Captured [...]
[2024-11-19 15:10] LABS: Albumin Level 4.8 g/dl (3.5-5.0); Chloride 100 mmol/L (98-107)
[2024-11-19 15:11] LABS: Potassium 4.3 mmoL/L (3.5-5.1); Sodium 137 mmol/L (136-145)
[2024-11-19 15:13] LABS: Alanine Aminotransferase 20 U/L (12-78); Anion Gap 13.3 mEq/L (5-15); Aspartate Amino Transferase 25 U/L (17-59); Blood Urea Nitrogen 15 mg/dl (9-20); Carbon Dioxide 28 mmol/L (22.0-30.0); Creatinine,Serum 0.70 mg/dl (0.66-1.25); Estimated Glomerular Filt Rate 117 ml/min (>60); GFR (African American) 142 ML/MIN (>60)
[2024-11-19 15:14] LABS: Albumin/Globulin Ratio 1.7 (1.1-1.8); Alkaline Phosphatase 99 U/L (38-126); Bilirubin,Total 1.2 mg/dl (0.2-1.3); Calcium 9.4 mg/dl (8.4-10.2); Cholesterol 190 mg/dl (140-200); Globulin 2.9 g/dL (1.3-3.2); Glucose 118 mg/dl (74-100); HDL Cholesterol 43 mg/dl (40-60); Total Protein,Serum 7.7 g/dl (6.3-8.2); Triglycerides 280 mg/dl (30-150)
[2024-11-19 19:56] LABS: Hemoglobin A1C 6.1 % (4.0-6.0)
--- OUTSIDE RECORDS SUMMARY | 2024-11-20 15:10 | XMS_ITS | Clinical Summary ---
Author Organization [facility] ([place], [place], [place], [place]) Address [address] [place] [address] Care Team Providers Care Repairer Shoe Sticks Name Role Phone Jam Pimentel MD Primary Care Provider [phone] Allergies Active Allergy Reactions Criticality Noted Date [...] drink = 0.6 oz pur e alcohol) Food Insecurity Answer Date Recorded Food run [...] Date Yousif rded Speak language other than Trinidadian at home Not on file 05/12/2023 Want help with school or training Not on file 05/12/2023 Substance Use Answer Date Recorded Used [...] 95 02/14/2023 5:58 AM EDT Temperature 36.6 C (97.9 F) 02/14/2023 5:58 AM EDT Respiratory Rate 18 02/14/2023 5:58 AM EDT [...] VACCINES (2 - Td or Tdap) 07/01/2006 Pneumococcal 50+ years (2 of 2 - PCV) 07/23/201901/2019 Shingles Vaccine (Zoster) (1 of 2) 07/23/2019 Medicare Initial AWV [id number] 06/29/2020 COVID-19 VACCINE ( - season) 2023 Tobacco Cessation Counseling and Screening (12+) 02/1302/13/2023 Influenza Vaccine (#1) 2024 Insurance [facility] [place] [address] [id number] [facility] MEDICARE PPO Advance Directives For more information, please contact: [phone] * Full Code (Latest Code Status on File) Date Activated Date Inactivated Comments 02/13/2023 11:02 AM 02/14/2023 1:39 PM Care Teams Repairer Shoe Sticks Relationship Specialty Start Date End Date Jam Pimentel MD [address] [place] [address] [place] [address] PCP - General General Internal Medicine 01/30/23
--- OUTSIDE RECORDS SUMMARY | 2024-11-20 15:10 | XMS_ITS | Clinical Summary ---
Author Organization Healthcare Address [address] [place] [address] Care Team Providers Care Academy Director Name Role Phone Jam Pimentel MD Primary Care Provider [phone] Allergies Active Allergy Reactions Criticality Noted Date [...] 04/09/2017 Painful total knee replacement 04/09/2017 Immunizations Immunization Administration Dates Next Due Influenza, injectable, quadrivalent, [...] 55 12/28/2023 10:29 AM EDT Temperature 36.4 C (97.5 F) 10/25/2023 4:45 PM EDT Respiratory Rate 20 10/25/2023 4:45 PM EDT Oxygen Saturation 99% 12/28/2023 10:29 AM EDT Inhaled Oxygen Concentration - - Weight 81.3 kg (179 lb 3.7 oz) 12/28/2023 10:29 AM EDT Height 188 cm (6' 2 ) 12/28/2023 10:29 AM EDT Body Mass Index 23.01 12/28/2023 10:29 AM EDT Plan of Treatment Health Maintenance Due Date Last Done Comments [facility]-Medicare Annual Wellness (AWV) 1969 [facility]-/Child/Adol SDOH Screenings 1969 Diabetes: Dental Exam 07/23/1979 [facility]- SDOH Screenings 07/23/1987 [facility]-Adult SDOH Screenings 07/23/1987 [facility]-Hepatitis B Vaccines (1 of 3 - 19+ 3-dose series) 1988 [facility]-DTaP,Tdap,and Td Vaccine s (1 - Tdap) 07/02/1996 07/01/1996 CT Colonography 2014 Colonoscopy 2014 FIT-DNA 2014 FIT 2014 FOBT 2014 Sigmoidoscopy 2014 [facility]-Colorectal Cancer Screening 2014 [facility]-Pneumococcal Vaccine: 50 + Years (2 of 2 - PCV) 05/09/2019 05/09/2018 [facility]-Zoster Vaccines (1 of 2) 07/23/2019 [facility]-Diabetes: Hemoglobin A1C 10/07/202002/2020, 03/11/2018 [id number] Vaccine ( season) 2023 [facility]-Depression Screening 12/27/2024 12/28/2023 [facility]-Influenza Vaccine (#1) 2024 05/09/2018 [facility]-HIV Screening Completed 10/24/2023 [facility]-Hepatitis C Screening Completed 10/24/2023 HPV Vaccines Aged Out No longer eligi ble based on patient's age to complete this topic [facility]-HIB Vaccines Aged Out No longer e [...] this topic Medical Devices Implanted Type Area Chairman & Chief Executive Officer Device Identifier Shelf Expiration Date Model / Serial / Lot Stent Ureteral Double Pigtail Pos 6fr 26cm - [id number] Implanted:Qty: 1 on 10/25/2023 by Abran Ruffin MD at [facility] Stent Left: [id number] 07/16/2025 [id number] / / [id number] Procedures Procedure Name Priority Date/Time Associated Diagnosis Comments HEPATITIS C ANTIBODY - ED W/REFLEX TO HCV QUANT PCR STAT 10/24/2023 6:46 PM EDT ED HIV 1/2 ANTIBODY/ANTIGEN SCREEN WITH REFLEX TO HIV I/II DIFFERENTIATION STAT 10/24/2023 6:46 PM EDT HEMOGLOBIN A1C Routine 04/09/2020 11:23 AM EST from Last 3 Months or Most Recently Relevant to Health Maintenance Results * ED HIV 1/2 Antibody/Antigen Screen w/Reflex to HIV 1/2 Differentiation (10/24/2023 6:46 PM EDT) HIV 1 & 2 Antibody/Antigen Screen Non Reactive Non Reactive 10/24/2023 7:36 PM EDT [facility] Comment:Screening for HIV 1 & 2 antibodies, and P24 antigen is NONREACTIVE. No confirmatory testing is required. Blood Venous blood specimen / Unknown Venipuncture / Unknown 10/24/2023 6:46 PM EDT 10/24/2023 6:55 PM EDT Mk Amado MD LAB BLOOD ORDERABLES Final Result Performing Organization Address City/[facility] Co de Phone Number [facility] [address] [place] [address] * Hepatitis C Antibody - ED (10/24/2023 6:46 PM EDT) Hepatitis C Antibody Negative Negative 10/24/2023 7:36 PM EDT [facility] Blood Venous blood specimen / Unknown Venipuncture / Unknown 10/24/2023 6:46 PM EDT 10/24/2023 6:55 PM EDT Result [facility] Mk Amado MD LAB BLOOD ORDERABLES Final Result Performing Organization Address City/[facility] de Phone Number [facility] [address] [place] [address] * Hemoglobin A1c (04/09/2020 11:23 AM EST) Hemoglobin A1c 6.0 4.7 - 6.0 % [facility] Comment: Glycohemoglobin Reference Range, 0 years and up: 4.7 to 6.0% . HA1C Interpretive Data: Diagnosis of Diabetes: Diabetic > or = 6.5% Pre-diabetic 5.7 to 6.4% Non-diabetic < or = 5.6% . Glycemic Targets for Type I and Type II Diabetics: Non- Adults <7.0% Adults <6.0% Children and Adolescents <7.5% . Source: [place] [employer]. Standards of medical care in diabetes, 2017. Diabetes Care.2017:40 (suppl 1):S1-S135. . HbA1c assay performed by an ion-exchange chromatography method that is certified traceable to the DCCT. 04/09/2020 11:2 3 AM EST 04/09/2020 1:28 PM EST Vijay Carney MD LAB BLOOD ORDERABLES Final R esult [facility] from Last 3 Months or Most Recently Relevant to Health Maintenance Insurance [facility] MEDICARE Care Teams Academy Director Relationship Specialty Start Date End Date Jam Pimentel MD [address] [facility] [address] [place] [id number] PCP - General 09/10/20
--- OUTSIDE RECORDS SUMMARY | 2024-11-20 15:10 | XMS_ITS | Referral Summary ---
Author Organization [employer] ([place], [place], [place], [place]) Address [address] [place] [address] Care Team Providers Care Commercial Loan Collection Officer Name Role Phone Jam Pimentel MD Primary Care Provider [phone] Allergies Active Allergy Reactions Criticality Noted Date [...] Date Yousif rded Speak language other than Danish at home Not on file 05/12/2023 Want [...] Plan of Treatment Not on file Insurance [facility] MEDICARE PPO Advance Directives For more information, please contact: [phone] * Full Code (Latest Code Status on File) Date Activated Date Inactivated Comments 02/13/2023 11:02 AM 02/14/2023 1:39 PM Care Teams Commercial Loan Collection Officer Relationship Specialty Start Date End Date Jam Pimentel MD [address] [place] [address] [place] [id number] PCP - General General Internal Medicine 01/30/23
== END 2024-11-19 23:59 | disposition home or self-care (01) ==
LOC: LAB.DROPOF 11-20 15:07
PROVIDERS: PCP Internal Medicine; Visit Provider Internal Medicine
DX: E78.5 Hyperlipidemia, unspecified (principal); E11.9 Type 2 diabetes mellitus without complications; I10 Essential (primary) hypertension
CPT/HCPCS: 80053; 80061; 83036

== ENCOUNTER 2024-12-01 08:45 | Outpatient (CLI) | payer MEDICARE, SELFPAY ==
--- OUTSIDE RECORDS SUMMARY | 2022-02-10 04:43 | XMS_ITS | Continuity of Care Document ---
Author Organization [facility] Address [address] [place] [address] Phone Care Team Providers Care Certification Technician Name Role Phone Humberto Matos MD Unavailable Unavailable Allergies, Adverse Reactions, Alerts Substance Reaction Status Criticality No Known allergies Procedures Procedure Date Office/outpatient visit,[facility] 2021 Advance Directives Directive Yes / No Effective Date File Name No Information Encounters Encounter Description Practice Location Reason(s) For Visit Diagnoses Date Provider Providers Copied on Encounter [facility], [address] [place] [address], [facility], [place] tel:[phone] [place] No Information 2 Shawna Paul. [address] [place] [address], [address], [address], [place]. tel:[phone] Referring Provider: Humberto Bernard, [address] [place] [address] [address] [facility], [place], [address]. tel:[phone] Office/outpat ient visit,[facility], [address] [place] [address], [address], tel:[phone] [place] Presence of left artificial knee jointPain in joint of left kneeEffusion of left knee 2 Shawna Paul. [address] [facility], [place], [address], [place], [address], [place]. tel:[phone] Referring Provider: Humberto Bernard, [address] [facility], [place] [address], [place], [address]. tel:[phone] Family History Family Member Type Diagnosis Age At Onset No Information Payers Payer name Insurance type Covered alliance party ID Manolo george(sDoug Rankin Medicare - [id number] Social History Type Description Quantity Date Captured Comments Alcohol Use Details Unknown Caffeine Use Details Unknown Tobacco Use Status No Information Smoking Status No Information Sex Male Chief Complaint And Reason For Visit No Information Reason For Referral Reason For Referral No Information History Of Present Illness Encounter Date Complaint History Of Prese nt Illness Knee Functional Status Date Functional Assessmen t No Information Instructions Date Instruction Additional Infor mation No Information Assessments Type Assessment Date No Information Patient Care Teams Name Effective Dates (start - stop) Status Members No Information
--- OUTSIDE RECORDS SUMMARY | 2024-12-02 12:48 | XMS_ITS | Clinical Summary ---
Author Organization [employer] ([place], [place], [place], [place]) Address [address] [place] [address] Care Team Providers Care Multiple Spindle Router Operator Name Role Phone Jam Pimentel MD Primary Care Provider [phone] Allergies Active Allergy Reactions Criticality Noted Date [...] Date Yousif rded Speak language other than Faroese at home Not on file 05/12/2023 Want [...] (12+) 02/1302/13/2023 Influenza Vaccine (#1) 2024 Insurance [facility] [place] [address] [id number] [facility] MEDICARE PPO Advance Directives For more information, please contact: [phone] * Full Code (Latest Code Status on File) Date Activated Date Inactivated Comments 02/13/2023 11:02 AM 02/14/2023 1:39 PM Care Teams Multiple Spindle Router Operator Relationship Specialty Start Date End Date Jam Pimentel MD [address] [place] [address] PCP - General General Internal Medicine 01/30/23
--- OUTSIDE RECORDS SUMMARY | 2024-12-02 12:48 | XMS_ITS | Referral Summary ---
Author Organization [employer] ([place], [place], [place], [place]) Address [address] [place] [address] Care Team Providers Care Speech Language Pathologist Assistant Name Role Phone Jam Pimentel MD Primary Care Provider [phone] Allergies Active Allergy Reactions Criticality Noted Date [...] Date Yousif rded Speak language other than Lao at home Not on file 05/12/2023 Want [...] Plan of Treatment Not on file Insurance [facility] MEDICARE PPO Advance Directives For more information, please contact: [phone] * Full Code (Latest Code Status on File) Date Activated Date Inactivated Comments 02/13/2023 11:02 AM 02/14/2023 1:39 PM Care Teams Speech Language Pathologist Assistant Relationship Specialty Start Date End Date Jam Pimentel MD [address] [place] [id number] PCP - General General Internal Medicine 01/30/23
--- OUTSIDE RECORDS SUMMARY | 2024-12-02 12:48 | XMS_ITS | Clinical Summary ---
Author Organization Healthcare Address [address] [place] [address] Care Team Providers Care Plating And Point Assembly Supervisor Name Role Phone Jam Pimentel MD Primary Care Provider [phone] Allergies Active Allergy Reactions Criticality Noted Date [...] 2) 07/23/2019 [facility]-Diabetes: Hemoglobin A1C 10/07/202002/2020, 03/11/2018 [id number] Vaccine ( season) 2023 [facility]-Depression Screening 12/27/2024 [...] this topic Medical Devices Implanted Type Area Highway Maintenance Supervisor Device Identifier Shelf Expiration Date Model / Serial / Lot Stent Ureteral Double Pigtail Pos 6fr 26cm - [id number] Implanted:Qty: 1 on 10/25/2023 by Abran Ruffin MD at [facility] Stent Left: [id number] 07/16/2025 [id number] / / [id number] Procedures Procedure Name Priority Date/Time Associated Diagnosis [...] Reactive Non Reactive 10/24/2023 7:36 PM EDT [facility] Comment:Screening for HIV 1 & 2 antibodies, and P24 antigen is NONREACTIVE. No confirmatory testing is required. Blood Venous blood specimen / Unknown Venipuncture / Unknown 10/24/2023 6:46 PM EDT 10/24/2023 6:55 PM EDT Mk Amado MD LAB BLOOD ORDERABLES Final Result Performing Organization Address City/[facility] Co de Phone Number [facility] [address] [place] [address] * Hepatitis C Antibody - ED (10/24/2023 6:46 PM EDT) Hepatitis C Antibody Negative Negative 10/24/2023 7:36 PM EDT [facility] Blood Venous blood specimen / Unknown Venipuncture / Unknown 10/24/2023 6:46 PM EDT 10/24/2023 6:55 PM EDT Result [facility] Mk Amado MD LAB BLOOD ORDERABLES Final Result Performing Organization Address City/[facility] de Phone Number [facility] [address] [place] [address] * Hemoglobin A1c (04/09/2020 11:23 AM EST) [...] <6.0% Children and Adolescents <7.5% . Source: [place] [employer]. Standards of medical care in diabetes, 2017. Diabetes Care.2017:40 (suppl 1):S1-S135. . HbA1c assay performed by an ion-exchange chromatography method that is certified traceable to the DCCT. 04/09/2020 11:2 3 AM EST 04/09/2020 1:28 PM EST Vijay Carney MD LAB BLOOD ORDERABLES Final R esult [facility] from Last 3 Months or Most Recently Relevant to Health Maintenance Insurance [facility] MEDICARE Care Teams Plating And Point Assembly Supervisor Relationship Specialty Start Date End Date Jam Pimentel MD [address] [facility] [address] [place] [phone] PCP - General 09/10/20
== END 2024-12-01 23:59 | disposition home or self-care (01) ==
LOC: LAB.DROPOF 12-02 12:46
PROVIDERS: PCP Internal Medicine; Visit Provider Internal Medicine
DX: S50.01XA Contusion of right elbow, initial encounter (principal); M70.21 Olecranon bursitis, right elbow
CPT/HCPCS: 87070